=== PATIENT | female | born 1940 | race Caucasian/White ===

== ENCOUNTER 2017-09-17 16:11 | Observation (INO) | payer MEDICARE, OTHER ==
[2017-09-17] MEDS ORDERED: Sodium Chloride 0.9% 10 ML Syringe FLUSH PRN (16:40)
[2017-09-17] MEDS ORDERED: Aspirin 81 MG Tab.Chew PO ONE (16:41)
[2017-09-17 16:53] LABS: CHLORIDE,CL 104 mmol/L (98-107); SODIUM,NA 139 mmol/L (136-145)
--- NOTE | 2017-09-17 17:06 | EDM.PDOC ---
ED HPI GENERAL MEDICAL PROBLEM - General Chief Complaint: Chest Pain Stated Complaint: chest pain Time Seen by Provider: 09/17/17 16:30 Source of Information: Reports: Patient History Limitations: Reports: No Limitations (Patient) - History of Present Illness INITIAL COMMENTS - FREE TEXT/NARRATIVE: Patient is a 77-year-old female well known to myself states that she was at [employer] going home when she developed chest pain she states that the chest pain was about an 8 out of 10 it was so bad that she had to wait for about a minute without moving UNTIL IT LET up a little bit she was able to walk to the car she drove herself in to the hospital/ clinic now being worked up for chest pain EKG shows poor R progression in the anterior cardiac leads no major ST changes at this time Onset: Today, Sudden Duration: Hour(s):, Improving Location: Reports: Chest Quality: Reports: Ache Severity: Moderate Improves with: Reports: None Worsens with: Reports: None Context: Reports: Activity Associated Symptoms: Reports: No Other Symptoms mid chest under breast Pain Score (Numeric/FACES): 2 - Related Data Allergies Allergy/AdvReac Type Severity Reaction Status Date / Time ezetimibe Allergy Cannot Verified 09/17/17 16:36 [From Vytorin 10-10] Remember lisinopril Allergy Cannot Verified 09/17/17 16:36 Remember metformin Allergy Diarrhea Verified 09/17/17 16:36 pioglitazone HCl [From Actos] Allergy Cannot Verified 09/17/17 16:36 Remember rosuvastatin calcium Allergy Diarrhea Verified 09/17/17 16:36 [From Crestor] simvastatin Allergy Cannot Verified 09/17/17 16:36 [From Vytorin 10-10] Remember Home Meds: Home Meds Levothyroxine Sodium [Levoxyl] 25 mcg PO MOWEFR@1100 07/23/13 [History] Metoprolol Tartrate [Lopressor] 25 mg PO BID@1100,199907/23/13 [History] Simvastatin 40 mg PO BEDTIME 07/23/13 [History] Levothyroxine 37.5 mcg PO SUTUTHSA@1100 08/13/15 [History] Acetaminophen [Tylenol] 650 mg PO BEDTIME 08/26/15 [History] Albuterol/Ipratropium [DuoNeb 3.0-0.5 MG/3 ML] 3 ml INH Q4H PRN 04/18/16 [ History] Albuterol [Proventil Neb Soln] 2.5 mg INH Q2H PRN #60 neb 09/02/15 [Rx] Acetaminophen/Diphenhydramine [Tylenol Pm Ex-Strength Caplet] 1 each PO BEDTIME 09/17/17 [History] Albuterol/Ipratropium [DuoNeb 3.0-0.5 MG/3 ML] 3 ml NEB TID 09/17/17 [History] Budesonide [Pulmicort] 0.5 mg INH BID PRN 09/17/17 [History] Dextromethorphan/guaiFENesin [Mucinex DM ER 600-30 MG] 1 tab PO BID PRN [History] Furosemide [Lasix] 40 mg PO DAILY 09/17/17 [History] Insulin Detemir [Levemir] 10 unit SUBCUT BEDTIME 09/17/17 [History] Insulin Lispro [Humalog] 0 unit SQ BID 09/17/17 [History] Loperamide [Imodium AD] 4 mg PO BID PRN 09/17/17 [History] Magnesium Oxide 400 mg PO BEDTIME 09/17/17 [History] Melatonin 10 mg PO DAILY 09/17/17 [History] Potassium Chloride [Klor-Con 10] 30 meq PO DAILY 09/17/17 [History] Sertraline [Zoloft] 100 mg PO BEDTIME 09/17/17 [History] Past Medical History HEENT History: Reports: Allergic Rhinitis, Cataract, Impaired Vision Cardiovascular History: Reports: High Cholesterol, Hypertension, PVD, Other ( See Below) Other Cardiovascular History: varicose veins of the lower extremities Respiratory History: Reports: COPD, Pulmonary Fibrosis Gastrointestinal History: Reports: Bowel Obstruction, Chronic Diarrhea, Diverticulosis, Gastritis, Inflammatory Bowel Disease, Irritable Bowel Syndrome , PUD, Other (See Below) Other Gastrointestinal History: benign right sided hepatic hemangioma stable by serial CT scans, fatty liver, benign hepatic cyst Genitourinary History: Reports: Renal Calculus, Urinary Incontinence Other Genitourinary History: History of kidney stones and 'cysts' RN NEONATAL History: Reports: Musculoskeletal History: Reports: Back Pain, Chronic, Fracture, Neck Pain, Chronic, Osteoarthritis, Osteoporosis Neurological History: Reports: Headaches, Chronic Psychiatric History: Reports: Anxiety, Depression Endocrine/Metabolic History: Reports: Hypothyroidism, IDDM Hematologic History: Reports: None Immunologic History: Reports: None Oncologic (Cancer) History: Reports: Other (See Below) Other Oncologic History: 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 with close followup by urology Dermatologic History: Reports: None - Infectious Disease History Infectious Disease History: Reports: Chicken Pox, Measles, Mumps, Pertussis ( Whooping Cough), Rheumatic Fever, Rubella, Scarlet Fever - Past Surgical History HEENT Surgical History: Reports: Adenoidectomy, Cataract Surgery, Oral Surgery, Tonsillectomy GI Surgical History: Reports: Appendectomy, Cholecystectomy, Colon, Colonoscopy , Lysis of Adhesions, Small Bowel Female Surgical History: Reports: Breast Biopsy, Hysterectomy, Salpingo- Oophorectomy Oncologic Surgical History: Reports: Biopsy of Breast - Past Imaging History Past Imaging History: Reports: DAVID Screen, Carotid US, CAT Scan, Mammogram, Ultrasound, Upper GI X-Ray/Series, Other (See Below) Social & Family History - Family History HEENT: Reports: None Cardiac: Reports: Blood Clots/VTE/DVT, Heart Valve Replacement, High Cholesterol , Hypertension, [place] Respiratory: Reports: COPD GI: Reports: GERD, Inflammatory Bowel Disease : Reports: Renal Disease/Insufficiency OBGYN: Reports: None Musculoskeletal: Reports: None Neurological: Reports: Seizure, Other (See Below) Other Neurological Family History: sister with fatal Down's syndrome in her 50s Psychiatric: Reports: Anxiety, Depression Endocrine/Metabolic: Reports: IDDM Hematologic: Reports: None Immunologic: Reports: None Dermatologic: Reports: None Oncologic: Reports: Breast, Other (See Below) Other Oncologic Family History: 2 maternal aunts with fatal cancer of unknown type - Caffeine Use Caffeine Use: Reports: Coffee (12 cups per day), Soda (1 soda every other day), Tea (one cup per day). Denies: Energy Drinks - Living Situation & Occupation Living situation: Reports: Occupation: Retired ED ROS GENERAL - Review of Systems Review Of Systems: See Below Constitutional: Reports: Weakness, Fatigue HEENT: Reports: No Symptoms Respiratory: Reports: Shortness of Breath Cardiovascular: Reports: Chest Pain Endocrine: Reports: No Symptoms GI/Abdominal: Reports: No Symptoms : Reports: No Symptoms Musculoskeletal: Reports: Other Skin: Reports: No Symptoms Neurological: Reports: No Symptoms Psychiatric: Reports: Anxiety, Depression Hematologic/Lymphatic: Reports: No Symptoms Immunologic: Reports: No Symptoms ED EXAM, GENERAL - Physical Exam Exam: See Below Exam Limited By: No Limitations General Appearance: Alert, WD/WN, No Apparent Distress Eye Exam: Bilateral Eye: PERRL Ears: Normal External Exam, Normal Canal, Hearing Grossly Normal, Normal TMs Ear Exam: Bilateral Ear: Auricle Normal, Canal Normal, TM normal Nose: Normal Inspection, Normal Mucosa, No Blood Throat/Mouth: Normal Inspection, Normal Lips, Normal Teeth, Normal Gums, Normal Oropharynx, Normal Voice, No Airway Compromise Head: Atraumatic, Normocephalic Neck: Normal Inspection, Supple, Non-Tender, Full Range of Motion Respiratory/Chest: No Respiratory Distress, Lungs Clear, Normal Breath Sounds, No Accessory Muscle Use, Chest Non-Tender Cardiovascular: Normal Peripheral Pulses, Regular Rate, Rhythm, No Edema, No Gallop, No JVD, No Murmur, No Rub GI/Abdominal: Normal Bowel Sounds, Soft, Non-Tender, No Organomegaly, No Distention, No Abnormal Bruit, No Mass (Female) Exam: Deferred Rectal (Female) Exam: Deferred Back Exam: Normal Inspection, Full Range of Motion, NT Extremities: Normal Inspection, Normal Range of Motion, Non-Tender, Normal Capillary Refill, No Pedal Edema Neurological: Alert, Oriented, CN II-XII Intact, Normal Cognition, Normal Gait, Normal Reflexes, No Motor/Sensory Deficits Psychiatric: Normal Affect, Normal Mood Skin Exam: Warm, Dry, Intact, Normal Color, No Rash Course - Vital Signs Last Recorded V/S: Last Vital Signs Temp 97.9 F 09/17/17 16:11 Pulse 66 09/17/17 17:45 Resp 19 09/17/17 17:45 BP 108/62 09/17/17 17:45 Pulse Ox 95 09/17/17 17:45 - Orders/Labs/Meds Orders: Active Orders 24 hr Category Date Time Status EKG Documentation Completion [RC] ASDIRECTED Care 09/17/17 16:41 Active Intake and Output [RC] QSHIFT Care 09/17/17 16:30 Active Chest 1V Frontal [CR] Stat Exams 09/17/17 16:24 Taken Sodium Chloride 0.9% [Saline Flush] Med 09/17/17 16:40 Active 10 ml FLUSH ASDIRECTED PRN Saline Lock Insert [OM.PC] Stat Oth 09/17/17 16:37 Ordered Medication Orders Acetaminophen (Tylenol) 650 mg PO BEDTIME [facility] Albuterol (Proventil Neb Soln) 2.5 mg INH Q2H PRN PRN Reason: Dyspnea Albuterol/Ipratropium (Duoneb 3.0-0.5 Mg/3 Ml) 3 ml INH Q4H PRN PRN Reason: Shortness of breath Albuterol/Ipratropium (Duoneb 3.0-0.5 Mg/3 Ml) 3 ml NEB TID [facility] Budesonide (Pulmicort) 0.5 mg INH BID PRN PRN Reason: Dyspnea Furosemide (Lasix) 40 mg PO DAILY [facility] Guaifenesin/Dextromethorphan (Mucinex Dm Er 600-30 Mg) 1 tab PO BID PRN PRN Reason: cough Insulin Detemir (Levemir) 10 unit SUBCUT BEDTIME [facility] Levothyroxine Sodium (Levothyroxine) 37.5 mcg PO SUTUTHSA@1100 [facility] Levothyroxine Sodium (Levothyroxine) 25 mcg PO MOWEFR@1100 [facility] Non-Formulary Medication (Acetaminophen/Diphenhydramine [Tylenol Pm Ex-Strength Caplet]) 1 each PO BEDTIME [facility] Non-Formulary Medication (Insulin Lispro [Humalog Kwikpen U-100]) 10 unit SQ BID [facility] Sodium Chloride (Saline Flush) 10 ml FLUSH ASDIRECTED PRN PRN Reason: Keep Vein Open Labs: Laboratory Tests 09/17/17 09/17/17 09/17/17 Range/Units 16:23 16:23 16:23 WBC 4.8 (4.0-10.2) K/uL RBC 3.21 L (3.77-5.09) M/uL Hgb 10.8 L (11.7-15.5) g/dL Hct 32.8 L (34.0-46.0) % MCV 102.2 H (84.0-98.0) fL MCH 33.6 H (28.2-33.3) pg MCHC 32.9 (31.7-36.0) g/dL RDW 14.3 H (11.2-14.1) % Plt Count 175 (150-350) K/uL Neut % (Auto) 47.2 (45.0-80.0) % Lymph % (Auto) 47.4 (10.0-50.0) % [place] % (Auto) 4.4 (2.0-14.0) % Eos % (Auto) 0.8 (0.0-5.0) % Baso % (Auto) 0.2 (0.0-2.0) % Neut # (Auto) 2.25 (1.40-7.00) K/uL Lymph # (Auto) 2.26 (0.50-3.50) K/uL [place] # (Auto) 0.21 (0.00-1.00) K/uL Eos # (Auto) 0.04 (0.00-0.50) K/uL Baso # (Auto) 0.01 (0.00-0.20) K/uL Sodium 139 (136-145) mmol/L Potassium 4.4 (3.5-5.1) mmol/L Chloride 104 (98-107) mmol/L Carbon Dioxide 25.7 (21.0-32.0) mmol/L BUN 14 (7-18) mg/dL Creatinine 0.94 (0.51-1.17) mg/dL Est Cr Clr Drug Dosing TNP Estimated GFR (MDRD) 58 mL/min Glucose 180 H (74-106) mg/dL Calcium 8.3 L (8.5-10.1) mg/dL Troponin I 0.000 (0.000-0.056) ng/mL Meds: Medications Generic Name Dose Route Start Last Admin Trade Name Freq PRN Reason Stop Dose Admin Acetaminophen 650 mg 09/17/17 20:00 Tylenol PO BEDTIME [facility] Albuterol 2.5 mg 09/17/17 17:57 Proventil Neb Soln INH Q2H PRN Dyspnea Albuterol/Ipratropium 3 ml 09/17/17 17:57 Duoneb 3.0-0.5 Mg/3 Ml INH Q4H PRN Shortness of breath Albuterol/Ipratropium 3 ml 09/17/17 18:00 Duoneb 3.0-0.5 Mg/3 Ml NEB TID [facility] Budesonide 0.5 mg 09/17/17 17:57 Pulmicort INH BID PRN Dyspnea Furosemide 40 mg 09/18/17 08:00 Lasix PO DAILY [facility] Guaifenesin/Dextromethorphan 1 tab 09/17/17 17:57 Mucinex Dm Er 600-30 Mg PO BID PRN cough Insulin Detemir 10 unit 09/17/17 20:00 Levemir SUBCUT BEDTIME [facility] Levothyroxine Sodium 37.5 mcg 09/18/17 11:00 Levothyroxine PO SUTUTHSA@1100 [facility] Levothyroxine Sodium 25 mcg 09/20/17 11:00 Levothyroxine PO MOWEFR@1100 [facility] Non-Formulary Medication 1 each 09/17/17 20:00 Acetaminophen/Diphenhydramine [Tylenol Pm Ex-Strength Caplet] PO BEDTIME [facility] Non-Formulary Medication 10 unit 09/17/17 18:00 Insulin Lispro [Humalog Kwikpen U-100] SQ BID [facility] Sodium Chloride 10 ml 09/17/17 16:40 Saline Flush FLUSH ASDIRECTED PRN Keep Vein Open Discontinued Medications Generic Name Dose Route Start Last Admin Trade Name Freq PRN Reason Stop Dose Admin Aspirin 324 mg 09/17/17 16:41 09/17/17 17:17 Aspirin PO 09/17/17 16:42 324 mg ONETIME ONE Administration Departure - Departure Time of Disposition: 17:12 Disposition: Refer to Observation Clinical Impression: Atypical chest pain, COPD, Mild chronic obstructive pulmonary disease - Problem List Review Problem List Initiated/Reviewed/Updated: Yes - My Orders Last 24 Hours: My Active Orders 09/17/17 16:24 Chest 1V Frontal [CR] Stat 09/17/17 16:30 Intake and Output [RC] QSHIFT 09/17/17 16:37 Saline Lock Insert [OM.PC] Stat 09/17/17 16:40 Sodium Chloride 0.9% [Saline Flush] 10 ml FLUSH ASDIRECTED PRN 09/17/17 16:41 EKG Documentation Completion [RC] ASDIRECTED - Assessment/Plan Last 24 Hours: My Active Orders 09/17/17 16:24 Chest 1V Frontal [CR] Stat 09/17/17 16:30 Intake and Output [RC] QSHIFT 09/17/17 16:37 Saline Lock Insert [OM.PC] Stat 09/17/17 16:40 Sodium Chloride 0.9% [Saline Flush] 10 ml FLUSH ASDIRECTED PRN 09/17/17 16:41 EKG Documentation Completion [RC] ASDIRECTED Assessment:: Chest pain Plan: Patient will be admitted as an observation rule out [place] to his pain patient will be admitted to rule out [place]
[2017-09-17] MEDS ORDERED: Budesonide 0.5 MG/2 ML Neb Susp INH PRN (17:57)
[2017-09-17] MEDS ORDERED: Loperamide 2 MG Tab PO PRN (17:57)
[2017-09-17] MEDS ORDERED: Dextromethorphan/guaiFENesin 600-30 MG Tab.ER PO PRN (17:57)
[2017-09-17] MEDS ORDERED: Albuterol 0.083% 2.5 MG/3 ML Neb Soln INH PRN (17:57)
[2017-09-17] MEDS ORDERED: Albuterol/Ipratropium 3.0-0.5 MG/3 ML Neb Soln INH PRN (17:57)
[2017-09-17] MEDS ORDERED: INSULIN LISPRO 10 UNIT SQ SCH (18:00)
[2017-09-17] MEDS ORDERED: Acetaminophen 325 MG Tab PO SCH (20:00)
[2017-09-17] MEDS ORDERED: Magnesium Oxide 400 MG Tab PO SCH (20:00)
[2017-09-17] MEDS ORDERED: Non-Formulary Medication 1 Each (Sertraline [Zoloft] 100 MG) PO SCH (20:00)
[2017-09-17] MEDS ORDERED: Insulin Detemir 100 Units/ML 3 ML Pen SUBCUT SCH (20:00)
[2017-09-17] MEDS ORDERED: Metoprolol Tartrate 25 MG Tab PO SCH (20:00)
[2017-09-17] MEDS ORDERED: diphenhydrAMINE 25 MG Cap PO SCH (20:30)
[2017-09-17] MEDS ORDERED: Acetaminophen 500 MG Tab PO SCH (20:30)
[2017-09-17] MEDS ORDERED: Melatonin 3 MG Tab PO SCH (20:30)
[2017-09-17] MEDS ORDERED: Sertraline 50 MG Tab PO SCH (20:30)
[2017-09-17] MEDS: Albuterol/Ipratropium 3.0-0.5 MG/3 ML Neb Soln NEB SCH (21:18)
[2017-09-17] MEDS: Insulin Isophane NPH, Human 100 Units/ML 3 ML Pen SUBCUT SCH (21:19)
[2017-09-17] MEDS: Nicotine 21 MG/24 Hr Patch TRDERM SCH (21:20)
[2017-09-17] MEDS ORDERED: Acetaminophen 500 MG Tab PO ONE (21:32)
[2017-09-17] MEDS ORDERED: Sertraline 50 MG Tab PO ONE (21:34)
[2017-09-18 07:41] LABS: CHLORIDE,CL 107 mmol/L (98-107); SODIUM,NA 141 mmol/L (136-145)
[2017-09-18] MEDS: Albuterol/Ipratropium 3.0-0.5 MG/3 ML Neb Soln NEB SCH (07:48)
[2017-09-18] MEDS: Insulin Isophane NPH, Human 100 Units/ML 3 ML Pen SUBCUT SCH (07:48)
[2017-09-18] MEDS: Nicotine 21 MG/24 Hr Patch TRDERM SCH (07:49)
[2017-09-18] MEDS ORDERED: Non-Formulary Medication 1 Each (Melatonin [Melatonin] 10 MG) PO SCH (08:00)
[2017-09-18] MEDS ORDERED: Potassium Chloride 10 MEQ Tab.ER PO SCH (08:00)
[2017-09-18] MEDS ORDERED: Levothyroxine 25 MCG Tab PO SCH ×2 (08:00→11:00)
[2017-09-18] MEDS ORDERED: Furosemide 40 MG Tab PO SCH (08:00)
[2017-09-18] MEDS ORDERED: Metoprolol Tartrate 25 MG Tab PO SCH (08:00)
[2017-09-18 12:23] VITALS: BP 131/59
--- NOTE | 2017-09-18 12:25 | PCM.PN ---
- General Info Date of Service: 09/18/17 Functional Status: Reports: Pain Controlled, Ambulating - Review of Systems General: Reports: No Symptoms HEENT: Reports: No Symptoms Pulmonary: Reports: No Symptoms Cardiovascular: Reports: No Symptoms Gastrointestinal: Reports: No Symptoms Genitourinary: Reports: No Symptoms Musculoskeletal: Reports: No Symptoms Skin: Reports: No Symptoms Neurological: Reports: No Symptoms Psychiatric: Reports: No Symptoms - Patient Data Vitals - Most Recent: Last Vital Signs Temp 97.6 F 09/18/17 08:00 Pulse 72 09/18/17 08:01 Resp 16 09/18/17 08:00 BP 137/57 L 09/18/17 08:01 Pulse Ox 94 L 09/18/17 08:00 Weight - Most Recent: 139 lb 1.6 oz I&O - Last 24 Hours: Intake & Output 09/17/17 09/18/17 09/18/17 22:59 06:59 14:59 Intake Total 420 740 840 Balance 420 740 840 Lab Results Last 24 Hours: Laboratory Results - last 24 hr 09/17/17 09/17/17 09/17/17 Range/Units 16:23 16:23 16:23 WBC 4.8 (4.0-10.2) K/uL RBC 3.21 L (3.77-5.09) M/uL Hgb 10.8 L (11.7-15.5) g/dL Hct 32.8 L (34.0-46.0) % MCV 102.2 H (84.0-98.0) fL MCH 33.6 H (28.2-33.3) pg MCHC 32.9 (31.7-36.0) g/dL RDW 14.3 H (11.2-14.1) % Plt Count 175 (150-350) K/uL Neut % (Auto) 47.2 (45.0-80.0) % Lymph % (Auto) 47.4 (10.0-50.0) % [place] % (Auto) 4.4 (2.0-14.0) % Eos % (Auto) 0.8 (0.0-5.0) % Baso % (Auto) 0.2 (0.0-2.0) % Neut # (Auto) 2.25 (1.40-7.00) K/uL Lymph # (Auto) 2.26 (0.50-3.50) K/uL [place] # (Auto) 0.21 (0.00-1.00) K/uL Eos # (Auto) 0.04 (0.00-0.50) K/uL Baso # (Auto) 0.01 (0.00-0.20) K/uL Sodium 139 (136-145) mmol/L Potassium 4.4 (3.5-5.1) mmol/L Chloride 104 (98-107) mmol/L Carbon Dioxide 25.7 (21.0-32.0) mmol/L BUN 14 (7-18) mg/dL Creatinine 0.94 (0.51-1.17) mg/dL Est Cr Clr Drug Dosing TNP Estimated GFR (MDRD) 58 mL/min Glucose 180 H (74-106) mg/dL POC Glucose (65-110) mg/dl Calcium 8.3 L (8.5-10.1) mg/dL Troponin I 0.000 (0.000-0.056) ng/mL 09/17/17 09/17/17 09/18/17 Range/Units 21:16 22:45 06:40 WBC 2.9 L (4.0-10.2) K/uL RBC 2.86 L (3.77-5.09) M/uL Hgb 9.6 L (11.7-15.5) g/dL Hct 29.4 L (34.0-46.0) % MCV 102.8 H (84.0-98.0) fL MCH 33.6 H (28.2-33.3) pg MCHC 32.7 (31.7-36.0) g/dL RDW 14.1 (11.2-14.1) % Plt Count 140 L (150-350) K/uL Neut % (Auto) 37.0 L (45.0-80.0) % Lymph % (Auto) 58.6 H (10.0-50.0) % [place] % (Auto) 3.4 (2.0-14.0) % Eos % (Auto) 1.0 (0.0-5.0) % Baso % (Auto) 0.0 (0.0-2.0) % Neut # (Auto) 1.08 L (1.40-7.00) K/uL Lymph # (Auto) 1.71 (0.50-3.50) K/uL [place] # (Auto) 0.10 (0.00-1.00) K/uL Eos # (Auto) 0.03 (0.00-0.50) K/uL Baso # (Auto) 0.00 (0.00-0.20) K/uL Sodium (136-145) mmol/L Potassium (3.5-5.1) mmol/L Chloride (98-107) mmol/L Carbon Dioxide (21.0-32.0) mmol/L BUN (7-18) mg/dL Creatinine (0.51-1.17) mg/dL Est Cr Clr Drug Dosing Estimated GFR (MDRD) mL/min Glucose (74-106) mg/dL POC Glucose 190 H (65-110) mg/dl Calcium (8.5-10.1) mg/dL Troponin I 0.000 (0.000-0.056) ng/mL 09/18/17 09/18/17 Range/Units 06:40 07:47 WBC (4.0-10.2) K/uL RBC (3.77-5.09) M/uL Hgb (11.7-15.5) g/dL Hct (34.0-46.0) % MCV (84.0-98.0) fL MCH (28.2-33.3) pg MCHC (31.7-36.0) g/dL RDW (11.2-14.1) % Plt Count (150-350) K/uL Neut % (Auto) (45.0-80.0) % Lymph % (Auto) (10.0-50.0) % [place] % (Auto) (2.0-14.0) % Eos % (Auto) (0.0-5.0) % Baso % (Auto) (0.0-2.0) % Neut # (Auto) (1.40-7.00) K/uL Lymph # (Auto) (0.50-3.50) K/uL [place] # (Auto) (0.00-1.00) K/uL Eos # (Auto) (0.00-0.50) K/uL Baso # (Auto) (0.00-0.20) K/uL Sodium 141 (136-145) mmol/L Potassium 3.7 (3.5-5.1) mmol/L Chloride 107 (98-107) mmol/L Carbon Dioxide 26.9 (21.0-32.0) mmol/L BUN 15 (7-18) mg/dL Creatinine 0.81 (0.51-1.17) mg/dL Est Cr Clr Drug Dosing 52.34 Estimated GFR (MDRD) > 60 mL/min Glucose 223 H (74-106) mg/dL POC Glucose 168 H (65-110) mg/dl Calcium 8.3 L (8.5-10.1) mg/dL Troponin I 0.000 (0.000-0.056) ng/mL Med Orders - Current: Current Medications Acetaminophen (Tylenol) 650 mg PO BEDTIME [facility] Last Admin: 09/17/17 21:23 Dose: 650 mg Acetaminophen (Tylenol Extra Strength) 500 mg PO BEDTIME [facility] Albuterol (Proventil Neb Soln) 2.5 mg INH Q2H PRN PRN Reason: Dyspnea Albuterol/Ipratropium (Duoneb 3.0-0.5 Mg/3 Ml) 3 ml INH Q4H PRN PRN Reason: Shortness of breath Albuterol/Ipratropium (Duoneb 3.0-0.5 Mg/3 Ml) 3 ml NEB TID [facility] Last Admin: 09/18/17 07:48 Dose: 3 ml Budesonide (Pulmicort) 0.5 mg INH BID PRN PRN Reason: Dyspnea Diphenhydramine HCl (Benadryl) 25 mg PO BEDTIME [facility] Last Admin: 09/17/17 21:22 Dose: 25 mg Furosemide (Lasix) 40 mg PO DAILY [facility] Last Admin: 09/18/17 07:49 Dose: 40 mg Guaifenesin/Dextromethorphan (Mucinex Dm Er 600-30 Mg) 1 tab PO BID PRN PRN Reason: cough Insulin Detemir (Levemir) 10 unit SUBCUT BEDTIME [facility] Last Admin: 09/17/17 21:21 Dose: 10 units Insulin Human NPH (Humulin N) 0 unit SUBCUT BID [facility]; Protocol Last Admin: 09/18/17 07:48 Dose: 2 units Levothyroxine Sodium (Levothyroxine) 25 mcg PO MOWEFR@1100 [facility] Levothyroxine Sodium (Levothyroxine) 37.5 mcg PO SUTUTHSA@0800 [facility] Last Admin: 09/18/17 08:00 Dose: 37.5 mcg Loperamide HCl (Imodium Ad) 4 mg PO BID PRN PRN Reason: Diarrhea Magnesium Oxide (Magnesium Oxide) 400 mg PO BEDTIME [facility] Last Admin: 09/17/17 21:23 Dose: 400 mg Melatonin (Melatonin) 9 mg PO BEDTIME [facility] Last Admin: 09/17/17 21:22 Dose: 9 mg Metoprolol Tartrate (Lopressor) 25 mg PO BID@799,1999 [facility] Last Admin: 09/18/17 08:01 Dose: 25 mg Nicotine (Habitrol) 21 mg TRDERM DAILY [facility] Last Admin: 09/18/17 07:49 Dose: 21 mg Potassium Chloride (Klor-Con 10) 30 meq PO DAILY [facility] Last Admin: 09/18/17 07:49 Dose: 30 meq Sertraline HCl (Zoloft) 100 mg PO BEDTIME [facility] Sodium Chloride (Saline Flush) 10 ml FLUSH ASDIRECTED PRN PRN Reason: Keep Vein Open Last Admin: 09/17/17 21:39 Dose: 10 ml Discontinued Medications Acetaminophen (Tylenol Extra Strength) 500 mg PO ONETIME ONE Stop: 09/17/17 21:33 Last Admin: 09/17/17 21:37 Dose: 500 mg Aspirin (Aspirin) 324 mg PO ONETIME ONE Stop: 09/17/17 16:42 Last Admin: 09/17/17 17:17 Dose: 324 mg Levothyroxine Sodium (Levothyroxine) 37.5 mcg PO SUTUTHSA@1100 [facility] Metoprolol Tartrate (Lopressor) 25 mg PO BID@ [facility] Last Admin: 09/17/17 21:23 Dose: 25 mg Non-Formulary Medication (Acetaminophen/Diphenhydramine [Tylenol Pm Ex-Strength Caplet]) 1 each PO BEDTIME [facility] Last Admin: 09/17/17 21:45 Dose: Not Given Non-Formulary Medication (Insulin Lispro [Humalog Kwikpen U-100]) 10 unit SQ BID [facility] Last Admin: 09/17/17 21:45 Dose: Not Given Non-Formulary Medication (Melatonin [Melatonin]) 10 mg PO DAILY [facility] Non-Formulary Medication (Sertraline [Zoloft]) 100 mg PO BEDTIME [facility] Last Admin: 09/17/17 21:45 Dose: Not Given Sertraline HCl (Zoloft) 100 mg PO ONETIME ONE Stop: 09/17/17 21:35 Last Admin: 09/17/17 21:37 Dose: 100 mg Comments:: Patient is a 77-year-old female who was admitted with acute chest pain at this time troponins 3 were negative labs a beer within normal limits except for blood glucose which was elevated she is on a sliding scale at home and she'll continue it resume all medications at the time of discharge he did add nicotine patches to her home medication - Exam General: Alert, Oriented HEENT: Pupils Equal, Pupils Reactive, EOMI, Mucous Membr. Moist/[place] Neck: Supple Lungs: Clear to Auscultation, Normal Respiratory Effort Cardiovascular: Regular Rate, Regular Rhythm GI/Abdominal Exam: Normal Bowel Sounds, Soft, Non-Tender, No Organomegaly, No Distention, No Abnormal Bruit, No Mass, Pelvis Stable (Female) Exam: Deferred Back Exam: Normal Inspection, Full Range of Motion Extremities: Normal Inspection, Normal Range of Motion, Non-Tender, No Pedal Edema, Normal Capillary Refill Skin: Warm, Dry, Intact Wound/Incisions: Healing Well Neurological: No New Focal Deficit - Problem List & Annotations (1) Nicotine addiction SNOMED Code(s): 85680383 Code(s): F17.200 - NICOTINE DEPENDENCE, UNSPECIFIED, UNCOMPLICATED Status: Acute Current Visit: Yes Annotation/Comment:: Patient started on nicotine patches to assist in quitting (2) Atypical chest pain SNOMED Code(s): 212904434 Code(s): R07.89 - OTHER CHEST PAIN Status: Acute Current Visit: Yes (3) COPD, Mild chronic obstructive pulmonary disease SNOMED Code(s): 498152274 Code(s): J44.9 - CHRONIC OBSTRUCTIVE PULMONARY DISEASE, UNSPECIFIED Status : Acute Priority: Medium Current Visit: Yes Annotation/Comment:: COPD currently under good control by patient history despite recent refractory pneumonia - Problem List Review Problem List Initiated/Reviewed/Updated: Yes - My Orders Last 24 Hours: My Active Orders 09/17/17 16:24 Chest 1V Frontal [CR] Stat 09/17/17 16:30 Intake and Output [RC] QSHIFT 09/17/17 16:37 Saline Lock Insert [OM.PC] Stat 09/17/17 16:40 Sodium Chloride 0.9% [Saline Flush] 10 ml FLUSH ASDIRECTED PRN 09/17/17 16:41 EKG Documentation Completion [RC] ASDIRECTED 09/17/17 17:57 Albuterol [Proventil Neb Soln] 2.5 mg INH Q2H PRN Albuterol/Ipratropium [DuoNeb 3.0-0.5 MG/3 ML] 3 ml INH Q4H PRN Budesonide [Pulmicort] 0.5 mg INH BID PRN Dextromethorphan/guaiFENesin [Mucinex DM ER 600-30 MG] 1 tab PO BID PRN Loperamide [Imodium AD] 4 mg PO BID PRN 09/17/17 18:00 Albuterol/Ipratropium [DuoNeb 3.0-0.5 MG/3 ML] 3 ml NEB TID 09/17/17 18:15 Admission Status [Patient Status] [ADT] Routine Nph, Human Insulin Isophane [HumuLIN N] See Protocol SUBCUT BID 09/17/17 19:09 Resuscitation Status Routine 09/17/17 19:13 Blood Glucose Check, Bedside [RC] BIDMEALS 09/17/17 19:15 Nicotine [Habitrol] 21 mg TRDERM DAILY 09/17/17 20:00 Vital Signs [RC] Q4H Acetaminophen [Tylenol] 650 mg PO BEDTIME Insulin Detemir [Levemir] 10 unit SUBCUT BEDTIME Magnesium Oxide 400 mg PO BEDTIME 09/17/17 20:30 Acetaminophen [Tylenol Extra Strength] 500 mg PO BEDTIME Melatonin 9 mg PO BEDTIME Sertraline [Zoloft] 100 mg PO BEDTIME diphenhydrAMINE [Benadryl] 25 mg PO BEDTIME 09/17/17 21:00 Accu Check [Blood Glucose Check, Bedside] [RC] ONETIME 09/17/17 Dinner [employer] Diet [DIET] 09/18/17 07:00 EKG Documentation Completion [RC] ASDIRECTED 09/18/17 08:00 Furosemide [Lasix] 40 mg PO DAILY Levothyroxine 37.5 mcg PO SUTUTHSA@0800 Metoprolol Tartrate [Lopressor] 25 mg PO BID@0800,1999 Potassium Chloride [Klor-Con 10] 30 meq PO DAILY 09/18/17 12:13 Ready for Discharge [RC] PER UNIT ROUTINE 09/20/17 11:00 Levothyroxine 25 mcg PO MOWEFR@1100 - Plan Plan:: Patient will be discharged home on same medications plus nicotine patches to assist with quitting smoking
--- NOTE | 2017-09-18 12:28 | PCM.DCSUM1 ---
Discharge Summary - Hospital Course Free Text/Narrative:: Patient is a 77-year-old who was admitted with chest pain at this time she was ruled out of [place] doing well we'll be sent home follow up with me in 10 days we will go ahead and schedule her for cardiac stress test when possible - Discharge Data Discharge Date: 09/18/17 Discharge Disposition: Home, Self-Care 01 Condition: Good - Discharge Diagnosis/Problem(s) (1) Nicotine addiction SNOMED Code(s): 93367118 ICD Code: F17.200 - NICOTINE DEPENDENCE, UNSPECIFIED, UNCOMPLICATED Status : Acute Current Visit: Yes Problem Details: Patient started on nicotine patches to assist in quitting (2) Atypical chest pain SNOMED Code(s): 073895909 ICD Code: R07.89 - OTHER CHEST PAIN Status: Acute Current Visit: Yes (3) COPD, Mild chronic obstructive pulmonary disease SNOMED Code(s): 433466412 ICD Code: J44.9 - CHRONIC OBSTRUCTIVE PULMONARY DISEASE, UNSPECIFIED Status : Acute Priority: Medium Current Visit: Yes Problem Details: COPD currently under good control by patient history despite recent refractory pneumonia - Discharge Plan Prescriptions/Med Rec: Nicotine [Nicoderm CQ] 22 patch TD DAILY 30 Days #30 patch.[id number] Home Medications: Home Meds Levothyroxine Sodium [Levoxyl] 25 mcg PO MOWEFR@1100 07/23/13 [History] Metoprolol Tartrate [Lopressor] 25 mg PO BID@1100,199907/23/13 [History] Simvastatin 40 mg PO BEDTIME 07/23/13 [History] Levothyroxine 37.5 mcg PO SUTUTHSA@1100 08/13/15 [History] Acetaminophen [Tylenol] 650 mg PO BEDTIME 08/26/15 [History] Albuterol/Ipratropium [DuoNeb 3.0-0.5 MG/3 ML] 3 ml INH Q4H PRN 08/26/15 [ History] Albuterol [Proventil Neb Soln] 2.5 mg INH Q2H PRN #60 neb 09/02/15 [Rx] Acetaminophen/Diphenhydramine [Tylenol Pm Ex-Strength Caplet] 1 each PO BEDTIME 09/17/17 [History] Albuterol/Ipratropium [DuoNeb 3.0-0.5 MG/3 ML] 3 ml NEB TID 09/17/17 [History] Budesonide [Pulmicort] 0.5 mg INH BID PRN 09/17/17 [History] Dextromethorphan/guaiFENesin [Mucinex DM ER 600-30 MG] 1 tab PO BID PRN [History] Furosemide [Lasix] 40 mg PO DAILY 09/17/17 [History] Insulin Detemir [Levemir] 10 unit SUBCUT BEDTIME 09/17/17 [History] Insulin Lispro [Humalog] 0 unit SQ BID 09/17/17 [History] Loperamide [Imodium AD] 4 mg PO BID PRN 09/17/17 [History] Magnesium Oxide 400 mg PO BEDTIME 09/17/17 [History] Melatonin 10 mg PO BEDTIME 09/17/17 [History] Potassium Chloride [Klor-Con 10] 30 meq PO DAILY 09/17/17 [History] Sertraline [Zoloft] 100 mg PO BEDTIME 09/17/17 [History] Nicotine [Nicoderm CQ] 22 patch TD DAILY 30 Days #30 patch.td24 09/18/17 [Rx] Patient Handouts: Chronic Obstructive Pulmonary Disease, [id number], Nonspecific Chest Pain, [id number], Acute Pain, Adult Forms: ED Department Discharge Referrals: Jayson Small MD [Primary Care Provider] - - General Info Functional Status: Reports: Pain Controlled - Review of Systems General: Reports: No Symptoms HEENT: Reports: No Symptoms Pulmonary: Reports: No Symptoms Cardiovascular: Reports: No Symptoms Genitourinary: Reports: No Symptoms Musculoskeletal: Reports: No Symptoms Skin: Reports: No Symptoms Neurological: Reports: No Symptoms Psychiatric: Reports: No Symptoms - Patient Data Vitals - Most Recent: Last Vital Signs Temp 98.2 F 09/18/17 12:00 Pulse 69 09/18/17 12:00 Resp 16 09/18/17 12:00 BP 131/59 L 09/18/17 12:00 Pulse Ox 95 09/18/17 12:00 Weight - Most Recent: 139 lb 1.6 oz I&O - Last 24 hours: Intake & Output 09/17/17 09/18/17 09/18/17 22:59 06:59 14:59 Intake Total 020 932 0612 Balance 054 194 1435 Lab Results - Last 24 hrs: Laboratory Results - last 24 hr 09/17/17 09/17/17 09/17/17 Range/Units 16:23 16:23 16:23 WBC 4.8 (4.0-10.2) K/uL RBC 3.21 L (3.77-5.09) M/uL Hgb 10.8 L (11.7-15.5) g/dL Hct 32.8 L (34.0-46.0) % MCV 102.2 H (84.0-98.0) fL MCH 33.6 H (28.2-33.3) pg MCHC 32.9 (31.7-36.0) g/dL RDW 14.3 H (11.2-14.1) % Plt Count 175 (150-350) K/uL Neut % (Auto) 47.2 (45.0-80.0) % Lymph % (Auto) 47.4 (10.0-50.0) % [place] % (Auto) 4.4 (2.0-14.0) % Eos % (Auto) 0.8 (0.0-5.0) % Baso % (Auto) 0.2 (0.0-2.0) % Neut # (Auto) 2.25 (1.40-7.00) K/uL Lymph # (Auto) 2.26 (0.50-3.50) K/uL [place] # (Auto) 0.21 (0.00-1.00) K/uL Eos # (Auto) 0.04 (0.00-0.50) K/uL Baso # (Auto) 0.01 (0.00-0.20) K/uL Sodium 139 (136-145) mmol/L Potassium 4.4 (3.5-5.1) mmol/L Chloride 104 (98-107) mmol/L Carbon Dioxide 25.7 (21.0-32.0) mmol/L BUN 14 (7-18) mg/dL Creatinine 0.94 (0.51-1.17) mg/dL Est Cr Clr Drug Dosing TNP Estimated GFR (MDRD) 58 mL/min Glucose 180 H (74-106) mg/dL POC Glucose (65-110) mg/dl Calcium 8.3 L (8.5-10.1) mg/dL Troponin I 0.000 (0.000-0.056) ng/mL 09/17/17 09/17/17 09/18/17 Range/Units 21:16 22:45 06:40 WBC 2.9 L (4.0-10.2) K/uL RBC 2.86 L (3.77-5.09) M/uL Hgb 9.6 L (11.7-15.5) g/dL Hct 29.4 L (34.0-46.0) % MCV 102.8 H (84.0-98.0) fL MCH 33.6 H (28.2-33.3) pg MCHC 32.7 (31.7-36.0) g/dL RDW 14.1 (11.2-14.1) % Plt Count 140 L (150-350) K/uL Neut % (Auto) 37.0 L (45.0-80.0) % Lymph % (Auto) 58.6 H (10.0-50.0) % [place] % (Auto) 3.4 (2.0-14.0) % Eos % (Auto) 1.0 (0.0-5.0) % Baso % (Auto) 0.0 (0.0-2.0) % Neut # (Auto) 1.08 L (1.40-7.00) K/uL Lymph # (Auto) 1.71 (0.50-3.50) K/uL [place] # (Auto) 0.10 (0.00-1.00) K/uL Eos # (Auto) 0.03 (0.00-0.50) K/uL Baso # (Auto) 0.00 (0.00-0.20) K/uL Sodium (136-145) mmol/L Potassium (3.5-5.1) mmol/L Chloride (98-107) mmol/L Carbon Dioxide (21.0-32.0) mmol/L BUN (7-18) mg/dL Creatinine (0.51-1.17) mg/dL Est Cr Clr Drug Dosing Estimated GFR (MDRD) mL/min Glucose (74-106) mg/dL POC Glucose 190 H (65-110) mg/dl Calcium (8.5-10.1) mg/dL Troponin I 0.000 (0.000-0.056) ng/mL 09/18/17 09/18/17 Range/Units 06:40 07:47 WBC (4.0-10.2) K/uL RBC (3.77-5.09) M/uL Hgb (11.7-15.5) g/dL Hct (34.0-46.0) % MCV (84.0-98.0) fL MCH (28.2-33.3) pg MCHC (31.7-36.0) g/dL RDW (11.2-14.1) % Plt Count (150-350) K/uL Neut % (Auto) (45.0-80.0) % Lymph % (Auto) (10.0-50.0) % [place] % (Auto) (2.0-14.0) % Eos % (Auto) (0.0-5.0) % Baso % (Auto) (0.0-2.0) % Neut # (Auto) (1.40-7.00) K/uL Lymph # (Auto) (0.50-3.50) K/uL [place] # (Auto) (0.00-1.00) K/uL Eos # (Auto) (0.00-0.50) K/uL Baso # (Auto) (0.00-0.20) K/uL Sodium 141 (136-145) mmol/L Potassium 3.7 (3.5-5.1) mmol/L Chloride 107 (98-107) mmol/L Carbon Dioxide 26.9 (21.0-32.0) mmol/L BUN 15 (7-18) mg/dL Creatinine 0.81 (0.51-1.17) mg/dL Est Cr Clr Drug Dosing 52.34 Estimated GFR (MDRD) > 60 mL/min Glucose 223 H (74-106) mg/dL POC Glucose 168 H (65-110) mg/dl Calcium 8.3 L (8.5-10.1) mg/dL Troponin I 0.000 (0.000-0.056) ng/mL Med Orders - Current: Current Medications Acetaminophen (Tylenol) 650 mg PO BEDTIME LEONID Last Admin: 09/17/17 21:23 Dose: 650 mg Acetaminophen (Tylenol Extra Strength) 500 mg PO BEDTIME [facility] Albuterol (Proventil Neb Soln) 2.5 mg INH Q2H PRN PRN Reason: Dyspnea Albuterol/Ipratropium (Duoneb 3.0-0.5 Mg/3 Ml) 3 ml INH Q4H PRN PRN Reason: Shortness of breath Albuterol/Ipratropium (Duoneb 3.0-0.5 Mg/3 Ml) 3 ml NEB TID [facility] Last Admin: 09/18/17 07:48 Dose: 3 ml Budesonide (Pulmicort) 0.5 mg INH BID PRN PRN Reason: Dyspnea Diphenhydramine HCl (Benadryl) 25 mg PO BEDTIME [facility] Last Admin: 09/17/17 21:22 Dose: 25 mg Furosemide (Lasix) 40 mg PO DAILY [facility] Last Admin: 09/18/17 07:49 Dose: 40 mg Guaifenesin/Dextromethorphan (Mucinex Dm Er 600-30 Mg) 1 tab PO BID PRN PRN Reason: cough Insulin Detemir (Levemir) 10 unit SUBCUT BEDTIME [facility] Last Admin: 09/17/17 21:21 Dose: 10 units Insulin Human NPH (Humulin N) 0 unit SUBCUT BID [facility]; Protocol Last Admin: 09/18/17 07:48 Dose: 2 units Levothyroxine Sodium (Levothyroxine) 25 mcg PO MOWEFR@1100 [facility] Levothyroxine Sodium (Levothyroxine) 37.5 mcg PO SUTUTHSA@0800 [facility] Last Admin: 09/18/17 08:00 Dose: 37.5 mcg Loperamide HCl (Imodium Ad) 4 mg PO BID PRN PRN Reason: Diarrhea Magnesium Oxide (Magnesium Oxide) 400 mg PO BEDTIME [facility] Last Admin: 09/17/17 21:23 Dose: 400 mg Melatonin (Melatonin) 9 mg PO BEDTIME [facility] Last Admin: 09/17/17 21:22 Dose: 9 mg Metoprolol Tartrate (Lopressor) 25 mg PO BID@0800,2000 [facility] Last Admin: 09/18/17 08:01 Dose: 25 mg Nicotine (Habitrol) 21 mg TRDERM DAILY [facility] Last Admin: 09/18/17 07:49 Dose: 21 mg Potassium Chloride (Klor-Con 10) 30 meq PO DAILY [facility] Last Admin: 09/18/17 07:49 Dose: 30 meq Sertraline HCl (Zoloft) 100 mg PO BEDTIME [facility] Sodium Chloride (Saline Flush) 10 ml FLUSH ASDIRECTED PRN PRN Reason: Keep Vein Open Last Admin: 09/17/17 21:39 Dose: 10 ml Discontinued Medications Acetaminophen (Tylenol Extra Strength) 500 mg PO ONETIME ONE Stop: 09/17/17 21:33 Last Admin: 09/17/17 21:37 Dose: 500 mg Aspirin (Aspirin) 324 mg PO ONETIME ONE Stop: 09/17/17 16:42 Last Admin: 09/17/17 17:17 Dose: 324 mg Levothyroxine Sodium (Levothyroxine) 37.5 mcg PO SUTUTHSA@1100 [facility] Metoprolol Tartrate (Lopressor) 25 mg PO BID@1100,2000 [facility] Last Admin: 09/17/17 21:23 Dose: 25 mg Non-Formulary Medication (Acetaminophen/Diphenhydramine [Tylenol Pm Ex-Strength Caplet]) 1 each PO BEDTIME [facility] Last Admin: 09/17/17 21:45 Dose: Not Given Non-Formulary Medication (Insulin Lispro [Humalog Kwikpen U-100]) 10 unit SQ BID [facility] Last Admin: 09/17/17 21:45 Dose: Not Given Non-Formulary Medication (Melatonin [Melatonin]) 10 mg PO DAILY [facility] Non-Formulary Medication (Sertraline [Zoloft]) 100 mg PO BEDTIME [facility] Last Admin: 09/17/17 21:45 Dose: Not Given Sertraline HCl (Zoloft) 100 mg PO ONETIME ONE Stop: 09/17/17 21:35 Last Admin: 09/17/17 21:37 Dose: 100 mg - Exam General: Reports: Alert, Oriented HEENT: Reports: Pupils Equal, Pupils Reactive, EOMI, Mucous Membr. Moist/[place] Neck: Reports: Supple Lungs: Reports: Clear to Auscultation, Normal Respiratory Effort Cardiovascular: Reports: Regular Rate, Regular Rhythm GI/Abdominal Exam: Normal Bowel Sounds, Soft, Non-Tender, No Organomegaly, No Distention, No Abnormal Bruit, No Mass, Pelvis Stable (Female) Exam: Deferred Rectal (Female) Exam: Deferred Back Exam: Reports: Normal Inspection, Full Range of Motion Extremities: Normal Inspection, Normal Range of Motion, Non-Tender, No Pedal Edema, Normal Capillary Refill Skin: Reports: Warm, Dry, Intact Neurological: Reports: No New Focal Deficit Psy/Mental Status: Reports: Alert, Normal Affect, Normal Mood
[2017-09-20] MEDS ORDERED: Levothyroxine 25 MCG Tab PO SCH (11:00)
== END 2017-09-18 12:55 | disposition home or self-care (01) ==
LOC: LL.ED 16:11 → UNDOADMOB 17:10 → LL.MS 17:10 → UNDODISOB 09-18 12:55
PROVIDERS: ADMIT Family Medicine; ATTEND Family Medicine
DX: R07.89 Other chest pain (principal); F17.200 Nicotine dependence, unspecified, uncomplicated; J44.9 Chronic obstructive pulmonary disease, unspecified; J30.9 Allergic rhinitis, unspecified; E78.00 Pure hypercholesterolemia, unspecified; I10 Essential (primary) hypertension; I83.90 Asymptomatic varicose veins of unspecified lower extremity; F41.9 Anxiety disorder, unspecified; F32.9 Major depressive disorder, single episode, unspecified; E03.9 Hypothyroidism, unspecified; E11.51 Type 2 diabetes mellitus with diabetic peripheral angiopathy without gangrene; Z90.89 Acquired absence of other organs; Z79.899 Other long term (current) drug therapy; Z79.4 Long term (current) use of insulin; Z88.8 Allergy status to other drugs, medicaments and biological substances; Z90.49 Acquired absence of other specified parts of digestive tract
CPT/HCPCS: 36000; 36415; 71045; 80048; 82962; 84484; 85025; 93005; 94640; 99285; A9270-GY; G0378; J1815; J1815-GY; J7050

== ENCOUNTER 2018-10-15 21:16 | Observation (INO) | payer MEDICARE, OTHER ==
[2018-10-15] MEDS ORDERED: Sodium Chloride 0.9% 10 ML Syringe FLUSH PRN (22:10)
--- NOTE | 2018-10-15 22:16 | EDM.PDOC ---
ED HPI GENERAL MEDICAL PROBLEM - General Chief Complaint: General Stated Complaint: SOB / right side pain Time Seen by Provider: 10/15/18 21:25 Source of Information: Reports: Patient History Limitations: Reports: No Limitations - History of Present Illness INITIAL COMMENTS - FREE TEXT/NARRATIVE: Patient is a 78-year-old who states that about 4 days ago she started getting sick with progressive shortness "what of breath today she presents with shortness of breath difficulty taking a deep breath. Onset: Gradual Duration: Hour(s):, Getting Worse Location: Reports: Chest Quality: Reports: Ache Severity: Moderate Improves with: Reports: Rest Worsens with: Reports: Movement Associated Symptoms: Reports: Shortness of Breath Right Middle Abdomen Pain Score (Numeric/FACES): 6 - Related Data Allergies Allergy/AdvReac Type Severity Reaction Status Date / Time ezetimibe Allergy Cannot Verified 02/28/18 12:02 [From Vytorin 10-10] Remember lisinopril Allergy Cannot Verified 02/28/18 12:02 Remember metformin Allergy Diarrhea Verified 02/28/18 12:02 pioglitazone HCl [From Actos] Allergy Cannot Verified 02/28/18 12:02 Remember rosuvastatin calcium Allergy Diarrhea Verified 02/28/18 12:02 [From Crestor] simvastatin Allergy Cannot Verified 02/28/18 12:02 [From Vytorin 10-10] Remember Home Meds: Home Meds Levothyroxine Sodium [Levoxyl] 25 mcg PO MOWEFR@1100 07/23/13 [History] Metoprolol Tartrate [Lopressor] 25 mg PO BID@1100,199907/23/13 [History] Simvastatin 40 mg PO BEDTIME 07/23/13 [History] Levothyroxine 50 mcg PO SUTUTHSA@1100 08/13/15 [History] Insulin Detemir [Levemir] 10 unit SUBCUT BEDTIME 09/17/17 [History] Aspirin [Halfprin] 81 mg PO DAILY 12/18/17 [History] Melatonin/Pyridoxine HCl (B6) [Melatonin 5 mg Tablet] 5 mg PO ASDIRECTED PRN 05/27 [History] Sertraline HCl 1.5 tab PO BEDTIME 03/10/18 [History] Albuterol Sulfate [Proair Respiclick] 1 puff IH QID 03/12/18 [History] Albuterol [Proventil Neb Soln] 3 ml INH Q4HR PRN 03/12/18 [History] Calcium Carbonate/Vitamin D3 [Calcium 600 + Vit D Tablet] 1 each PO BID [History] Cholestyramine (With Sugar) [Questran Powder] 4 gm PO TID 03/12/18 [History] Cyanocobalamin (Vitamin B-12) [Cyanocobalamin Injection] 1,000 mcg IJ Q30D 03/12 [History] Fluticasone Propionate [Flovent HFA 110 MCG] 1 puff INH BID 03/12/18 [History] Furosemide 1.5 tab PO DAILY 03/12/18 [History] Magnesium Chloride [Mag-64] 2 tab PO DAILY 03/12/18 [History] Omeprazole 20 mg PO DAILY 03/12/18 [History] Warfarin [Coumadin] 2.5 mg PO DAILY 03/12/18 [History] Arformoterol [Brovana] 15 mcg IH BID 10/15/18 [History] Cholecalciferol (Vitamin D3) [D-2000] 2,000 unit PO 10/15/18 [History] Diphenoxylate HCl/Atropine [Lomotil] 1 tab PO Q6H PRN 10/15/18 [History] Nicotine Polacrilex [Nicotine Lozenge] 2 mg BC ASDIRECTED 10/15/18 [History] Pomalidomide [Pomalyst] 1 mg PO ASDIRECTED 10/15/18 [History] Prochlorperazine [Compazine] 10 mg PO Q8H PRN 10/15/18 [History] valACYclovir HCl [Valtrex] 500 mg PO BID 10/15/18 [History] Past Medical History HEENT History: Reports: Allergic Rhinitis, Cataract, Impaired Vision, Other ( See Below) Other HEENT History: Allergic rhinitis not currently being treated your patient wears glasses. Cardiovascular History: Reports: Arrhythmia, CAD, Cardiomyopathy, High Cholesterol, Hypertension, PVD, Other (See Below) Other Cardiovascular History: Varicose veins of the lower extremities. Dyslipidemia. Minimal carotid occlusive disease. PVCs. Grade 1 diastolic dysfunction by echocardiogram. Respiratory History: Reports: Bronchitis, Recurrent, COPD, Intubation, Previous , Pneumonia, Recurrent, Pulmonary Fibrosis Gastrointestinal History: Reports: Bowel Obstruction, Chronic Diarrhea, Diverticulosis, Gastritis, GERD, Inflammatory Bowel Disease, Irritable Bowel Syndrome, PUD, Other (See Below) Other Gastrointestinal History: History of recurrent diarrhea secondary to her Crohn's disease including secondary fistula requiring surgery as below. Benign right sided hepatic hemangioma stable by serial CT scans with additional fatty liver and benign hepatic cyst these evaluations. LFTs elevation likely secondary to fatty liver. Rectus muscle diastasis by CT scan. Genitourinary History: Reports: Renal Calculus, Urinary Incontinence, UTI, Recurrent Other Genitourinary History: History of right-sided urolithiasis with nonproblematic chronic hematuria and spontaneous passage. Additional history of benign renal cysts. COMMUNICATION CENTER COORDINATOR History: Reports: Other COMMUNICATION CENTER COORDINATOR History: Surgical menopause as below. Full term without complications during pregnancies or deliveries. Musculoskeletal History: Reports: Arthritis, Back Pain, Chronic, Fracture, Neck Pain, Chronic, Osteoarthritis, Osteoporosis Other Musculoskeletal History: Scoliosis. Left elbow fracture requiring surgery as below. Neurological History: Reports: Headaches, Chronic Psychiatric History: Reports: Anxiety, Depression Endocrine/Metabolic History: Reports: Diabetes, Type II, Hypothyroidism, IDDM, Other (See Below) Other Endocrine/Metabolic History: Hypomagnesemia. Hypoalbuminemia and hypokalemia. 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 Multiple myeloma diagnosed in February 2018 with further evaluation at the [facility] in [place], including additional chemotherapy. Dermatologic History: Reports: None - Infectious Disease History Infectious Disease History: Reports: Chicken Pox, Measles, Mumps, Pertussis ( Whooping Cough), Rheumatic Fever, Rubella, Scarlet Fever - Past Surgical History Head Surgeries/Procedures: Reports: None HEENT Surgical History: Reports: Adenoidectomy, Cataract Surgery, Oral Surgery, Tonsillectomy, Other (See Below) Other HEENT Surgeries/Procedures: Tonsillectomy and adenoidectomy at age 18. Bilateral cataract surgery in March 2012. Complete teeth extraction with current dentures. Cardiovascular Surgical History: Reports: None Respiratory Surgical History: Reports: None GI Surgical History: Reports: Appendectomy, Cholecystectomy, Colon, Colonoscopy , EGD, Lysis of Adhesions, Small Bowel, Other (See Below) Other GI Surgeries/Procedures: Appendectomy with concomitant small bowel resection in about 1999 secondary to her Crohn's disease. Open cholecystectomy concomitant with her complete hysterectomy in her 50s in about 1997. Partial resection of the ascending colon in 1999 at time of small bowel resection. As colonoscopy on 01/10/15 with previous evaluations on 11/27/07 and 03/12/08. Adhesiolysis in 2005 and 2008. Repeat small bowel resection in 2001. Female Surgical History: Reports: Breast Biopsy, Hysterectomy, Salpingo- Oophorectomy, Other (See Below) Other Female Surgeries/Procedures: Breast biopsy for benign disease in the left breast in about 1999. Complete hysterectomy with bilateral salpingo- oophorectomy in her 50s for unknown reason. Endocrine Surgical History: Reports: None Neurological Surgical History: Reports: None Musculoskeletal Surgical History: Reports: ORIF, Other (See Below) Other Musculoskeletal Surgeries/Procedures:: ORIF/pin placement of the left elbow fracture 1996 Oncologic Surgical History: Reports: Biopsy of Breast, Bone Marrow Aspiration, Other (See Below) Other Oncologic Surgeries/Procedures: Breast biopsy as above for benign disease. Bone marrow fine-needle aspiration and biopsy in February 2018. Dermatological Surgical History: Reports: None - Past Imaging History Past Imaging History: Reports: DAVID Screen (DAVID screen with exercise on 07/15/10), Cardiac Echo (Echocardiogram on 09/03/15 with ejection fraction of 6065 percent. ), Carotid US (07/28/11), CAT Scan (Last CT scan of the abdomen including angiographic evaluation on 12/28/17. CT of the abdomen and pelvis on 06/07/17 with multiple previous evaluations including initially on 12/22/12. CTA of the chest and additional abdominal and pelvic CT scans on 08/25/15.), Cystoscopy ( Last cystoscopy on 01/17/11 with previous evaluations on 09/04/98 and 08/21/98.), Mammogram (Last mammogram on 04/03/16.), Stress Testing (Negative Cardiolite stress test on 09/23/17 with ejection fraction of 27%.), Swallow Study (Negative swallowing study on 08/29/15.), Ultrasound (Abdominal ultrasound on 03/03/10 with previous evaluations on 09/04/28 and 08/21/98.), Upper GI X-Ray/Series, Other (See Below) (Barium enema on 09/05/98 and 07/30/98. Camera colonic evaluation in about 2005.) Social & Family History - Family History HEENT: Reports: None Cardiac: Reports: Blood Clots/VTE/DVT, CAD, Heart Valve Replacement, High Cholesterol, Hypertension, NM, Other (See Below) Other Cardiac Family History: Son with DVT in his 40s with mother with DVT in her 70s and 80s. Valve replacement secondary to rheumatic fever. Hyperlipidemia and son, brother, and sister. Hypertension in 4 brothers, parents, and sister. Mother with fatal NM in his 60s. 4 brothers with fatal MIs in their 50s and 60s with one of these having a fatal NM at about age 49. Respiratory: Reports: COPD, Other (See Below) Other Respiratory Family Hisory: Brother with COPD. GI: Reports: GERD, Inflammatory Bowel Disease, Other (See Below) Other GI Family History: Son with GERD. Sister with Crohn's disease. : Reports: Renal Disease/Insufficiency, Other (See Below) Other Family History: Mother with fatal renal disease in her 90s. OBGYN: Reports: None Musculoskeletal: Reports: None Neurological: Reports: Seizure, Other (See Below) Other Neurological Family History: sister with fatal Down's syndrome in her 50s Psychiatric: Reports: Anxiety, Depression, Other (See Below) Other Psychiatric Family History: Brother with anxiety depression disorder Endocrine/Metabolic: Reports: IDDM, Other (See Below) Other Endocrine/Metabolic Family History: Mother, sister, and 2 brothers with IDDM Hematologic: Reports: None Immunologic: Reports: None Dermatologic: Reports: None Oncologic: Reports: Breast, Other (See Below) Other Oncologic Family History: 2 maternal aunts with fatal cancer of unknown type - Tobacco Use Smoking Status *Q: Current Every Day Smoker Years of Tobacco use: 61 Packs/Tins Daily: 1 - Caffeine Use Caffeine Use: Reports: Coffee, Soda - Recreational Drug Use Recreational Drug Use: No - Living Situation & Occupation Living situation: Reports: (1991 from first with 5 children from this marriage. 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.) ED ROS GENERAL - Review of Systems Review Of Systems: See Below Constitutional: Reports: Fever, Weakness HEENT: Reports: No Symptoms Respiratory: Reports: Shortness of Breath, Wheezing, Cough Cardiovascular: Reports: No Symptoms Endocrine: Reports: No Symptoms GI/Abdominal: Reports: Abdominal Pain : Reports: No Symptoms Musculoskeletal: Reports: No Symptoms Skin: Reports: No Symptoms Neurological: Reports: No Symptoms Psychiatric: Reports: No Symptoms Hematologic/Lymphatic: Reports: No Symptoms Immunologic: Reports: No Symptoms ED EXAM, GENERAL - Physical Exam Exam: See Below Course - Vital Signs Last Recorded V/S: Last Vital Signs Temp 98.0 F 10/15/18 21:18 Pulse 100 10/15/18 21:18 Resp 24 H 10/15/18 21:18 BP 127/67 10/15/18 21:18 Pulse Ox 91 L 10/15/18 21:18 - Orders/Labs/Meds Orders: Active Orders 24 hr Category Date Time Status Implanted Port Access [RC] ASDIRECTED Care 10/15/18 22:52 Active Chest 2V [CR] Stat Exams 10/15/18 22:10 Ordered Sodium Chloride 0.9% [Normal Saline] 500 ml Med 10/15/18 23:00 Active IV ASDIRECTED Sodium Chloride 0.9% [Saline Flush] Med 10/15/18 22:10 Ordered 10 ml FLUSH ASDIRECTED PRN Saline Lock Insert [OM.PC] Stat Oth 10/15/18 22:10 Ordered Medication Orders Sodium Chloride (Normal Saline) 500 mls @ 50 mls/hr IV ASDIRECTED LEONID Sodium Chloride (Saline Flush) 10 ml FLUSH ASDIRECTED PRN PRN Reason: Keep Vein Open Labs: Laboratory Tests 10/15/18 10/15/18 Range/Units 22:34 22:35 WBC 6.7 (4.0-10.2) K/uL RBC 3.11 L (3.77-5.09) M/uL Hgb 10.2 L (11.7-15.5) g/dL Hct 31.4 L (34.0-46.0) % MCV 101.0 H D (84.0-98.0) fL MCH 32.8 (28.2-33.3) pg MCHC 32.5 (31.7-36.0) g/dL RDW 17.4 H (11.2-14.1) % Plt Count 132 L (150-350) K/uL Neut % (Auto) 67.3 (45.0-80.0) % Lymph % (Auto) 27.4 (10.0-50.0) % [place] % (Auto) 4.2 (2.0-14.0) % Eos % (Auto) 0.9 (0.0-5.0) % Baso % (Auto) 0.2 (0.0-2.0) % Neut # (Auto) 4.48 (1.40-7.00) K/uL Lymph # (Auto) 1.82 (0.50-3.50) K/uL [place] # (Auto) 0.28 (0.00-1.00) K/uL Eos # (Auto) 0.06 (0.00-0.50) K/uL Baso # (Auto) 0.01 (0.00-0.20) K/uL Sodium 136 (136-145) mmol/L Potassium 4.8 (3.5-5.1) mmol/L Chloride 98 (98-107) mmol/L Carbon Dioxide 30.2 (21.0-32.0) mmol/L BUN 24 H (7-18) mg/dL Creatinine 1.07 (0.51-1.17) mg/dL Est Cr Clr Drug Dosing 37.42 mL/min Estimated GFR (MDRD) 50 mL/min Glucose 264 H (74-106) mg/dL Calcium 9.8 (8.5-10.1) mg/dL Total Bilirubin 0.3 (0.2-1.0) mg/dL AST 13 L (15-37) U/L ALT 20 (12-78) U/L Alkaline Phosphatase 83 (46-116) IU/L Total Protein 7.4 (6.4-8.2) g/dL Albumin 2.9 L (3.4-5.0) g/dL Meds: Medications Generic Name Dose Route Start Last Admin Trade Name Freq PRN Reason Stop Dose Admin Sodium Chloride 500 mls @ 50 mls/hr 10/15/18 23:00 Normal Saline IV ASDIRECTED LEONID Sodium Chloride 10 ml 10/15/18 22:10 Saline Flush FLUSH ASDIRECTED PRN Keep Vein Open Departure - Departure Time of Disposition: 23:00 Disposition: Refer to Observation Preliminary Cause of *Q: Respiratory Failure Condition: Good, Fair Clinical Impression: COPD exacerbation - Discharge Information *PRESCRIPTION DRUG MONITORING PROGRAM REVIEWED*: No *COPY OF PRESCRIPTION DRUG MONITORING REPORT IN PATIENT NOÉ: No Referrals: Jayson Small MD [Primary Care Provider] - Forms: ED Department Discharge - Problem List Review Problem List Initiated/Reviewed/Updated: Yes - My Orders Last 24 Hours: My Active Orders 10/15/18 22:10 Chest 2V [CR] Stat Sodium Chloride 0.9% [Saline Flush] 10 ml FLUSH ASDIRECTED PRN Saline Lock Insert [OM.PC] Stat 10/15/18 22:52 Implanted Port Access [RC] ASDIRECTED 10/15/18 23:00 Sodium Chloride 0.9% [Normal Saline] 500 ml IV ASDIRECTED - Assessment/Plan Last 24 Hours: My Active Orders 10/15/18 22:10 Chest 2V [CR] Stat Sodium Chloride 0.9% [Saline Flush] 10 ml FLUSH ASDIRECTED PRN Saline Lock Insert [OM.PC] Stat 10/15/18 22:52 Implanted Port Access [RC] ASDIRECTED 10/15/18 23:00 Sodium Chloride 0.9% [Normal Saline] 500 ml IV ASDIRECTED Plan: Patient will be admitted for steroids and antibiotic diagnosis is COPD
[2018-10-15] MEDS ORDERED: Sodium Chloride 0.9% 500 ML IV SCH (23:00)
[2018-10-15] MEDS ORDERED: Levofloxacin/Dextrose 5%-Water 500 MG in Premix Bag 1 BAG IV SCH (23:45)
[2018-10-16] MEDS ORDERED: Levofloxacin/Dextrose 5%-Water 500 MG in Premix Bag 1 BAG IV ONE (00:15)
[2018-10-16] MEDS: methylPREDNISolone Sodium Succinate 40 MG/1 ML SDV IVPUSH SCH ×4 (01:09→19:01)
[2018-10-16] MEDS: LEVEMIR SUBCUT SCH ×2 (01:23→19:48)
[2018-10-16] MEDS: Acetaminophen 325 MG Tab PO PRN ×2 (04:01→16:22)
[2018-10-16] MEDS: Insulin Lispro 100 Units/ML 3 ML Vial SUBCUT SCH ×4 (09:56→20:15)
[2018-10-16] MEDS: Sodium Chloride 0.9% 500 ML IV SCH ×2 (10:00→23:11)
[2018-10-16] MEDS ORDERED: Atropine/Diphenoxylate 0.025-2.5 MG Tab PO PRN (11:54)
[2018-10-16] MEDS: Albuterol/Ipratropium 3.0-0.5 MG/3 ML Neb Soln NEB PRN ×2 (11:54→16:22)
[2018-10-16] MEDS ORDERED: Furosemide 20 MG Tab PO PRN (11:54)
[2018-10-16] MEDS ORDERED: MELATONIN PO PRN (11:54)
[2018-10-16] MEDS ORDERED: [UNRECOGNIZED DRUG - OTHER] PO PRN (11:54)
[2018-10-16] MEDS ORDERED: Albuterol 0.083% 2.5 MG/3 ML Neb Soln INH PRN (11:54)
[2018-10-16] MEDS ORDERED: PYRIDOXINE HCL PO PRN (11:54)
[2018-10-16] MEDS ORDERED: Non-Formulary Medication 1 Each (Nicotine Polacrilex [Nicotine Lozenge] 2 MG) BC SCH (12:00)
--- NOTE | 2018-10-16 12:12 | PCM.PN ---
- General Info Date of Service: 10/16/18 Admission Dx/Problem (Free Text): Patient is a 78-year-old who was admitted to the hospital with a week's worth of progressive shortness of breath x-rays revealed COPD with improving pneumonia at this time patient was admitted and started on steroids and antibiotics I am also concerned about her hyper kalemia today will monitor this this morning since she is on Lasix. Will consider Kayexalate is still elevated Functional Status: Reports: Tolerating Diet - Review of Systems General: Reports: Weakness, Fatigue HEENT: Reports: No Symptoms Pulmonary: Reports: Shortness of Breath Cardiovascular: Reports: No Symptoms Gastrointestinal: Reports: No Symptoms Genitourinary: Reports: No Symptoms Musculoskeletal: Reports: No Symptoms Skin: Reports: No Symptoms Neurological: Reports: No Symptoms Psychiatric: Reports: No Symptoms - Patient Data Vitals - Most Recent: Last Vital Signs Temp 96.9 F 10/16/18 08:00 Pulse 87 10/16/18 08:00 Resp 24 H 10/16/18 08:00 BP 144/74 H 10/16/18 08:00 Pulse Ox 94 L 10/16/18 08:00 Weight - Most Recent: 136 lb 3.2 oz I&O - Last 24 Hours: Intake & Output 10/15/18 10/16/18 10/16/18 22:59 06:59 14:59 Intake Total 601 Output Total 300 Balance 301 Lab Results Last 24 Hours: Laboratory Results - last 24 hr 10/15/18 10/15/18 10/16/18 Range/Units 22:34 22:35 07:50 WBC 6.7 5.1 (4.0-10.2) K/uL RBC 3.11 L 3.02 L (3.77-5.09) M/uL Hgb 10.2 L 9.9 L (11.7-15.5) g/dL Hct 31.4 L 31.0 L (34.0-46.0) % MCV 101.0 H D 102.6 H (84.0-98.0) fL MCH 32.8 32.8 (28.2-33.3) pg MCHC 32.5 31.9 (31.7-36.0) g/dL RDW 17.4 H 17.2 H (11.2-14.1) % Plt Count 132 L 118 L (150-350) K/uL Neut % (Auto) 67.3 84.1 H (45.0-80.0) % Lymph % (Auto) 27.4 14.1 (10.0-50.0) % [place] % (Auto) 4.2 1.4 L (2.0-14.0) % Eos % (Auto) 0.9 0.2 (0.0-5.0) % Baso % (Auto) 0.2 0.2 (0.0-2.0) % Neut # (Auto) 4.48 4.28 (1.40-7.00) K/uL Lymph # (Auto) 1.82 0.72 (0.50-3.50) K/uL [place] # (Auto) 0.28 0.07 (0.00-1.00) K/uL Eos # (Auto) 0.06 0.01 (0.00-0.50) K/uL Baso # (Auto) 0.01 0.01 (0.00-0.20) K/uL Sodium 136 (136-145) mmol/L Potassium 4.8 (3.5-5.1) mmol/L Chloride 98 (98-107) mmol/L Carbon Dioxide 30.2 (21.0-32.0) mmol/L BUN 24 H (7-18) mg/dL Creatinine 1.07 (0.51-1.17) mg/dL Est Cr Clr Drug Dosing 37.42 mL/min Estimated GFR (MDRD) 50 mL/min Glucose 264 H (74-106) mg/dL POC Glucose (65-110) mg/dl Calcium 9.8 (8.5-10.1) mg/dL Total Bilirubin 0.3 (0.2-1.0) mg/dL AST 13 L (15-37) U/L ALT 20 (12-78) U/L Alkaline Phosphatase 83 (46-116) IU/L Total Protein 7.4 (6.4-8.2) g/dL Albumin 2.9 L (3.4-5.0) g/dL 10/16/18 10/16/18 Range/Units 07:50 11:37 WBC (4.0-10.2) K/uL RBC (3.77-5.09) M/uL Hgb (11.7-15.5) g/dL Hct (34.0-46.0) % MCV (84.0-98.0) fL MCH (28.2-33.3) pg MCHC (31.7-36.0) g/dL RDW (11.2-14.1) % Plt Count (150-350) K/uL Neut % (Auto) (45.0-80.0) % Lymph % (Auto) (10.0-50.0) % [place] % (Auto) (2.0-14.0) % Eos % (Auto) (0.0-5.0) % Baso % (Auto) (0.0-2.0) % Neut # (Auto) (1.40-7.00) K/uL Lymph # (Auto) (0.50-3.50) K/uL [place] # (Auto) (0.00-1.00) K/uL Eos # (Auto) (0.00-0.50) K/uL Baso # (Auto) (0.00-0.20) K/uL Sodium 136 (136-145) mmol/L Potassium 6.1 H* (3.5-5.1) mmol/L Chloride 102 (98-107) mmol/L Carbon Dioxide 28.0 (21.0-32.0) mmol/L BUN 26 H (7-18) mg/dL Creatinine 0.93 (0.51-1.17) mg/dL Est Cr Clr Drug Dosing 43.05 mL/min Estimated GFR (MDRD) 58 mL/min Glucose 342 H (74-106) mg/dL POC Glucose 219 H (65-110) mg/dl Calcium 9.2 (8.5-10.1) mg/dL Total Bilirubin (0.2-1.0) mg/dL AST (15-37) U/L ALT (12-78) U/L Alkaline Phosphatase (46-116) IU/L Total Protein (6.4-8.2) g/dL Albumin (3.4-5.0) g/dL Med Orders - Current: Current Medications Acetaminophen (Tylenol) 650 mg PO Q4H PRN PRN Reason: Pain Last Admin: 10/16/18 04:01 Dose: 650 mg Albuterol (Proventil Neb Soln) 2.5 mg INH Q4HR PRN PRN Reason: Shortness of Breath Albuterol/Ipratropium (Duoneb 3.0-0.5 Mg/3 Ml) 3 ml NEB Q4H PRN PRN Reason: Dyspnea Last Admin: 10/16/18 11:54 Dose: 3 ml Arformoterol Tartrate (Brovana) 15 mcg NEB BID [facility] Aspirin (Halfprin) 81 mg PO DAILY [facility] Diphenoxylate HCl/Atropine (Lomotil 0.025-2.5 Mg) 1 tab PO Q6H PRN PRN Reason: Diarrhea Furosemide (Lasix) 30 mg PO DAILY PRN PRN Reason: Edema Levofloxacin/Dextrose 500 mg/ (Premix) 100 mls @ 100 mls/hr IV Q24H [facility] Sodium Chloride (Normal Saline) 500 mls @ 50 mls/hr IV ASDIRECTED [facility] Last Admin: 10/16/18 10:00 Dose: 50 mls/hr Insulin Human Lispro (Humalog) 0 unit SUBCUT QID [facility]; Protocol Last Admin: 10/16/18 11:55 Dose: 4 unit Levothyroxine Sodium (Levothyroxine) 50 mcg PO SUTUTHSA@1100 [facility] Levothyroxine Sodium (Levothyroxine) 25 mcg PO MOWEFR@1100 [facility] Methylprednisolone Sodium Succinate (Solu-Medrol) 40 mg IVPUSH Q6H [facility] Last Admin: 10/16/18 11:55 Dose: 40 mg Metoprolol Tartrate (Lopressor) 12.5 mg PO BID@1100,2000 [facility] Levemir Pen Pt Own () 0 each SUBCUT BEDTIME [facility] Last Admin: 10/16/18 01:23 Dose: 30 each Non-Formulary Medication (Calcium Carbonate/Vitamin D3 [Calcium 600 + Vit D Tablet]) 1 each PO BID [facility] Non-Formulary Medication (Cholestyramine (With Sugar) [Questran Powder]) 4 gm PO TID [facility] Non-Formulary Medication (Fluticasone Propionate [Flovent Hfa 110 Mcg]) 1 puff INH BID [facility] Non-Formulary Medication (Insulin Detemir [Levemir]) 30 unit SUBCUT BEDTIME [facility] Non-Formulary Medication (Magnesium Chloride [Mag-64]) 2 tab PO DAILY [facility] Non-Formulary Medication (Melatonin/Pyridoxine Hcl (B6) [Melatonin 5 Mg Tablet] ) 5 mg PO ASDIRECTED PRN PRN Reason: Insomnia Non-Formulary Medication (Nicotine Polacrilex [Nicotine Lozenge]) 2 mg BC ASDIRECTED [facility] Non-Formulary Medication (Pomalidomide [Pomalyst]) 1 mg PO ASDIRECTED [facility] Non-Formulary Medication (Prochlorperazine [Compazine]) 10 mg PO Q8H PRN PRN Reason: Nausea Non-Formulary Medication (Sertraline Hcl [Sertraline Hcl]) 1.5 tab PO BEDTIME [facility] Non-Formulary Medication (Simvastatin [Simvastatin]) 40 mg PO BEDTIME [facility] Non-Formulary Medication (Valacyclovir Hcl [Valtrex]) 500 mg PO BID [facility] Omeprazole (Omeprazole) 20 mg PO DAILY [facility] Sodium Chloride (Saline Flush) 10 ml FLUSH ASDIRECTED PRN PRN Reason: Keep Vein Open Warfarin Sodium (Coumadin) 3 mg PO DAILY [facility] Discontinued Medications Sodium Chloride (Normal Saline) 500 mls @ 50 mls/hr IV ASDIRECTED [facility] Levofloxacin/Dextrose 500 mg/ (Premix) 100 mls @ 100 mls/hr IV ONETIME ONE Stop: 10/16/18 01:14 Last Admin: 10/16/18 01:05 Dose: 100 mls/hr - Exam Quality Assessment: Supplemental Oxygen General: Alert, Oriented HEENT: Pupils Equal, Pupils Reactive, EOMI, Mucous Membr. Moist/[place] Neck: Supple Lungs: Clear to Auscultation, Decreased Breath Sounds, Rales Cardiovascular: Regular Rate, Regular Rhythm GI/Abdominal Exam: Normal Bowel Sounds, Soft, Non-Tender, No Organomegaly, No Distention, No Abnormal Bruit, No Mass, Pelvis Stable (Female) Exam: Deferred Extremities: Normal Inspection, Normal Range of Motion, Non-Tender, No Pedal Edema, Normal Capillary Refill Skin: Warm, Dry, Intact Neurological: No New Focal Deficit Psy/Mental Status: Alert, Normal Affect, Normal Mood - Problem List & Annotations (1) COPD exacerbation SNOMED Code(s): 922941865 Code(s): J44.1 - CHRONIC OBSTRUCTIVE PULMONARY DISEASE W (ACUTE) EXACERBATION Status: Acute Current Visit: No Annotation/Comment:: Patient admitted placed on antibiotics and steroids and inhalers - Problem List Review Problem List Initiated/Reviewed/Updated: Yes - My Orders Last 24 Hours: My Active Orders 10/15/18 22:10 Chest 2V [CR] Stat Sodium Chloride 0.9% [Saline Flush] 10 ml FLUSH ASDIRECTED PRN Saline Lock Insert [OM.PC] Stat 10/15/18 23:45 Levofloxacin/Dextrose 5%-Water [Levaquin in D5W 500 MG/100 ML] 500 mg Premix Bag 1 bag IV Q24H 10/15/18 23:47 Patient Status [ADT] Routine Ambulate [RC] ASDIRECTED Bedrest Bathroom Privileges [RC] ASDIRECTED Blood Glucose Check, Bedside [RC] WITHMEALSANDBED May Shower [RC] ASDIRECTED Oxygen Therapy [RC] 2300 Up ad Tiffanie [RC] ASDIRECTED Up to Chair [RC] ASDIRECTED VTE/DVT Education [RC] 08 Vital Signs [RC] Q4HR Albuterol/Ipratropium [DuoNeb 3.0-0.5 MG/3 ML] 3 ml NEB Q4H PRN Resuscitation Status Routine 10/15/18 23:52 Diabetes Education [RC] .PRN 10/15/18 23:54 RT Aerosol Therapy [RC] ASDIRECTED 10/15/18 23:56 Communication Order [RC] .PRN Communication Order [RC] Per Unit Routine 10/16/18 00:00 methylPREDNISolone Sod Succ [Solu-MEDROL] 40 mg IVPUSH Q6H 10/16/18 00:58 Non-Formulary Medication [NF Drug] 0 each SUBCUT BEDTIME 10/16/18 03:50 Acetaminophen [Tylenol] 650 mg PO Q4H PRN 10/16/18 07:00 Glucose Management Sub Q Reflex [OM.PC] QIDACANDBED 10/16/18 08:00 Insulin Lispro [HumaLOG] See Protocol SUBCUT QID 10/16/18 10:46 Sodium Chloride 0.9% [Normal Saline] 500 ml IV ASDIRECTED 10/16/18 11:54 Albuterol [Proventil Neb Soln] 2.5 mg INH Q4HR PRN Atropine/Diphenoxylate [Lomotil 0.025-2.5 MG] 1 tab PO Q6H PRN Furosemide [Lasix] 30 mg PO DAILY PRN Melatonin/Pyridoxine HCl (B6) [Melatonin 5 mg Tablet] 5 mg PO ASDIRECTED PRN Prochlorperazine [Compazine] 10 mg PO Q8H PRN 10/16/18 12:00 Cholestyramine (With Sugar) [Questran Powder] 4 gm PO TID Fluticasone Propionate [Flovent HFA 110 MCG] 1 puff INH BID Nicotine Polacrilex [Nicotine Lozenge] 2 mg BC ASDIRECTED Pomalidomide [Pomalyst] 1 mg PO ASDIRECTED 10/16/18 18:00 Arformoterol [Brovana] 15 mcg NEB BID Calcium Carbonate/Vitamin D3 [Calcium 600 + Vit D Tablet] 1 each PO BID valACYclovir HCl [Valtrex] 500 mg PO BID 10/16/18 20:00 Insulin Detemir [Levemir] 30 unit SUBCUT BEDTIME Metoprolol Tartrate [Lopressor] 12.5 mg PO BID@1100,1999 Sertraline HCl [Sertraline HCl] 1.5 tab PO BEDTIME Simvastatin [Simvastatin] 40 mg PO BEDTIME 10/16/18 Breakfast Regular Diet [DIET] 10/17/18 08:00 Aspirin [Halfprin] 81 mg PO DAILY Magnesium Chloride [Mag-64] 2 tab PO DAILY Omeprazole 20 mg PO DAILY Warfarin [Coumadin] 3 mg PO DAILY 10/17/18 11:00 Levothyroxine 25 mcg PO MOWEFR@1100 10/18/18 11:00 Levothyroxine 50 mcg PO SUTUTHSA@1100 - Plan Plan:: Continue care with a home tomorrow in the morning so she can make her appointments with the oncologist
[2018-10-16] MEDS ORDERED: Prochlorperazine 5 MG Tab PO PRN (13:00)
[2018-10-16] MEDS: Cholestyramine/Sucrose Powder 4 GM Packet PO SCH ×2 (13:29→19:02)
[2018-10-16 16:41] LABS: CHLORIDE,CL 100 mmol/L (98-107); SODIUM,NA 135 mmol/L (136-145)
[2018-10-16] MEDS ORDERED: VALACYCLOVIR HCL 500 MG PO SCH (18:00)
[2018-10-16] MEDS: Calcium Carbonate/Vitamin D3 1500 MG-400 Units Tab PO SCH (19:02)
[2018-10-16] MEDS: Arformoterol 15 MCG/2 ML Neb Soln NEB SCH (19:03)
[2018-10-16] MEDS: FLOVENT 110 MCG INH SCH ×2 (19:31→19:45)
[2018-10-16] MEDS ORDERED: INSULIN DETEMIR 30 UNIT SUBCUT SCH (20:00)
[2018-10-16] MEDS ORDERED: Sertraline 50 MG Tab PO SCH (20:00)
[2018-10-16] MEDS ORDERED: POMALYST PO SCH (20:00)
[2018-10-16] MEDS ORDERED: Melatonin 3 MG Tab PO SCH (20:00)
[2018-10-16] MEDS ORDERED: Simvastatin 20 MG Tab PO SCH (20:00)
[2018-10-16] MEDS ORDERED: Metoprolol Tartrate 25 MG Tab PO SCH (20:00)
[2018-10-16] MEDS ORDERED: Levofloxacin/Dextrose 5%-Water 100 ML IV SCH (23:00)
[2018-10-16] MEDS ORDERED: Levofloxacin/Dextrose 5%-Water 50 ML IV SCH (23:21)
[2018-10-17] MEDS: methylPREDNISolone Sodium Succinate 40 MG/1 ML SDV IVPUSH SCH ×2 (01:09→07:55)
[2018-10-17] MEDS: FLOVENT 110 MCG INH SCH (07:53)
[2018-10-17] MEDS: Arformoterol 15 MCG/2 ML Neb Soln NEB SCH (07:54)
[2018-10-17] MEDS: Insulin Lispro 100 Units/ML 3 ML Vial SUBCUT SCH (07:54)
[2018-10-17] MEDS: Calcium Carbonate/Vitamin D3 1500 MG-400 Units Tab PO SCH (07:55)
[2018-10-17] MEDS ORDERED: Magnesium Oxide 400 MG Tab PO SCH (08:00)
[2018-10-17] MEDS ORDERED: MAGNESIUM CHLORIDE PO SCH (08:00)
[2018-10-17] MEDS ORDERED: Aspirin 81 MG Tab.EC PO SCH (08:00)
[2018-10-17] MEDS ORDERED: Omeprazole 20 MG Cap.CR PO SCH (08:00)
[2018-10-17 08:01] LABS: CHLORIDE,CL 105 mmol/L (98-107); SODIUM,NA 141 mmol/L (136-145)
[2018-10-17 08:17] VITALS: BP 140/72
--- NOTE | 2018-10-17 10:28 | PCM.DCSUM1 ---
Discharge Summary - Hospital Course Free Text/Narrative:: Patient admitted with exacerbation of COPD. Will DC today so she can go see oncology follow up. Patient doing much better. Reports shortness of breath improving. Will send patient home on prednisone. Diagnosis: Stroke: No - Discharge Data Discharge Date: 10/17/18 Discharge Disposition: Home, Self-Care 01 Preliminary Cause of *Q: Respiratory Failure Condition: Good - Discharge Diagnosis/Problem(s) (1) COPD exacerbation SNOMED Code(s): 881792345 ICD Code: J44.1 - CHRONIC OBSTRUCTIVE PULMONARY DISEASE W (ACUTE) EXACERBATION Status: Acute Current Visit: No Problem Details: Improving, will send patient home on prednisone - Patient Instructions Diet: Usual Diet as Tolerated Activity: As Tolerated Showering/Bathing: September Shower - Discharge Plan *PRESCRIPTION DRUG MONITORING PROGRAM REVIEWED*: No *COPY OF PRESCRIPTION DRUG MONITORING REPORT IN PATIENT NOÉ: No Prescriptions/Med Rec: Insulin Aspart [NovoLOG] 0 unit SQ WITHMEALSANDBED #3 pen levoFLOXacin [Levaquin] 250 mg PO DAILY #7 tab predniSONE [Prednisone] 10 mg PO DAILY #3 tablet predniSONE [Prednisone] 20 mg PO DAILY #2 tablet Home Medications: Home Meds Levothyroxine Sodium [Levoxyl] 25 mcg PO MOWEFR@1100 07/23/13 [History] Metoprolol Tartrate [Lopressor] 12.5 mg PO BID@1100,199907/23/13 [History] Simvastatin 40 mg PO BEDTIME 07/23/13 [History] Levothyroxine 50 mcg PO SUTUTHSA@1100 08/13/15 [History] Insulin Detemir [Levemir] 30 unit SUBCUT BEDTIME 09/17/17 [History] Aspirin [Halfprin] 81 mg PO DAILY 12/18/17 [History] Melatonin/Pyridoxine HCl (B6) [Melatonin 5 mg Tablet] 5 mg PO ASDIRECTED PRN 05/27 [History] Sertraline HCl 1.5 tab PO BEDTIME 03/10/18 [History] Albuterol Sulfate [Proair Respiclick] 1 puff IH QID 03/12/18 [History] Albuterol [Proventil Neb Soln] 3 ml INH Q4HR PRN 03/12/18 [History] Calcium Carbonate/Vitamin D3 [Calcium 600 + Vit D Tablet] 1 each PO BID [History] Cholestyramine (With Sugar) [Questran Powder] 4 gm PO TID 03/12/18 [History] Cyanocobalamin (Vitamin B-12) [Cyanocobalamin Injection] 1,000 mcg IJ Q30D 03/12 [History] Fluticasone Propionate [Flovent HFA 110 MCG] 1 puff INH BID 03/12/18 [History] Furosemide 1.5 tab PO DAILY PRN 03/12/18 [History] Magnesium Chloride [Mag-64] 2 tab PO DAILY 03/12/18 [History] Omeprazole 20 mg PO DAILY 03/12/18 [History] Warfarin [Coumadin] 3 mg PO DAILY 03/12/18 [History] Arformoterol [Brovana] 15 mcg IH BID 10/15/18 [History] Cholecalciferol (Vitamin D3) [D3-2000] 2,000 unit PO 10/15/18 [History] Diphenoxylate HCl/Atropine [Lomotil] 1 tab PO Q6H PRN 10/15/18 [History] Nicotine Polacrilex [Nicotine Lozenge] 2 mg BC ASDIRECTED 10/15/18 [History] Pomalidomide [Pomalyst] 1 mg PO ASDIRECTED 10/15/18 [History] Prochlorperazine [Compazine] 10 mg PO Q8H PRN 10/15/18 [History] valACYclovir HCl [Valtrex] 500 mg PO BID 10/15/18 [History] Acetaminophen [Tylenol] 650 mg PO Q4H PRN tablet 10/17/18 [Rx] Insulin Aspart [NovoLOG] 0 unit SQ WITHMEALSANDBED #3 pen 10/17/18 [Rx] levoFLOXacin [Levaquin] 250 mg PO DAILY #7 tab 10/17/18 [Rx] predniSONE [Prednisone] 10 mg PO DAILY #3 tablet 10/17/18 [Rx] predniSONE [Prednisone] 20 mg PO DAILY #2 tablet 10/17/18 [Rx] Forms: ED Department Discharge Referrals: Jayson Small MD [Primary Care Provider] - 10/20/18 3:00 pm (Appointment at [facility] at 3pm on 10-20-[address] Small for post hospital follow up. Please arrive at 2:45. ) - Discharge Summary/Plan Comment DC Time >30 min.: No - General Info Date of Service: 10/17/18 - Review of Systems General: Reports: No Symptoms HEENT: Reports: No Symptoms Pulmonary: Reports: Shortness of Breath (improving) Cardiovascular: Reports: No Symptoms Gastrointestinal: Reports: No Symptoms Genitourinary: Reports: No Symptoms Musculoskeletal: Reports: No Symptoms Skin: Reports: No Symptoms Neurological: Reports: No Symptoms Psychiatric: Reports: No Symptoms - Patient Data Vitals - Most Recent: Last Vital Signs Temp 97.7 F 10/17/18 08:00 Pulse 78 10/17/18 08:00 Resp 18 10/17/18 08:00 BP 140/72 10/17/18 08:00 Pulse Ox 97 10/17/18 08:00 Weight - Most Recent: 136 lb 3.2 oz I&O - Last 24 hours: Intake & Output 10/16/18 10/17/18 10/17/18 22:59 06:59 14:59 Intake Total 1080 1011 Output Total 350 800 Balance 730 211 Lab Results - Last 24 hrs: Laboratory Results - last 24 hr 10/16/18 10/16/18 10/16/18 Range/Units 11:37 16:01 16:02 WBC (4.0-10.2) K/uL RBC (3.77-5.09) M/uL Hgb (11.7-15.5) g/dL Hct (34.0-46.0) % MCV (84.0-98.0) fL MCH (28.2-33.3) pg MCHC (31.7-36.0) g/dL RDW (11.2-14.1) % Plt Count (150-350) K/uL Neut % (Auto) (45.0-80.0) % Lymph % (Auto) (10.0-50.0) % [place] % (Auto) (2.0-14.0) % Eos % (Auto) (0.0-5.0) % Baso % (Auto) (0.0-2.0) % Neut # (Auto) (1.40-7.00) K/uL Lymph # (Auto) (0.50-3.50) K/uL [place] # (Auto) (0.00-1.00) K/uL Eos # (Auto) (0.00-0.50) K/uL Baso # (Auto) (0.00-0.20) K/uL PT 14.2 H D (9.5-12.0) SEC INR 1.3 Sodium 135 L (136-145) mmol/L Potassium 5.0 (3.5-5.1) mmol/L Chloride 100 (98-107) mmol/L Carbon Dioxide 26.9 (21.0-32.0) mmol/L BUN 29 H (7-18) mg/dL Creatinine 0.85 (0.51-1.17) mg/dL Est Cr Clr Drug Dosing 47.10 mL/min Estimated GFR (MDRD) > 60 mL/min Glucose 342 H (74-106) mg/dL POC Glucose 219 H (65-110) mg/dl Calcium 9.0 (8.5-10.1) mg/dL 10/16/18 10/17/18 10/17/18 Range/Units 20:10 07:33 07:35 WBC (4.0-10.2) K/uL RBC (3.77-5.09) M/uL Hgb (11.7-15.5) g/dL Hct (34.0-46.0) % MCV (84.0-98.0) fL MCH (28.2-33.3) pg MCHC (31.7-36.0) g/dL RDW (11.2-14.1) % Plt Count (150-350) K/uL Neut % (Auto) (45.0-80.0) % Lymph % (Auto) (10.0-50.0) % [place] % (Auto) (2.0-14.0) % Eos % (Auto) (0.0-5.0) % Baso % (Auto) (0.0-2.0) % Neut # (Auto) (1.40-7.00) K/uL Lymph # (Auto) (0.50-3.50) K/uL [place] # (Auto) (0.00-1.00) K/uL Eos # (Auto) (0.00-0.50) K/uL Baso # (Auto) (0.00-0.20) K/uL PT (9.5-12.0) SEC INR Sodium 141 (136-145) mmol/L Potassium 4.6 (3.5-5.1) mmol/L Chloride 105 (98-107) mmol/L Carbon Dioxide 27.9 (21.0-32.0) mmol/L BUN 27 H (7-18) mg/dL Creatinine 0.80 (0.51-1.17) mg/dL Est Cr Clr Drug Dosing 50.05 mL/min Estimated GFR (MDRD) > 60 mL/min Glucose 267 H (74-106) mg/dL POC Glucose 409 H* 305 H* (65-110) mg/dl Calcium 8.5 (8.5-10.1) mg/dL 10/17/18 Range/Units 07:35 WBC 6.1 (4.0-10.2) K/uL RBC 2.79 L (3.77-5.09) M/uL Hgb 9.1 L (11.7-15.5) g/dL Hct 28.3 L (34.0-46.0) % MCV 101.4 H (84.0-98.0) fL MCH 32.6 (28.2-33.3) pg MCHC 32.2 (31.7-36.0) g/dL RDW 16.3 H (11.2-14.1) % Plt Count 119 L (150-350) K/uL Neut % (Auto) 85.9 H (45.0-80.0) % Lymph % (Auto) 11.4 (10.0-50.0) % [place] % (Auto) 2.5 (2.0-14.0) % Eos % (Auto) 0.0 (0.0-5.0) % Baso % (Auto) 0.2 (0.0-2.0) % Neut # (Auto) 5.26 (1.40-7.00) K/uL Lymph # (Auto) 0.70 (0.50-3.50) K/uL [place] # (Auto) 0.15 (0.00-1.00) K/uL Eos # (Auto) 0.00 (0.00-0.50) K/uL Baso # (Auto) 0.01 (0.00-0.20) K/uL PT (9.5-12.0) SEC INR Sodium (136-145) mmol/L Potassium (3.5-5.1) mmol/L Chloride (98-107) mmol/L Carbon Dioxide (21.0-32.0) mmol/L BUN (7-18) mg/dL Creatinine (0.51-1.17) mg/dL Est Cr Clr Drug Dosing mL/min Estimated GFR (MDRD) mL/min Glucose (74-106) mg/dL POC Glucose (65-110) mg/dl Calcium (8.5-10.1) mg/dL Med Orders - Current: Current Medications Acetaminophen (Tylenol) 650 mg PO Q4H PRN PRN Reason: Pain Last Admin: 10/16/18 16:22 Dose: 650 mg Albuterol (Proventil Neb Soln) 2.5 mg INH Q4HR PRN PRN Reason: Shortness of Breath Albuterol/Ipratropium (Duoneb 3.0-0.5 Mg/3 Ml) 3 ml NEB Q4H PRN PRN Reason: Dyspnea Last Admin: 10/16/18 16:22 Dose: 3 ml Arformoterol Tartrate (Brovana) 15 mcg NEB BID [facility] Last Admin: 10/17/18 07:54 Dose: 15 mcg Aspirin (Halfprin) 81 mg PO DAILY [facility] Last Admin: 10/17/18 07:55 Dose: 81 mg Calcium Carbonate (Caltrate 600+D 1500 Mg-400 Units) 1 tab PO BID [facility] Last Admin: 10/17/18 07:55 Dose: 1 tab Diphenoxylate HCl/Atropine (Lomotil 0.025-2.5 Mg) 1 tab PO Q6H PRN PRN Reason: Diarrhea Furosemide (Lasix) 30 mg PO DAILY PRN PRN Reason: Edema Sodium Chloride (Normal Saline) 500 mls @ 50 mls/hr IV ASDIRECTED [facility] Last Admin: 10/16/18 23:11 Dose: 50 mls/hr Levofloxacin/Dextrose (Levaquin In D5w 250 Mg/50 Ml) 50 mls @ 50 mls/hr IV Q24H [facility] Last Admin: 10/16/18 23:23 Dose: 50 mls/hr Insulin Human Lispro (Humalog) 0 unit SUBCUT QID [facility]; Protocol Last Admin: 06/10/19 07:54 Dose: 8 unit Levothyroxine Sodium (Synthroid) 50 mcg PO SUTUTHSA@1100 [facility] Levothyroxine Sodium (Levothyroxine) 25 mcg PO MOWEFR@1100 [facility] Magnesium Oxide (Magnesium Oxide) 400 mg PO DAILY [facility] Last Admin: 10/17/18 07:55 Dose: 400 mg Melatonin (Melatonin) 6 mg PO BEDTIME [facility] Last Admin: 10/16/18 21:26 Dose: 6 mg Methylprednisolone Sodium Succinate (Solu-Medrol) 40 mg IVPUSH Q6H [facility] Last Admin: 10/17/18 07:55 Dose: 40 mg Metoprolol Tartrate (Lopressor) 12.5 mg PO BID@1100,2000 [facility] Last Admin: 10/16/18 19:46 Dose: 12.5 mg Levemir Pen Pt Own () 0 each SUBCUT BEDTIME [facility] Last Admin: 10/16/18 19:48 Dose: 1 each Flovent Hfa 110 Mcg (Own Med) 0 puff INH BID [facility] Last Admin: 10/17/18 07:53 Dose: 1 puff Non-Formulary Medication (Nicotine Polacrilex [Nicotine Lozenge]) 2 mg BC ASDIRECTED [facility] Pomalyst 1 Mg Own (Med) 0 mg PO BEDTIME [facility] Last Admin: 10/16/18 20:13 Dose: 1 mg Omeprazole (Omeprazole) 20 mg PO DAILY [facility] Last Admin: 10/17/18 07:55 Dose: 20 mg Prochlorperazine Maleate (Compazine) 10 mg PO Q8H PRN PRN Reason: NAUSEA Sertraline HCl (Zoloft) 150 mg PO BEDTIME [facility] Last Admin: 10/16/18 19:46 Dose: 150 mg Simvastatin (Zocor) 40 mg PO BEDTIME [facility] Last Admin: 10/16/18 19:47 Dose: 40 mg Sodium Chloride (Saline Flush) 10 ml FLUSH ASDIRECTED PRN PRN Reason: Keep Vein Open Warfarin Sodium (Coumadin) 3 mg PO DAILY@1800 [facility] Discontinued Medications Cholestyramine Resin (Cholestyramine Packet) 4 gm PO TID [facility] Last Admin: 10/16/18 19:02 Dose: Not Given Sodium Chloride (Normal Saline) 500 mls @ 50 mls/hr IV ASDIRECTED [facility] Levofloxacin/Dextrose 500 mg/ (Premix) 100 mls @ 100 mls/hr IV Q24H [facility] Last Admin: 10/15/18 23:30 Dose: Not Given Levofloxacin/Dextrose 500 mg/ (Premix) 100 mls @ 100 mls/hr IV ONETIME ONE Stop: 10/16/18 01:14 Last Admin: 10/16/18 01:05 Dose: 100 mls/hr Levofloxacin/Dextrose (Levaquin In D5w 250 Mg/50 Ml) 100 mls @ 100 mls/hr IV Q24H [facility] Last Admin: 10/17/18 00:58 Dose: Not Given Non-Formulary Medication (Insulin Detemir [Levemir]) 30 unit SUBCUT BEDTIME [facility] Non-Formulary Medication (Magnesium Chloride [Mag-64]) 2 tab PO DAILY [facility] Non-Formulary Medication (Melatonin/Pyridoxine Hcl (B6) [Melatonin 5 Mg Tablet] ) 5 mg PO ASDIRECTED PRN PRN Reason: Insomnia Non-Formulary Medication (Valacyclovir Hcl [Valtrex]) 500 mg PO BID [facility] Last Admin: 10/16/18 19:53 Dose: Not Given Warfarin Sodium (Coumadin) 3 mg PO ONETIME ONE Stop: 10/16/18 18:01 Last Admin: 10/16/18 19:02 Dose: 3 mg - Exam General: Reports: Alert, Oriented HEENT: Reports: Pupils Equal, Pupils Reactive, EOMI, Mucous Membr. Moist/[place] Neck: Reports: Supple Lungs: Reports: Normal Respiratory Effort, Decreased Breath Sounds (bilateral , improving ) Cardiovascular: Reports: Regular Rate, Regular Rhythm GI/Abdominal Exam: Normal Bowel Sounds, Soft, Non-Tender, No Organomegaly, No Distention, No Abnormal Bruit, No Mass, Pelvis Stable (Female) Exam: Deferred Rectal (Female) Exam: Deferred Back Exam: Reports: Normal Inspection Extremities: Normal Inspection, Normal Range of Motion, Non-Tender, No Pedal Edema, Normal Capillary Refill Skin: Reports: Warm, Dry, Intact Neurological: Reports: No New Focal Deficit Psy/Mental Status: Reports: Alert, Normal Affect, Normal Mood
[2018-10-17] MEDS ORDERED: Levothyroxine 25 MCG Tab PO SCH (11:00)
[2018-10-18] MEDS ORDERED: Levothyroxine 50 MCG Tab PO SCH (11:00)
== END 2018-10-17 11:15 | disposition home or self-care (01) ==
LOC: LL.ED 21:16 → LL.MS 23:10 → UNDOADMOB 23:10
PROVIDERS: ADMIT Family Medicine; ATTEND Family Medicine
DX: J44.1 Chronic obstructive pulmonary disease with (acute) exacerbation (principal); I11.9 Hypertensive heart disease without heart failure; I43 Cardiomyopathy in diseases classified elsewhere; I25.10 Atherosclerotic heart disease of native coronary artery without angina pectoris; E78.00 Pure hypercholesterolemia, unspecified; E11.9 Type 2 diabetes mellitus without complications; E03.9 Hypothyroidism, unspecified; F17.210 Nicotine dependence, cigarettes, uncomplicated; Z79.4 Long term (current) use of insulin; Z79.899 Other long term (current) drug therapy; Z79.51 Long term (current) use of inhaled steroids; Z79.01 Long term (current) use of anticoagulants; Z88.8 Allergy status to other drugs, medicaments and biological substances
CPT/HCPCS: 36415; 36590; 71046; 80048; 80053; 82962; 85025; 85610; 94640; 96361; 96365; 96372; 96375; 96376; 99285; A4217; A9270; G0378; J1642; J1815; J1956; J2920; J7040; J7620-GY

== ENCOUNTER 2018-12-23 20:31 | Emergency (ER) | payer MEDICARE, OTHER ==
[2018-12-23 21:25] LABS: CHLORIDE,CL 108 mmol/L (98-107); SODIUM,NA 138 mmol/L (136-145)
[2018-12-23] MEDS ORDERED: Albuterol/Ipratropium 3.0-0.5 MG/3 ML Neb Soln NEB ONE ×2 (21:49→22:10)
[2018-12-23] MEDS ORDERED: Sodium Chloride 0.9% 10 ML Syringe FLUSH PRN (21:49)
[2018-12-23] MEDS ORDERED: methylPREDNISolone Sodium Succinate 125 MG/2 ML SDV IVPUSH ONE (21:49)
[2018-12-23] MEDS ORDERED: Doxycycline 100 MG Cap PO ONE (21:51)
[2018-12-23] MEDS ORDERED: Sodium Chloride 0.9% 500 ML IV SCH (22:00)
--- NOTE | 2018-12-23 22:42 | EDM.PDOC ---
ED HPI GENERAL MEDICAL PROBLEM - General Chief Complaint: Respiratory Problem Stated Complaint: SOB, cough Time Seen by Provider: 12/23/18 21:03 Source of Information: Reports: Patient, Family History Limitations: Reports: No Limitations - History of Present Illness INITIAL COMMENTS - FREE TEXT/NARRATIVE: Patient comes to ER with complaint of increased baseline wheezing/ SOB. Has COPD. Also receiving chemo for multiple myeloma ([facility]), next treatment on Wednesday. Feels that her COPD exacerbation is from a "cold" that she caught from a family member. Recalls having a sore throat, runny nose, along with increased baseline cough. Had some loose stools also but those resolved. No vomiting/ nausea. Has not changed her meds. Using DuoNebs QID, with Albuterol nebs BID. No fevers. Denies other HEENT changes. Sore throat and runny nose have resolved. Has productive cough, greenish phlegm. Denies new pain complaints. No chest/back pain acutely. No other GI changes. Denies changes/UTI complaints. No skin/neuro changes. Has had similar episodes in past per patient, usually triggered by being exposed to someone's "cold". Says she always needs steroids and "10 days of antibiotics" to get over it. - Related Data Allergies Allergy/AdvReac Type Severity Reaction Status Date / Time ezetimibe Allergy Cannot Verified 02/28/18 12:02 [From Vytorin 10-10] Remember lisinopril Allergy Cannot Verified 02/28/18 12:02 Remember metformin Allergy Diarrhea Verified 02/28/18 12:02 pioglitazone HCl [From Actos] Allergy Cannot Verified 02/28/18 12:02 Remember rosuvastatin calcium Allergy Diarrhea Verified 02/28/18 12:02 [From Crestor] simvastatin Allergy Cannot Verified 02/28/18 12:02 [From Vytorin 10-10] Remember Home Meds: Home Meds Levothyroxine Sodium [Levoxyl] 25 mcg PO MOWEFR@1100 07/23/13 [History] Metoprolol Tartrate [Lopressor] 12.5 mg PO BID@1100,199907/23/13 [History] Simvastatin 40 mg PO BEDTIME 07/23/13 [History] Levothyroxine 50 mcg PO SUTUTHSA@1100 08/13/15 [History] Insulin Detemir [Levemir] 30 unit SUBCUT BEDTIME 09/17/17 [History] Aspirin [Halfprin] 81 mg PO DAILY 12/18/17 [History] Melatonin/Pyridoxine HCl (B6) [Melatonin 5 mg Tablet] 5 mg PO ASDIRECTED PRN 05/27 [History] Sertraline HCl 1.5 tab PO BEDTIME 03/10/18 [History] Albuterol Sulfate [Proair Respiclick] 1 puff IH QID PRN 03/12/18 [History] Albuterol [Proventil Neb Soln] 3 ml INH Q4HR PRN 03/12/18 [History] Calcium Carbonate/Vitamin D3 [Calcium 600 + Vit D Tablet] 1 each PO BID [History] Cholestyramine (With Sugar) [Questran Powder] 4 gm PO TID 03/12/18 [History] Cyanocobalamin (Vitamin B-12) [Cyanocobalamin Injection] 1,000 mcg IJ Q30D 03/12 [History] Fluticasone Propionate [Flovent HFA 110 MCG] 1 puff INH BID 03/12/18 [History] Furosemide 1.5 tab PO DAILY PRN 03/12/18 [History] Magnesium Chloride [Mag-64] 2 tab PO DAILY 03/12/18 [History] Omeprazole 20 mg PO DAILY 03/12/18 [History] Warfarin [Coumadin] 2.5 mg PO DAILY 03/12/18 [History] Arformoterol [Brovana] 15 mcg IH BID 10/15/18 [History] Cholecalciferol (Vitamin D3) [D3-2000] 2,000 unit PO DAILY 10/15/18 [History] Diphenoxylate HCl/Atropine [Lomotil] 1 tab PO Q6H PRN 10/15/18 [History] Nicotine Polacrilex [Nicotine Lozenge] 2 mg BC ASDIRECTED 10/15/18 [History] Pomalidomide [Pomalyst] 1 mg PO ASDIRECTED 10/15/18 [History] Prochlorperazine [Compazine] 10 mg PO Q8H PRN 10/15/18 [History] valACYclovir HCl [Valtrex] 500 mg PO BID 10/15/18 [History] Acetaminophen [Tylenol] 650 mg PO Q4H PRN tablet 10/17/18 [Rx] Insulin Aspart [NovoLOG] 0 unit SQ WITHMEALSANDBED #3 pen 10/17/18 [Rx] Doxycycline [Vibramycin] 100 mg PO BID #10 cap 12/23/18 [Rx] Folic Acid 1 mg PO DAILY 12/23/18 [History] Sulfamethoxazole/Trimethoprim [Bactrim Ds Tablet] 1 tab PO ASDIRECTED 12/23/18 [ History] dexAMETHasone [Dexamethasone] 5 tab PO WEEKLY 12/23/18 [History] Past Medical History HEENT History: Reports: Allergic Rhinitis, Cataract, Impaired Vision, Other ( See Below) Other HEENT History: Allergic rhinitis not currently being treated your patient wears glasses. Cardiovascular History: Reports: Arrhythmia, CAD, Cardiomyopathy, High Cholesterol, Hypertension, PVD, Other (See Below) Other Cardiovascular History: Varicose veins of the lower extremities. Dyslipidemia. Minimal carotid occlusive disease. PVCs. Grade 1 diastolic dysfunction by echocardiogram. Respiratory History: Reports: Bronchitis, Recurrent, COPD, Intubation, Previous , Pneumonia, Recurrent, Pulmonary Fibrosis Gastrointestinal History: Reports: Bowel Obstruction, Chronic Diarrhea, Diverticulosis, Gastritis, GERD, Inflammatory Bowel Disease, Irritable Bowel Syndrome, PUD, Other (See Below) Other Gastrointestinal History: History of recurrent diarrhea secondary to her Crohn's disease including secondary fistula requiring surgery as below. Benign right sided hepatic hemangioma stable by serial CT scans with additional fatty liver and benign hepatic cyst these evaluations. LFTs elevation likely secondary to fatty liver. Rectus muscle diastasis by CT scan. Genitourinary History: Reports: Renal Calculus, Urinary Incontinence, UTI, Recurrent Other Genitourinary History: History of right-sided urolithiasis with nonproblematic chronic hematuria and spontaneous passage. Additional history of benign renal cysts. FAIRGROUND OPERATOR History: Reports: Other FAIRGROUND OPERATOR History: Surgical menopause as below. Full term without complications during pregnancies or deliveries. Musculoskeletal History: Reports: Arthritis, Back Pain, Chronic, Fracture, Neck Pain, Chronic, Osteoarthritis, Osteoporosis Other Musculoskeletal History: Scoliosis. Left elbow fracture requiring surgery as below. Neurological History: Reports: Headaches, Chronic Psychiatric History: Reports: Anxiety, Depression Endocrine/Metabolic History: Reports: Diabetes, Type II, Hypothyroidism, IDDM, Other (See Below) Other Endocrine/Metabolic History: Hypomagnesemia. Hypoalbuminemia and hypokalemia. 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 Multiple myeloma diagnosed in February 2018 with further evaluation at the [facility] in [place], including additional chemotherapy. Dermatologic History: Reports: None - Infectious Disease History Infectious Disease History: Reports: Chicken Pox, Measles, Mumps, Pertussis ( Whooping Cough), Rheumatic Fever, Rubella, Scarlet Fever - Past Surgical History Head Surgeries/Procedures: Reports: None HEENT Surgical History: Reports: Adenoidectomy, Cataract Surgery, Oral Surgery, Tonsillectomy, Other (See Below) Other HEENT Surgeries/Procedures: Tonsillectomy and adenoidectomy at age 18. Bilateral cataract surgery in March 2012. Complete teeth extraction with current dentures. Cardiovascular Surgical History: Reports: None Respiratory Surgical History: Reports: None GI Surgical History: Reports: Appendectomy, Cholecystectomy, Colon, Colonoscopy , EGD, Lysis of Adhesions, Small Bowel, Other (See Below) Other GI Surgeries/Procedures: Appendectomy with concomitant small bowel resection in about 1999 secondary to her Crohn's disease. Open cholecystectomy concomitant with her complete hysterectomy in her 50s in about 1997. Partial resection of the ascending colon in 1999 at time of small bowel resection. As colonoscopy on 01/10/15 with previous evaluations on 11/27/07 and 03/12/08. Adhesiolysis in 2005 and 2008. Repeat small bowel resection in 2001. Female Surgical History: Reports: Breast Biopsy, Hysterectomy, Salpingo- Oophorectomy, Other (See Below) Other Female Surgeries/Procedures: Breast biopsy for benign disease in the left breast in about 1999. Complete hysterectomy with bilateral salpingo- oophorectomy in her 50s for unknown reason. Endocrine Surgical History: Reports: None Neurological Surgical History: Reports: None Musculoskeletal Surgical History: Reports: ORIF, Other (See Below) Other Musculoskeletal Surgeries/Procedures:: ORIF/pin placement of the left elbow fracture 1996 Oncologic Surgical History: Reports: Biopsy of Breast, Bone Marrow Aspiration, Other (See Below) Other Oncologic Surgeries/Procedures: Breast biopsy as above for benign disease. Bone marrow fine-needle aspiration and biopsy in February 2018. Dermatological Surgical History: Reports: None - Past Imaging History Past Imaging History: Reports: DAVID Screen (DAVID screen with exercise on 07/15/10), Cardiac Echo (Echocardiogram on 09/03/15 with ejection fraction of 6065 percent. ), Carotid US (07/28/11), CAT Scan (Last CT scan of the abdomen including angiographic evaluation on 12/28/17. CT of the abdomen and pelvis on 06/07/17 with multiple previous evaluations including initially on 12/22/12. CTA of the chest and additional abdominal and pelvic CT scans on 08/25/15.), Cystoscopy ( Last cystoscopy on 01/17/11 with previous evaluations on 09/04/98 and 08/21/98.), Mammogram (Last mammogram on 04/03/16.), Stress Testing (Negative Cardiolite stress test on 09/23/17 with ejection fraction of 27%.), Swallow Study (Negative swallowing study on 08/29/15.), Ultrasound (Abdominal ultrasound on 03/03/10 with previous evaluations on 09/04/28 and 08/21/98.), Upper GI X-Ray/Series, Other (See Below) (Barium enema on 09/05/98 and 07/30/98. Camera colonic evaluation in about 2005.) Social & Family History - Family History HEENT: Reports: None Cardiac: Reports: Blood Clots/VTE/DVT, CAD, Heart Valve Replacement, High Cholesterol, Hypertension, [place], Other (See Below) Other Cardiac Family History: Son with DVT in his 40s with mother with DVT in her 70s and 80s. Valve replacement secondary to rheumatic fever. Hyperlipidemia and son, brother, and sister. Hypertension in 4 brothers, parents, and sister. Mother with fatal [place] in his 60s. 4 brothers with fatal MIs in their 50s and 60s with one of these having a fatal NY at about age 49. Respiratory: Reports: COPD, Other (See Below) Other Respiratory Family Hisory: Brother with COPD. GI: Reports: GERD, Inflammatory Bowel Disease, Other (See Below) Other GI Family History: Son with GERD. Sister with Crohn's disease. : Reports: Renal Disease/Insufficiency, Other (See Below) Other Family History: Mother with fatal renal disease in her 90s. OBGYN: Reports: None Musculoskeletal: Reports: None Neurological: Reports: Seizure, Other (See Below) Other Neurological Family History: sister with fatal Down's syndrome in her 50s Psychiatric: Reports: Anxiety, Depression, Other (See Below) Other Psychiatric Family History: Brother with anxiety depression disorder Endocrine/Metabolic: Reports: IDDM, Other (See Below) Other Endocrine/Metabolic Family History: Mother, sister, and 2 brothers with IDDM Hematologic: Reports: None Immunologic: Reports: None Dermatologic: Reports: None Oncologic: Reports: Breast, Other (See Below) Other Oncologic Family History: 2 maternal aunts with fatal cancer of unknown type - Caffeine Use Caffeine Use: Reports: Coffee, Soda - Living Situation & Occupation Living situation: Reports: (1991 from first with 5 children from this marriage. 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 Denies: Ear Pain, Eye Discharge, Rhinitis, Sinus Problem, Throat Pain, Throat Swelling Respiratory: Reports: Shortness of Breath, Wheezing, Cough, Sputum. Denies: Pleuritic Chest Pain, Hemoptysis Cardiovascular: Reports: Dyspnea on Exertion. Denies: Chest Pain, Lightheadedness, Syncope Endocrine: Reports: No Symptoms GI/Abdominal: Reports: Diarrhea. Denies: Abdominal Pain, Difficulty Swallowing , Distension, Nausea, Vomiting : Reports: No Symptoms Musculoskeletal: Reports: No Symptoms (no acute changes from baseline) Skin: Reports: No Symptoms Neurological: Reports: No Symptoms. Denies: Headache Psychiatric: Reports: No Symptoms Hematologic/Lymphatic: Denies: Swollen Glands ED EXAM, GENERAL - Physical Exam Exam: See Below Exam Limited By: No Limitations General Appearance: Alert, WD/WN, No Apparent Distress, Other (audible wheezing) Eye Exam: Bilateral Eye: EOMI, PERRL Ears: Normal External Exam Nose: No: Nasal Deformity, Nasal Swelling, Nasal Drainage Throat/Mouth: Normal Lips, Normal Voice, No Airway Compromise Head: Atraumatic, Normocephalic Neck: Supple Respiratory/Chest: No Accessory Muscle Use, Wheezing (bilaterally). No: Crackles, Rales, Rhonchi, Stridor, Accessory Muscle Use, Retractions Cardiovascular: Regular Rate, Rhythm, No Murmur GI/Abdominal: Soft, Non-Tender (Female) Exam: Deferred Rectal (Female) Exam: Deferred Back Exam: No: CVA Tenderness (L), CVA Tenderness (R), Muscle Spasm Extremities: Non-Tender, Normal Capillary Refill Neurological: Alert, Oriented, Normal Cognition, Normal Gait, No Motor/Sensory Deficits Psychiatric: Normal Affect, Normal Mood Skin Exam: Warm, Dry, Intact, Normal Color Course - Orders/Labs/Meds Orders: Active Orders 24 hr Category Date Time Status RT Aerosol Therapy [RC] ASDIRECTED Care 12/23/18 21:49 Ordered RT Aerosol Therapy [RC] ASDIRECTED Care 12/23/18 21:51 Ordered CXR [Chest 2V] [CR] Stat Exams 12/23/18 20:42 Taken Sodium Chloride 0.9% [Normal Saline] 500 ml Med 12/23/18 22:00 Active IV .BOLUS Sodium Chloride 0.9% [Saline Flush] Med 12/23/18 21:49 Active 10 ml FLUSH ASDIRECTED PRN Saline Lock Insert [OM.PC] Routine Oth 12/23/18 21:49 Ordered Medication Orders Sodium Chloride (Normal Saline) 500 mls @ 500 mls/hr IV .BOLUS LEONID Last Admin: 12/23/18 22:02 Dose: 500 mls/hr Sodium Chloride (Saline Flush) 10 ml FLUSH ASDIRECTED PRN PRN Reason: Keep Vein Open Last Admin: 12/23/18 22:03 Dose: 10 ml Labs: Laboratory Tests 12/23/18 12/23/18 12/23/18 Range/Units 21:05 21:05 21:05 WBC 3.7 L (4.0-10.2) K/uL RBC 2.91 L (3.77-5.09) M/uL Hgb 10.3 L (11.7-15.5) g/dL Hct 32.0 L (34.0-46.0) % MCV 110.0 H D (84.0-98.0) fL MCH 35.4 H (28.2-33.3) pg MCHC 32.2 (31.7-36.0) g/dL RDW 16.4 H (11.2-14.1) % Plt Count 142 L (150-350) K/uL Neut % (Auto) 54.9 (45.0-80.0) % Lymph % (Auto) 35.1 (10.0-50.0) % [place] % (Auto) 5.4 (2.0-14.0) % Eos % (Auto) 4.1 (0.0-5.0) % Baso % (Auto) 0.5 (0.0-2.0) % Neut # (Auto) 2.01 (1.40-7.00) K/uL Lymph # (Auto) 1.29 (0.50-3.50) K/uL [place] # (Auto) 0.20 (0.00-1.00) K/uL Eos # (Auto) 0.15 (0.00-0.50) K/uL Baso # (Auto) 0.02 (0.00-0.20) K/uL PT 25.7 H D (9.5-12.0) SEC INR 2.4 Sodium 138 (136-145) mmol/L Potassium 5.2 H (3.5-5.1) mmol/L Chloride 108 H (98-107) mmol/L Carbon Dioxide 24.9 (21.0-32.0) mmol/L BUN 17 (7-18) mg/dL Creatinine 0.96 (0.51-1.17) mg/dL Est Cr Clr Drug Dosing TNP Estimated GFR (MDRD) 56 mL/min Glucose 238 H (74-106) mg/dL Calcium 9.0 (8.5-10.1) mg/dL Total Bilirubin 0.2 (0.2-1.0) mg/dL AST 16 (15-37) U/L ALT 20 (12-78) U/L Alkaline Phosphatase 72 (46-116) IU/L Total Protein 7.0 (6.4-8.2) g/dL Albumin 2.8 L (3.4-5.0) g/dL Meds: Medications Generic Name Dose Route Start Last Admin Trade Name Freq PRN Reason Stop Dose Admin Sodium Chloride 500 mls @ 500 mls/hr 12/23/18 22:00 12/23/18 22:02 Normal Saline IV 500 mls/hr .BOLUS LEONID Administration Sodium Chloride 10 ml 12/23/18 21:49 12/23/18 22:03 Saline Flush FLUSH 10 ml ASDIRECTED PRN Administration Keep Vein Open Discontinued Medications Generic Name Dose Route Start Last Admin Trade Name Bárbara PRN Reason Stop Dose Admin Albuterol/Ipratropium 3 ml 12/23/18 21:49 12/23/18 22:02 Duoneb 3.0-0.5 Mg/3 Ml NEB 12/23/18 21:50 3 ml ONETIME ONE Administration Albuterol/Ipratropium 3 ml 12/23/18 22:10 12/23/18 22:02 Duoneb 3.0-0.5 Mg/3 Ml NEB 12/23/18 22:11 3 ml ONETIME ONE Administration Doxycycline Hyclate 100 mg 12/23/18 21:51 12/23/18 22:02 Vibramycin PO 12/23/18 21:52 100 mg ONETIME ONE Administration Methylprednisolone Sodium Succinate 125 mg 12/23/18 21:49 12/23/18 22:02 Solu-Medrol IVPUSH 12/23/18 21:50 125 mg ONETIME ONE Administration - Radiology Interpretation Free Text/Narrative:: Chest xray shows COPD/scarring. No obvious focal infiltrates suggestive of acute pneumonia. - Re-Assessments/Exams Free Text/Narrative Re-Assessment/Exam: 12/23/18 23:34 WBC low, however patient is currently receiving chemo. INR therapeutic. K 0.1 point above normal. 500ml NS given, which would correct mild potassium increase. Patient given two DuoNebs and IV Solumedrol. Single Doxy also given. Suspect viral trigger most likely cause of exacerbation given patient's reported history , however will cover for potential of bacterial component. Recheck showed significant improvement of wheezing after the nebs. Patient resting comfortably. Off oxygen, sitting on edge of bed without difficulty. Suspect acute COPD exacerbation. Noted to desaturate to high 80s with activity. Sats in low 90s when resting. Given her advanced COPD, would not recommend having O2 sats over 95%. Patient reminded that she can use her DuoNebs every 4-6 hours. Currently she only uses them QID. Patient felt much better and wanted to be discharged home. Refused Observation admission. Extensive precautions reviewed with her and her family. Will continue her on Doxy and prednisone. To follow up at ER if worsening is noted. She is to head to [facility] on Wednesday for chemo. Departure - Departure Time of Disposition: 23:55 Disposition: Home, Self-Care 01 Condition: Fair Clinical Impression: COPD exacerbation - Discharge Information *PRESCRIPTION DRUG MONITORING PROGRAM REVIEWED*: Not Applicable *COPY OF PRESCRIPTION DRUG MONITORING REPORT IN PATIENT NOÉ: Not Applicable Prescriptions: Doxycycline [Vibramycin] 100 mg PO BID #10 cap Referrals: Jayson Small MD [Primary Care Provider] - Forms: ED Department Discharge Additional Instructions: Follow up Wednesday at [facility] at your scheduled appointment. Have them recheck you potassium level. It was just above normal level today. Do NOT take your Magnesium within 4 hours of you antibiotic. They will interact. You were given Prednisone tonight. OK to take 4 tabs tomorrow, and 4 on Wednesday. After that take 2 tabs daily for 3 days. Then go to one tab daily for 2 days. Take your antibiotic twice a day (every 12 hours). 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 Follow up as needed if you have worsening problems. Return to the ER over the weekend if the increased shortness of breath returns. - My Orders Last 24 Hours: My Active Orders 12/23/18 20:42 CXR [Chest 2V] [CR] Stat 12/23/18 21:49 RT Aerosol Therapy [RC] ASDIRECTED Sodium Chloride 0.9% [Saline Flush] 10 ml FLUSH ASDIRECTED PRN Saline Lock Insert [OM.PC] Routine 12/23/18 21:51 RT Aerosol Therapy [RC] ASDIRECTED 12/23/18 22:00 Sodium Chloride 0.9% [Normal Saline] 500 ml IV .BOLUS - Assessment/Plan Last 24 Hours: My Active Orders 12/23/18 20:42 CXR [Chest 2V] [CR] Stat 12/23/18 21:49 RT Aerosol Therapy [RC] ASDIRECTED Sodium Chloride 0.9% [Saline Flush] 10 ml FLUSH ASDIRECTED PRN Saline Lock Insert [OM.PC] Routine 12/23/18 21:51 RT Aerosol Therapy [RC] ASDIRECTED 12/23/18 22:00 Sodium Chloride 0.9% [Normal Saline] 500 ml IV .BOLUS
[2018-12-24 02:02] VITALS: BP 125/71; PULSE 78
== END 2018-12-24 00:10 | disposition home or self-care (01) ==
LOC: LL.ED 20:31
DX: J44.1 Chronic obstructive pulmonary disease with (acute) exacerbation (principal); I25.10 Atherosclerotic heart disease of native coronary artery without angina pectoris; I10 Essential (primary) hypertension; K21.9 Gastro-esophageal reflux disease without esophagitis; D64.9 Anemia, unspecified; Z88.8 Allergy status to other drugs, medicaments and biological substances; Z79.82 Long term (current) use of aspirin; Z79.899 Other long term (current) drug therapy; Z79.01 Long term (current) use of anticoagulants; Z98.49 Cataract extraction status, unspecified eye; Z98.890 Other specified postprocedural states; Z90.49 Acquired absence of other specified parts of digestive tract
CPT/HCPCS: 36415; 71046; 80053; 85025; 85610; 94640; 96361; 96374; 99285; A9270; J2930; J7040; 99284; J7620-GY

== ENCOUNTER 2019-01-28 18:14 | Emergency (ER) | payer MEDICARE, OTHER ==
[2019-01-28] MEDS ORDERED: Ondansetron 4 MG/2 ML SDV IVPUSH ONE (18:40)
--- NOTE | 2019-01-28 18:41 | EDM.PDOC ---
ED HPI GENERAL MEDICAL PROBLEM - General Chief Complaint: General Stated Complaint: vomiting,fever,weakness Time Seen by Provider: 01/28/19 18:20 Source of Information: Reports: Patient, Family History Limitations: Reports: No Limitations - History of Present Illness INITIAL COMMENTS - FREE TEXT/NARRATIVE: 24 hour history of sore throat, single episode emesis, nausea, loose stools, decreased appetite, chills. Increased cough. Low grade temp 99.7 Feels weak. Generalized aches, including between shoulders/abdomen/limbs. Had Chemo and Wednesday. Exposed to several family members with colds. Hospitalized last month due to hallucinations/increased SOB/decrease O2 sats. COPD exacerbation. Needed to suspend chemo for M.M. for three weeks. Is on 2L O2 at rest, 4L during day with activity. Has increased SOB with activity but no significant worsening from baseline. Stopped smoking about one month ago. - Related Data Allergies Allergy/AdvReac Type Severity Reaction Status Date / Time ezetimibe Allergy Cannot Verified 01/28/19 18:31 [From Vytorin 10-10] Remember lisinopril Allergy Cannot Verified 01/28/19 18:31 Remember metformin Allergy Diarrhea Verified 01/28/19 18:31 pioglitazone HCl [From Actos] Allergy Cannot Verified 01/28/19 18:31 Remember rosuvastatin calcium Allergy Diarrhea Verified 01/28/19 18:31 [From Crestor] simvastatin Allergy Cannot Verified 01/28/19 18:31 [From Vytorin 10-10] Remember Home Meds: Home Meds Levothyroxine Sodium [Levoxyl] 25 mcg PO MOWEFR@1100 07/23/13 [History] Metoprolol Tartrate [Lopressor] 12.5 mg PO BID@1100,199907/23/13 [History] Simvastatin 40 mg PO BEDTIME 07/23/13 [History] Levothyroxine 50 mcg PO SUTUTHSA@1100 08/13/15 [History] Insulin Detemir [Levemir] 30 unit SUBCUT BEDTIME 09/17/17 [History] Aspirin [Halfprin] 81 mg PO DAILY 12/18/17 [History] Melatonin/Pyridoxine HCl (B6) [Melatonin 5 mg Tablet] 5 mg PO ASDIRECTED PRN 05/27 [History] Sertraline HCl 1.5 tab PO BEDTIME 03/10/18 [History] Albuterol Sulfate [Proair Respiclick] 1 puff IH QID PRN 03/12/18 [History] Albuterol [Proventil Neb Soln] 3 ml INH Q4HR PRN 03/12/18 [History] Calcium Carbonate/Vitamin D3 [Calcium 600 + Vit D Tablet] 1 each PO BID [History] Cholestyramine (With Sugar) [Questran Powder] 4 gm PO TID 03/12/18 [History] Cyanocobalamin (Vitamin B-12) [Cyanocobalamin Injection] 1,000 mcg IJ Q30D 03/12 [History] Fluticasone Propionate [Flovent HFA 110 MCG] 1 puff INH BID 03/12/18 [History] Furosemide 1.5 tab PO DAILY PRN 03/12/18 [History] Magnesium Chloride [Mag-64] 2 tab PO DAILY 03/12/18 [History] Omeprazole 20 mg PO DAILY 03/12/18 [History] Warfarin [Coumadin] 2.5 mg PO DAILY 03/12/18 [History] Arformoterol [Brovana] 15 mcg IH BID 10/15/18 [History] Cholecalciferol (Vitamin D3) [D3-2000] 2,000 unit PO DAILY 10/15/18 [History] Diphenoxylate HCl/Atropine [Lomotil] 1 tab PO Q6H PRN 10/15/18 [History] Nicotine Polacrilex [Nicotine Lozenge] 2 mg BC ASDIRECTED 10/15/18 [History] Pomalidomide [Pomalyst] 2 mg PO ASDIRECTED 10/15/18 [History] Prochlorperazine [Compazine] 10 mg PO Q8H PRN 10/15/18 [History] valACYclovir HCl [Valtrex] 500 mg PO BID 10/15/18 [History] Acetaminophen [Tylenol] 650 mg PO Q4H PRN tablet 10/17/18 [Rx] Insulin Aspart [NovoLOG] 0 unit SQ WITHMEALSANDBED #3 pen 10/17/18 [Rx] Doxycycline [Vibramycin] 100 mg PO BID #10 cap 12/23/18 [Rx] Folic Acid 1 mg PO DAILY 12/23/18 [History] Sulfamethoxazole/Trimethoprim [Bactrim Ds Tablet] 1 tab PO ASDIRECTED 12/23/18 [ History] dexAMETHasone [Dexamethasone] 5 tab PO WEEKLY 12/23/18 [History] Past Medical History HEENT History: Reports: Allergic Rhinitis, Cataract, Impaired Vision, Other ( See Below) Other HEENT History: Allergic rhinitis not currently being treated your patient wears glasses. Cardiovascular History: Reports: Arrhythmia, CAD, Cardiomyopathy, High Cholesterol, Hypertension, PVD, Other (See Below) Other Cardiovascular History: Varicose veins of the lower extremities. Dyslipidemia. Minimal carotid occlusive disease. PVCs. Grade 1 diastolic dysfunction by echocardiogram. Respiratory History: Reports: Bronchitis, Recurrent, COPD, Intubation, Previous , Pneumonia, Recurrent, Pulmonary Fibrosis Gastrointestinal History: Reports: Bowel Obstruction, Chronic Diarrhea, Diverticulosis, Gastritis, GERD, Inflammatory Bowel Disease, Irritable Bowel Syndrome, PUD, Other (See Below) Other Gastrointestinal History: History of recurrent diarrhea secondary to her Crohn's disease including secondary fistula requiring surgery as below. Benign right sided hepatic hemangioma stable by serial CT scans with additional fatty liver and benign hepatic cyst these evaluations. LFTs elevation likely secondary to fatty liver. Rectus muscle diastasis by CT scan. Genitourinary History: Reports: Renal Calculus, Urinary Incontinence, UTI, Recurrent Other Genitourinary History: History of right-sided urolithiasis with nonproblematic chronic hematuria and spontaneous passage. Additional history of benign renal cysts. BLADE BALANCER History: Reports: Other BLADE BALANCER History: Surgical menopause as below. Full term without complications during pregnancies or deliveries. Musculoskeletal History: Reports: Arthritis, Back Pain, Chronic, Fracture, Neck Pain, Chronic, Osteoarthritis, Osteoporosis Other Musculoskeletal History: Scoliosis. Left elbow fracture requiring surgery as below. Neurological History: Reports: Headaches, Chronic Psychiatric History: Reports: Anxiety, Depression Endocrine/Metabolic History: Reports: Diabetes, Type II, Hypothyroidism, IDDM, Other (See Below) Other Endocrine/Metabolic History: Hypomagnesemia. Hypoalbuminemia and hypokalemia. 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 Multiple myeloma diagnosed in February 2018 with further evaluation at the [facility] in [place], including additional chemotherapy. Dermatologic History: Reports: None - Infectious Disease History Infectious Disease History: Reports: Chicken Pox, Measles, Mumps, Pertussis ( Whooping Cough), Rheumatic Fever, Rubella, Scarlet Fever - Past Surgical History Head Surgeries/Procedures: Reports: None HEENT Surgical History: Reports: Adenoidectomy, Cataract Surgery, Oral Surgery, Tonsillectomy, Other (See Below) Other HEENT Surgeries/Procedures: Tonsillectomy and adenoidectomy at age 18. Bilateral cataract surgery in March 2012. Complete teeth extraction with current dentures. Cardiovascular Surgical History: Reports: None GI Surgical History: Reports: Appendectomy, Cholecystectomy, Colon, Colonoscopy , EGD, Lysis of Adhesions, Small Bowel, Other (See Below) Other GI Surgeries/Procedures: Appendectomy with concomitant small bowel resection in about 1999 secondary to her Crohn's disease. Open cholecystectomy concomitant with her complete hysterectomy in her 50s in about 1997. Partial resection of the ascending colon in 1999 at time of small bowel resection. As colonoscopy on 01/10/15 with previous evaluations on 11/27/07 and 03/12/08. Adhesiolysis in 2005 and 2008. Repeat small bowel resection in 2001. Female Surgical History: Reports: Breast Biopsy, Hysterectomy, Salpingo- Oophorectomy, Other (See Below) Other Female Surgeries/Procedures: Breast biopsy for benign disease in the left breast in about 1999. Complete hysterectomy with bilateral salpingo- oophorectomy in her 50s for unknown reason. Musculoskeletal Surgical History: Reports: ORIF, Other (See Below) Other Musculoskeletal Surgeries/Procedures:: ORIF/pin placement of the left elbow fracture 1996 Oncologic Surgical History: Reports: Biopsy of Breast, Bone Marrow Aspiration, Other (See Below) Other Oncologic Surgeries/Procedures: Breast biopsy as above for benign disease. Bone marrow fine-needle aspiration and biopsy in February 2018. Dermatological Surgical History: Reports: None - Past Imaging History Past Imaging History: Reports: DAVID Screen (DAVID screen with exercise on 07/15/10), Cardiac Echo (Echocardiogram on 09/03/15 with ejection fraction of 6065 percent. ), Carotid US (07/28/11), CAT Scan (Last CT scan of the abdomen including angiographic evaluation on 12/28/17. CT of the abdomen and pelvis on 06/07/17 with multiple previous evaluations including initially on 8/15/13. CTA of the chest and additional abdominal and pelvic CT scans on 08/25/15.), Cystoscopy ( Last cystoscopy on 01/17/11 with previous evaluations on 09/04/98 and 08/21/98.), Mammogram (Last mammogram on 04/03/16.), Stress Testing (Negative Cardiolite stress test on 09/23/17 with ejection fraction of 27%.), Swallow Study (Negative swallowing study on 08/29/15.), Ultrasound (Abdominal ultrasound on 03/03/10 with previous evaluations on 09/04/28 and 08/21/98.), Upper GI X-Ray/Series, Other (See Below) (Barium enema on 09/05/98 and 07/30/98. Camera colonic evaluation in about 2005.) Social & Family History - Family History HEENT: Reports: None Cardiac: Reports: Blood Clots/VTE/DVT, CAD, Heart Valve Replacement, High Cholesterol, Hypertension, PR, Other (See Below) Other Cardiac Family History: Son with DVT in his 40s with mother with DVT in her 70s and 80s. Valve replacement secondary to rheumatic fever. Hyperlipidemia and son, brother, and sister. Hypertension in 4 brothers, parents, and sister. Mother with fatal PR in his 60s. 4 brothers with fatal MIs in their 50s and 60s with one of these having a fatal PR at about age 49. Respiratory: Reports: COPD, Other (See Below) Other Respiratory Family Hisory: Brother with COPD. GI: Reports: GERD, Inflammatory Bowel Disease, Other (See Below) Other GI Family History: Son with GERD. Sister with Crohn's disease. : Reports: Renal Disease/Insufficiency, Other (See Below) Other Family History: Mother with fatal renal disease in her 90s. OBGYN: Reports: None Musculoskeletal: Reports: None Neurological: Reports: Seizure, Other (See Below) Other Neurological Family History: sister with fatal Down's syndrome in her 50s Psychiatric: Reports: Anxiety, Depression, Other (See Below) Other Psychiatric Family History: Brother with anxiety depression disorder Endocrine/Metabolic: Reports: IDDM, Other (See Below) Other Endocrine/Metabolic Family History: Mother, sister, and 2 brothers with IDDM Hematologic: Reports: None Immunologic: Reports: None Dermatologic: Reports: None Oncologic: Reports: Breast, Other (See Below) Other Oncologic Family History: 2 maternal aunts with fatal cancer of unknown type - Tobacco Use Smoking Status *Q: Former Smoker (stopped smoking one month ago) Tobacco Use Within Last Twelve Months: Cigarettes - Caffeine Use Caffeine Use: Reports: Coffee - Alcohol Use Alcohol Use History: No - Recreational Drug Use Recreational Drug Use: No Drug Use in Last 12 Months: No - Living Situation & Occupation Living situation: Reports: (1991 from first with 5 children from this marriage. 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 Denies: Diaphoresis HEENT: Reports: Throat Pain. Denies: Ear Pain, Rhinitis, Sinus Problem, Throat Swelling, Vision Change Respiratory: Reports: Shortness of Breath (chronic), Cough (has chronic cough, noted to be somewhat worse over the last 24 hours). Denies: Wheezing, Pleuritic Chest Pain, Hemoptysis Cardiovascular: Reports: Dyspnea on Exertion (chronic). Denies: Chest Pain, Edema, Palpitations, Syncope GI/Abdominal: Reports: Abdominal Pain (diffuse discomfort, worse on right where she has hernia), Diarrhea, Decreased Appetite, Nausea, Vomiting. Denies: Black Stool, Bloody Stool, Constipation, Difficulty Swallowing, Distension, Hematemesis, Hematochezia : Reports: No Symptoms Musculoskeletal: Reports: Other (diffuse achiness). Denies: Joint Swelling Skin: Reports: No Symptoms Neurological: Reports: No Symptoms. Denies: Confusion, Dizziness, Headache Psychiatric: Reports: No Symptoms ED EXAM, GENERAL - Physical Exam Exam: See Below Exam Limited By: No Limitations General Appearance: Alert, WD/WN, No Apparent Distress Eye Exam: Bilateral Eye: EOMI, PERRL Ears: Normal External Exam Nose: No: Nasal Deformity, Nasal Swelling, Nasal Drainage Throat/Mouth: Normal Inspection, Normal Lips, Normal Oropharynx, Normal Voice, No Airway Compromise Head: Atraumatic, Normocephalic Neck: Supple, Non-Tender. No: Lymphadenopathy (L), Lymphadenopathy (R) Respiratory/Chest: No Respiratory Distress, No Accessory Muscle Use, Chest Non- Tender, Wheezing (single wheeze heard right anterior chest). No: Crackles, Rales, Rhonchi, Stridor, Pleural Rub, Accessory Muscle Use, Retractions, Splinting Cardiovascular: Regular Rate, Rhythm, No Edema, No Murmur Peripheral Pulses: 3+: Radial (L), Radial (R) GI/Abdominal: Soft, Tender (mild diffuse tenderness, moreso in right mid abdomen ). No: Distended, Guarding, Rigid, Rebound, Abnormal Bowel Sounds (Female) Exam: Deferred Rectal (Female) Exam: Deferred Back Exam: Normal Inspection. No: CVA Tenderness (L), CVA Tenderness (R), Muscle Spasm, Paraspinal Tenderness, Vertebral Tenderness Extremities: Non-Tender, No Pedal Edema, Normal Capillary Refill Neurological: Alert, Oriented, Normal Cognition, No Motor/Sensory Deficits Psychiatric: Normal Affect, Normal Mood Skin Exam: Warm, Dry, Intact. No: Diaphoretic, Increased Warmth, Rash Course - Vital Signs Last Recorded V/S: Last Vital Signs Temp 37.1 C 01/28/19 20:48 Pulse 83 01/28/19 20:48 Resp 22 H 01/28/19 20:48 BP 120/49 L 01/28/19 20:48 Pulse Ox 95 01/28/19 20:48 - Orders/Labs/Meds Orders: Active Orders 24 hr Category Date Time Status Abdomen Series w Chest 1V [CR] Stat Exams 01/28/19 18:38 Ordered CULTURE BLOOD [BC] Stat Lab 01/28/19 18:47 Ordered CULTURE BLOOD [BC] Stat Lab 01/28/19 18:55 Received CULTURE STREP A CONFIRMATION [RM] Stat Lab 01/28/19 19:10 Results STREP SCRN A RAPID W CULT CONF [RM] Stat Lab 01/28/19 18:45 Ordered UA W/MICROSCOPIC [URIN] Stat Lab 01/28/19 18:22 Ordered Magnesium Sulfate/D5W [Magnesium Sulfate in D5W 100 Med 01/28/19 20:50 Ordered Premix] 1 gm Premix Bag 1 bag IV ONETIME Sodium Chloride 0.9% [Normal Saline] 500 ml Med 01/28/19 18:45 Active IV .BOLUS Sodium Chloride 0.9% [Normal Saline] 500 ml Med 01/28/19 21:00 Ordered IV .BOLUS Blood Culture x2 Reflex Set [OM.PC] Stat Oth 01/28/19 18:47 Ordered Medication Orders Sodium Chloride (Normal Saline) 500 mls @ 500 mls/hr IV .BOLUS LEONID Last Admin: 01/28/19 19:32 Dose: 500 mls/hr Magnesium Sulfate/Dextrose 1 (gm/ Premix) 100 mls @ 100 mls/hr IV ONETIME ONE Stop: 01/28/19 21:49 Last Admin: 01/28/19 20:57 Dose: 100 mls/hr Sodium Chloride (Normal Saline) 500 mls @ 200 mls/hr IV .BOLUS LEONID Labs: Laboratory Tests 01/28/19 01/28/19 01/28/19 Range/Units 18:55 18:55 18:55 WBC 2.8 L (4.0-10.2) K/uL RBC 2.58 L (3.77-5.09) M/uL Hgb 8.7 L D (11.7-15.5) g/dL Hct 28.0 L (34.0-46.0) % MCV 108.5 H (84.0-98.0) fL MCH 33.7 H (28.2-33.3) pg MCHC 31.1 L (31.7-36.0) g/dL RDW 14.1 (11.2-14.1) % Plt Count 103 L D (150-350) K/uL Neut % (Auto) 68.8 (45.0-80.0) % Lymph % (Auto) 23.0 (10.0-50.0) % Dickenson % (Auto) 3.9 (2.0-14.0) % Eos % (Auto) 4.3 (0.0-5.0) % Baso % (Auto) 0.0 (0.0-2.0) % Neut # (Auto) 1.94 (1.40-7.00) K/uL Lymph # (Auto) 0.65 (0.50-3.50) K/uL Dickenson # (Auto) 0.11 (0.00-1.00) K/uL Eos # (Auto) 0.12 (0.00-0.50) K/uL Baso # (Auto) 0.00 (0.00-0.20) K/uL INR 2.9 Sodium 141 (136-145) mmol/L Potassium 4.7 (3.5-5.1) mmol/L Chloride 107 (98-107) mmol/L Carbon Dioxide 23.5 (21.0-32.0) mmol/L BUN 14 (7-18) mg/dL Creatinine 0.92 (0.51-1.17) mg/dL Est Cr Clr Drug Dosing 43.52 mL/min Estimated GFR (MDRD) 59 mL/min Glucose 192 H (74-106) mg/dL Lactic Acid (0.4-2.0) mmol/L Calcium 8.7 (8.5-10.1) mg/dL Magnesium 1.6 L (1.8-2.4) mg/dL Total Bilirubin 0.2 (0.2-1.0) mg/dL AST 15 (15-37) U/L ALT 19 (12-78) U/L Alkaline Phosphatase 76 (46-116) IU/L NT-Pro-B Natriuret Pep (0-125) pg/mL Total Protein 6.8 (6.4-8.2) g/dL Albumin 2.6 L (3.4-5.0) g/dL 01/28/19 01/28/19 Range/Units 18:55 18:55 WBC (4.0-10.2) K/uL RBC (3.77-5.09) M/uL Hgb (11.7-15.5) g/dL Hct (34.0-46.0) % MCV (84.0-98.0) fL MCH (28.2-33.3) pg MCHC (31.7-36.0) g/dL RDW (11.2-14.1) % Plt Count (150-350) K/uL Neut % (Auto) (45.0-80.0) % Lymph % (Auto) (10.0-50.0) % Dickenson % (Auto) (2.0-14.0) % Eos % (Auto) (0.0-5.0) % Baso % (Auto) (0.0-2.0) % Neut # (Auto) (1.40-7.00) K/uL Lymph # (Auto) (0.50-3.50) K/uL Dickenson # (Auto) (0.00-1.00) K/uL Eos # (Auto) (0.00-0.50) K/uL Baso # (Auto) (0.00-0.20) K/uL INR Sodium (136-145) mmol/L Potassium (3.5-5.1) mmol/L Chloride (98-107) mmol/L Carbon Dioxide (21.0-32.0) mmol/L BUN (7-18) mg/dL Creatinine (0.51-1.17) mg/dL Est Cr Clr Drug Dosing mL/min Estimated GFR (MDRD) mL/min Glucose (74-106) mg/dL Lactic Acid 1.2 (0.4-2.0) mmol/L Calcium (8.5-10.1) mg/dL Magnesium (1.8-2.4) mg/dL Total Bilirubin (0.2-1.0) mg/dL AST (15-37) U/L ALT (12-78) U/L Alkaline Phosphatase (46-116) IU/L NT-Pro-B Natriuret Pep 2817 H (0-125) pg/mL Total Protein (6.4-8.2) g/dL Albumin (3.4-5.0) g/dL Meds: Medications Generic Name Dose Route Start Last Admin Trade Name Freq PRN Reason Stop Dose Admin Sodium Chloride 500 mls @ 500 mls/hr 01/28/19 18:45 01/28/19 19:32 Normal Saline IV 500 mls/hr .BOLUS LEONID Administration Magnesium Sulfate/Dextrose 1 100 mls @ 100 mls/hr 01/28/19 20:50 01/28/19 20: 57 gm/ Premix IV 01/28/19 21:49 100 mls/hr ONETIME ONE Administration Sodium Chloride 500 mls @ 200 mls/hr 01/28/19 21:00 Normal Saline IV .BOLUS LEONID Discontinued Medications Generic Name Dose Route Start Last Admin Trade Name Freq PRN Reason Stop Dose Admin Ondansetron HCl 4 mg 01/28/19 18:40 01/28/19 19:24 Zofran IVPUSH 01/28/19 18:41 4 mg ONETIME ONE Administration - Radiology Interpretation Free Text/Narrative:: abdominal with chest series reviewed by Radiology. Noted left basilar atelectasis but could not rule out possible infiltrate. COPD. Abdomen unremarkable. - Re-Assessments/Exams Free Text/Narrative Re-Assessment/Exam: 01/28/19 18:58 Baseline labs, blood culture, abdominal films/chest xray requested. Zofran and IV fluids ordered. 01/28/19 21:10 Patient feels a little better after above interventions. No obvious changes noted on xray. CBC showed WBC of 2.8, however had good overall neutrophil percentage. Hgb 8.7, down from 10.6 on 01/05/19 Platelets 103, down from 209. Mag 1.6 ProBNP 2817. Glucose elevated. Patient is insulin dependent diabetic. Unable to void and provide UA. BP noted to run lower than last visit, with systolic in low 100s and diastolic in high 40s to 50. After IV bolus systolic reached 120. Lactic acid normal. Given patient's symptoms and exposure to ill family members, it can be reasonable to associate current spectrum of complaints with shared viral syndrome. Also may be experiencing some side effects from recent chemo. However, given recent chemo, lower blood counts, and lower BP, cannot rule out downward trend continuing. Call placed to [facility] and patient discussed with from the ED. It was felt to be best to transfer her to [facility] for further evaluation and care. She will have Oncology/Internal Medicine available at that site. Magnesium IV ordered prior to transport. Continued maintenance IV fluid also ordered. Patient agreeable with plan. Departure - Departure Time of Disposition: 21:19 Disposition: DC/Tfer to Acute Hospital 02 Condition: Fair Clinical Impression: Hypomagnesemia, Weakness generalized, Gastroenteritis Multiple myeloma Qualifiers: Multiple myeloma remission status: not in remission Qualified Code(s): C90.00 - Multiple myeloma not having achieved remission Anemia Qualifiers: Anemia type: unspecified type Qualified Code(s): D64.9 - Anemia, unspecified Leukopenia Qualifiers: Leukopenia type: unspecified Qualified Code(s): D72.819 - Decreased white blood cell count, unspecified Hypotension Qualifiers: Hypotension type: unspecified hypotension type Qualified Code(s): I95.9 - Hypotension, unspecified - Discharge Information *PRESCRIPTION DRUG MONITORING PROGRAM REVIEWED*: Not Applicable *COPY OF PRESCRIPTION DRUG MONITORING REPORT IN PATIENT ONÉ: Not Applicable Forms: ED Department Discharge - My Orders Last 24 Hours: My Active Orders 01/28/19 18:22 UA W/MICROSCOPIC [URIN] Stat 01/28/19 18:38 Abdomen Series w Chest 1V [CR] Stat 01/28/19 18:45 STREP SCRN A RAPID W CULT CONF [RM] Stat Sodium Chloride 0.9% [Normal Saline] 500 ml IV .BOLUS 01/28/19 18:47 CULTURE BLOOD [BC] Stat Blood Culture x2 Reflex Set [OM.PC] Stat 01/28/19 18:55 CULTURE BLOOD [BC] Stat 01/28/19 19:10 CULTURE STREP A CONFIRMATION [RM] Stat 01/28/19 20:50 Magnesium Sulfate/D5W [Magnesium Sulfate in D5W 100 Premix] 1 gm Premix Bag 1 bag IV ONETIME 01/28/19 21:00 Sodium Chloride 0.9% [Normal Saline] 500 ml IV .BOLUS - Assessment/Plan Last 24 Hours: My Active Orders 01/28/19 18:22 UA W/MICROSCOPIC [URIN] Stat 01/28/19 18:38 Abdomen Series w Chest 1V [CR] Stat 01/28/19 18:45 STREP SCRN A RAPID W CULT CONF [RM] Stat Sodium Chloride 0.9% [Normal Saline] 500 ml IV .BOLUS 01/28/19 18:47 CULTURE BLOOD [BC] Stat Blood Culture x2 Reflex Set [OM.PC] Stat 01/28/19 18:55 CULTURE BLOOD [BC] Stat 01/28/19 19:10 CULTURE STREP A CONFIRMATION [RM] Stat 01/28/19 20:50 Magnesium Sulfate/D5W [Magnesium Sulfate in D5W 100 Premix] 1 gm Premix Bag 1 bag IV ONETIME 01/28/19 21:00 Sodium Chloride 0.9% [Normal Saline] 500 ml IV .BOLUS
[2019-01-28] MEDS ORDERED: Sodium Chloride 0.9% 500 ML IV SCH ×2 (18:45→21:00)
[2019-01-28 20:10] VITALS: PULSE 83
[2019-01-28 20:49] VITALS: BP 120/49
== END 2019-01-28 21:55 ==
LOC: LL.ED 18:14
DX: R53.1 Weakness (principal); K52.9 Noninfective gastroenteritis and colitis, unspecified; C90.00 Multiple myeloma not having achieved remission; E83.42 Hypomagnesemia; D64.9 Anemia, unspecified; D72.819 Decreased white blood cell count, unspecified; I95.9 Hypotension, unspecified; I10 Essential (primary) hypertension; E11.9 Type 2 diabetes mellitus without complications; I25.10 Atherosclerotic heart disease of native coronary artery without angina pectoris; E78.00 Pure hypercholesterolemia, unspecified; J44.9 Chronic obstructive pulmonary disease, unspecified; M19.90 Unspecified osteoarthritis, unspecified site; E03.9 Hypothyroidism, unspecified; F41.9 Anxiety disorder, unspecified; F32.9 Major depressive disorder, single episode, unspecified; Z87.891 Personal history of nicotine dependence; Z88.8 Allergy status to other drugs, medicaments and biological substances; Z79.82 Long term (current) use of aspirin; Z79.4 Long term (current) use of insulin; Z79.01 Long term (current) use of anticoagulants; Z79.899 Other long term (current) drug therapy
CPT/HCPCS: 36415; 74022; 80053; 81001; 83605; 83735; 83880; 85025; 85610; 87040; 87081; 87430; 87804; 96361; 96365; 96366; 96375; 99285; J2405; J3475; J7040

== ENCOUNTER 2019-05-11 12:32 | Emergency (ER) | payer MEDICARE, OTHER ==
[2019-05-11 12:35] VITALS: BP 121/53; PULSE 82
[2019-05-11] MEDS ORDERED: cefTRIAXone 1 GM Vial IM ONE (13:28)
--- NOTE | 2019-05-11 13:34 | EDM.PDOC ---
ED HPI GENERAL MEDICAL PROBLEM - General Chief Complaint: Respiratory Problem Stated Complaint: Cough, Fever Time Seen by Provider: 05/11/19 12:35 Source of Information: Reports: Patient, Family History Limitations: Reports: No Limitations - History of Present Illness INITIAL COMMENTS - FREE TEXT/NARRATIVE: Pt with productive cough and fever Pt is on chemotherapy for CA Pt scheduled for chemo today but was held due to fever and productive cough No N/V/D No other complaints Onset: Gradual Duration: Day(s): Location: Reports: Chest Associated Symptoms: Reports: Cough, Fever/Chills - Related Data Allergies Allergy/AdvReac Type Severity Reaction Status Date / Time ezetimibe Allergy Cannot Verified 04/21/19 12:45 [From Vytorin 10-10] Remember lisinopril Allergy Cannot Verified 04/21/19 12:45 Remember metformin Allergy Diarrhea Verified 04/21/19 12:45 pioglitazone HCl [From Actos] Allergy Cannot Verified 04/21/19 12:45 Remember rosuvastatin calcium Allergy Diarrhea Verified 04/21/19 12:45 [From Crestor] simvastatin Allergy Cannot Verified 04/21/19 12:45 [From Vytorin 10-10] Remember Home Meds: Home Meds Levothyroxine Sodium [Levoxyl] 25 mcg PO MOWEFR@1100 07/23/13 [History] Metoprolol Tartrate [Lopressor] 12.5 mg PO BID@1100,199907/23/13 [History] Simvastatin 40 mg PO BEDTIME 07/23/13 [History] Levothyroxine 50 mcg PO SUTUTHSA@1100 08/13/15 [History] Insulin Detemir [Levemir] 30 unit SUBCUT BEDTIME 09/17/17 [History] Aspirin [Halfprin] 81 mg PO DAILY 12/18/17 [History] Melatonin/Pyridoxine HCl (B6) [Melatonin 5 mg Tablet] 5 mg PO ASDIRECTED PRN 05/27 [History] Sertraline HCl 1.5 tab PO BEDTIME 03/10/18 [History] Albuterol Sulfate [Proair Respiclick] 1 puff IH QID PRN 03/12/18 [History] Albuterol [Proventil Neb Soln] 3 ml INH Q4HR PRN 03/12/18 [History] Calcium Carbonate/Vitamin D3 [Calcium 600 + Vit D Tablet] 1 each PO BID [History] Cholestyramine (With Sugar) [Questran Powder] 4 gm PO TID 03/12/18 [History] Cyanocobalamin (Vitamin B-12) [Cyanocobalamin Injection] 1,000 mcg IJ Q30D 03/12 [History] Fluticasone Propionate [Flovent HFA 110 MCG] 1 puff INH BID 03/12/18 [History] Furosemide 1.5 tab PO DAILY PRN 03/12/18 [History] Magnesium Chloride [Mag-64] 2 tab PO DAILY 03/12/18 [History] Omeprazole 20 mg PO DAILY 03/12/18 [History] Warfarin [Coumadin] 2.5 mg PO DAILY 03/12/18 [History] Arformoterol [Brovana] 15 mcg IH BID 10/15/18 [History] Cholecalciferol (Vitamin D3) [D3-2000] 2,000 unit PO DAILY 10/15/18 [History] Diphenoxylate HCl/Atropine [Lomotil] 1 tab PO Q6H PRN 10/15/18 [History] Nicotine Polacrilex [Nicotine Lozenge] 2 mg BC ASDIRECTED 10/15/18 [History] Pomalidomide [Pomalyst] 2 mg PO ASDIRECTED 10/15/18 [History] Prochlorperazine [Compazine] 10 mg PO Q8H PRN 10/15/18 [History] valACYclovir HCl [Valtrex] 500 mg PO BID 10/15/18 [History] Acetaminophen [Tylenol] 650 mg PO Q4H PRN tablet 10/17/18 [Rx] Insulin Aspart [NovoLOG] 0 unit SQ WITHMEALSANDBED #3 pen 10/17/18 [Rx] Doxycycline [Vibramycin] 100 mg PO BID #10 cap 12/23/18 [Rx] Folic Acid 1 mg PO DAILY 12/23/18 [History] Sulfamethoxazole/Trimethoprim [Bactrim Ds Tablet] 1 tab PO ASDIRECTED 12/23/18 [ History] dexAMETHasone [Dexamethasone] 5 tab PO WEEKLY 12/23/18 [History] Past Medical History HEENT History: Reports: Allergic Rhinitis, Cataract, Impaired Vision, Other ( See Below) Other HEENT History: Allergic rhinitis not currently being treated your patient wears glasses. Cardiovascular History: Reports: Arrhythmia, CAD, Cardiomyopathy, High Cholesterol, Hypertension, PVD, Other (See Below) Other Cardiovascular History: Varicose veins of the lower extremities. Dyslipidemia. Minimal carotid occlusive disease. PVCs. Grade 1 diastolic dysfunction by echocardiogram. Respiratory History: Reports: Bronchitis, Recurrent, COPD, Intubation, Previous , Pneumonia, Recurrent, Pulmonary Fibrosis Gastrointestinal History: Reports: Bowel Obstruction, Chronic Diarrhea, Diverticulosis, Gastritis, GERD, Inflammatory Bowel Disease, Irritable Bowel Syndrome, PUD, Other (See Below) Other Gastrointestinal History: History of recurrent diarrhea secondary to her Crohn's disease including secondary fistula requiring surgery as below. Benign right sided hepatic hemangioma stable by serial CT scans with additional fatty liver and benign hepatic cyst these evaluations. LFTs elevation likely secondary to fatty liver. Rectus muscle diastasis by CT scan. Genitourinary History: Reports: Renal Calculus, Urinary Incontinence, UTI, Recurrent Other Genitourinary History: History of right-sided urolithiasis with nonproblematic chronic hematuria and spontaneous passage. Additional history of benign renal cysts. 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 Full term without complications during pregnancies or deliveries. Musculoskeletal History: Reports: Arthritis, Back Pain, Chronic, Fracture, Neck Pain, Chronic, Osteoarthritis, Osteoporosis Other Musculoskeletal History: Scoliosis. Left elbow fracture requiring surgery as below. Neurological History: Reports: Headaches, Chronic Psychiatric History: Reports: Anxiety, Depression Endocrine/Metabolic History: Reports: Diabetes, Type II, Hypothyroidism, IDDM, Other (See Below) Other Endocrine/Metabolic History: Hypomagnesemia. Hypoalbuminemia and hypokalemia. 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 Multiple myeloma diagnosed in February 2018 with further evaluation at the [facility] in [place], including additional chemotherapy. Dermatologic History: Reports: None - Infectious Disease History Infectious Disease History: Reports: Chicken Pox, Measles, Mumps, Pertussis ( Whooping Cough), Rheumatic Fever, Rubella, Scarlet Fever - Past Surgical History Head Surgeries/Procedures: Reports: None HEENT Surgical History: Reports: Adenoidectomy, Cataract Surgery, Oral Surgery, Tonsillectomy, Other (See Below) Other HEENT Surgeries/Procedures: Tonsillectomy and adenoidectomy at age 18. Bilateral cataract surgery in March 2012. Complete teeth extraction with current dentures. Cardiovascular Surgical History: Reports: None GI Surgical History: Reports: Appendectomy, Cholecystectomy, Colon, Colonoscopy , EGD, Lysis of Adhesions, Small Bowel, Other (See Below) Other GI Surgeries/Procedures: Appendectomy with concomitant small bowel resection in about 1999 secondary to her Crohn's disease. Open cholecystectomy concomitant with her complete hysterectomy in her 50s in about 1997. Partial resection of the ascending colon in 1999 at time of small bowel resection. As colonoscopy on 01/10/15 with previous evaluations on 11/27/07 and 03/12/08. Adhesiolysis in 2005 and 2008. Repeat small bowel resection in 2001. Female Surgical History: Reports: Breast Biopsy, Hysterectomy, Salpingo- Oophorectomy, Other (See Below) Other Female Surgeries/Procedures: Breast biopsy for benign disease in the left breast in about 1999. Complete hysterectomy with bilateral salpingo- oophorectomy in her 50s for unknown reason. Musculoskeletal Surgical History: Reports: ORIF, Other (See Below) Other Musculoskeletal Surgeries/Procedures:: ORIF/pin placement of the left elbow fracture 1996 Oncologic Surgical History: Reports: Biopsy of Breast, Bone Marrow Aspiration, Other (See Below) Other Oncologic Surgeries/Procedures: Breast biopsy as above for benign disease. Bone marrow fine-needle aspiration and biopsy in February 2018. Dermatological Surgical History: Reports: None - Past Imaging History Past Imaging History: Reports: DAVID Screen (DAVID screen with exercise on 07/15/10), Cardiac Echo (Echocardiogram on 09/03/15 with ejection fraction of 6065 percent. ), Carotid US (07/28/11), CAT Scan (Last CT scan of the abdomen including angiographic evaluation on 12/28/17. CT of the abdomen and pelvis on 06/07/17 with multiple previous evaluations including initially on 12/22/12. CTA of the chest and additional abdominal and pelvic CT scans on 08/25/15.), Cystoscopy ( Last cystoscopy on 01/17/11 with previous evaluations on 09/04/98 and 08/21/98.), Mammogram (Last mammogram on 04/03/16.), Stress Testing (Negative Cardiolite stress test on 09/23/17 with ejection fraction of 27%.), Swallow Study (Negative swallowing study on 08/29/15.), Ultrasound (Abdominal ultrasound on 03/03/10 with previous evaluations on 09/04/28 and 08/21/98.), Upper GI X-Ray/Series, Other (See Below) (Barium enema on 09/05/98 and 07/30/98. Camera colonic evaluation in about 2005.) Social & Family History - Family History HEENT: Reports: None Cardiac: Reports: Blood Clots/VTE/DVT, CAD, Heart Valve Replacement, High Cholesterol, Hypertension, OR, Other (See Below) Other Cardiac Family History: Son with DVT in his 40s with mother with DVT in her 70s and 80s. Valve replacement secondary to rheumatic fever. Hyperlipidemia and son, brother, and sister. Hypertension in 4 brothers, parents, and sister. Mother with fatal OR in his 60s. 4 brothers with fatal MIs in their 50s and 60s with one of these having a fatal OR at about age 49. Respiratory: Reports: COPD, Other (See Below) Other Respiratory Family Hisory: Brother with COPD. GI: Reports: GERD, Inflammatory Bowel Disease, Other (See Below) Other GI Family History: Son with GERD. Sister with Crohn's disease. : Reports: Renal Disease/Insufficiency, Other (See Below) Other Family History: Mother with fatal renal disease in her 90s. OBGYN: Reports: None Musculoskeletal: Reports: None Neurological: Reports: Seizure, Other (See Below) Other Neurological Family History: sister with fatal Down's syndrome in her 50s Psychiatric: Reports: Anxiety, Depression, Other (See Below) Other Psychiatric Family History: Brother with anxiety depression disorder Endocrine/Metabolic: Reports: IDDM, Other (See Below) Other Endocrine/Metabolic Family History: Mother, sister, and 2 brothers with IDDM Hematologic: Reports: None Immunologic: Reports: None Dermatologic: Reports: None Oncologic: Reports: Breast, Other (See Below) Other Oncologic Family History: 2 maternal aunts with fatal cancer of unknown type - Caffeine Use Caffeine Use: Reports: Coffee - Living Situation & Occupation Living situation: Reports: (1991 from first with 5 children from this marriage. 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.) ED ROS GENERAL - Review of Systems Review Of Systems: See Below Constitutional: Reports: Fever Respiratory: Reports: Cough Cardiovascular: Reports: No Symptoms GI/Abdominal: Reports: No Symptoms Musculoskeletal: Reports: No Symptoms ED EXAM, GENERAL - Physical Exam Exam: See Below Exam Limited By: No Limitations Throat/Mouth: Normal Oropharynx Neck: Supple Respiratory/Chest: Decreased Breath Sounds Cardiovascular: Regular Rate, Rhythm Course - Vital Signs Last Recorded V/S: Last Vital Signs Temp 37.2 C 05/11/19 12:34 Pulse 82 05/11/19 12:34 Resp 16 05/11/19 12:34 BP 121/53 L 05/11/19 12:34 Pulse Ox 93 L 05/11/19 12:34 - Orders/Labs/Meds Orders: Active Orders 24 hr Category Date Time Status Chest 2V [CR] Stat Exams 05/11/19 12:41 Taken CULTURE BLOOD [BC] Stat Lab 05/11/19 12:55 Received CULTURE BLOOD [BC] Stat Lab 05/11/19 13:10 Received cefTRIAXone [Rocephin] Med 05/11/19 13:28 Once 1 gm IM ONETIME ONE Blood Culture x2 Reflex Set [OM.PC] Stat Oth 05/11/19 12:40 Ordered Medication Orders Ceftriaxone Sodium (Rocephin) 1 gm IM ONETIME ONE Stop: 05/11/19 13:29 Labs: Laboratory Tests 05/11/19 05/11/19 05/11/19 Range/Units 12:55 12:55 12:55 WBC 3.4 L (4.0-10.2) K/uL RBC 3.06 L (3.77-5.09) M/uL Hgb 10.1 L (11.7-15.5) g/dL Hct 32.1 L (34.0-46.0) % MCV 104.9 H D (84.0-98.0) fL MCH 33.0 (28.2-33.3) pg MCHC 31.5 L (31.7-36.0) g/dL RDW 18.3 H (11.2-14.1) % Plt Count 137 L (150-350) K/uL Neut % (Auto) 73.2 (45.0-80.0) % Lymph % (Auto) 20.0 (10.0-50.0) % [place] % (Auto) 6.2 (2.0-14.0) % Eos % (Auto) 0.6 (0.0-5.0) % Baso % (Auto) 0.0 (0.0-2.0) % Neut # (Auto) 2.49 (1.40-7.00) K/uL Lymph # (Auto) 0.68 (0.50-3.50) K/uL [place] # (Auto) 0.21 (0.00-1.00) K/uL Eos # (Auto) 0.02 (0.00-0.50) K/uL Baso # (Auto) 0.00 (0.00-0.20) K/uL Sodium 137 (136-145) mmol/L Potassium 5.1 (3.5-5.1) mmol/L Chloride 105 (98-107) mmol/L Carbon Dioxide 23.5 (21.0-32.0) mmol/L BUN 15 (7-18) mg/dL Creatinine 0.93 (0.51-1.17) mg/dL Est Cr Clr Drug Dosing 42.48 mL/min Estimated GFR (MDRD) 58 mL/min Glucose 190 H (74-106) mg/dL Lactic Acid 1.7 (0.4-2.0) mmol/L Calcium 8.9 (8.5-10.1) mg/dL Meds: Medications Generic Name Dose Route Start Last Admin Trade Name Freq PRN Reason Stop Dose Admin Ceftriaxone Sodium 1 gm 05/11/19 13:28 Rocephin IM 05/11/19 13:29 ONETIME ONE - Re-Assessments/Exams Free Text/Narrative Re-Assessment/Exam: 05/11/19 13:31 See lab Pt given Rocephin 1 gm in ER Departure - Departure Time of Disposition: 13:45 Disposition: Home, Self-Care 01 Clinical Impression: URI (upper respiratory infection) Qualifiers: URI type: unspecified URI Qualified Code(s): J06.9 - Acute upper respiratory infection, unspecified - Discharge Information Instructions: Community-Acquired Pneumonia, Adult, [id number], Upper Respiratory Infection, Adult Referrals: Cherelle La, JD [facility] [facility] [Primary Care Provider] - Additional Instructions: RX Zithromax Rx Tessalon Luiz Follow up in clinic Sepsis Event Note - Evaluation Sepsis Screening Result: No Definite Risk - Focused Exam Vital Signs: Vital Signs Temp Pulse Resp BP Pulse Ox 05/11/19 12:34 37.2 C 82 16 121/53 L 93 L Date Exam was Performed: 05/11/19 Time Exam was Performed: 13:29 - My Orders Last 24 Hours: My Active Orders 05/11/19 12:40 Blood Culture x2 Reflex Set [OM.PC] Stat 05/11/19 12:41 Chest 2V [CR] Stat 05/11/19 12:55 CULTURE BLOOD [BC] Stat 05/11/19 13:10 CULTURE BLOOD [BC] Stat 05/11/19 13:28 cefTRIAXone [Rocephin] 1 gm IM ONETIME ONE - Assessment/Plan Last 24 Hours: My Active Orders 05/11/19 12:40 Blood Culture x2 Reflex Set [OM.PC] Stat 05/11/19 12:41 Chest 2V [CR] Stat 05/11/19 12:55 CULTURE BLOOD [BC] Stat 05/11/19 13:10 CULTURE BLOOD [BC] Stat 05/11/19 13:28 cefTRIAXone [Rocephin] 1 gm IM ONETIME ONE
== END 2019-05-11 13:57 | disposition home or self-care (01) ==
LOC: LL.ED 12:32
DX: J06.9 Acute upper respiratory infection, unspecified (principal); I10 Essential (primary) hypertension; E11.9 Type 2 diabetes mellitus without complications; Z88.8 Allergy status to other drugs, medicaments and biological substances; Z79.899 Other long term (current) drug therapy; Z79.82 Long term (current) use of aspirin; Z79.4 Long term (current) use of insulin
CPT/HCPCS: 36415; 71046; 80048; 83605; 85025; 87040; 87804; 96372; 99284-25; J0696

== ENCOUNTER 2019-07-13 18:51 | Emergency (ER) | payer MEDICARE, OTHER ==
[2019-07-13] MEDS ORDERED: Pantoprazole 40 MG Vial IVPUSH ONE (19:19)
[2019-07-13] MEDS ORDERED: Ondansetron 4 MG/2 ML SDV IVPUSH ONE (19:19)
[2019-07-13] MEDS ORDERED: Sodium Chloride 0.9% 10 ML Syringe FLUSH PRN (19:19)
[2019-07-13] MEDS ORDERED: Lactated Ringers 1,000 ML IV ONE (19:19)
[2019-07-13] MEDS ORDERED: Famotidine 20 MG/2 ML SDV IVPUSH ONE (19:19)
--- NOTE | 2019-07-13 19:19 | EDM.PDOC ---
ED HPI GENERAL MEDICAL PROBLEM - General Chief Complaint: General Stated Complaint: SOB, feeling unwell, RUQ pain,back pain Time Seen by Provider: 07/13/19 19:15 Source of Information: Reports: Patient, Family (Daughter, Selene), Old Records ( [facility] chart/EMR), Other ([facility] EMR) History Limitations: Reports: No Limitations - History of Present Illness INITIAL COMMENTS - FREE TEXT/NARRATIVE: The patient was brought to the emergency room via private automobile by her daughter for evaluation of sharp 8/10 right upper quadrant abdominal pain with symptoms starting after she woke up at about 7 AM this morning. She did have some nausea but no emesis to this point with fever and chills at home, however no increased temperature. She did take 650 mg of Tylenol at 15:00 hours. The patient did have a good bowel movement yesterday however only a small bowel movement this morning. No recent history of abdominal pain, heartburn, diarrhea , melena, gross hematochezia, or any food intolerance, including fatty foods, etc.. No recent history of gross hematuria, colic, or other UTI symptoms, although possible spontaneous passage of a kidney stone by clinical history on 06/23/[address] scan of that time. The patient also denies any recent wheezing, dyspnea, etc. mother URI symptoms and nonproductive cough during the last month. Patient did have her chemotherapy yesterday, including dexamethasone. Onset: Today, Gradual Onset Date: 07/13/19 Onset Time: 07:00 Duration: Constant, Getting Worse Location: Reports: Abdomen, Back (Chronic). Denies: Head, Face, Neck, Chest, Pelvis, Upper Extremity, Left, Upper Extremity, Right, Lower Extremity, Left, Radiates to Quality: Reports: Same as Previous Episode, Sharp Severity: Moderate Improves with: Reports: None Worsens with: Reports: None Context: Reports: Other (As above). Denies: Sick Contact, Trauma Associated Symptoms: Reports: Cough, Fever/Chills, Nausea/Vomiting (No emesis). Denies: Confusion, Chest Pain, cough w sputum, Diaphoresis, Headaches, Loss of Appetite, Malaise, Rash, Shortness of Breath, Syncope, Weakness Treatments PSYCHIATRIC ASSISTANT: Reports: Acetaminophen Right Upper Abdomen Pain Score (Numeric/FACES): 8 - Related Data Allergies Allergy/AdvReac Type Severity Reaction Status Date / Time ezetimibe Allergy Cannot Verified 07/13/19 18:55 [From Vytorin 10-10] Remember lisinopril Allergy Cannot Verified 07/13/19 18:55 Remember metformin Allergy Diarrhea Verified 07/13/19 18:55 pioglitazone HCl [From Actos] Allergy Cannot Verified 07/13/19 18:55 Remember rosuvastatin calcium Allergy Diarrhea Verified 07/13/19 18:55 [From Crestor] simvastatin Allergy Cannot Verified 07/13/19 18:55 [From Vytorin 10-10] Remember Home Meds: Home Meds Levothyroxine Sodium [Levoxyl] 25 mcg PO MOWEFR@1100 07/23/13 [History] Simvastatin 40 mg PO BEDTIME 07/23/13 [History] Levothyroxine 50 mcg PO SUTUTHSA@1100 08/13/15 [History] Insulin Detemir [Levemir] 30 unit SUBCUT BEDTIME 09/17/17 [History] Aspirin [Halfprin] 81 mg PO DAILY 12/18/17 [History] Melatonin/Pyridoxine HCl (B6) [Melatonin 5 mg Tablet] 5 mg PO ASDIRECTED PRN 05/27 [History] Sertraline HCl 1.5 tab PO BEDTIME 03/10/18 [History] Albuterol Sulfate [Proair Respiclick] 1 puff IH QID PRN 03/12/18 [History] Albuterol [Proventil Neb Soln] 3 ml INH Q4HR PRN 03/12/18 [History] Calcium Carbonate/Vitamin D3 [Calcium 600 + Vit D Tablet] 1 each PO BID [History] Cholestyramine (With Sugar) [Questran Powder] 4 gm PO TID 03/12/18 [History] Cyanocobalamin (Vitamin B-12) [Cyanocobalamin Injection] 1,000 mcg IJ Q30D 03/12 [History] Fluticasone Propionate [Flovent HFA 110 MCG] 1 puff INH BID 03/12/18 [History] Omeprazole 20 mg PO DAILY 03/12/18 [History] Warfarin [Coumadin] 2.5 mg PO DAILY 03/12/18 [History] Arformoterol [Brovana] 15 mcg IH BID 10/15/18 [History] Cholecalciferol (Vitamin D3) [D3-2000] 2,000 unit PO DAILY 10/15/18 [History] Diphenoxylate HCl/Atropine [Lomotil] 1 tab PO Q6H PRN 10/15/18 [History] Nicotine Polacrilex [Nicotine Lozenge] 2 mg BC ASDIRECTED 10/15/18 [History] Pomalidomide [Pomalyst] 2 mg PO ASDIRECTED 10/15/18 [History] Prochlorperazine [Compazine] 10 mg PO Q8H PRN 10/15/18 [History] valACYclovir HCl [Valtrex] 500 mg PO BID 10/15/18 [History] Acetaminophen [Tylenol] 650 mg PO Q4H PRN tablet 10/17/18 [Rx] Insulin Aspart [NovoLOG] 0 unit SQ WITHMEALSANDBED #3 pen 10/17/18 [Rx] Folic Acid 1 mg PO DAILY 12/23/18 [History] Sulfamethoxazole/Trimethoprim [Bactrim Ds Tablet] 1 tab PO ASDIRECTED 12/23/18 [ History] dexAMETHasone [Dexamethasone] 5 tab PO WEEKLY 12/23/18 [History] Magnesium Oxide 800 mg PO QPM #1 tab 07/13/19 [Rx] Past Medical History HEENT History: Reports: Allergic Rhinitis, Cataract, Impaired Vision, Other ( See Below). Denies: Glaucoma, Hard of Hearing, Macular Degeneration, Otitis Media, Retinal Detachment Other HEENT History: Allergic rhinitis not currently being treated; patient wears glasses. Cardiovascular History: Reports: Afib, Arrhythmia, CAD, Cardiomyopathy, Heart Failure, Heart Murmur, High Cholesterol, Hypertension, PVD, Other (See Below). Denies: Blood Clots/VTE/DVT, Bypass, TN, Stents, Syncope Other Cardiovascular History: Varicose veins of the lower extremities. Dyslipidemia. Minimal carotid occlusive disease. PVCs. Grade 1 diastolic dysfunction by echocardiogram. Mild aortic valve stenosis by clinical exam with otherwise minimal diffuse vascular disease by echocardiogram. History of d- dimer elevation in February 2018 with negative workup as below. Left atrial enlargementmild by echocardiogram. Respiratory History: Reports: Bronchitis, Recurrent, COPD, Intubation, Previous , Pneumonia, Recurrent, Pulmonary Fibrosis, Other (See Below). 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 Bilateral pulmonary nodules history of right upper lobe pulmonary mass CT of the chest on 02/28/18. Gastrointestinal History: Reports: Bowel Obstruction, Cholelithiasis, Chronic Diarrhea, Diverticulosis, Fatty Liver, Gastritis, GERD, Helicobacter Pylori, Inflammatory Bowel Disease, Irritable Bowel Syndrome, PUD, Other (See Below). Denies: Chronic Constipation, Colon Polyp, Fecal Incontinence, GI Bleed, Hiatal Hernia, Jaundice Other Gastrointestinal History: Previously treated C. difficile colitis in 2018. History of recurrent diarrhea secondary to her Crohn's disease including secondary fistula requiring surgery as below. Benign right sided hepatic hemangioma stable by serial CT scans with additional fatty liver and benign hepatic cysts. LFTs elevation likely secondary to fatty liver. Rectus muscle diastasis by CT scan. Mild dysphagia. Genitourinary History: Reports: Renal Calculus, Urinary Incontinence, UTI, Recurrent. Denies: Acute Renal Failure, Chronic Renal Insuffiency, STD Other Genitourinary History: History of right-sided urolithiasis with nonproblematic chronic hematuria and spontaneous passage possible last episode side unknown on 06/23/19. Additional history of benign renal cysts bilaterally. EDUCATION SITE MANAGER History: Reports: . Denies: Dysfunctional Uterine Bleeding, Endometriosis, Fibroids, Prolapsed Uterus, Spontaneous : 5 Para: 5 LMP (Approximate): Other (See Below) Other EDUCATION SITE MANAGER History: Surgical menopause as below. Full term without complications during pregnancies or deliveries. Musculoskeletal History: Reports: Arthritis, Back Pain, Chronic, Fracture, Neck Pain, Chronic, Osteoarthritis, Osteoporosis. Denies: Gout, RA, SLE Other Musculoskeletal History: Scoliosis. Left elbow fracture requiring surgery as below. Neurological History: Reports: Headaches, Chronic. Denies: Alzheimers Disease, Cerebral Aneurysms, Concussion, CVA, Head Trauma, Migraines, MS, Parkinson's, TIA, Vertigo Psychiatric History: Reports: Anxiety, Depression. Denies: Abuse, Victim of, ADD, ADHD, Addiction, Dementia, Psych Hospitalization(s), PTSD, Suicide Attempt , Suicidal Ideation Endocrine/Metabolic History: Reports: Diabetes, Type II, Hypokalemia, Hypomagnesemia, Hypothyroidism, IDDM, Osteoporosis, Other (See Below). Denies: Diabetes, Type I, Obesity/BMI 30+ Other Endocrine/Metabolic History: Hypoalbuminemia. Hematologic History: Reports: Anemia, B12 Deficiency, Other (See Below). Denies : Folic Acid, Iron Deficiency Other Hematologic History: Pancytopenia secondary to chemotherapy for her multiple myeloma. Immunologic History: Reports: Immunosuppression, Other (See Below). Denies: AIDS Other Immunologic History: Chemotherapy for her multiple myeloma. Oncologic (Cancer) History: Reports: Bladder, Other (See Below). 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 Multiple myeloma diagnosed in February 2018 with further evaluation at the [facility] in [place], including additional chemotherapy currently at [facility]. Dermatologic History: Reports: None. Denies: Eczema, Psoriasis - Infectious Disease History Infectious Disease History: Reports: C-Difficile, Chicken Pox, Measles, Mumps, Pertussis (Whooping Cough), Rheumatic Fever, Rubella, Scarlet Fever. Denies: Meningitis, Mononucleosis, MRSA, Shingles, TB, VRE - Past Surgical History Head Surgeries/Procedures: Reports: None HEENT Surgical History: Reports: Adenoidectomy, Cataract Surgery, Oral Surgery, Tonsillectomy, Other (See Below). Denies: Eye Surgery, Laser Surgery, LASIK, Myringotomy w Tube(s), Naso-Sinus Surgery Other HEENT Surgeries/Procedures: Tonsillectomy and adenoidectomy at age 18. Bilateral cataract surgery in March 2012. Complete teeth extraction with current dentures. Cardiovascular Surgical History: Reports: None. Denies: Varicose Respiratory Surgical History: Reports: None. Denies: Thoracentesis GI Surgical History: Reports: Appendectomy, Cholecystectomy, Colon, Colonoscopy , EGD, Lysis of Adhesions, Small Bowel, Other (See Below). Denies: Hernia, Abdominal, Hernia, Inguinal, Hernia Repair/Other Other GI Surgeries/Procedures: Appendectomy with concomitant small bowel resection in about 1999 secondary to her Crohn's disease. Open cholecystectomy concomitant with her complete hysterectomy in her 50s in about 1997. Partial resection of the ascending colon in 1999 at time of small bowel resection. As colonoscopy on 01/10/15 with previous evaluations on 11/27/07 and 03/12/08. Adhesiolysis in 2005 and 2008. Repeat small bowel resection in 2001. Female Surgical History: Reports: Breast Biopsy, Hysterectomy, Salpingo- Oophorectomy, Other (See Below). Denies: D&C, Tubal Ligation Other Female Surgeries/Procedures: Breast biopsy for benign disease in the left breast in about 1999. Complete hysterectomy with bilateral salpingo- oophorectomy in her 50s for unknown reason. Endocrine Surgical History: Reports: None. Denies: Thyroid Biopsy Neurological Surgical History: Reports: None. Denies: C-Spine, Discectomy, Laminectomy, Lumbar Spine, Sacral Spine, Spinal Fusion, Thoracic Spine, Vertebroplasty Musculoskeletal Surgical History: Reports: ORIF, Other (See Below). Denies: Arthroscopic Knee, Arthroscopic Procedure, Carpal Tunnel, Ganglion Cyst, Joint Replacement, Shoulder Surgery Other Musculoskeletal Surgeries/Procedures:: ORIF/pin placement of the left elbow fracture 1996 Oncologic Surgical History: Reports: Biopsy of Breast, Bone Marrow Aspiration, Other (See Below) Other Oncologic Surgeries/Procedures: Breast biopsy as above for benign disease. Bone marrow fine-needle aspiration and biopsy on 04/20/19, 01/11/18, and 01/05/18. Dermatological Surgical History: Reports: None - Past Imaging History Past Imaging History: Reports: DAVID Screen (DAVID screen with exercise on 07/15/10), Cardiac Echo (Last echocardiogram on 12/27/18 with ejection fraction of 65-70% and findings as above. Previous evaluations on 02/02/18, 09/03/15, and 08/03/07.), Carotid US (07/28/11), CAT Scan (CTA of the chest on 02/28/18. CT of the chest, abdomen, and pelvis on 03/20/19, 04/29/18, and 02/28/18. CT of the abdomen and pelvis on 06/23/[address]. [address] scan of the abdomen including angiographic evaluation on 12/28/17. CT of the abdomen and pelvis on 06/07/17 with multiple previous evaluations including initially on 12/22/12. CTA of the chest and additional abdominal and pelvic CT scans on 08/25/15.), Cystoscopy ( Last cystoscopy on 01/17/11 with previous evaluations on 09/04/98 and 08/21/98.), Mammogram (Last mammogram on 04/03/16.), MRI (MRI of the brain on 01/13/19.), Stress Testing (Negative Cardiolite stress test on 09/23/17 with ejection fraction of 27%.), Swallow Study (Borderline positive swallowing study on previous negative swallowing study on 08/29/15.), Ultrasound (Abdominal ultrasound on 03/03/10 with previous evaluations on 09/04/28 and 08/21/98.), Upper GI X-Ray/Series, Venous Doppler (Of the legs bilaterally on 03/01/18.), Other (See Below) (Barium enema on 09/05/98 and 07/30/98. Camera colonic evaluation in about 2005.) Social & Family History - Family History HEENT: Reports: None. Denies: Glaucoma, Macular Degeneration, Retinal Detachment Cardiac: Reports: Blood Clots/VTE/DVT, CAD, Heart Valve Replacement, High Cholesterol, Hypertension, TN, Other (See Below). Denies: Afib, Aneurysm, Arrhythmia, Heart Failure, Heart Murmur, PVD/COD, Syncope Other Cardiac Family History: Son with DVT in his 40s with mother with DVT in her 70s and 80s. Mother with valve replacement secondary to rheumatic fever. Hyperlipidemia in son, brother, and sister. Hypertension in 4 brothers, parents , and sister. Mother with fatal TN in his 60s. 4 brothers with MIs in their 50s and 60s with one of these having a fatal TN at about age 49. Respiratory: Reports: COPD, Other (See Below). Denies: PE, Pneumothorax, Sleep Apnea Other Respiratory Family Hisory: Brother with COPD. GI: Reports: GERD, Inflammatory Bowel Disease, Other (See Below). Denies: Celiac Disease, Cholelithiasis, Colon Polyps, GI bleed, Irritable Bowel Syndrome , PUD Other GI Family History: Son with GERD. Sister with Crohn's disease. : Reports: Renal Disease/Insufficiency, Other (See Below). Denies: Renal Calculus Other Family History: Mother with fatal renal disease in her 90s. OBGYN: Reports: None. Denies: Endometriosis, Recurrent Spontaneous Musculoskeletal: Reports: None. Denies: Gout, RA, SLE Neurological: Reports: Seizure, Other (See Below). Denies: Alzheimers Disease, Cerebral Aneurysms, CVA, Dementia, Migraines, MS, Parkinson's, TIA Other Neurological Family History: Son with unknown type of seizure disorder in his 40s. Sister with fatal Down's syndrome in her 50s Psychiatric: Reports: Anxiety, Depression, Other (See Below). Denies: Abuse, Victim of, ADD, ADHD, Psych Hospitalization(s), PTSD, Suicide Attempt Other Psychiatric Family History: Brother and son with anxiety depression disorder with sent having problems with alcohol abuse. Endocrine/Metabolic: Reports: Diabetes, type II, IDDM, Other (See Below). Denies: Diabetes, Type I, Hypothyroidism Other Endocrine/Metabolic Family History: Mother, sister, and 2 brothers with IDDM. Daughter with prediabetes. Hematologic: Reports: None. Denies: SLE Immunologic: Reports: None. Denies: AIDS, HIV, SLE Dermatologic: Reports: None. Denies: Eczema, Psoriasis Oncologic: Reports: Breast, Other (See Below) Other Oncologic Family History: Mother with breast cancer in her late 60s. 2 maternal aunts with fatal cancer of unknown type - Caffeine Use Caffeine Use: Reports: Coffee - Living Situation & Occupation Living situation: Reports: (1991 from first with 5 children from this marriage. 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 ED EXAM, GENERAL - Physical Exam Exam: See Below Exam Limited By: No Limitations General Appearance: Alert, WD/WN, No Apparent Distress Eye Exam: Bilateral Eye: EOMI, Normal Inspection (No nystagmus. Patient wearing glasses), PERRL Ears: Normal External Exam, Normal Canal, Hearing Grossly Normal, Normal TMs Nose: Normal Mucosa, No Blood, Clear Rhinorrhea Throat/Mouth: Normal Inspection, Normal Lips, Normal Gums, Normal Oropharynx, Normal Voice, No Airway Compromise. No: Normal Teeth (Complete dentures uppers and lowers), Dysphagia, Perioral Cyanosis Head: Atraumatic, Normocephalic. No: Facial Swelling, Facial Tenderness, Sinus Tenderness Neck: Supple, Non-Tender, Full Range of Motion, Carotid Bruit (Mild bilateral carotid bruits versus transmitted heart sounds). No: Lymphadenopathy (L), Lymphadenopathy (R), Thyromegaly Respiratory/Chest: No Respiratory Distress, Lungs Clear, Normal Breath Sounds, No Accessory Muscle Use, Chest Non-Tender. No: Pleural Rub, Retractions Cardiovascular: Normal Peripheral Pulses, No Edema, No Gallop, No JVD, No Rub, Tachycardia (However regular rhythm), Systolic Murmur (Mild 1/6 KATHY of the aortic and mitral valves). No: Gallop/S3, Gallop/S4, Extra Beats, Friction Rub Peripheral Pulses: 2+: Radial (L), Radial (R), Dorsalis Pedis (L), Dorsalis Pedis (R) GI/Abdominal: No Organomegaly, No Distention, No Abnormal Bruit, No Mass, Pelvis Stable, Tender (Mild right upper quadrant palpation pain). No: Guarding , Rigid, Rebound (Female) Exam: Deferred Rectal (Female) Exam: Deferred Back Exam: Full Range of Motion, Other (Mild scoliosis). No: CVA Tenderness (L) , CVA Tenderness (R), Muscle Spasm, Paraspinal Tenderness, Vertebral Tenderness Extremities: Normal Inspection, Normal Range of Motion, Non-Tender, No Pedal Edema, Normal Capillary Refill. No: Carl's Sign Neurological: Alert, Oriented, CN II-XII Intact, Normal Cognition, Normal Gait, Normal Reflexes (Negative Babinski's), No Motor/Sensory Deficits Psychiatric: Normal Affect, Normal Mood Skin Exam: Warm, Dry, Intact, Normal Color, No Rash. No: Diaphoretic, Ecchymosis, Jaundice, Pallor, Petechiae, Wound/Incision Lymphatic: No Adenopathy Course - Vital Signs Last Recorded V/S: Last Vital Signs Temp 39.1 C H 07/13/19 19:00 Pulse 100 07/13/19 21:06 Resp 20 07/13/19 21:06 BP 128/48 L 07/13/19 21:06 Pulse Ox 92 L 07/13/19 21:06 Vital Signs - 24 hr 07/13/19 07/13/19 07/13/19 19:00 19:19 20:00 Temperature [ 37.7 C Oral] Temperature [ 39.1 C H Temporal] Pulse, 102 H 100 97 Peripheral [ Left Pulse Oximetry] Respiratory 26 H 25 H 24 H Rate Blood Pressure 147/63 H 139/57 L 130/57 L [Left Upper Arm ] O2 Sat by Pulse 95 94 L Oximetry - Orders/Labs/Meds Orders: Active Orders 24 hr Category Date Time Status Peripheral IV Care [RC] . DIRECTED Care 07/13/19 19:20 Active Nothing Per Oral Diet [DIET] Diet 07/13/19 Breakfast Active Abdomen Series w Chest 1V [CR] Stat Exams 07/13/19 19:19 Taken CULTURE BLOOD [BC] Stat Lab 07/13/19 19:16 Received CULTURE BLOOD [BC] Stat Lab 07/13/19 19:23 Received CULTURE STREP A CONFIRMATION [RM] Stat Lab 07/13/19 20:05 Results CULTURE URINE [RM] Stat Lab 07/13/19 20:45 Received STREP SCRN A RAPID W CULT CONF [RM] Stat Lab 07/13/19 20:05 Results Sodium Chloride 0.9% [Saline Flush] Med 07/13/19 19:19 Active 10 ml FLUSH ASDIRECTED PRN Blood Culture x2 Reflex Set [OM.PC] Urgent Oth 07/13/19 19:19 Ordered Obtain Past Medical Record [OM.PC] Urgent Oth 07/13/19 19:19 Active Peripheral IV Insertion Adult [OM.PC] Stat Oth 07/13/19 19:19 Ordered Resuscitation Status Stat Resus Stat 07/13/19 19:19 Ordered Medication Orders Sodium Chloride (Saline Flush) 10 ml FLUSH ASDIRECTED PRN PRN Reason: Keep Vein Open Last Admin: 07/13/19 19:32 Dose: 10 ml Labs: Laboratory Tests 07/13/19 07/13/19 07/13/19 Range/Units 19:16 19:16 19:16 WBC 3.1 L (4.0-10.2) K/uL RBC 3.01 L (3.77-5.09) M/uL Hgb 10.3 L (11.7-15.5) g/dL Hct 31.4 L (34.0-46.0) % MCV 104.3 H (84.0-98.0) fL MCH 34.2 H (28.2-33.3) pg MCHC 32.8 (31.7-36.0) g/dL RDW 14.8 H (11.2-14.1) % Plt Count 100 L (150-350) K/uL Neut % (Auto) 92.0 H (45.0-80.0) % Lymph % (Auto) 6.4 L (10.0-50.0) % [place] % (Auto) 1.6 L (2.0-14.0) % Eos % (Auto) 0.0 (0.0-5.0) % Baso % (Auto) 0.0 (0.0-2.0) % Neut # (Auto) 2.88 (1.40-7.00) K/uL Lymph # (Auto) 0.20 L (0.50-3.50) K/uL [place] # (Auto) 0.05 (0.00-1.00) K/uL Eos # (Auto) 0.00 (0.00-0.50) K/uL Baso # (Auto) 0.00 (0.00-0.20) K/uL PT 18.6 H (9.5-12.0) SEC INR 1.9 APTT 27.9 (24.5-32.8) SEC Sodium (136-145) mmol/L Potassium (3.5-5.1) mmol/L Chloride (98-107) mmol/L Carbon Dioxide (21.0-32.0) mmol/L BUN (7-18) mg/dL Creatinine (0.51-1.17) mg/dL Est Cr Clr Drug Dosing mL/min Estimated GFR (MDRD) mL/min Glucose (74-106) mg/dL Lactic Acid (0.4-2.0) mmol/L Uric Acid (2.6-7.2) mg/dL Calcium (8.5-10.1) mg/dL Magnesium (1.8-2.4) mg/dL Total Bilirubin (0.2-1.0) mg/dL AST (15-37) U/L ALT (12-78) U/L Alkaline Phosphatase (46-116) IU/L Total Protein (6.4-8.2) g/dL Albumin (3.4-5.0) g/dL Amylase 81 (25-115) U/L Lipase (73-393) U/L Specimen Type Urine Color Urine Appearance Urine pH (5.0-9.0) Ur Specific [place] (1.005-1.030) Urine Protein (NEGATIVE) mg/dL Urine Glucose (UA) (NEGATIVE) mg/dL Urine Ketones (NEGATIVE) mg/dL Urine Occult Blood (NEGATIVE) Urine Nitrite (NEGATIVE) Urine Bilirubin (NEGATIVE) Urine Urobilinogen (0.2-1.0) E.U./dL Ur Leukocyte Esterase (NEGATIVE) Urine RBC /HPF Urine WBC /HPF Ur Epithelial Cells /LPF Urine Bacteria (NONE TO FEW) /HPF 07/13/19 07/13/19 07/13/19 Range/Units 19:16 19:16 20:45 WBC (4.0-10.2) K/uL RBC (3.77-5.09) M/uL Hgb (11.7-15.5) g/dL Hct (34.0-46.0) % MCV (84.0-98.0) fL MCH (28.2-33.3) pg MCHC (31.7-36.0) g/dL RDW (11.2-14.1) % Plt Count (150-350) K/uL Neut % (Auto) (45.0-80.0) % Lymph % (Auto) (10.0-50.0) % [place] % (Auto) (2.0-14.0) % Eos % (Auto) (0.0-5.0) % Baso % (Auto) (0.0-2.0) % Neut # (Auto) (1.40-7.00) K/uL Lymph # (Auto) (0.50-3.50) K/uL [place] # (Auto) (0.00-1.00) K/uL Eos # (Auto) (0.00-0.50) K/uL Baso # (Auto) (0.00-0.20) K/uL PT (9.5-12.0) SEC INR APTT (24.5-32.8) SEC Sodium 137 (136-145) mmol/L Potassium 4.7 (3.5-5.1) mmol/L Chloride 103 (98-107) mmol/L Carbon Dioxide 24.0 (21.0-32.0) mmol/L BUN 18 (7-18) mg/dL Creatinine 0.95 (0.51-1.17) mg/dL Est Cr Clr Drug Dosing 40.19 mL/min Estimated GFR (MDRD) 57 mL/min Glucose 169 H (74-106) mg/dL Lactic Acid 1.4 (0.4-2.0) mmol/L Uric Acid 2.7 (2.6-7.2) mg/dL Calcium 8.7 (8.5-10.1) mg/dL Magnesium 1.5 L (1.8-2.4) mg/dL Total Bilirubin 0.2 (0.2-1.0) mg/dL AST 20 (15-37) U/L ALT 22 (12-78) U/L Alkaline Phosphatase 64 (46-116) IU/L Total Protein 7.5 (6.4-8.2) g/dL Albumin 3.5 (3.4-5.0) g/dL Amylase (25-115) U/L Lipase 122 (73-393) U/L Specimen Type Urinvoid Urine Color Yellow Urine Appearance Clear Urine pH 5.5 (5.0-9.0) Ur Specific [place] 1.020 (1.005-1.030) Urine Protein Negative (NEGATIVE) mg/dL Urine Glucose (UA) Negative (NEGATIVE) mg/dL Urine Ketones Negative (NEGATIVE) mg/dL Urine Occult Blood Trace-lysed H (NEGATIVE) Urine Nitrite Negative (NEGATIVE) Urine Bilirubin Negative (NEGATIVE) Urine Urobilinogen 0.2 (0.2-1.0) E.U./dL Ur Leukocyte Esterase Trace H (NEGATIVE) Urine RBC 0-5 /HPF Urine WBC 5-10 H /HPF Ur Epithelial Cells Few /LPF Urine Bacteria Few (NONE TO FEW) /HPF Blood Cultures 2 were collected including one from her central line. Urine specimen set up for culture and sensitivity Microbiology 07/13/19 20:05 Influenza Type A Antigen Screen - Final Nasal, Left NEGATIVE INFLUENZA A VIRUS AG REFERENCE RANGE: NEGATIVE Influenza Type B Antigen Screen - Final NEGATIVE INFLUENZA B VIRUS AG REFERENCE RANGE: NEGATIVE 07/13/19 20:05 Group A Streptococcus Rapid Screen - Final Throat NEGATIVE STREP A SCREEN REFERENCE RANGE: NEGATIVE Meds: Medications Generic Name Dose Route Start Last Admin Trade Name Freq PRN Reason Stop Dose Admin Sodium Chloride 10 ml 07/13/19 19:19 07/13/19 19:32 Saline Flush FLUSH 10 ml ASDIRECTED PRN Administration Keep Vein Open Discontinued Medications Generic Name Dose Route Start Last Admin Trade Name Freq PRN Reason Stop Dose Admin Famotidine 40 mg 07/13/19 19:19 07/13/19 19:37 Pepcid IVPUSH 07/13/19 19:20 40 mg ONETIME ONE Administration Heparin Sodium (Porcine) 500 units 07/13/19 19:23 07/13/19 21:06 Heparin Lock Flush 100 Units/Ml FLUSH 07/13/19 19:24 500 units ONETIME ONE Administration Lactated Ringer's 1,000 mls @ 999 mls/hr 07/13/19 19:19 07/13/19 19:38 Ringers, Lactated IV 07/13/19 20:19 999 mls/hr .BOLUS ONE Administration Ondansetron HCl 4 mg 07/13/19 19:19 07/13/19 19:28 Zofran IVPUSH 07/13/19 19:20 4 mg ONETIME ONE Administration Pantoprazole Sodium 40 mg 07/13/19 19:19 07/13/19 19:31 Protonix Iv IVPUSH 07/13/19 19:20 40 mg ONETIME ONE Administration - Radiology Interpretation Free Text/Narrative:: Supervisor Grinding initially showed mild sinus tachycardia with heart rates in the 100s to low 110s with improvement to the 90s prior to discharge with no ectopy or arrhythmia. Acute abdominal x-rays showed evidence of moderate diffuse stool with mildly increased diffuse nonspecific bowel gaseous pattern with no significant fluid levels, free air, ileus, or obstruction. Moderate COPD changes were present with no pulmonary infiltrates or pneumothorax, mild aortic valve calcification with moderate osteoarthritis and mild scoliosis in the spine. Port noted in the right upper lobe. Departure - Departure Time of Disposition: 21:15 Disposition: Home, Self-Care 01 Condition: Good Clinical Impression: IDDM (insulin dependent diabetes mellitus), Need for comfort care, Atrial fibrillation and flutter, Hypomagnesemia, Tobacco abuse counseling, Pancytopenia COPD (chronic obstructive pulmonary disease) Qualifiers: COPD type: COPD with acute lower respiratory infection Qualified Code(s): J44.0 - Chronic obstructive pulmonary disease with acute lower respiratory infection Multiple myeloma Qualifiers: Multiple myeloma remission status: not in remission Qualified Code(s): C90.00 - Multiple myeloma not having achieved remission Abdominal pain Qualifiers: Abdominal location: right lower quadrant Qualified Code(s): R10.31 - Right lower quadrant pain - Discharge Information *PRESCRIPTION DRUG MONITORING PROGRAM REVIEWED*: Not Applicable *COPY OF PRESCRIPTION DRUG MONITORING REPORT IN PATIENT NOÉ: Not Applicable Prescriptions: Magnesium Oxide 800 mg PO QPM #1 tab Instructions: Health Risks of Smoking, Abdominal Pain, Adult, [id number], Steps to Quit Smoking Referrals: Cherelle La, INFECTIOUS WASTE TECHNICIAN [Primary Care Provider] - Forms: ED Department Discharge Additional Instructions: 1. Followup with your regular provider in 7 days as directed for reevaluation with recommended repeat CBC, comprehensive metabolic panel, magnesium level, and INR to be conducted at time of her regular blood draw as already scheduled on 07/17. Bring these discharge instructions with you to that visit. 2. [place] diet including encouragement of oral fluids such as sports drinks, etc. for 24-48 hours as directed. Advance to 2000 mL fluid restricted heart healthy, diverticulosis diet as tolerated thereafter. 3. Continue chemotherapy as before. 4. Stop all tobacco use JULIO as directed/per provided information and consider contacting Quit LIne, etc.. 5. Immediately after this visit verify that your cellular telephone's voicemail has been activated and is empty. Also verify that your home telephone 's answering machine is operating properly and has space to receive messages. Note that it is sometimes necessary for us to be able to contact you at a later date to discuss your medical care. 6. Please remember that we are ALWAYS here for you and want to answer any questions you may have. Feel free to call the hospital any time and we call you back JULIO. 7. Notify your home health nurse JULIO concerning your increase of your magnesium oxide therapy and change of this medication to with supper rather than in the morning. Sepsis Event Note - Evaluation Sepsis Screening Result: Possible Sepsis Risk - Focused Exam Vital Signs: Vital Signs Temp Temp Pulse Resp BP Pulse Ox 07/13/19 21:06 100 20 128/48 L 92 L 07/13/19 20:00 97 24 H 130/57 L 07/13/19 19:19 100 25 H 139/57 L 94 L 07/13/19 19:00 37.7 C 39.1 C H 102 H 26 H 147/63 H 95 Date Exam was Performed: 07/13/19 Time Exam was Performed: 21:17 - Problem List & Annotations (1) Abdominal pain SNOMED Code(s): 68200585 Code(s): R10.9 - UNSPECIFIED ABDOMINAL PAIN Status: Acute Priority: High Current Visit: Yes Onset Date: 08/22/15 Annotation/Comment:: Nonspecific abdominal pain possibly secondary to beginning viral gastroenteritis. No evidence of exacerbation of her Crohn's disease and/or urolithiasis. Symptomatic relief for now. Close follow-up by her regular provider as per discharge instructions. Qualifiers: Abdominal location: right lower quadrant Qualified Code(s): R10.31 - Right lower quadrant pain (2) Multiple myeloma SNOMED Code(s): 922630127 Code(s): C90.00 - MULTIPLE MYELOMA NOT HAVING ACHIEVED REMISSION Status: Acute Priority: High Current Visit: Yes Annotation/Comment:: Probable postchemotherapy fever/tumor fever with no evidence of significant infection. Observe for now. Extensive precautions given. Qualifiers: Multiple myeloma remission status: not in remission Qualified Code(s): C90.00 - Multiple myeloma not having achieved remission (3) Pancytopenia SNOMED Code(s): 715162213 Code(s): D61.818 - OTHER PANCYTOPENIA Status: Chronic Priority: Medium Current Visit: Yes Annotation/Comment:: Current chemotherapy. Stable by history. Patient does have weekly blood work, including neck set scheduled for by the history. (4) Atrial fibrillation and flutter SNOMED Code(s): 442262529 Code(s): I48.91 - UNSPECIFIED ATRIAL FIBRILLATION; I48.92 - UNSPECIFIED ATRIAL FLUTTER Status: Acute Priority: High Current Visit: Yes Onset Date: 02/28/18 Annotation/Comment:: Normal sinus rhythm today. No chest pain or anginal complaints. INR mildly subtherapeutic however adequate for now. (5) Hypomagnesemia SNOMED Code(s): 652455051 Code(s): E83.42 - HYPOMAGNESEMIA Status: Chronic Priority: Medium Current Visit: Yes Onset Date: 08/28/15 Annotation/Comment:: Patient apparently normally has IV magnesium sulfite infusions with her chemotherapy, however did not have this yesterday by her history. Her magnesium oxide will be increased to 800 mg with this to be taken with supper rather than in the a.m. secondary to her current Synthroid therapy. Close follow-up by regular provider as per discharge instructions. (6) Need for comfort care SNOMED Code(s): 601859420, 825491647 Code(s): VYS9291 - Status: Chronic Priority: Medium Current Visit: Yes Annotation/Comment:: Once again confirmed with the patient and her daughter today. (7) COPD (chronic obstructive pulmonary disease) SNOMED Code(s): 44424269 Code(s): J44.9 - CHRONIC OBSTRUCTIVE PULMONARY DISEASE, UNSPECIFIED Status : Chronic Priority: High Current Visit: Yes Annotation/Comment:: No evidence of significant infection at this time. Continue nebulizer treatments, etc. 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 Close follow-up by her regular provider. (9) Tobacco abuse counseling SNOMED Code(s): 813149771, 773039410, 625691782 Code(s): Z71.6 - TOBACCO ABUSE COUNSELING Status: Chronic Priority: Medium Current Visit: Yes Annotation/Comment:: Tobacco cessation once again strongly encouraged with information to be provided at discharge. - Problem List Review Problem List Initiated/Reviewed/Updated: Yes - My Orders Last 24 Hours: My Active Orders 07/13/19 19:16 CULTURE BLOOD [BC] Stat 07/13/19 19:19 Abdomen Series w Chest 1V [CR] Stat Sodium Chloride 0.9% [Saline Flush] 10 ml FLUSH ASDIRECTED PRN Blood Culture x2 Reflex Set [OM.PC] Urgent Obtain Past Medical Record [OM.PC] Urgent Peripheral IV Insertion Adult [OM.PC] Stat Resuscitation Status Stat 07/13/19 19:20 Peripheral IV Care [RC] . DIRECTED 07/13/19 19:23 CULTURE BLOOD [BC] Stat 07/13/19 20:05 CULTURE STREP A CONFIRMATION [RM] Stat STREP SCRN A RAPID W CULT CONF [RM] Stat 07/13/19 20:45 CULTURE URINE [RM] Stat 07/13/19 Breakfast Nothing Per Oral Diet [DIET] - Assessment/Plan Last 24 Hours: My Active Orders 07/13/19 19:16 CULTURE BLOOD [BC] Stat 07/13/19 19:19 Abdomen Series w Chest 1V [CR] Stat Sodium Chloride 0.9% [Saline Flush] 10 ml FLUSH ASDIRECTED PRN Blood Culture x2 Reflex Set [OM.PC] Urgent Obtain Past Medical Record [OM.PC] Urgent Peripheral IV Insertion Adult [OM.PC] Stat Resuscitation Status Stat 07/13/19 19:20 Peripheral IV Care [RC] . DIRECTED 07/13/19 19:23 CULTURE BLOOD [BC] Stat 07/13/19 20:05 CULTURE STREP A CONFIRMATION [RM] Stat STREP SCRN A RAPID W CULT CONF [RM] Stat 07/13/19 20:45 CULTURE URINE [RM] Stat 07/13/19 Breakfast Nothing Per Oral Diet [DIET] Assessment:: As above Plan: As above. Extensive precautions were given to the patient and her daughter, who are in agreement with the treatment plan. See Patient Instructions for further treatment and plan.
[2019-07-13 19:52] LABS: PTT,PARTIAL THROMBOPLSTIN TIME 27.9 SEC (24.5-32.8)
[2019-07-13 21:07] VITALS: BP 128/48; PULSE 100
== END 2019-07-13 21:15 | disposition home or self-care (01) ==
LOC: LL.ED 18:51
DX: R10.11 Right upper quadrant pain (principal); J44.0 Chronic obstructive pulmonary disease with (acute) lower respiratory infection; C90.00 Multiple myeloma not having achieved remission; I48.91 Unspecified atrial fibrillation; I48.92 Unspecified atrial flutter; E11.9 Type 2 diabetes mellitus without complications; E83.42 Hypomagnesemia; D61.818 Other pancytopenia; I25.10 Atherosclerotic heart disease of native coronary artery without angina pectoris; I11.0 Hypertensive heart disease with heart failure; I50.9 Heart failure, unspecified; Z71.6 Tobacco abuse counseling; Z88.8 Allergy status to other drugs, medicaments and biological substances; Z79.899 Other long term (current) drug therapy; Z79.4 Long term (current) use of insulin; Z79.82 Long term (current) use of aspirin; Z79.01 Long term (current) use of anticoagulants
CPT/HCPCS: 36415; 36556; 74022; 80053; 81001; 82150; 83605; 83690; 83735; 84550; 85025; 85610; 85730; 87040; 87081; 87086; 87430; 87804; 96361; 96374; 96375; 99284; 99285-25; C9113; J1642; J2405; J3490; J7120

== ENCOUNTER 2020-03-18 15:02 | Inpatient (IN) | payer MEDICARE, OTHER ==
[2020-03-18 16:27] LABS: CHLORIDE,CL 102 mmol/L (98-107); SODIUM,NA 137 mmol/L (136-145)
[2020-03-18] MEDS ORDERED: Sodium Chloride 0.9% 1,000 ML IV SCH (16:30)
[2020-03-18] MEDS ORDERED: Zinc (Zinc Gluconate) 50 MG Tab PO ONE (16:54)
[2020-03-18] MEDS ORDERED: Ascorbic Acid 500 MG Tab PO ONE (16:54)
[2020-03-18] MEDS ORDERED: Cholecalciferol (Vitamin D3) 5,000 UNIT Tab PO ONE (16:56)
--- NOTE | 2020-03-18 17:17 | EDM.PDOC ---
ED HPI GENERAL MEDICAL PROBLEM - General Chief Complaint: Respiratory Problem Stated Complaint: fever, weakness, chills, hypoxia, cough Time Seen by Provider: 03/18/20 15:46 Source of Information: Reports: Patient, Family History Limitations: Reports: No Limitations - History of Present Illness INITIAL COMMENTS - FREE TEXT/NARRATIVE: Patient brought to ER via EMS for complaints of hypoxemia, worsening cough, body aches, dizziness, increased fatigue, and fever of 101. Hx multiple myeloma. Last treatment was at [facility] last Wednesday. Loose stools yesterday. No obvious Covid exposure at home. - Related Data Allergies Allergy/AdvReac Type Severity Reaction Status Date / Time ezetimibe Allergy Cannot Verified 03/18/20 17:12 [From Vytorin 10-10] Remember lisinopril Allergy Cannot Verified 03/18/20 17:12 Remember metformin Allergy Diarrhea Verified 03/18/20 17:12 pioglitazone HCl [From Actos] Allergy Cannot Verified 03/18/20 17:12 Remember rosuvastatin calcium Allergy Diarrhea Verified 03/18/20 17:12 [From Crestor] simvastatin Allergy Cannot Verified 03/18/20 17:12 [From Vytorin 10-10] Remember Home Meds: Home Meds Levothyroxine Sodium [Levoxyl] 25 mcg PO MOWEFR@1100 07/23/13 [History] Simvastatin 40 mg PO BEDTIME 07/23/13 [History] Insulin Detemir [Levemir] 30 unit SUBCUT BEDTIME 09/17/17 [History] Aspirin [Halfprin] 81 mg PO DAILY 12/18/17 [History] Melatonin/Pyridoxine HCl (B6) [Melatonin 5 mg Tablet] 5 mg PO ASDIRECTED PRN 1 05/10/17 [History] Sertraline HCl 1.5 tab PO BEDTIME 03/10/18 [History] Albuterol Sulfate [Proair Respiclick] 1 puff IH QID PRN 03/12/18 [History] Albuterol [Proventil Neb Soln] 3 ml INH Q4HR PRN 03/12/18 [History] Calcium Carbonate/Vitamin D3 [Calcium 600 + Vit D Tablet] 1 each PO BID 03/12/18 [History] Cyanocobalamin (Vitamin B-12) [Cyanocobalamin Injection] 1,000 mcg IJ Q30D 03/12/18 [History] Warfarin [Coumadin] 2.5 mg PO DAILY 03/12/18 [History] Arformoterol [Brovana] 15 mcg IH BID 10/15/18 [History] Cholecalciferol (Vitamin D3) [D3-2000] 2,000 unit PO DAILY 10/15/18 [History] Diphenoxylate HCl/Atropine [Lomotil] 1 tab PO Q6H PRN 10/15/18 [History] Nicotine Polacrilex [Nicotine Lozenge] 2 mg BC ASDIRECTED 10/15/18 [History] valACYclovir HCl [Valtrex] 500 mg PO BID 10/15/18 [History] Folic Acid 1 mg PO DAILY 12/23/18 [History] dexAMETHasone [Dexamethasone] 5 tab PO WEEKLY 12/23/18 [History] Acetaminophen/Diphenhydramine [Tylenol Pm Ex-Strength Caplet] 1 each PO BEDTIME PRN 03/18/20 [History] Budesonide [Pulmicort] 0.5 mg IH BID 03/18/20 [History] Levothyroxine 37.5 mcg PO SUTUTHSA@11 03/18/20 [History] Magnesium Oxide 800 mg PO BEDTIME 03/18/20 [History] Megestrol [Megace] 10 ml PO DAILY PRN 03/18/20 [History] Multivitamin [Multi-Day Vitamins] 1 each PO DAILY 03/18/20 [History] Nystatin 30 ml PO DAILY PRN 03/18/20 [History] Potassium Chloride [Klor-Con 10] 30 meq PO DAILY 03/18/20 [History] diphenhydrAMINE HCL [Benadryl] 25 mg PO Q6H PRN 03/18/20 [History] Past Medical History HEENT History: Reports: Allergic Rhinitis, Cataract, Impaired Vision, Other (See Below). Denies: Glaucoma, Hard of Hearing, Macular Degeneration, Otitis Media, Retinal Detachment Other HEENT History: Allergic rhinitis not currently being treated; patient wears glasses. Cardiovascular History: Reports: Afib, Arrhythmia, CAD, Cardiomyopathy, Heart Failure, Heart Murmur, High Cholesterol, Hypertension, PVD, Other (See Below). Denies: Blood Clots/VTE/DVT, Bypass, ME, Stents, Syncope Other Cardiovascular History: Varicose veins of the lower extremities. Dyslipidemia. Minimal carotid occlusive disease. PVCs. Grade 1 diastolic dysfunction by echocardiogram. Mild aortic valve stenosis by clinical exam with otherwise minimal diffuse vascular disease by echocardiogram. History of d-dimer elevation in February 2018 with negative workup as below. Left atrial enlargementmild by echocardiogram. Respiratory History: Reports: Bronchitis, Recurrent, COPD, Intubation, Previous, Pneumonia, Recurrent, Pulmonary Fibrosis, Other (See Below). 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 Bilateral pulmonary nodules history of right upper lobe pulmonary mass CT of the chest on 02/28/18. Gastrointestinal History: Reports: Bowel Obstruction, Cholelithiasis, Chronic Diarrhea, Diverticulosis, Fatty Liver, Gastritis, GERD, Helicobacter Pylori, Inflammatory Bowel Disease, Irritable Bowel Syndrome, PUD, Other (See Below). Denies: Chronic Constipation, Colon Polyp, Fecal Incontinence, GI Bleed, Hiatal Hernia, Jaundice Other Gastrointestinal History: Previously treated C. difficile colitis in 2018. History of recurrent diarrhea secondary to her Crohn's disease including secondary fistula requiring surgery as below. Benign right sided hepatic hemangioma stable by serial CT scans with additional fatty liver and benign hepatic cysts. LFTs elevation likely secondary to fatty liver. Rectus muscle diastasis by CT scan. Mild dysphagia. Genitourinary History: Reports: Renal Calculus, Urinary Incontinence, UTI, Recurrent. Denies: Acute Renal Failure, Chronic Renal Insuffiency, STD Other Genitourinary History: History of right-sided urolithiasis with nonproblematic chronic hematuria and spontaneous passage possible last episodeside unknown on 06/23/19. Additional history of benign renal cysts bilaterally. LOSS PREVENTION REPRESENTATIVE History: Reports: . Denies: Dysfunctional Uterine Bleeding, Endometriosis, Fibroids, Prolapsed Uterus, Spontaneous Other LOSS PREVENTION REPRESENTATIVE History: Surgical menopause as below. Full term without complications during pregnancies or deliveries. Musculoskeletal History: Reports: Arthritis, Back Pain, Chronic, Fracture, Neck Pain, Chronic, Osteoarthritis, Osteoporosis. Denies: Gout, RA, SLE Other Musculoskeletal History: Scoliosis. Left elbow fracture requiring surgery as below. Neurological History: Reports: Headaches, Chronic. Denies: Alzheimers Disease, Cerebral Aneurysms, Concussion, CVA, Head Trauma, Migraines, MS, Parkinson's, TIA, Vertigo Psychiatric History: Reports: Anxiety, Depression. Denies: Abuse, Victim of, ADD, ADHD, Addiction, Dementia, Psych Hospitalization(s), PTSD, Suicide Attempt, Suicidal Ideation Endocrine/Metabolic History: Reports: Diabetes, Type II, Hypokalemia, Hypomagnesemia, Hypothyroidism, IDDM, Osteoporosis, Other (See Below). Denies: Diabetes, Type I, Obesity/BMI 30+ Other Endocrine/Metabolic History: Hypoalbuminemia. Hematologic History: Reports: Anemia, B12 Deficiency, Other (See Below). Denies: Folic Acid, Iron Deficiency Other Hematologic History: Pancytopenia secondary to chemotherapy for her multiple myeloma. Immunologic History: Reports: Immunosuppression, Other (See Below). Denies: AIDS Other Immunologic History: Chemotherapy for her multiple myeloma. Oncologic (Cancer) History: Reports: Bladder, Other (See Below). 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 Multiple myeloma diagnosed in February 2018 with further evaluation at the [facility] in [place], including additional chemotherapy currently at [facility]. Dermatologic History: Reports: None. Denies: Eczema, Psoriasis - Infectious Disease History Infectious Disease History: Reports: C-Difficile, Chicken Pox, Measles, Mumps, Pertussis (Whooping Cough), Rheumatic Fever, Rubella, Scarlet Fever. Denies: Meningitis, Mononucleosis, MRSA, Shingles, TB, VRE - Past Surgical History Head Surgeries/Procedures: Reports: None HEENT Surgical History: Reports: Adenoidectomy, Cataract Surgery, Oral Surgery, Tonsillectomy, Other (See Below). Denies: Eye Surgery, Laser Surgery, LASIK, Myringotomy w Tube(s), Naso-Sinus Surgery Other HEENT Surgeries/Procedures: Tonsillectomy and adenoidectomy at age 18. Bilateral cataract surgery in March 2012. Complete teeth extraction with current dentures. Cardiovascular Surgical History: Reports: None. Denies: Varicose Respiratory Surgical History: Reports: None. Denies: Thoracentesis GI Surgical History: Reports: Appendectomy, Cholecystectomy, Colon, Colonoscopy, EGD, Lysis of Adhesions, Small Bowel, Other (See Below). Denies: Hernia, Abdominal, Hernia, Inguinal, Hernia Repair/Other Other GI Surgeries/Procedures: Appendectomy with concomitant small bowel resection in about 1999 secondary to her Crohn's disease. Open cholecystectomy concomitant with her complete hysterectomy in her 50s in about 1997. Partial resection of the ascending colon in 1999 at time of small bowel resection. As colonoscopy on 01/10/15 with previous evaluations on 11/27/07 and 03/12/08. Adhesiolysis in 2005 and 2008. Repeat small bowel resection in 2001. Female Surgical History: Reports: Breast Biopsy, Hysterectomy, Salpingo- Oophorectomy, Other (See Below). Denies: D&C, Tubal Ligation Other Female Surgeries/Procedures: Breast biopsy for benign disease in the left breast in about 1999. Complete hysterectomy with bilateral salpingo- oophorectomy in her 50s for unknown reason. Endocrine Surgical History: Reports: None. Denies: Thyroid Biopsy Neurological Surgical History: Reports: None. Denies: C-Spine, Discectomy, Laminectomy, Lumbar Spine, Sacral Spine, Spinal Fusion, Thoracic Spine, Vertebroplasty Musculoskeletal Surgical History: Reports: ORIF, Other (See Below). Denies: Arthroscopic Knee, Arthroscopic Procedure, Carpal Tunnel, Ganglion Cyst, Joint Replacement, Shoulder Surgery Other Musculoskeletal Surgeries/Procedures:: ORIF/pin placement of the left elbow fracture 1996 Oncologic Surgical History: Reports: Biopsy of Breast, Bone Marrow Aspiration, Other (See Below) Other Oncologic Surgeries/Procedures: Breast biopsy as above for benign disease. Bone marrow fine-needle aspiration and biopsy on 04/20/19, 01/11/18, and 01/05/18. Dermatological Surgical History: Reports: None - Past Imaging History Past Imaging History: Reports: DAVID Screen (DAVID screen with exercise on 07/15/10), Cardiac Echo (Last echocardiogram on 12/27/18 with ejection fraction of 65-70% and findings as above. Previous evaluations on 02/02/18, 09/03/15, and 08/03/07.), Carotid US (07/28/11), CAT Scan (CTA of the chest on 02/28/18. CT of the chest, abdomen, and pelvis on 03/20/19, 04/29/18, and 02/28/18. CT of the abdomen and pelvis on 06/23/[address]. [address] scan of the abdomen including angiographic evaluation on 12/28/17. CT of the abdomen and pelvis on 06/07/17 with multiple previous evaluations including initially on 12/22/12. CTA of the chest and additional abdominal and pelvic CT scans on 08/25/15.), Cystoscopy (Last cystoscopy on 01/17/11 with previous evaluations on 09/04/98 and 08/21/98.), Mammogram (Last mammogram on 04/03/16.), MRI (MRI of the brain on 01/13/19.), Stress Testing (Negative Cardiolite stress test on 09/23/17 with ejection fraction of 27%.), Swallow Study (Borderline positive swallowing study on 01/05/19 previous negative swallowing study on 08/29/15.), Ultrasound (Abdominal ultrasound on 03/03/10 with previous evaluations on 09/04/28 and 08/21/98.), Upper GI X-Ray/Series, Venous Doppler (Of the legs bilaterally on 03/01/18.), Other (See Below) (Barium enema on 09/05/98 and 07/30/98. Camera colonic evaluation in about 2005.) Social & Family History - Family History HEENT: Reports: None. Denies: Glaucoma, Macular Degeneration, Retinal Detachmen t Cardiac: Reports: Blood Clots/VTE/DVT, CAD, Heart Valve Replacement, High Cholesterol, Hypertension, ME, Other (See Below). Denies: Afib, Aneurysm, Arrhythmia, Heart Failure, Heart Murmur, PVD/COD, Syncope Other Cardiac Family History: Son with DVT in his 40s with mother with DVT in her 70s and 80s. Mother with valve replacement secondary to rheumatic fever. Hyperlipidemia in son, brother, and sister. Hypertension in 4 brothers, parents, and sister. Mother with fatal ME in his 60s. 4 brothers with MIs in their 50s and 60s with one of these having a fatal ME at about age 49. Respiratory: Reports: COPD, Other (See Below). Denies: PE, Pneumothorax, Sleep Apnea Other Respiratory Family Hisory: Brother with COPD. GI: Reports: GERD, Inflammatory Bowel Disease, Other (See Below). Denies: Celiac Disease, Cholelithiasis, Colon Polyps, GI bleed, Irritable Bowel Syndro me, PUD Other GI Family History: Son with GERD. Sister with Crohn's disease. : Reports: Renal Disease/Insufficiency, Other (See Below). Denies: Renal Calculus Other Family History: Mother with fatal renal disease in her 90s. OBGYN: Reports: None. Denies: Endometriosis, Recurrent Spontaneous Musculoskeletal: Reports: None. Denies: Gout, RA, SLE Neurological: Reports: Seizure, Other (See Below). Denies: Alzheimers Disease, Cerebral Aneurysms, CVA, Dementia, Migraines, MS, Parkinson's, TIA Other Neurological Family History: Son with unknown type of seizure disorder in his 40s. Sister with fatal Down's syndrome in her 50s Psychiatric: Reports: Anxiety, Depression, Other (See Below). Denies: Abuse, Victim of, ADD, ADHD, Psych Hospitalization(s), PTSD, Suicide Attempt Other Psychiatric Family History: Brother and son with anxiety depression disorder with sent having problems with alcohol abuse. Endocrine/Metabolic: Reports: Diabetes, type II, IDDM, Other (See Below). Denies: Diabetes, Type I, Hypothyroidism Other Endocrine/Metabolic Family History: Mother, sister, and 2 brothers with IDDM. Daughter with prediabetes. Hematologic: Reports: None. Denies: SLE Immunologic: Reports: None. Denies: AIDS, HIV, SLE Dermatologic: Reports: None. Denies: Eczema, Psoriasis Oncologic: Reports: Breast, Other (See Below) Other Oncologic Family History: Mother with breast cancer in her late 60s. 2 maternal aunts with fatal cancer of unknown type - Tobacco Use Tobacco Use Status *Q: Current Every Day Tobacco User Years of Tobacco use: 60 Packs/Tins Daily: 1 - Caffeine Use Caffeine Use: Reports: Coffee - Living Situation & Occupation Living situation: Reports: (1991 from first with 5 children from this marriage. 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 Denies: Diaphoresis HEENT: Denies: Rhinitis, Sinus Problem, Throat Pain, Throat Swelling, Vision Change Respiratory: Reports: Shortness of Breath, Cough, Sputum (can't cough it out per patient). Denies: Pleuritic Chest Pain Cardiovascular: Reports: Chest Pain (right lateral chest), Lightheadedness GI/Abdominal: Reports: Diarrhea, Decreased Appetite, Nausea. Denies: Abdominal Pain, Constipation, Hematemesis, Hematochezia, Vomiting : Reports: No Symptoms Musculoskeletal: Reports: Other (diffuse body aches) Skin: Reports: No Symptoms Neurological: Reports: Dizziness, Headache Psychiatric: Reports: No Symptoms ED EXAM, GENERAL - Physical Exam Exam: See Below Exam Limited By: No Limitations General Appearance: Alert, WD/WN, No Apparent Distress, Other (appears fatigued) Eye Exam: Bilateral Eye: EOMI, PERRL Ears: Hearing Grossly Normal Nose: No: Nasal Deformity, Nasal Swelling, Nasal Drainage Throat/Mouth: Normal Lips, Normal Voice, No Airway Compromise Head: Atraumatic, Normocephalic Neck: Normal Inspection, Supple, Non-Tender, Full Range of Motion. No: Lymphadenopathy (L), Lymphadenopathy (R) Respiratory/Chest: No Respiratory Distress, Rales (mild/bases), Rhonchi (bilat). No: Wheezing, Stridor, Accessory Muscle Use, Retractions Cardiovascular: Normal Peripheral Pulses, Regular Rate, Rhythm, No Edema, No Murmur GI/Abdominal: Normal Bowel Sounds, Soft, Non-Tender, No Distention (Female) Exam: Deferred Rectal (Female) Exam: Deferred Back Exam: No: CVA Tenderness (L), CVA Tenderness (R), Muscle Spasm Extremities: Normal Inspection, No Pedal Edema, Normal Capillary Refill Neurological: Alert, Oriented, Normal Cognition, No Motor/Sensory Deficits Psychiatric: Normal Affect, Normal Mood Skin Exam: Warm, Dry, Intact, Normal Color Course - Vital Signs Last Recorded V/S: Last Vital Signs Temp 37.2 C 03/18/20 15:10 Pulse 89 03/18/20 16:39 Resp 18 03/18/20 16:39 BP 135/59 L 03/18/20 16:39 Pulse Ox 96 03/18/20 16:39 - Orders/Labs/Meds Orders: Active Orders 24 hr Category Date Time Status Central Line Assessment [RC] QSHIFT Care 03/18/20 16:20 Active Chest 1V Frontal [CR] Stat Exams 03/18/20 15:47 Ordered CULTURE BLOOD [BC] Stat Lab 03/18/20 15:35 Received CULTURE BLOOD [BC] Stat Lab 03/18/20 16:00 Received UA W/MICROSCOPIC [URIN] Stat Lab 03/18/20 15:46 Ordered Heparin Sodium [Heparin Lock Flush 100 Units/ML] Med 03/18/20 16:20 Active 500 units FLUSH ASDIRECTED PRN Magnesium Sulfate/D5W [Magnesium Sulfate in D5W 100 Med 03/18/20 16:54 Ordered Premix] 1 gm Premix Bag 1 bag IV ONETIME Sodium Chloride 0.9% [Normal Saline] 1,000 ml Med 03/18/20 16:30 Active IV ASDIRECTED Sodium Chloride 0.9% [Saline Flush] Med 03/18/20 16:20 Active 10 ml FLUSH ASDIRECTED PRN Blood Culture x2 Reflex Set [OM.PC] Stat Oth 03/18/20 15:47 Ordered Isolation [COMM] Routine Oth 03/18/20 15:48 Active Medication Orders Heparin Sodium (Porcine) (Heparin Lock Flush 100 Units/Ml) 500 units FLUSH ASDIRECTED PRN PRN Reason: after port use Sodium Chloride (Normal Saline) 1,000 mls @ 250 mls/hr IV ASDIRECTED LEONID Stop: 03/18/20 20:29 Last Admin: 03/18/20 16:36 Dose: 250 mls/hr Documented by: RUSSELL Magnesium Sulfate/Dextrose 1 (gm/ Premix) 100 mls @ 100 mls/hr IV ONETIME ONE Stop: 03/18/20 17:53 Sodium Chloride (Saline Flush) 10 ml FLUSH ASDIRECTED PRN PRN Reason: Keep Vein Open Labs: Laboratory Tests 03/18/20 03/18/20 03/18/20 Range/Units 15:00 15:35 15:35 WBC 4.0 (4.0-10.2) K/uL RBC 2.76 L (3.77-5.09) M/uL Hgb 9.1 L (11.7-15.5) g/dL Hct 29.1 L (34.0-46.0) % MCV 105.4 H (84.0-98.0) fL MCH 33.0 (28.2-33.3) pg MCHC 31.3 L (31.7-36.0) g/dL RDW 15.0 H (11.2-14.1) % Plt Count 125 L (150-350) K/uL Neut % (Auto) 77.1 (45.0-80.0) % Lymph % (Auto) 17.5 (10.0-50.0) % [place] % (Auto) 4.8 (2.0-14.0) % Eos % (Auto) 0.3 (0.0-5.0) % Baso % (Auto) 0.3 (0.0-2.0) % Neut # (Auto) 3.05 (1.40-7.00) K/uL Lymph # (Auto) 0.69 (0.50-3.50) K/uL [place] # (Auto) 0.19 (0.00-1.00) K/uL Eos # (Auto) 0.01 (0.00-0.50) K/uL Baso # (Auto) 0.01 (0.00-0.20) K/uL PT (9.5-12.0) SEC INR D-Dimer, Quantitative 241 (0-400) ng/mL Sodium (136-145) mmol/L Potassium (3.5-5.1) mmol/L Chloride (98-107) mmol/L Carbon Dioxide (21.0-32.0) mmol/L BUN (7-18) mg/dL Creatinine (0.51-1.17) mg/dL Est Cr Clr Drug Dosing Estimated GFR (MDRD) mL/min Glucose (74-106) mg/dL Lactic Acid (0.4-2.0) mmol/L Calcium (8.5-10.1) mg/dL Magnesium (1.8-2.4) mg/dL Total Bilirubin (0.2-1.0) mg/dL AST (15-37) U/L ALT (12-78) U/L Alkaline Phosphatase (46-116) IU/L NT-Pro-B Natriuret Pep (0-125) pg/mL Total Protein (6.4-8.2) g/dL Albumin (3.4-5.0) g/dL SARS-CoV-2 RNA (STEPHANIE) Positive H (NEGATIVE) 03/18/20 03/18/20 03/18/20 Range/Units 15:35 15:35 15:35 WBC (4.0-10.2) K/uL RBC (3.77-5.09) M/uL Hgb (11.7-15.5) g/dL Hct (34.0-46.0) % MCV (84.0-98.0) fL MCH (28.2-33.3) pg MCHC (31.7-36.0) g/dL RDW (11.2-14.1) % Plt Count (150-350) K/uL Neut % (Auto) (45.0-80.0) % Lymph % (Auto) (10.0-50.0) % [place] % (Auto) (2.0-14.0) % Eos % (Auto) (0.0-5.0) % Baso % (Auto) (0.0-2.0) % Neut # (Auto) (1.40-7.00) K/uL Lymph # (Auto) (0.50-3.50) K/uL [place] # (Auto) (0.00-1.00) K/uL Eos # (Auto) (0.00-0.50) K/uL Baso # (Auto) (0.00-0.20) K/uL PT 16.8 H (9.5-12.0) SEC INR 1.7 D-Dimer, Quantitative (0-400) ng/mL Sodium 137 (136-145) mmol/L Potassium 4.4 (3.5-5.1) mmol/L Chloride 102 (98-107) mmol/L Carbon Dioxide 26.9 (21.0-32.0) mmol/L BUN 20 H (7-18) mg/dL Creatinine 0.90 (0.51-1.17) mg/dL Est Cr Clr Drug Dosing TNP Estimated GFR (MDRD) > 60 mL/min Glucose 243 H (74-106) mg/dL Lactic Acid 1.1 (0.4-2.0) mmol/L Calcium 8.4 L (8.5-10.1) mg/dL Magnesium 1.3 L (1.8-2.4) mg/dL Total Bilirubin 0.2 (0.2-1.0) mg/dL AST 18 (15-37) U/L ALT 22 (12-78) U/L Alkaline Phosphatase 77 (46-116) IU/L NT-Pro-B Natriuret Pep 195 H (0-125) pg/mL Total Protein 7.4 (6.4-8.2) g/dL Albumin 2.9 L (3.4-5.0) g/dL SARS-CoV-2 RNA (STEPHANIE) (NEGATIVE) Meds: Medications Generic Name Dose Route Start Last Admin Trade Name Freq PRN Reason Stop Dose Admin Heparin Sodium (Porcine) 500 units 03/18/20 16:20 Heparin Lock Flush 100 Units/Ml FLUSH ASDIRECTED PRN after port use Sodium Chloride 1,000 mls @ 250 mls/hr 03/18/20 16:30 03/18/20 16:36 Normal Saline IV 03/18/20 20:29 250 mls/hr ASDIRECTED LEONID Administration Magnesium Sulfate/Dextrose 1 100 mls @ 100 mls/hr 03/18/20 16:54 gm/ Premix IV 03/18/20 17:53 ONETIME ONE Sodium Chloride 10 ml 03/18/20 16:20 Saline Flush FLUSH ASDIRECTED PRN Keep Vein Open Discontinued Medications Generic Name Dose Route Start Last Admin Trade Name Kikeq PRN Reason Stop Dose Admin Ascorbic Acid 1,000 mg 03/18/20 16:54 Vitamin C PO 03/18/20 16:55 ONETIME ONE Cholecalciferol 10,000 unit 03/18/20 16:56 Vitamin D3 PO 03/18/20 16:57 ONETIME ONE Zinc Gluconate 50 mg 03/18/20 16:54 Zinc PO 03/18/20 16:55 ONETIME ONE - Radiology Interpretation Free Text/Narrative:: Chest xray shows patchy infiltrate bilaterally - Re-Assessments/Exams Free Text/Narrative Re-Assessment/Exam: 03/18/20 17:17 Labs/chest xray obtained. Patient + for Covid Normal WBC. Hgb 9.1 Glu 243 Mag low at 1.3 ProBNP 195 Normal lactic acid and DDimer. Discussed patient with from Oncology at [facility] and he felt patient could receive Remdesivir as well as Dexamethasone for the acute Covid. Also recommended coverage with Levaquin. Patient admitted to floor for further treatment. Departure - Departure Time of Disposition: 17:19 Disposition: Admitted As Inpatient 66 Condition: Good Clinical Impression: COVID-19 - Discharge Information Sepsis Event Note (ED) - Evaluation Sepsis Screening Result: No Definite Risk - Focused Exam Vital Signs: Vital Signs Temp Temp Pulse Resp BP Pulse Ox 03/18/20 16:39 89 18 135/59 L 96 03/18/20 15:10 37.2 C 38.1 C 87 24 H 126/48 L 96 - Problem List & Annotations (1) COVID-19 SNOMED Code(s): 422406625 Code(s): U07.1 - COVID-19 Status: Acute Priority: High Current Visit: Yes Onset Date: ~03/15/20 Annotation/Comment:: Covid + Will initiate Remdesivir and Dexamethasone. Reviewed patient and treatment options with from [facility] Oncology. He recommended adding Levaquin given patient's immunocompromised status. (2) Hypomagnesemia SNOMED Code(s): 410663249 Code(s): E83.42 - HYPOMAGNESEMIA Status: Chronic Priority: Medium Current Visit: Yes Onset Date: 08/28/15 Annotation/Comment:: Chronic. IV Mag ordered given today's low level. Recheck labs tomorrow. (3) CAD (coronary artery disease) SNOMED Code(s): 33009823 Code(s): I25.10 - ATHSCL HEART DISEASE OF [place] CORONARY ARTERY W/O ANG PCTRS Status: Acute Priority: Low Current Visit: No Annotation/Comment:: Hx CAD/cardiomyopathy/arrhythmias/PVD. Stable per history Qualifiers: Coronary Disease-Associated Artery/Lesion type: unspecified vessel or lesion type Associated angina: without angina (4) GERD (gastroesophageal reflux disease) SNOMED Code(s): 898342587 Code(s): K21.9 - GASTRO-ESOPHAGEAL REFLUX DISEASE WITHOUT ESOPHAGITIS Status: Chronic Priority: Low Current Visit: No Annotation/Comment:: stable per history (5) Osteoarthritis SNOMED Code(s): 517548982 Code(s): M19.90 - UNSPECIFIED OSTEOARTHRITIS, UNSPECIFIED SITE Status: Chronic Priority: Low Current Visit: No Annotation/Comment:: stable per history. Osteoporosis. Chronic neck/back pain. Qualifiers: Osteoarthritis location: unspecified site (6) Anxiety and depression SNOMED Code(s): 798321484 Code(s): F41.9 - ANXIETY DISORDER, UNSPECIFIED; F32.9 - MAJOR DEPRESSIVE DISORDER, SINGLE EPISODE, UNSPECIFIED Status: Chronic Priority: Low Current Visit: No Annotation/Comment:: stable per history (7) Hypothyroid SNOMED Code(s): 13702591 Code(s): E03.9 - HYPOTHYROIDISM, UNSPECIFIED Status: Acute Priority: Low Current Visit: No Annotation/Comment:: stable per history. TSH in AM Qualifiers: Hypothyroidism type: unspecified Qualified Code(s): E03.9 - Hypothyroidism, unspecified (8) Crohns disease SNOMED Code(s): 20329754 Code(s): K50.90 - CROHN'S DISEASE, UNSPECIFIED, WITHOUT COMPLICATIONS Status: Chronic Priority: Low Current Visit: No Annotation/Comment:: Stable at this time. Multiple previous surgeries. Qualifiers: Gastrointestinal tract location: small intestine Digestive disease complication type: without complications (9) COPD (chronic obstructive pulmonary disease) SNOMED Code(s): 39316928 Code(s): J44.9 - CHRONIC OBSTRUCTIVE PULMONARY DISEASE, UNSPECIFIED Status: Chronic Priority: Medium Current Visit: No Annotation/Comment:: Has nocturnal O2 at home. Was stable prior to recent Covid infection. Qualifiers: COPD type: COPD with acute lower respiratory infection Qualified Code(s): J44.0 - Chronic obstructive pulmonary disease with (acute) lower respiratory infection (10) IDDM (insulin dependent diabetes mellitus) SNOMED Code(s): 20924761 Code(s): E11.9 - TYPE 2 DIABETES MELLITUS WITHOUT COMPLICATIONS; Z79.4 - PHARMACIST AIDE (CURRENT) USE OF INSULIN Status: Chronic Priority: Medium Current Visit: No Annotation/Comment:: Monitor blood glucose and utilize sliding scale insulin given Dexamethasone treatment for Covid (11) Need for comfort care SNOMED Code(s): 738188922, 829914817 Code(s): [id number] - Status: Chronic Priority: Medium Current Visit: No Annotation/Comment:: Once again confirmed with the patient and her daughter today. (12) Multiple myeloma SNOMED Code(s): 640081971 Code(s): C90.00 - MULTIPLE MYELOMA NOT HAVING ACHIEVED REMISSION Status: Chronic Priority: Medium Current Visit: No Annotation/Comment:: Immunosuppressed/receives chemo at [facility]. Qualifiers: Multiple myeloma remission status: not in remission Qualified Code(s): C90.00 - Multiple myeloma not having achieved remission (13) Current every day smoker SNOMED Code(s): 424053772, 195397336 Code(s): F17.200 - NICOTINE DEPENDENCE, UNSPECIFIED, UNCOMPLICATED Status: Chronic Priority: Medium Current Visit: Yes Annotation/Comment:: Smokes 1PPD (14) Warfarin anticoagulation SNOMED Code(s): 09274866, 992625589, 638021699 Code(s): Z79.01 - JAIL (CURRENT) USE OF ANTICOAGULANTS Status: Chronic Priority: Medium Current Visit: Yes Annotation/Comment:: Subtherapeutic INR. Will give additional dose of Warfarin and recheck level in AM - Problem List Review Problem List Initiated/Reviewed/Updated: Yes - My Orders Last 24 Hours: My Active Orders 03/18/20 15:35 CULTURE BLOOD [BC] Stat 03/18/20 15:46 UA W/MICROSCOPIC [URIN] Stat 03/18/20 15:47 Chest 1V Frontal [CR] Stat Blood Culture x2 Reflex Set [OM.PC] Stat 03/18/20 15:48 Isolation [COMM] Routine 03/18/20 16:00 CULTURE BLOOD [BC] Stat 03/18/20 16:20 Central Line Assessment [RC] QSHIFT Heparin Sodium [Heparin Lock Flush 100 Units/ML] 500 units FLUSH ASDIRECTED PRN Sodium Chloride 0.9% [Saline Flush] 10 ml FLUSH ASDIRECTED PRN 03/18/20 16:30 Sodium Chloride 0.9% [Normal Saline] 1,000 ml IV ASDIRECTED 03/18/20 16:54 Magnesium Sulfate/D5W [Magnesium Sulfate in D5W 100 Premix] 1 gm Premix Bag 1 bag IV ONETIME - Assessment/Plan Admission H&P: Please use this note as an admission H&P Last 24 Hours: My Active Orders 03/18/20 15:35 CULTURE BLOOD [BC] Stat 03/18/20 15:46 UA W/MICROSCOPIC [URIN] Stat 03/18/20 15:47 Chest 1V Frontal [CR] Stat Blood Culture x2 Reflex Set [OM.PC] Stat 03/18/20 15:48 Isolation [COMM] Routine 03/18/20 16:00 CULTURE BLOOD [BC] Stat 03/18/20 16:20 Central Line Assessment [RC] QSHIFT Heparin Sodium [Heparin Lock Flush 100 Units/ML] 500 units FLUSH ASDIRECTED PRN Sodium Chloride 0.9% [Saline Flush] 10 ml FLUSH ASDIRECTED PRN 03/18/20 16:30 Sodium Chloride 0.9% [Normal Saline] 1,000 ml IV ASDIRECTED 03/18/20 16:54 Magnesium Sulfate/D5W [Magnesium Sulfate in D5W 100 Premix] 1 gm Premix Bag 1 bag IV ONETIME Assessment:: as above Plan: as above. Anticipate approx 4 day stay given patient's comorbidities and clinical course.
[2020-03-18] MEDS ORDERED: Acetaminophen 325 MG Tab ONE (18:19)
[2020-03-18] MEDS: Acetaminophen 325 MG Tab PO PRN ×2 (18:27→22:49)
[2020-03-18] MEDS ORDERED: Atropine/Diphenoxylate 0.025-2.5 MG Tab PO PRN (18:58)
[2020-03-18] MEDS ORDERED: Megestrol Susp 40 MG/ML 10 ML UD Cup PO PRN (18:58)
[2020-03-18] MEDS ORDERED: REMDESIVIR 100 MG in Sodium Chloride 0.9% 100 ML IV SCH (19:00)
[2020-03-18] MEDS ORDERED: Levofloxacin/Dextrose 5%-Water 500 MG in Premix Bag 1 BAG IV SCH (19:00)
[2020-03-18] MEDS ORDERED: Warfarin 5 MG Tab PO ONE (19:04)
[2020-03-18] MEDS ORDERED: Glucagon,Human Recombinant 1 MG Vial IM PRN (19:05)
[2020-03-18] MEDS ORDERED: 50% Dextrose in Water 50 ML Syringe IV PRN (19:05)
[2020-03-18] MEDS ORDERED: Albuterol 6.7 GM Inhaler INH PRN (19:09)
[2020-03-18] MEDS ORDERED: REMDESIVIR 200 MG in Sodium Chloride 0.9% 250 ML IV ONE (19:50)
[2020-03-18] MEDS ORDERED: Arformoterol 15 MCG/2 ML Neb Soln INH SCH (20:00)
[2020-03-18] MEDS ORDERED: Warfarin 5 MG Tab PO SCH (20:00)
[2020-03-18] MEDS: Albuterol/Ipratropium 4 GM Inhalation Spray INH SCH (20:13)
[2020-03-18] MEDS: Magnesium Oxide 400 MG Tab PO SCH (20:16)
[2020-03-18] MEDS: Dexamethasone 10 MG/ML SDV IVPUSH SCH (20:17)
[2020-03-18] MEDS: Sertraline 50 MG Tab PO SCH (20:17)
[2020-03-18] MEDS: Simvastatin 20 MG Tab PO SCH (20:17)
[2020-03-18] MEDS: Insulin Glarg,Human.Rec.Analog 100 Unit/ML SUBCUT SCH (20:18)
[2020-03-18] MEDS: Nicotine 21 MG/24 Hr Patch TRDERM SCH (20:21)
[2020-03-18] MEDS: REMDESIVIR ONE (20:23)
[2020-03-18] MEDS: Sodium Chloride 0.9% 10 ML Syringe FLUSH PRN ×2 (20:24→22:48)
[2020-03-18] MEDS ORDERED: Albuterol/Ipratropium 4 GM Inhalation Spray INH SCH (22:00)
[2020-03-19] MEDS ORDERED: Cholecalciferol (Vitamin D3) 5,000 UNIT Tab PO ONE (08:00)
[2020-03-19] MEDS ORDERED: valACYclovir 1,000 MG Tab PO SCH (08:20)
[2020-03-19] MEDS: Albuterol/Ipratropium 4 GM Inhalation Spray INH SCH ×4 (08:21→22:05)
[2020-03-19] MEDS: Dexamethasone 10 MG/ML SDV IVPUSH SCH (08:22)
[2020-03-19] MEDS: Folic Acid 1 MG Tab PO SCH (08:22)
[2020-03-19] MEDS: Nicotine 21 MG/24 Hr Patch TRDERM SCH (08:22)
[2020-03-19] MEDS: Aspirin 81 MG Tab.EC PO SCH (08:26)
[2020-03-19] MEDS: Insulin Lispro 100 Units/ML 3 ML Vial SUBCUT SCH ×3 (08:26→17:25)
[2020-03-19] MEDS: Potassium Chloride 10 MEQ Tab.ER PO SCH (08:30)
[2020-03-19] MEDS: Ascorbic Acid 500 MG Tab PO SCH ×2 (08:30→17:22)
[2020-03-19] MEDS: Zinc (Zinc Gluconate) 50 MG Tab PO SCH (08:31)
[2020-03-19] MEDS: Sodium Chloride 0.9% 10 ML Syringe FLUSH PRN ×9 (08:35→23:30)
[2020-03-19] MEDS: Acetaminophen 325 MG Tab PO PRN ×2 (08:38→22:00)
[2020-03-19 08:49] LABS: CHLORIDE,CL 104 mmol/L (98-107)
[2020-03-19 09:27] LABS: SODIUM,NA 138 mmol/L (136-145)
[2020-03-19] MEDS: Levothyroxine 75 MCG Tab PO SCH (11:53)
[2020-03-19] MEDS: Doxycycline Monohydrate 100 MG Cap PO SCH ×2 (11:53→17:22)
[2020-03-19] MEDS: cefTRIAXone 1 GM in Sodium Chloride 0.9% 100 ML IV SCH ×2 (11:53→23:16)
--- NOTE | 2020-03-19 12:37 | PCM.PN ---
- General Info Date of Service: 03/19/20 Admission Dx/Problem (Free Text): 1. COVID-19 2. Bilateral pneumonia Functional Status: Reports: Pain Controlled, Tolerating Diet, Ambulating, Urinating, Incentive Spirometry. Denies: New Symptoms Pain Score: 0 - Review of Systems General: Reports: Fever, Weakness (Mild generalized), Fatigue (Mild), Chills, Night Sweats. Denies: Malaise, Appetite (Adequate) HEENT: Reports: Glasses, Post Nasal Drip, Rhinitis. Denies: Dysphasia, Ear Pain, Eye Pain, Sinus Congestion, Sore Throat, Visual Changes Pulmonary: Reports: Shortness of Breath, Cough, Sputum. Denies: Pleuritic Chest Pain, Hemoptysis, Wheezing Cardiovascular: Reports: Dyspnea on Exertion. Denies: Chest Pain, Palpitations, Orthopnea, PND, Edema, Lightheadedness Gastrointestinal: Denies: Abdominal Pain, Constipation, Decreased Appetite, Diarrhea (3 loose stools yesterday with only 1 loose stool today), Difficulty Swallowing, Flatus, Hematochezia, Nausea, Vomiting Genitourinary: Reports: No Symptoms. Denies: Dysuria, Frequency, Burning, Pain, Urgency, Incontinence, Hematuria, Retention, Flank Pain Musculoskeletal: Reports: No Symptoms. Denies: Neck Pain, Shoulder Pain, Arm Pain, Back Pain, Leg Pain Skin: Reports: No Symptoms. Denies: Diaphoresis, Bruising Neurological: Reports: Headache (Occasional borderline), Weakness. Denies: Confusion, Dizziness, Numbness, Paresthesia, Tingling, Difficulty Walking Psychiatric: Reports: Depression, Anxiety (Stable by patient history). Denies: Confusion, Agitation, Hallucinations, Homicidal Ideation - Patient Data Vitals - Most Recent: Last Vital Signs Temp 37.0 C 03/19/20 08:00 Pulse 85 03/19/20 12:00 Resp 20 03/19/20 12:00 BP 117/65 03/19/20 12:00 Pulse Ox 95 03/19/20 12:00 Vital Signs - 24 hr 03/18/20 03/18/20 03/18/20 15:10 16:39 16:46 Temperature [ 37.2 C Oral] Temperature [ 38.1 C Temporal] Pulse, 87 89 91 Peripheral [ Pulse Oximetry] Respiratory 24 H 18 20 Rate Blood Pressure 126/48 L 135/59 L 144/54 H [Upper Arm] O2 Sat by Pulse 96 96 94 L Oximetry 03/18/20 03/18/20 03/18/20 17:01 17:30 17:40 Temperature [ 39.3 C H Oral] Temperature [ Temporal] Pulse, 91 90 Peripheral [ Pulse Oximetry] Respiratory 20 18 Rate Blood Pressure 133/61 140/62 [Upper Arm] O2 Sat by Pulse 94 L Oximetry 03/18/20 03/18/20 03/18/20 18:20 18:48 20:00 Temperature [ 39.6 C H 37.6 C Oral] Temperature [ Temporal] Pulse, 73 Peripheral [ Pulse Oximetry] Respiratory 20 Rate Blood Pressure 127/53 L [Upper Arm] O2 Sat by Pulse 94 L Oximetry 03/19/20 03/19/20 03/19/20 08:00 10:41 12:00 Temperature [ 37.0 C Oral] Temperature [ Temporal] Pulse, 87 85 Peripheral [ Pulse Oximetry] Respiratory 24 H 20 Rate Blood Pressure 105/56 L 117/65 [Upper Arm] O2 Sat by Pulse 95 95 Oximetry Weight - Most Recent: 55.066 kg I&O - Last 24 Hours: Intake & Output 03/18/20 03/19/20 03/19/20 22:59 06:59 14:59 Output Total 400 Balance -400 Imaging Impressions - Last 24 Hours: None Lab Results Last 24 Hours: Laboratory Results - last 24 hr 03/18/20 03/18/20 03/18/20 Range/Units 15:00 15:35 15:35 WBC 4.0 (4.0-10.2) K/uL RBC 2.76 L (3.77-5.09) M/uL Hgb 9.1 L (11.7-15.5) g/dL Hct 29.1 L (34.0-46.0) % MCV 105.4 H (84.0-98.0) fL MCH 33.0 (28.2-33.3) pg MCHC 31.3 L (31.7-36.0) g/dL RDW 15.0 H (11.2-14.1) % Plt Count 125 L (150-350) K/uL Neut % (Auto) 77.1 (45.0-80.0) % Lymph % (Auto) 17.5 (10.0-50.0) % [place] % (Auto) 4.8 (2.0-14.0) % Eos % (Auto) 0.3 (0.0-5.0) % Baso % (Auto) 0.3 (0.0-2.0) % Neut # (Auto) 3.05 (1.40-7.00) K/uL Lymph # (Auto) 0.69 (0.50-3.50) K/uL [place] # (Auto) 0.19 (0.00-1.00) K/uL Eos # (Auto) 0.01 (0.00-0.50) K/uL Baso # (Auto) 0.01 (0.00-0.20) K/uL PT (9.5-12.0) SEC INR D-Dimer, Quantitative 241 (0-400) ng/mL Sodium (136-145) mmol/L Potassium (3.5-5.1) mmol/L Chloride (98-107) mmol/L Carbon Dioxide (21.0-32.0) mmol/L BUN (7-18) mg/dL Creatinine (0.51-1.17) mg/dL Est Cr Clr Drug Dosing Estimated GFR (MDRD) mL/min Glucose (74-106) mg/dL POC Glucose (65-110) mg/dl Lactic Acid (0.4-2.0) mmol/L Calcium (8.5-10.1) mg/dL Magnesium (1.8-2.4) mg/dL Total Bilirubin (0.2-1.0) mg/dL AST (15-37) U/L ALT (12-78) U/L Alkaline Phosphatase (46-116) IU/L NT-Pro-B Natriuret Pep (0-125) pg/mL Total Protein (6.4-8.2) g/dL Albumin (3.4-5.0) g/dL TSH, Ultra Sensitive (0.358-3.740) mIU/mL Specimen Type Urine Color Urine Appearance Urine pH (5.0-9.0) Ur Specific [place] (1.005-1.030) Urine Protein (NEGATIVE) mg/dL Urine Glucose (UA) (NEGATIVE) mg/dL Urine Ketones (NEGATIVE) mg/dL Urine Occult Blood (NEGATIVE) Urine Nitrite (NEGATIVE) Urine Bilirubin (NEGATIVE) Urine Urobilinogen (0.2-1.0) E.U./dL Ur Leukocyte Esterase (NEGATIVE) U Hyaline Cast (Auto) Urine RBC /HPF Urine WBC /HPF Ur Epithelial Cells /LPF Urine Bacteria (NONE TO FEW) /HPF SARS-CoV-2 RNA (STEPHANIE) Positive H (NEGATIVE) 03/18/20 03/18/20 03/18/20 Range/Units 15:35 15:35 15:35 WBC (4.0-10.2) K/uL RBC (3.77-5.09) M/uL Hgb (11.7-15.5) g/dL Hct (34.0-46.0) % MCV (84.0-98.0) fL MCH (28.2-33.3) pg MCHC (31.7-36.0) g/dL RDW (11.2-14.1) % Plt Count (150-350) K/uL Neut % (Auto) (45.0-80.0) % Lymph % (Auto) (10.0-50.0) % [place] % (Auto) (2.0-14.0) % Eos % (Auto) (0.0-5.0) % Baso % (Auto) (0.0-2.0) % Neut # (Auto) (1.40-7.00) K/uL Lymph # (Auto) (0.50-3.50) K/uL [place] # (Auto) (0.00-1.00) K/uL Eos # (Auto) (0.00-0.50) K/uL Baso # (Auto) (0.00-0.20) K/uL PT 16.8 H (9.5-12.0) SEC INR 1.7 D-Dimer, Quantitative (0-400) ng/mL Sodium 137 (136-145) mmol/L Potassium 4.4 (3.5-5.1) mmol/L Chloride 102 (98-107) mmol/L Carbon Dioxide 26.9 (21.0-32.0) mmol/L BUN 20 H (7-18) mg/dL Creatinine 0.90 (0.51-1.17) mg/dL Est Cr Clr Drug Dosing TNP Estimated GFR (MDRD) > 60 mL/min Glucose 243 H (74-106) mg/dL POC Glucose (65-110) mg/dl Lactic Acid 1.1 (0.4-2.0) mmol/L Calcium 8.4 L (8.5-10.1) mg/dL Magnesium 1.3 L (1.8-2.4) mg/dL Total Bilirubin 0.2 (0.2-1.0) mg/dL AST 18 (15-37) U/L ALT 22 (12-78) U/L Alkaline Phosphatase 77 (46-116) IU/L NT-Pro-B Natriuret Pep 195 H (0-125) pg/mL Total Protein 7.4 (6.4-8.2) g/dL Albumin 2.9 L (3.4-5.0) g/dL TSH, Ultra Sensitive (0.358-3.740) mIU/mL Specimen Type Urine Color Urine Appearance Urine pH (5.0-9.0) Ur Specific [place] (1.005-1.030) Urine Protein (NEGATIVE) mg/dL Urine Glucose (UA) (NEGATIVE) mg/dL Urine Ketones (NEGATIVE) mg/dL Urine Occult Blood (NEGATIVE) Urine Nitrite (NEGATIVE) Urine Bilirubin (NEGATIVE) Urine Urobilinogen (0.2-1.0) E.U./dL Ur Leukocyte Esterase (NEGATIVE) U Hyaline Cast (Auto) Urine RBC /HPF Urine WBC /HPF Ur Epithelial Cells /LPF Urine Bacteria (NONE TO FEW) /HPF SARS-CoV-2 RNA (STEPHANIE) (NEGATIVE) 03/18/20 03/18/20 03/19/20 Range/Units 15:46 22:44 06:43 WBC 3.6 L (4.0-10.2) K/uL RBC 2.74 L (3.77-5.09) M/uL Hgb 9.1 L (11.7-15.5) g/dL Hct 28.5 L (34.0-46.0) % MCV 104.0 H (84.0-98.0) fL MCH 33.2 (28.2-33.3) pg MCHC 31.9 (31.7-36.0) g/dL RDW 14.4 H (11.2-14.1) % Plt Count 119 L (150-350) K/uL Neut % (Auto) 78.0 (45.0-80.0) % Lymph % (Auto) 18.9 (10.0-50.0) % [place] % (Auto) 3.1 (2.0-14.0) % Eos % (Auto) 0.0 (0.0-5.0) % Baso % (Auto) 0.0 (0.0-2.0) % Neut # (Auto) 2.81 (1.40-7.00) K/uL Lymph # (Auto) 0.68 (0.50-3.50) K/uL [place] # (Auto) 0.11 (0.00-1.00) K/uL Eos # (Auto) 0.00 (0.00-0.50) K/uL Baso # (Auto) 0.00 (0.00-0.20) K/uL PT (9.5-12.0) SEC INR D-Dimer, Quantitative (0-400) ng/mL Sodium (136-145) mmol/L Potassium (3.5-5.1) mmol/L Chloride (98-107) mmol/L Carbon Dioxide (21.0-32.0) mmol/L BUN (7-18) mg/dL Creatinine (0.51-1.17) mg/dL Est Cr Clr Drug Dosing Estimated GFR (MDRD) mL/min Glucose (74-106) mg/dL POC Glucose 304 H* (65-110) mg/dl Lactic Acid (0.4-2.0) mmol/L Calcium (8.5-10.1) mg/dL Magnesium (1.8-2.4) mg/dL Total Bilirubin (0.2-1.0) mg/dL AST (15-37) U/L ALT (12-78) U/L Alkaline Phosphatase (46-116) IU/L NT-Pro-B Natriuret Pep (0-125) pg/mL Total Protein (6.4-8.2) g/dL Albumin (3.4-5.0) g/dL TSH, Ultra Sensitive (0.358-3.740) mIU/mL Specimen Type Urin[place]ath Urine Color Yellow Urine Appearance Clear Urine pH 5.0 (5.0-9.0) Ur Specific [place] 1.020 (1.005-1.030) Urine Protein Negative (NEGATIVE) mg/dL Urine Glucose (UA) Negative (NEGATIVE) mg/dL Urine Ketones Negative (NEGATIVE) mg/dL Urine Occult Blood Negative (NEGATIVE) Urine Nitrite Negative (NEGATIVE) Urine Bilirubin Negative (NEGATIVE) Urine Urobilinogen 0.2 (0.2-1.0) E.U./dL Ur Leukocyte Esterase Negative (NEGATIVE) U Hyaline Cast (Auto) Rare Urine RBC Not seen /HPF Urine WBC 0-5 /HPF Ur Epithelial Cells Rare /LPF Urine Bacteria Not seen (NONE TO FEW) /HPF SARS-CoV-2 RNA (STEPHANIE) (NEGATIVE) 03/19/20 03/19/20 03/19/20 Range/Units 08:11 08:15 08:15 WBC (4.0-10.2) K/uL RBC (3.77-5.09) M/uL Hgb (11.7-15.5) g/dL Hct (34.0-46.0) % MCV (84.0-98.0) fL MCH (28.2-33.3) pg MCHC (31.7-36.0) g/dL RDW (11.2-14.1) % Plt Count (150-350) K/uL Neut % (Auto) (45.0-80.0) % Lymph % (Auto) (10.0-50.0) % [place] % (Auto) (2.0-14.0) % Eos % (Auto) (0.0-5.0) % Baso % (Auto) (0.0-2.0) % Neut # (Auto) (1.40-7.00) K/uL Lymph # (Auto) (0.50-3.50) K/uL [place] # (Auto) (0.00-1.00) K/uL Eos # (Auto) (0.00-0.50) K/uL Baso # (Auto) (0.00-0.20) K/uL PT 16.7 H (9.5-12.0) SEC INR 1.7 D-Dimer, Quantitative (0-400) ng/mL Sodium 138 (136-145) mmol/L Potassium 4.3 (3.5-5.1) mmol/L Chloride 104 (98-107) mmol/L Carbon Dioxide 24.8 (21.0-32.0) mmol/L BUN 22 H (7-18) mg/dL Creatinine 0.79 (0.51-1.17) mg/dL Est Cr Clr Drug Dosing 49.86 Estimated GFR (MDRD) > 60 mL/min Glucose 223 H (74-106) mg/dL POC Glucose 232 H (65-110) mg/dl Lactic Acid (0.4-2.0) mmol/L Calcium 8.1 L (8.5-10.1) mg/dL Magnesium 1.8 (1.8-2.4) mg/dL Total Bilirubin 0.1 L (0.2-1.0) mg/dL AST 21 (15-37) U/L ALT 21 (12-78) U/L Alkaline Phosphatase 71 (46-116) IU/L NT-Pro-B Natriuret Pep (0-125) pg/mL Total Protein 7.1 (6.4-8.2) g/dL Albumin 2.6 L (3.4-5.0) g/dL TSH, Ultra Sensitive 0.696 (0.358-3.740) mIU/mL Specimen Type Urine Color Urine Appearance Urine pH (5.0-9.0) Ur Specific [place] (1.005-1.030) Urine Protein (NEGATIVE) mg/dL Urine Glucose (UA) (NEGATIVE) mg/dL Urine Ketones (NEGATIVE) mg/dL Urine Occult Blood (NEGATIVE) Urine Nitrite (NEGATIVE) Urine Bilirubin (NEGATIVE) Urine Urobilinogen (0.2-1.0) E.U./dL Ur Leukocyte Esterase (NEGATIVE) U Hyaline Cast (Auto) Urine RBC /HPF Urine WBC /HPF Ur Epithelial Cells /LPF Urine Bacteria (NONE TO FEW) /HPF SARS-CoV-2 RNA (STEPHANIE) (NEGATIVE) 03/19/20 03/19/20 Range/Units 08:15 11:53 WBC (4.0-10.2) K/uL RBC (3.77-5.09) M/uL Hgb (11.7-15.5) g/dL Hct (34.0-46.0) % MCV (84.0-98.0) fL MCH (28.2-33.3) pg MCHC (31.7-36.0) g/dL RDW (11.2-14.1) % Plt Count (150-350) K/uL Neut % (Auto) (45.0-80.0) % Lymph % (Auto) (10.0-50.0) % [place] % (Auto) (2.0-14.0) % Eos % (Auto) (0.0-5.0) % Baso % (Auto) (0.0-2.0) % Neut # (Auto) (1.40-7.00) K/uL Lymph # (Auto) (0.50-3.50) K/uL [place] # (Auto) (0.00-1.00) K/uL Eos # (Auto) (0.00-0.50) K/uL Baso # (Auto) (0.00-0.20) K/uL PT (9.5-12.0) SEC INR D-Dimer, Quantitative (0-400) ng/mL Sodium (136-145) mmol/L Potassium (3.5-5.1) mmol/L Chloride (98-107) mmol/L Carbon Dioxide (21.0-32.0) mmol/L BUN (7-18) mg/dL Creatinine (0.51-1.17) mg/dL Est Cr Clr Drug Dosing Estimated GFR (MDRD) mL/min Glucose (74-106) mg/dL POC Glucose 185 H (65-110) mg/dl Lactic Acid 0.9 (0.4-2.0) mmol/L Calcium (8.5-10.1) mg/dL Magnesium (1.8-2.4) mg/dL Total Bilirubin (0.2-1.0) mg/dL AST (15-37) U/L ALT (12-78) U/L Alkaline Phosphatase (46-116) IU/L NT-Pro-B Natriuret Pep (0-125) pg/mL Total Protein (6.4-8.2) g/dL Albumin (3.4-5.0) g/dL TSH, Ultra Sensitive (0.358-3.740) mIU/mL Specimen Type Urine Color Urine Appearance Urine pH (5.0-9.0) Ur Specific [place] (1.005-1.030) Urine Protein (NEGATIVE) mg/dL Urine Glucose (UA) (NEGATIVE) mg/dL Urine Ketones (NEGATIVE) mg/dL Urine Occult Blood (NEGATIVE) Urine Nitrite (NEGATIVE) Urine Bilirubin (NEGATIVE) Urine Urobilinogen (0.2-1.0) E.U./dL Ur Leukocyte Esterase (NEGATIVE) U Hyaline Cast (Auto) Urine RBC /HPF Urine WBC /HPF Ur Epithelial Cells /LPF Urine Bacteria (NONE TO FEW) /HPF SARS-CoV-2 RNA (STEPHANIE) (NEGATIVE) Frank Results Last 24 Hours: Microbiology 03/18/20 15:35 Influenza Type A Antigen Screen - Final Nasal Aspirate, Unspecified NEGATIVE INFLUENZA A VIRUS AG REFERENCE RANGE: NEGATIVE Influenza Type B Antigen Screen - Final NEGATIVE INFLUENZA B VIRUS AG REFERENCE RANGE: NEGATIVE Med Orders - Current: Current Medications Acetaminophen (Tylenol) 650 mg PO Q4H PRN PRN Reason: Pain/Fever Last Admin: 03/19/20 08:38 Dose: 650 mg Documented by: Albuterol (Proventil Hfa) 0 gm INH Q2H PRN PRN Reason: Shortness of Breath Albuterol/Ipratropium (Combivent Respimat) 0 gm INH QIDRT [facility] Last Admin: 03/19/20 11:57 Dose: 1 puff Documented by: Ascorbic Acid (Vitamin C) 1,000 mg PO BID [facility] Last Admin: 03/19/20 08:30 Dose: 1,000 mg Documented by: Aspirin (Halfprin) 81 mg PO DAILY [facility] Last Admin: 03/19/20 08:26 Dose: 81 mg Documented by: Cholecalciferol (Vitamin D3) 5,000 unit PO DAILY [facility] Dexamethasone (Decadron) 6 mg IVPUSH DAILY [facility] Last Admin: 03/19/20 08:22 Dose: 6 mg Documented by: Dextrose/Water (Dextrose 50% In Water) 50 ml IV ASDIRECTED PRN PRN Reason: Hypoglycemia Diphenhydramine HCl (Benadryl) 25 mg PO Q6H PRN PRN Reason: rash/allergy Diphenoxylate HCl/Atropine (Lomotil 0.025-2.5 Mg) 1 tab PO Q6H PRN PRN Reason: Diarrhea Doxycycline Monohydrate (Doxycycline Monohydrate) 100 mg PO BID [facility] Last Admin: 03/19/20 11:53 Dose: 100 mg Documented by: Folic Acid (Folic Acid) 1 mg PO DAILY [facility] Last Admin: 11/10/20 08:22 Dose: 1 mg Documented by: Glucagon (Glucagen) 1 mg IM ASDIRECTED PRN PRN Reason: Hypoglycemia Heparin Sodium (Porcine) (Heparin Lock Flush 100 Units/Ml) 500 units FLUSH ASDIRECTED PRN PRN Reason: after port use Last Admin: 03/19/20 08:35 Dose: 500 units Documented by: Remdesivir 100 mg/ Sodium (Chloride) 100 mls @ 100 mls/hr IV Q24H [facility] Stop: 03/22/20 20:59 Ceftriaxone Sodium 1 gm/ (Sodium Chloride) 100 mls @ 200 mls/hr IV Q12H [facility] Last Admin: 03/19/20 11:53 Dose: 200 mls/hr Documented by: Levofloxacin/Dextrose 500 mg/ (Premix) 100 mls @ 100 mls/hr IV Q24H [facility] Insulin Glargine (Lantus) 20 unit SUBCUT BEDTIME [facility] Last Admin: 03/18/20 20:18 Dose: 20 unit Documented by: Insulin Human Lispro (Humalog) 0 unit SUBCUT TID [facility]; Protocol Last Admin: 03/19/20 11:58 Dose: 2 units Documented by: Levothyroxine Sodium (Levothyroxine) 37.5 mcg PO SUTUTHSA@11 [facility] Last Admin: 03/19/20 11:53 Dose: 37.5 mcg Documented by: Levothyroxine Sodium (Levothyroxine) 25 mcg PO MOWEFR@1100 [facility] Magnesium Oxide (Magnesium Oxide) 800 mg PO BEDTIME [facility] Last Admin: 03/18/20 20:16 Dose: 800 mg Documented by: Megestrol Acetate (Megace 40 Mg/Ml Susp) 400 mg PO DAILY PRN PRN Reason: appetite Miscellaneous Information (Remove Patch) 1 ea TRDERM Q24H [facility] Nicotine (Habitrol) 21 mg TRDERM DAILY [facility] Last Admin: 03/19/20 08:22 Dose: 21 mg Documented by: Ondansetron HCl (Zofran) 4 mg IVPUSH Q6H PRN PRN Reason: Nausea/Vomiting Potassium Chloride (Klor-Con 10) 30 meq PO DAILY [facility] Last Admin: 03/19/20 08:30 Dose: 30 meq Documented by: Sertraline HCl (Zoloft) 150 mg PO BEDTIME [facility] Last Admin: 03/18/20 20:17 Dose: 150 mg Documented by: Simvastatin (Zocor) 40 mg PO BEDTIME [facility] Last Admin: 03/18/20 20:17 Dose: 40 mg Documented by: Sodium Chloride (Saline Flush) 10 ml FLUSH ASDIRECTED PRN PRN Reason: Keep Vein Open Last Admin: 03/19/20 08:35 Dose: 10 ml Documented by: Valacyclovir HCl (Valtrex) 500 mg PO BID@0820 [facility] Last Admin: 03/19/20 08:31 Dose: 500 mg Documented by: Warfarin Sodium (Coumadin) 5 mg PO BEDTIME [facility] Warfarin Sodium (Coumadin) 10 mg PO ONETIME ONE Stop: 03/19/20 12:30 Zinc Gluconate (Zinc) 50 mg PO DAILY [facility] Last Admin: 03/19/20 08:31 Dose: 50 mg Documented by: Discontinued Medications Acetaminophen (Tylenol) Confirm Administered Dose 650 mg .ROUTE .STK-MED ONE Stop: 03/18/20 18:20 Last Admin: 03/18/20 18:27 Dose: Not Given Documented by: Albuterol/Ipratropium (Combivent Respimat) 0 gm INH QIDRT [facility] Arformoterol Tartrate (Brovana) 15 mcg INH BIDRT [facility] Last Admin: 03/18/20 20:37 Dose: Not Given Documented by: Ascorbic Acid (Vitamin C) 1,000 mg PO ONETIME ONE Stop: 03/18/20 16:55 Last Admin: 03/18/20 18:26 Dose: 1,000 mg Documented by: Cholecalciferol (Vitamin D3) 10,000 unit PO ONETIME ONE Stop: 03/18/20 16:57 Last Admin: 03/18/20 18:27 Dose: 10,000 unit Documented by: Cholecalciferol (Vitamin D3) 10,000 unit PO ONETIME ONE Stop: 03/20/20 08:01 Cholecalciferol (Vitamin D3) 10,000 unit PO ONETIME ONE Stop: 03/19/20 08:01 Last Admin: 03/19/20 08:31 Dose: 10,000 unit Documented by: Sodium Chloride (Normal Saline) 1,000 mls @ 250 mls/hr IV ASDIRECTED [facility] Stop: 03/18/20 20:29 Last Admin: 03/18/20 16:36 Dose: 250 mls/hr Documented by: Magnesium Sulfate/Dextrose 1 (gm/ Premix) 100 mls @ 100 mls/hr IV ONETIME ONE Stop: 03/18/20 17:53 Last Admin: 03/18/20 18:24 Dose: 100 mls/hr Documented by: Remdesivir 100 mg/ Sodium (Chloride) 100 mls @ 100 mls/hr IV Q24H [facility] Stop: 03/21/20 19:59 Last Admin: 03/18/20 20:32 Dose: Not Given Documented by: Levofloxacin/Dextrose 500 mg/ (Premix) 100 mls @ 100 mls/hr IV Q24H [facility] Last Admin: 03/18/20 20:14 Dose: 100 mls/hr Documented by: Remdesivir 200 mg/ Sodium (Chloride) 250 mls @ 250 mls/hr IV ONETIME ONE Stop: 03/18/20 20:49 Last Admin: 03/18/20 20:24 Dose: Not Given Documented by: Remdesivir (Remdesivir (Eua)) Confirm Administered Dose 40 mls @ as directed .ROUTE .STK-MED ONE Stop: 03/18/20 19:40 Last Admin: 03/18/20 20:23 Dose: 200 mls/hr Documented by: Warfarin Sodium (Coumadin) 5 mg PO BEDTIME [facility] Last Admin: 03/18/20 20:16 Dose: 5 mg Documented by: Warfarin Sodium (Coumadin) 5 mg PO ONETIME ONE Stop: 03/18/20 19:05 Last Admin: 03/18/20 20:36 Dose: Not Given Documented by: Zinc Gluconate (Zinc) 50 mg PO ONETIME ONE Stop: 03/18/20 16:55 Last Admin: 03/18/20 18:25 Dose: 50 mg Documented by: - Exam Quality Assessment: Central Line/PICC (Port-A-Cath right upper chest), DVT Prophylaxis (Coumadin). No: Supplemental Oxygen, Urine Catheter, Skin Breakdown, Restraints General: Oriented, Cooperative, No Acute Distress HEENT: Pupils Equal, Pupils Reactive, EOMI, Mucous Membr. Moist/[place], Other (Patient is wearing glasses). No: Scleral Icterus Neck: Supple, Trachea Midline, No JVD, No Thyromegaly, Carotid Bruit (Mild bilateral carotid bruits). No: Lymphadenopathy Lungs: Normal Respiratory Effort, Rales (Increased diffuse bilateral since admission), Rhonchi (Occasional bilateral), Wheezing (Occasional bilateral), Other (Port-A-Cath access right upper chest). No: Rub, Stridor Cardiovascular: Regular Rate, Regular Rhythm, No Murmurs. No: Murmurs, Gallops, Rubs GI/Abdominal Exam: Soft, Non-Tender, No Organomegaly, No Distention, No Abnormal Bruit, No Mass, Pelvis Stable, Abnormal Bowel Sounds (Somewhat diffused increased bowel sounds not high-pitched in nature). No: Guarding (Female) Exam: Deferred Back Exam: Normal Inspection, Full Range of Motion. No: CVA Tenderness (L), CVA Tenderness (R), Muscle Spasm Extremities: Normal Inspection, Normal Range of Motion, Non-Tender, No Pedal Edema, Normal Capillary Refill. No: Carl's Sign Peripheral Pulses: 2+: Radial (L), Radial (R), Dorsalis Pedis (L), Dorsalis Pedis (R) Skin: Warm, Dry, Intact. No: Rash, Ecchymosis Neurological: No New Focal Deficit, Other (Negative Babinski's) Psy/Mental Status: Anxious (Mild), Depressed (Borderline). No: Agitated, Hallucinations, Withdrawal Symptoms Sepsis Event Note - Evaluation Sepsis Screening Result: Severe Sepsis Risk - Focused Exam Vital Signs: Vital Signs Temp Pulse Resp BP Pulse Ox 03/19/20 12:00 85 20 117/65 95 03/19/20 10:41 95 03/19/20 08:00 37.0 C 87 24 H 105/56 L - Problem List & Annotations (1) COVID-19 SNOMED Code(s): 412775432 Code(s): U07.1 - COVID-19 Status: Acute Priority: High Current Visit: Yes Onset Date: ~03/15/20 Annotation/Comment:: Covid + with darwin ellis physician initiated IV Remdesivir and Dexamethasone on admission. Reviewed patient and treatment options with from [facility]. He recommended adding Levaquin given patient's immunocompromised status. Extended hospitalization likely required secondary to patient's IV remdesivir, etc. therapy as above. Further oncology consultation depending on her clinical course. (2) Hypomagnesemia SNOMED Code(s): 825258777 Code(s): E83.42 - HYPOMAGNESEMIA Status: Chronic Priority: Medium Current Visit: Yes Onset Date: 08/28/15 Annotation/Comment:: Chronic. IV Mag ordered given today's low level. Magnesium level normal on 03/19/2020. (3) Atrial fibrillation and flutter SNOMED Code(s): 944595419 Code(s): I48.91 - UNSPECIFIED ATRIAL FIBRILLATION; I48.92 - UNSPECIFIED ATRIAL FLUTTER Status: Acute Priority: Medium Current Visit: Yes Onset Date: 02/28/18 Annotation/Comment:: Normal sinus rhythm today. No chest pain or anginal complaints. INR mildly subtherapeutic with loading dose of oral Coumadin given on 03/19 especially in light of her current COVID-19 infection. (4) CAD (coronary artery disease) SNOMED Code(s): 39008832 Code(s): I25.10 - ATHSCL HEART DISEASE OF [place] CORONARY ARTERY W/O ANG PCTRS Status: Acute Priority: Medium Current Visit: Yes Qualifiers: Coronary Disease-Associated Artery/Lesion type: unspecified vessel or lesion type Associated angina: without angina Annotation/Comment:: Hx CAD/cardiomyopathy/arrhythmias/PVD as per admission H&P. Stable per history with no history of chest pain or anginal type symptoms. Cardiac enzymes and EKG to be conducted on 03/20 secondary to her COVID-19 infection. (5) CHF (congestive heart failure) SNOMED Code(s): 57162304 Code(s): I50.9 - HEART FAILURE, UNSPECIFIED Status: Acute Priority: High Current Visit: Yes Onset Date: 08/26/15 Qualifiers: Heart failure type: combined systolic and diastolic Heart failure chronicity: chronic Qualified Code(s): I50.42 - Chronic combined systolic (congestive) and diastolic (congestive) heart failure Annotation/Comment:: No clinical evidence of significant CHF with BNP to be repeated on 03/19. (6) COPD exacerbation SNOMED Code(s): 336099544 Code(s): J44.1 - CHRONIC OBSTRUCTIVE PULMONARY DISEASE W (ACUTE) EXACERBATION Status: Chronic Priority: Medium Current Visit: Yes Annotation/Comment:: Combivent inhaler therapy rather than nebulizer treatment secondary to COVID-19 infection and pandemic. (7) Hypoalbuminemia SNOMED Code(s): 606169493 Code(s): E88.09 - OTH DISORDERS OF PLASMA-PROTEIN METABOLISM, NEC Status: Acute Priority: Medium Current Visit: Yes Onset Date: 08/22/15 Selene otation/Comment:: High protein Glucerna supplements to be initiated as snacks. (8) Hypothyroid SNOMED Code(s): 39155605 Code(s): E03.9 - HYPOTHYROIDISM, UNSPECIFIED Status: Acute Priority: Low Current Visit: Yes Qualifiers: Hypothyroidism type: unspecified Qualified Code(s): E03.9 - Hypothyroidism, unspecified Annotation/Comment:: TSH normal during this hospitalization. Continue current therapy. (9) Pneumonia SNOMED Code(s): 805874092 Code(s): J18.9 - PNEUMONIA, UNSPECIFIED ORGANISM Status: Acute Priority: High Current Visit: Yes Onset Date: 08/22/15 Qualifiers: Pneumonia type: due to Pneumococcus Laterality: right Lung location: middle lobe of lung Qualified Code(s): J13 - Pneumonia due to Streptococcus pneumoniae Annotation/Comment:: Sepsis criteria met once again during the morning of 03/19 with additional IV Rocephin and oral doxycycline initiated especially in light of her current COVID-19 infection. Note blood culture 1 on admission positive for Streptococcus pneumoniae with final culture and sensitivity still pending. Sputum assessment collected this morning with results pending. Patient feeling worse today. Poorer performance on incentive spirometry. O2 sats on 2L NC decreased from 95-97% yesterday to 93% today. Lactic acid and CRP requested and found to be elevated. Call placed to [facility] and arrangements for transfer made with Dr. Zabala. Chest xray appeared improved this morning. Low WBC. (10) Thrombocytopenia SNOMED Code(s): 243119538 Code(s): D69.6 - THROMBOCYTOPENIA, UNSPECIFIED Status: Acute Priority: Medium Current Visit: Yes Onset Date: 08/22/15 Annotation/Comment:: Stable intermittent thrombocytopenia with continued close observation secondary to current IV remdesivir and Coumadin therapy. (11) Dyslipidemia SNOMED Code(s): 620982276 Code(s): E78.5 - HYPERLIPIDEMIA, UNSPECIFIED Status: Chronic Priority: Medium Current Visit: Yes Annotation/Comment:: Currently under therapy. Observe for now. (12) IDDM (insulin dependent diabetes mellitus) SNOMED Code(s): 93464823 Code(s): E11.9 - TYPE 2 DIABETES MELLITUS WITHOUT COMPLICATIONS; Z79.4 - RETIREMENT (CURRENT) USE OF INSULIN Status: Chronic Priority: Medium Current Visit: Yes Annotation/Comment:: Blood sugar somewhat elevated during this hospitalization with close monitoring of her blood glucose and utilize sliding scale insulin secondary to her IV dexamethasone treatment for Covid with previous history of chronic oral prednisone. (13) Multiple myeloma SNOMED Code(s): 376245804 Code(s): C90.00 - MULTIPLE MYELOMA NOT HAVING ACHIEVED REMISSION Status: Chronic Priority: Medium Current Visit: Yes Qualifiers: Multiple myeloma remission status: not in remission Qualified Code(s): C90.00 - Multiple myeloma not having achieved remission Annotation/Comment:: Immunosuppressed/receives chemo at [facility]. Note oncology consultation as above by [facility]/admitting physician. (14) Need for comfort care SNOMED Code(s): 672468513, 750768573 Code(s): GNU7324 - Status: Chronic Priority: High Current Visit: Yes Annotation/Comment:: Note comfort care with prognosis guarded secondary to current chemotherapy, multiple myeloma, and current COVID-19 infection. (15) Anemia SNOMED Code(s): 672809296 Code(s): D64.9 - ANEMIA, UNSPECIFIED Status: Chronic Priority: Medium Current Visit: Yes Qualifiers: Anemia type: unspecified type Qualified Code(s): D64.9 - Anemia, unspecified Annotation/Comment:: Note history of multiple myeloma with pancytopenia as above. Iron studies and vitamin B-12 level on 03/20. (16) Pancytopenia SNOMED Code(s): 515228681 Code(s): D61.818 - OTHER PANCYTOPENIA Status: Chronic Priority: Medium Current Visit: No Annotation/Comment:: Current chemotherapy. Stable by history. Patient does have weekly blood work, including neck set scheduled for 07/17 by the history. - Problem List Review Problem List Initiated/Reviewed/Updated: Yes - My Orders Last 24 Hours: My Active Orders 03/19/20 10:45 Doxycycline Monohydrate 100 mg PO BID 03/19/20 12:00 cefTRIAXone [Rocephin] 1 gm Sodium Chloride 0.9% [Normal Saline] 100 ml IV Q12H 03/19/20 12:29 Warfarin [Coumadin] 10 mg PO ONETIME ONE 03/19/20 12:30 RT Incentive Spirometry [RC] ASDIRECTED CULTURE SPUTUM + SMEAR [RM] Routine 03/20/20 05:11 EKG Documentation Completion [RC] ASDIRECTED Chest 1V Frontal [CR] Routine CK W CKMB [CHEM] Routine FERRITIN [CHEM] Routine INR,PT,PROTHROMBIN TIME [COAG] Routine IRON/TIBC [CHEM] Routine PRO B-TYPE NATRIUR PEPT,BNPPRO [CHEM] Routine TROPONIN I [CHEM] Routine VITAMIN B12 [CHEM] Routine EKG 12 Lead [EK] Routine 03/20/20 12:21 CBC WITH AUTO DIFF [HEME] DAILY 03/20/20 12:22 COMPREHENSIVE METABOLIC PN,CMP [CHEM] DAILY 03/20/20 20:00 Warfarin [Coumadin] 5 mg PO BEDTIME 03/21/20 12:21 CBC WITH AUTO DIFF [HEME] DAILY 03/21/20 12:22 COMPREHENSIVE METABOLIC PN,CMP [CHEM] DAILY 03/22/20 12:21 CBC WITH AUTO DIFF [HEME] DAILY 03/22/20 12:22 COMPREHENSIVE METABOLIC PN,CMP [CHEM] DAILY 03/23/20 12:21 CBC WITH AUTO DIFF [HEME] DAILY 03/23/20 12:22 COMPREHENSIVE METABOLIC PN,CMP [CHEM] DAILY 03/24/20 12:21 CBC WITH AUTO DIFF [HEME] DAILY 03/24/20 12:22 COMPREHENSIVE METABOLIC PN,CMP [CHEM] DAILY - Assessment Assessment:: As above - Plan Plan:: As above. Extensive precautions were given to the patient, who is in agreement with the treatment plan. See Patient Instructions for further treatment and plan. Extended inpatient care would likely be required secondary to current IV remdesivir therapy.
[2020-03-19] MEDS ORDERED: Warfarin 5 MG Tab PO ONE (13:00)
[2020-03-19] MEDS: Ondansetron 4 MG/2 ML SDV IVPUSH PRN ×2 (15:00→23:27)
[2020-03-19] MEDS: Levofloxacin/Dextrose 5%-Water 500 MG in Premix Bag 1 BAG IV SCH (17:21)
[2020-03-19] MEDS ORDERED: Albuterol 6.7 GM Inhaler INH PRN (19:44)
[2020-03-19] MEDS ORDERED: REMDESIVIR 100 MG in Sodium Chloride 0.9% 100 ML IV SCH (20:00)
[2020-03-19] MEDS ORDERED: REMDESIVIR ONE (20:42)
[2020-03-19] MEDS: Magnesium Oxide 400 MG Tab PO SCH (21:57)
[2020-03-19] MEDS: Sertraline 50 MG Tab PO SCH (21:57)
[2020-03-19] MEDS: Simvastatin 20 MG Tab PO SCH (21:58)
[2020-03-19] MEDS: diphenhydrAMINE 25 MG Cap PO PRN (22:00)
[2020-03-19] MEDS: Insulin Glarg,Human.Rec.Analog 100 Unit/ML SUBCUT SCH (22:01)
[2020-03-19] MEDS ORDERED: REMDESIVIR 100 MG in Sodium Chloride 0.9% 250 ML IV ONE (22:10)
[2020-03-19] MEDS: valACYclovir 1,000 MG Tab PO SCH (23:12)
[2020-03-20] MEDS: Dexamethasone 10 MG/ML SDV IVPUSH SCH (07:50)
[2020-03-20] MEDS: Sodium Chloride 0.9% 10 ML Syringe FLUSH PRN ×9 (07:50→21:49)
[2020-03-20] MEDS: Albuterol/Ipratropium 4 GM Inhalation Spray INH SCH ×4 (07:55→20:44)
[2020-03-20] MEDS: Ascorbic Acid 500 MG Tab PO SCH ×2 (07:56→17:18)
[2020-03-20] MEDS: Potassium Chloride 10 MEQ Tab.ER PO SCH ×2 (07:56→17:18)
[2020-03-20] MEDS: Zinc (Zinc Gluconate) 50 MG Tab PO SCH (07:57)
[2020-03-20] MEDS: Aspirin 81 MG Tab.EC PO SCH (07:57)
[2020-03-20] MEDS: valACYclovir 1,000 MG Tab PO SCH ×2 (07:57→20:27)
[2020-03-20] MEDS: Folic Acid 1 MG Tab PO SCH (07:58)
[2020-03-20] MEDS: Doxycycline Monohydrate 100 MG Cap PO SCH ×2 (07:58→17:18)
[2020-03-20] MEDS: Cholecalciferol (Vitamin D3) 5,000 UNIT Tab PO SCH (07:58)
[2020-03-20] MEDS: Insulin Lispro 100 Units/ML 3 ML Vial SUBCUT SCH ×3 (07:59→17:28)
[2020-03-20] MEDS ORDERED: Cholecalciferol (Vitamin D3) 5,000 UNIT Tab PO ONE (08:00)
[2020-03-20] MEDS: Nicotine 21 MG/24 Hr Patch TRDERM SCH (08:05)
[2020-03-20 08:26] LABS: CHLORIDE,CL 110 mmol/L (98-107); SODIUM,NA 144 mmol/L (136-145)
--- NOTE | 2020-03-20 09:38 | PCM.PN ---
- General Info Date of Service: 03/20/20 Admission Dx/Problem (Free Text): 1. COVID-19 2. Bilateral pneumonia Functional Status: Reports: Pain Controlled, Tolerating Diet, Ambulating, Urinating, New Symptoms (Mild diarrhea), Incentive Spirometry Pain Score: 0 - Review of Systems General: Reports: Weakness (Improving slowly). Denies: Fever, Fatigue, Malaise, Chills, Night Sweats, Appetite (Adequate) HEENT: Reports: Post Nasal Drip, Rhinitis. Denies: Dysphasia, Ear Pain, Eye Pain, Headaches, Sinus Congestion, Sore Throat, Visual Changes Pulmonary: Reports: Shortness of Breath, Cough, Sputum (Clear from previous purulent), Wheezing (Occasional). Denies: Hemoptysis Cardiovascular: Reports: Dyspnea on Exertion. Denies: Chest Pain, Palpitations, Orthopnea, PND, Edema, Lightheadedness Gastrointestinal: Reports: Diarrhea (4 loose bowel movements yesterday). Denies: Abdominal Pain, Constipation, Decreased Appetite, Difficulty Swallowing, Flatus, Hematochezia, Melena, Nausea, Vomiting Genitourinary: Reports: No Symptoms. Denies: Dysuria, Frequency, Burning, Pain, Urgency, Retention, Flank Pain Musculoskeletal: Reports: No Symptoms. Denies: Neck Pain, Shoulder Pain, Arm Pain, Back Pain, Leg Pain Skin: Reports: No Symptoms. Denies: Diaphoresis, Bruising Neurological: Reports: Weakness (Improving slowly). Denies: Confusion, Dizziness, Headache, Numbness, Paresthesia, Tingling Psychiatric: Reports: Depression (Borderline), Anxiety (Improved). Denies: Confusion, Agitation, Cravings, Hallucinations - Patient Data Vitals - Most Recent: Last Vital Signs Temp 37.1 C 03/20/20 08:00 Pulse 82 03/20/20 08:00 Resp 18 03/20/20 08:00 BP 115/54 L 03/20/20 08:00 Pulse Ox 97 03/20/20 08:00 Vital Signs - 24 hr 03/19/20 03/19/20 03/19/20 10:41 12:00 20:00 Temperature [ Oral] Temperature [ 96.9 C H Temporal] Pulse, 85 78 Peripheral [ Pulse Oximetry] Respiratory 20 18 Rate Blood Pressure [Right Upper Arm] Blood Pressure 117/65 124/64 [Upper Arm] O2 Sat by Pulse 95 95 100 Oximetry 03/19/20 03/20/20 23:25 08:00 Temperature [ 36.9 C Oral] Temperature [ 37.1 C Temporal] Pulse, 76 82 Peripheral [ Pulse Oximetry] Respiratory 18 18 Rate Blood Pressure 115/54 L [Right Upper Arm] Blood Pressure 127/63 [Upper Arm] O2 Sat by Pulse 98 97 Oximetry Weight - Most Recent: 55.066 kg I&O - Last 24 Hours: Intake & Output 03/19/20 03/20/20 03/20/20 22:59 06:59 14:59 Intake Total 400 650 Output Total 250 200 Balance 150 450 Imaging Impressions - Last 24 Hours: Chest x-ray, portable, shows possible right upper lobe pulmonary nodule with moderate COPD changes present. No significant cardiomegaly, however possible borderline CHF. Mild diffuse bilateral pulmonary infiltrates. No pneumothorax. Port-A-Cath noted in right upper lobe. Lab Results Last 24 Hours: Laboratory Results - last 24 hr 03/18/20 03/19/20 03/19/20 Range/Units 15:46 08:11 08:15 WBC (4.0-10.2) K/uL RBC (3.77-5.09) M/uL Hgb (11.7-15.5) g/dL Hct (34.0-46.0) % MCV (84.0-98.0) fL MCH (28.2-33.3) pg MCHC (31.7-36.0) g/dL RDW (11.2-14.1) % Plt Count (150-350) K/uL Neut % (Auto) (45.0-80.0) % Lymph % (Auto) (10.0-50.0) % [place] % (Auto) (2.0-14.0) % Eos % (Auto) (0.0-5.0) % Baso % (Auto) (0.0-2.0) % Neut # (Auto) (1.40-7.00) K/uL Lymph # (Auto) (0.50-3.50) K/uL [place] # (Auto) (0.00-1.00) K/uL Eos # (Auto) (0.00-0.50) K/uL Baso # (Auto) (0.00-0.20) K/uL PT (9.5-12.0) SEC INR Sodium 138 (136-145) mmol/L Potassium 4.3 (3.5-5.1) mmol/L Chloride 104 (98-107) mmol/L Carbon Dioxide 24.8 (21.0-32.0) mmol/L BUN 22 H (7-18) mg/dL Creatinine 0.79 (0.51-1.17) mg/dL Est Cr Clr Drug Dosing 49.86 mL/min Estimated GFR (MDRD) > 60 mL/min Glucose 223 H (74-106) mg/dL POC Glucose 232 H (65-110) mg/dl Lactic Acid (0.4-2.0) mmol/L Calcium 8.1 L (8.5-10.1) mg/dL Magnesium 1.8 (1.8-2.4) mg/dL Iron (50-175) ug/dL TIBC (250-450) ug/dL % Saturation Ferritin (8-388) ng/mL Total Bilirubin 0.1 L (0.2-1.0) mg/dL AST 21 (15-37) U/L ALT 21 (12-78) U/L Alkaline Phosphatase 71 (46-116) IU/L Creatine Kinase (26-308) U/L Creatine Kinase Index (0.0-2.5) % CK-MB (CK-2) (0.00-3.60) ng/mL Troponin I (0.000-0.056) ng/mL C-Reactive Protein (<=0.9) mg/dL NT-Pro-B Natriuret Pep (0-125) pg/mL Total Protein 7.1 (6.4-8.2) g/dL Albumin 2.6 L (3.4-5.0) g/dL Vitamin B12 (193-986) pg/mL TSH, Ultra Sensitive 0.696 (0.358-3.740) mIU/mL Specimen Type [place] Urine Color Yellow Urine Appearance Clear Urine pH 5.0 (5.0-9.0) Ur Specific [place] 1.020 (1.005-1.030) Urine Protein Negative (NEGATIVE) mg/dL Urine Glucose (UA) Negative (NEGATIVE) mg/dL Urine Ketones Negative (NEGATIVE) mg/dL Urine Occult Blood Negative (NEGATIVE) Urine Nitrite Negative (NEGATIVE) Urine Bilirubin Negative (NEGATIVE) Urine Urobilinogen 0.2 (0.2-1.0) E.U./dL Ur Leukocyte Esterase Negative (NEGATIVE) U Hyaline Cast (Auto) Rare Urine RBC Not seen /HPF Urine WBC 0-5 /HPF Ur Epithelial Cells Rare /LPF Urine Bacteria Not seen (NONE TO FEW) /HPF 03/19/20 03/19/20 03/19/20 Range/Units 08:15 11:53 14:59 WBC (4.0-10.2) K/uL RBC (3.77-5.09) M/uL Hgb (11.7-15.5) g/dL Hct (34.0-46.0) % MCV (84.0-98.0) fL MCH (28.2-33.3) pg MCHC (31.7-36.0) g/dL RDW (11.2-14.1) % Plt Count (150-350) K/uL Neut % (Auto) (45.0-80.0) % Lymph % (Auto) (10.0-50.0) % [place] % (Auto) (2.0-14.0) % Eos % (Auto) (0.0-5.0) % Baso % (Auto) (0.0-2.0) % Neut # (Auto) (1.40-7.00) K/uL Lymph # (Auto) (0.50-3.50) K/uL [place] # (Auto) (0.00-1.00) K/uL Eos # (Auto) (0.00-0.50) K/uL Baso # (Auto) (0.00-0.20) K/uL PT (9.5-12.0) SEC INR Sodium (136-145) mmol/L Potassium (3.5-5.1) mmol/L Chloride (98-107) mmol/L Carbon Dioxide (21.0-32.0) mmol/L BUN (7-18) mg/dL Creatinine (0.51-1.17) mg/dL Est Cr Clr Drug Dosing mL/min Estimated GFR (MDRD) mL/min Glucose (74-106) mg/dL POC Glucose 185 H 254 H* (65-110) mg/dl Lactic Acid 0.9 (0.4-2.0) mmol/L Calcium (8.5-10.1) mg/dL Magnesium (1.8-2.4) mg/dL Iron (50-175) ug/dL TIBC (250-450) ug/dL % Saturation Ferritin (8-388) ng/mL Total Bilirubin (0.2-1.0) mg/dL AST (15-37) U/L ALT (12-78) U/L Alkaline Phosphatase (46-116) IU/L Creatine Kinase (26-308) U/L Creatine Kinase Index (0.0-2.5) % CK-MB (CK-2) (0.00-3.60) ng/mL Troponin I (0.000-0.056) ng/mL C-Reactive Protein (<=0.9) mg/dL NT-Pro-B Natriuret Pep (0-125) pg/mL Total Protein (6.4-8.2) g/dL Albumin (3.4-5.0) g/dL Vitamin B12 (193-986) pg/mL TSH, Ultra Sensitive (0.358-3.740) mIU/mL Specimen Type Urine Color Urine Appearance Urine pH (5.0-9.0) Ur Specific [place] (1.005-1.030) Urine Protein (NEGATIVE) mg/dL Urine Glucose (UA) (NEGATIVE) mg/dL Urine Ketones (NEGATIVE) mg/dL Urine Occult Blood (NEGATIVE) Urine Nitrite (NEGATIVE) Urine Bilirubin (NEGATIVE) Urine Urobilinogen (0.2-1.0) E.U./dL Ur Leukocyte Esterase (NEGATIVE) U Hyaline Cast (Auto) Urine RBC /HPF Urine WBC /HPF Ur Epithelial Cells /LPF Urine Bacteria (NONE TO FEW) /HPF 03/19/20 03/19/20 03/20/20 Range/Units 17:17 21:55 07:34 WBC (4.0-10.2) K/uL RBC (3.77-5.09) M/uL Hgb (11.7-15.5) g/dL Hct (34.0-46.0) % MCV (84.0-98.0) fL MCH (28.2-33.3) pg MCHC (31.7-36.0) g/dL RDW (11.2-14.1) % Plt Count (150-350) K/uL Neut % (Auto) (45.0-80.0) % Lymph % (Auto) (10.0-50.0) % [place] % (Auto) (2.0-14.0) % Eos % (Auto) (0.0-5.0) % Baso % (Auto) (0.0-2.0) % Neut # (Auto) (1.40-7.00) K/uL Lymph # (Auto) (0.50-3.50) K/uL [place] # (Auto) (0.00-1.00) K/uL Eos # (Auto) (0.00-0.50) K/uL Baso # (Auto) (0.00-0.20) K/uL PT (9.5-12.0) SEC INR Sodium (136-145) mmol/L Potassium (3.5-5.1) mmol/L Chloride (98-107) mmol/L Carbon Dioxide (21.0-32.0) mmol/L BUN (7-18) mg/dL Creatinine (0.51-1.17) mg/dL Est Cr Clr Drug Dosing mL/min Estimated GFR (MDRD) mL/min Glucose (74-106) mg/dL POC Glucose 277 H* 107 66 (65-110) mg/dl Lactic Acid (0.4-2.0) mmol/L Calcium (8.5-10.1) mg/dL Magnesium (1.8-2.4) mg/dL Iron (50-175) ug/dL TIBC (250-450) ug/dL % Saturation Ferritin (8-388) ng/mL Total Bilirubin (0.2-1.0) mg/dL AST (15-37) U/L ALT (12-78) U/L Alkaline Phosphatase (46-116) IU/L Creatine Kinase (26-308) U/L Creatine Kinase Index (0.0-2.5) % CK-MB (CK-2) (0.00-3.60) ng/mL Troponin I (0.000-0.056) ng/mL C-Reactive Protein (<=0.9) mg/dL NT-Pro-B Natriuret Pep (0-125) pg/mL Total Protein (6.4-8.2) g/dL Albumin (3.4-5.0) g/dL Vitamin B12 (193-986) pg/mL TSH, Ultra Sensitive (0.358-3.740) mIU/mL Specimen Type Urine Color Urine Appearance Urine pH (5.0-9.0) Ur Specific [place] (1.005-1.030) Urine Protein (NEGATIVE) mg/dL Urine Glucose (UA) (NEGATIVE) mg/dL Urine Ketones (NEGATIVE) mg/dL Urine Occult Blood (NEGATIVE) Urine Nitrite (NEGATIVE) Urine Bilirubin (NEGATIVE) Urine Urobilinogen (0.2-1.0) E.U./dL Ur Leukocyte Esterase (NEGATIVE) U Hyaline Cast (Auto) Urine RBC /HPF Urine WBC /HPF Ur Epithelial Cells /LPF Urine Bacteria (NONE TO FEW) /HPF 03/20/20 03/20/20 03/20/20 Range/Units 07:44 07:44 07:44 WBC 3.6 L (4.0-10.2) K/uL RBC 2.60 L (3.77-5.09) M/uL Hgb 8.5 L (11.7-15.5) g/dL Hct 27.4 L (34.0-46.0) % MCV 105.4 H (84.0-98.0) fL MCH 32.7 (28.2-33.3) pg MCHC 31.0 L (31.7-36.0) g/dL RDW 14.9 H (11.2-14.1) % Plt Count 145 L (150-350) K/uL Neut % (Auto) 62.1 (45.0-80.0) % Lymph % (Auto) 32.8 (10.0-50.0) % [place] % (Auto) 4.8 (2.0-14.0) % Eos % (Auto) 0.3 (0.0-5.0) % Baso % (Auto) 0.0 (0.0-2.0) % Neut # (Auto) 2.22 (1.40-7.00) K/uL Lymph # (Auto) 1.17 (0.50-3.50) K/uL [place] # (Auto) 0.17 (0.00-1.00) K/uL Eos # (Auto) 0.01 (0.00-0.50) K/uL Baso # (Auto) 0.00 (0.00-0.20) K/uL PT 25.1 H D (9.5-12.0) SEC INR 2.6 Sodium 144 (136-145) mmol/L Potassium 3.7 (3.5-5.1) mmol/L Chloride 110 H (98-107) mmol/L Carbon Dioxide 26.3 (21.0-32.0) mmol/L BUN 22 H (7-18) mg/dL Creatinine 0.86 (0.51-1.17) mg/dL Est Cr Clr Drug Dosing 46.11 mL/min Estimated GFR (MDRD) > 60 mL/min Glucose 63 L (74-106) mg/dL POC Glucose (65-110) mg/dl Lactic Acid (0.4-2.0) mmol/L Calcium 7.9 L (8.5-10.1) mg/dL Magnesium (1.8-2.4) mg/dL Iron (50-175) ug/dL TIBC (250-450) ug/dL % Saturation Ferritin (8-388) ng/mL Total Bilirubin 0.1 L (0.2-1.0) mg/dL AST 16 (15-37) U/L ALT 22 (12-78) U/L Alkaline Phosphatase 61 (46-116) IU/L Creatine Kinase (26-308) U/L Creatine Kinase Index (0.0-2.5) % CK-MB (CK-2) (0.00-3.60) ng/mL Troponin I (0.000-0.056) ng/mL C-Reactive Protein (<=0.9) mg/dL NT-Pro-B Natriuret Pep (0-125) pg/mL Total Protein 6.7 (6.4-8.2) g/dL Albumin 2.5 L (3.4-5.0) g/dL Vitamin B12 (193-986) pg/mL TSH, Ultra Sensitive (0.358-3.740) mIU/mL Specimen Type Urine Color Urine Appearance Urine pH (5.0-9.0) Ur Specific [place] (1.005-1.030) Urine Protein (NEGATIVE) mg/dL Urine Glucose (UA) (NEGATIVE) mg/dL Urine Ketones (NEGATIVE) mg/dL Urine Occult Blood (NEGATIVE) Urine Nitrite (NEGATIVE) Urine Bilirubin (NEGATIVE) Urine Urobilinogen (0.2-1.0) E.U./dL Ur Leukocyte Esterase (NEGATIVE) U Hyaline Cast (Auto) Urine RBC /HPF Urine WBC /HPF Ur Epithelial Cells /LPF Urine Bacteria (NONE TO FEW) /HPF 03/20/20 03/20/20 Range/Units 07:44 07:44 WBC (4.0-10.2) K/uL RBC (3.77-5.09) M/uL Hgb (11.7-15.5) g/dL Hct (34.0-46.0) % MCV (84.0-98.0) fL MCH (28.2-33.3) pg MCHC (31.7-36.0) g/dL RDW (11.2-14.1) % Plt Count (150-350) K/uL Neut % (Auto) (45.0-80.0) % Lymph % (Auto) (10.0-50.0) % [place] % (Auto) (2.0-14.0) % Eos % (Auto) (0.0-5.0) % Baso % (Auto) (0.0-2.0) % Neut # (Auto) (1.40-7.00) K/uL Lymph # (Auto) (0.50-3.50) K/uL [place] # (Auto) (0.00-1.00) K/uL Eos # (Auto) (0.00-0.50) K/uL Baso # (Auto) (0.00-0.20) K/uL PT (9.5-12.0) SEC INR Sodium (136-145) mmol/L Potassium (3.5-5.1) mmol/L Chloride (98-107) mmol/L Carbon Dioxide (21.0-32.0) mmol/L BUN (7-18) mg/dL Creatinine (0.51-1.17) mg/dL Est Cr Clr Drug Dosing mL/min Estimated GFR (MDRD) mL/min Glucose (74-106) mg/dL POC Glucose (65-110) mg/dl Lactic Acid (0.4-2.0) mmol/L Calcium (8.5-10.1) mg/dL Magnesium (1.8-2.4) mg/dL Iron 50 (50-175) ug/dL TIBC 257 (250-450) ug/dL % Saturation 19.07687 Ferritin 115 (8-388) ng/mL Total Bilirubin (0.2-1.0) mg/dL AST (15-37) U/L ALT (12-78) U/L Alkaline Phosphatase (46-116) IU/L Creatine Kinase 93 (26-308) U/L Creatine Kinase Index 3.0 H (0.0-2.5) % CK-MB (CK-2) 2.80 (0.00-3.60) ng/mL Troponin I 0.000 (0.000-0.056) ng/mL C-Reactive Protein 3.0 H (<=0.9) mg/dL NT-Pro-B Natriuret Pep 376 H (0-125) pg/mL Total Protein (6.4-8.2) g/dL Albumin (3.4-5.0) g/dL Vitamin B12 449 (193-986) pg/mL TSH, Ultra Sensitive (0.358-3.740) mIU/mL Specimen Type Urine Color Urine Appearance Urine pH (5.0-9.0) Ur Specific [place] (1.005-1.030) Urine Protein (NEGATIVE) mg/dL Urine Glucose (UA) (NEGATIVE) mg/dL Urine Ketones (NEGATIVE) mg/dL Urine Occult Blood (NEGATIVE) Urine Nitrite (NEGATIVE) Urine Bilirubin (NEGATIVE) Urine Urobilinogen (0.2-1.0) E.U./dL Ur Leukocyte Esterase (NEGATIVE) U Hyaline Cast (Auto) Urine RBC /HPF Urine WBC /HPF Ur Epithelial Cells /LPF Urine Bacteria (NONE TO FEW) /HPF Frank Results Last 24 Hours: Microbiology 03/18/20 16:00 Aerobic Blood Culture - Preliminary Blood - Venous - Lab Draw NO GROWTH AFTER 1 DAY Anaerobic Blood Culture - Preliminary NO GROWTH AFTER 1 DAY 03/18/20 15:35 Aerobic Blood Culture - Preliminary Blood - Venous NO GROWTH AFTER 1 DAY Anaerobic Blood Culture - Preliminary NO GROWTH AFTER 1 DAY Med Orders - Current: Current Medications Acetaminophen (Tylenol) 650 mg PO Q4H PRN PRN Reason: Pain/Fever Last Admin: 03/19/20 22:00 Dose: 650 mg Documented by: Albuterol (Proventil Hfa) 0 gm INH Q2H PRN PRN Reason: Shortness of Breath Albuterol/Ipratropium (Combivent Respimat) 0 gm INH QIDRT [facility] Last Admin: 03/20/20 07:55 Dose: 2 inhalation Documented by: Ascorbic Acid (Vitamin C) 1,000 mg PO BID [facility] Last Admin: 03/20/20 07:56 Dose: 1,000 mg Documented by: Aspirin (Halfprin) 81 mg PO DAILY [facility] Last Admin: 03/20/20 07:57 Dose: 81 mg Documented by: Cholecalciferol (Vitamin D3) 5,000 unit PO DAILY [facility] Last Admin: 03/20/20 07:58 Dose: 5,000 unit Documented by: Dexamethasone (Decadron) 6 mg IVPUSH DAILY [facility] Last Admin: 03/20/20 07:50 Dose: 6 mg Documented by: Dextrose/Water (Dextrose 50% In Water) 50 ml IV ASDIRECTED PRN PRN Reason: Hypoglycemia Diphenhydramine HCl (Benadryl) 25 mg PO Q6H PRN PRN Reason: rash/allergy Last Admin: 03/19/20 22:00 Dose: 25 mg Documented by: Diphenoxylate HCl/Atropine (Lomotil 0.025-2.5 Mg) 1 tab PO Q6H PRN PRN Reason: Diarrhea Doxycycline Monohydrate (Doxycycline Monohydrate) 100 mg PO BID [facility] Last Admin: 03/20/20 07:58 Dose: 100 mg Documented by: Folic Acid (Folic Acid) 1 mg PO DAILY [facility] Last Admin: 03/20/20 07:58 Dose: 1 mg Documented by: Glucagon (Glucagen) 1 mg IM ASDIRECTED PRN PRN Reason: Hypoglycemia Heparin Sodium (Porcine) (Heparin Lock Flush 100 Units/Ml) 500 units FLUSH ASDIRECTED PRN PRN Reason: after port use Last Admin: 03/20/20 07:51 Dose: 500 units Documented by: Ceftriaxone Sodium 1 gm/ (Sodium Chloride) 100 mls @ 200 mls/hr IV Q12H [facility] Last Admin: 03/19/20 23:16 Dose: 200 mls/hr Documented by: Levofloxacin/Dextrose 500 mg/ (Premix) 100 mls @ 100 mls/hr IV Q24H [facility] Last Admin: 03/19/20 17:21 Dose: 100 mls/hr Documented by: Remdesivir 100 mg/ Sodium (Chloride) 270 mls @ 270 mls/hr IV Q24H [facility] Stop: 03/22/20 20:01 Insulin Glargine (Lantus) 20 unit SUBCUT BEDTIME [facility] Last Admin: 03/19/20 22:01 Dose: 20 unit Documented by: Insulin Human Lispro (Humalog) 0 unit SUBCUT TID [facility]; Protocol Last Admin: 03/20/20 07:59 Dose: Not Given Documented by: Levothyroxine Sodium (Levothyroxine) 37.5 mcg PO SUTUTHSA@11 [facility] Last Admin: 03/19/20 11:53 Dose: 37.5 mcg Documented by: Levothyroxine Sodium (Levothyroxine) 25 mcg PO MOWEFR@1100 [facility] Magnesium Oxide (Magnesium Oxide) 800 mg PO BEDTIME [facility] Last Admin: 03/19/20 21:57 Dose: 800 mg Documented by: Megestrol Acetate (Megace 40 Mg/Ml Susp) 400 mg PO DAILY PRN PRN Reason: appetite Miscellaneous Information (Remove Patch) 1 ea TRDERM Q24H [facility] Last Admin: 03/20/20 08:06 Dose: 1 ea Documented by: Nicotine (Habitrol) 21 mg TRDERM DAILY [facility] Last Admin: 03/20/20 08:05 Dose: 21 mg Documented by: Ondansetron HCl (Zofran) 4 mg IVPUSH Q6H PRN PRN Reason: Nausea/Vomiting Last Admin: 03/19/20 23:27 Dose: 4 mg Documented by: Potassium Chloride (Klor-Con 10) 30 meq PO DAILY [facility] Last Admin: 03/20/20 07:56 Dose: 30 meq Documented by: Sertraline HCl (Zoloft) 150 mg PO BEDTIME [facility] Last Admin: 03/19/20 21:57 Dose: 150 mg Documented by: Simvastatin (Zocor) 40 mg PO BEDTIME [facility] Last Admin: 03/19/20 21:58 Dose: 40 mg Documented by: Sodium Chloride (Saline Flush) 10 ml FLUSH ASDIRECTED PRN PRN Reason: Keep Vein Open Last Admin: 03/20/20 07:52 Dose: 10 ml Documented by: Valacyclovir HCl (Valtrex) 500 mg PO BID@0800,2000 [facility] Last Admin: 03/20/20 07:57 Dose: 500 mg Documented by: Warfarin Sodium (Coumadin) 5 mg PO BEDTIME [facility] Zinc Gluconate (Zinc) 50 mg PO DAILY [facility] Last Admin: 03/20/20 07:57 Dose: 50 mg Documented by: Discontinued Medications Acetaminophen (Tylenol) Confirm Administered Dose 650 mg .ROUTE .STK-MED ONE Stop: 03/18/20 18:20 Last Admin: 03/18/20 18:27 Dose: Not Given Documented by: Albuterol (Proventil Hfa) 0 gm INH Q2H PRN PRN Reason: Shortness of Breath Albuterol/Ipratropium (Combivent Respimat) 0 gm INH QIDRT [facility] Albuterol/Ipratropium (Combivent Respimat) 0 gm INH QIDRT [facility] Last Admin: 03/19/20 17:31 Dose: 1 puff Documented by: Arformoterol Tartrate (Brovana) 15 mcg INH BIDRT [facility] Last Admin: 03/18/20 20:37 Dose: Not Given Documented by: Ascorbic Acid (Vitamin C) 1,000 mg PO ONETIME ONE Stop: 03/18/20 16:55 Last Admin: 03/18/20 18:26 Dose: 1,000 mg Documented by: Cholecalciferol (Vitamin D3) 10,000 unit PO ONETIME ONE Stop: 03/18/20 16:57 Last Admin: 03/18/20 18:27 Dose: 10,000 unit Documented by: Cholecalciferol (Vitamin D3) 10,000 unit PO ONETIME ONE Stop: 03/20/20 08:01 Cholecalciferol (Vitamin D3) 10,000 unit PO ONETIME ONE Stop: 03/19/20 08:01 Last Admin: 03/19/20 08:31 Dose: 10,000 unit Documented by: Sodium Chloride (Normal Saline) 1,000 mls @ 250 mls/hr IV ASDIRECTED [facility] Stop: 03/18/20 20:29 Last Admin: 03/18/20 16:36 Dose: 250 mls/hr Documented by: Magnesium Sulfate/Dextrose 1 (gm/ Premix) 100 mls @ 100 mls/hr IV ONETIME ONE Stop: 03/18/20 17:53 Last Admin: 03/18/20 18:24 Dose: 100 mls/hr Documented by: Remdesivir 100 mg/ Sodium (Chloride) 100 mls @ 100 mls/hr IV Q24H [facility] Stop: 03/21/20 19:59 Last Admin: 03/18/20 20:32 Dose: Not Given Documented by: Levofloxacin/Dextrose 500 mg/ (Premix) 100 mls @ 100 mls/hr IV Q24H [facility] Last Admin: 03/18/20 20:14 Dose: 100 mls/hr Documented by: Remdesivir 100 mg/ Sodium (Chloride) 100 mls @ 100 mls/hr IV Q24H [facility] Stop: 03/22/20 20:59 Last Admin: 03/19/20 21:33 Dose: Not Given Documented by: Remdesivir 200 mg/ Sodium (Chloride) 250 mls @ 250 mls/hr IV ONETIME ONE Stop: 03/18/20 20:49 Last Admin: 03/18/20 20:24 Dose: Not Given Documented by: Remdesivir (Remdesivir (Eua)) Confirm Administered Dose 40 mls @ as directed .ROUTE .STK-MED ONE Stop: 03/18/20 19:40 Last Admin: 03/18/20 20:23 Dose: 200 mls/hr Documented by: Remdesivir (Remdesivir (Eua)) Confirm Administered Dose 20 mls @ as directed .ROUTE .STK-MED ONE Stop: 03/19/20 20:43 Last Admin: 03/19/20 21:25 Dose: Not Given Documented by: Remdesivir 100 mg/ Sodium (Chloride) 270 mls @ as directed IV .STK-MED ONE Stop: 03/19/20 22:11 Miscellaneous Information (Remove Patch) 1 ea TRDERM Q24H [facility] Nicotine (Habitrol) 21 mg TRDERM DAILY [facility] Last Admin: 03/19/20 08:22 Dose: 21 mg Documented by: Valacyclovir HCl (Valtrex) 500 mg PO BID@0820 [facility] Last Admin: 03/19/20 08:31 Dose: 500 mg Documented by: Warfarin Sodium (Coumadin) 5 mg PO BEDTIME [facility] Last Admin: 03/18/20 20:16 Dose: 5 mg Documented by: Warfarin Sodium (Coumadin) 5 mg PO ONETIME ONE Stop: 03/18/20 19:05 Last Admin: 03/18/20 20:36 Dose: Not Given Documented by: Warfarin Sodium (Coumadin) 10 mg PO ONETIME ONE Stop: 03/19/20 13:01 Last Admin: 03/19/20 12:53 Dose: 10 mg Documented by: Zinc Gluconate (Zinc) 50 mg PO ONETIME ONE Stop: 03/18/20 16:55 Last Admin: 03/18/20 18:25 Dose: 50 mg Documented by: - Exam Quality Assessment: Supplemental Oxygen, Central Line/PICC (Right upper chest Port-A-Cath), DVT Prophylaxis (Coumadin). No: Urine Catheter, Skin Breakdown, Restraints General: Alert, Oriented, Cooperative, No Acute Distress HEENT: Pupils Equal, Pupils Reactive, EOMI, Mucous Membr. Moist/[place]. No: Scleral Icterus Neck: Supple, Trachea Midline, No JVD, No Thyromegaly, Carotid Bruit (Mild bilateral carotid bruits). No: Lymphadenopathy Lungs: Rales (Mild diffuse bilateral), Rhonchi (Occasional bilateral), Wheezing (Occasional bilateral). No: Rub Cardiovascular: Regular Rate, Regular Rhythm, No Murmurs. No: Gallops, Rubs GI/Abdominal Exam: Normal Bowel Sounds, Soft, Non-Tender, No Organomegaly, No Distention, No Abnormal Bruit, No Mass, Pelvis Stable. No: Guarding (Female) Exam: Deferred Back Exam: Normal Inspection, Full Range of Motion. No: CVA Tenderness (L), CVA Tenderness (R), Muscle Spasm Extremities: Normal Inspection, Normal Range of Motion, Non-Tender, No Pedal Edema, Normal Capillary Refill. No: Carl's Sign Peripheral Pulses: 2+: Radial (L), Radial (R), Dorsalis Pedis (L), Dorsalis Pedis (R) Skin: Ecchymosis (Occasional. No petechiae) Neurological: No New Focal Deficit, Other (Negative Babinski's) Psy/Mental Status: Alert, Anxious (Mild however improved), Depressed (Borderline). No: Agitated, Hallucinations, Withdrawal Symptoms #1 Interpretation EKG Date: 03/20/20 Time: 07:07 Rhythm: NSR Rate (Beats/Min): 82 [place]: Normal (Neutral cardiac access) P-Wave: Enlarged (Mild diffuse biphasic) QRS: Normal (0.09 seconds with noisy baseline and probable repolarization changes) ST-T: Normal QT: Normal MT/PQ Interval: 0.20 seconds representing a borderline first-degree AV block with extreme poor R wave progression in the anterior leads Comparison: NA - No Prior EKG (No recent EKG for comparison) EKG Interpretation Comments: 1. No acute ischemic changes 2. First-degree AV block 3. Repolarization changes 4. Left atrial enlargement Sepsis Event Note - Evaluation Sepsis Screening Result: No Definite Risk - Focused Exam Vital Signs: Vital Signs Temp Temp Pulse Resp BP BP Pulse Ox 03/20/20 08:00 37.1 C 82 18 115/54 L 97 03/19/20 23:25 36.9 C 76 18 127/63 98 - Problem List & Annotations (1) COVID-19 SNOMED Code(s): 194227122 Code(s): U07.1 - COVID-19 Status: Acute Priority: High Current Visit: Yes Onset Date: ~03/15/20 Annotation/Comment:: [facility] Remdesivir and Dexamethasone on admission. Dr. Oseguera did review patient and treatment options with from [facility] on admission. He recommended adding Levaquin given patient's immunocompromised status. Extended hospitalization likely required secondary to patient's IV remdesivir, etc. therapy as above. Further oncology consultation depending on her clinical course. CRP is elevated on 03/20. Continue daily blood work as per remdesivir protocol. (2) Hypomagnesemia SNOMED Code(s): 502212026 Code(s): E83.42 - HYPOMAGNESEMIA Status: Chronic Priority: Medium Current Visit: Yes Onset Date: 08/28/15 Annotation/Comment:: Chronic. IV Mag ordered given today's low level. Magnesium level normal on 03/19/2020. (3) Atrial fibrillation and flutter SNOMED Code(s): 949495760 Code(s): I48.91 - UNSPECIFIED ATRIAL FIBRILLATION; I48.92 - UNSPECIFIED ATRIAL FLUTTER Status: Acute Priority: Medium Current Visit: Yes Onset Date: 02/28/18 Annotation/Comment:: Normal sinus rhythm today. No chest pain or anginal complaints. INR mildly subtherapeutic with loading dose of oral Co umadin given on 03/19 especially in light of her current COVID-19 infection. INR normal on 03/20 after loading dose as above. Continue close observation of her INRs secondary to her aggressive antibiotic therapy and mildly progressive anemia. (4) CAD (coronary artery disease) SNOMED Code(s): 71101723 Code(s): I25.10 - ATHSCL HEART DISEASE OF [place] CORONARY ARTERY W/O ANG PCTRS Status: Acute Priority: Medium Current Visit: Yes Qualifiers: Coronary Disease-Associated Artery/Lesion type: unspecified vessel or lesion type Associated angina: without angina Annotation/Comment:: Hx CAD/cardiomyopathy/arrhythmias/PVD as per admission H&P. Stable per history with no history of chest pain or anginal type symptoms. Cardiac enzymes were normal on 03/20 with exception of likely artifactual elevation of CK index secondary to low baseline CK. BNP is also mildly elevated with no evidence of significant clinical CHF. EKG did not show any ischemic changes however note somewhat noisy baseline and new first-degree AV block. (5) CHF (congestive heart failure) SNOMED Code(s): 71512823 Code(s): I50.9 - HEART FAILURE, UNSPECIFIED Status: Acute Priority: High Current Visit: Yes Onset Date: 08/26/15 Qualifiers: Heart failure type: combined systolic and diastolic Heart failure chronicity: chronic Qualified Code(s): I50.42 - Chronic combined systolic (congestive) and diastolic (congestive) heart failure Annotation/Comment:: As above. Initiate low-dose IV Lasix in the a.m. of 03/20 with increase of her potassium chloride to a twice daily basis. (6) COPD exacerbation SNOMED Code(s): 579303071 Code(s): J44.1 - CHRONIC OBSTRUCTIVE PULMONARY DISEASE W (ACUTE) EXACERBATION Status: Chronic Priority: Medium Current Visit: Yes Annotation/Comment:: Combivent inhaler therapy rather than nebulizer treatment secondary to COVID-19 infection and pandemic. (7) Hypoalbuminemia SNOMED Code(s): 223981030 Code(s): E88.09 - OTH DISORDERS OF PLASMA-PROTEIN METABOLISM, NEC Status: Acute Priority: Medium Current Visit: Yes Onset Date: 08/22/15 Annotation/Comment:: High protein Glucerna supplements to be initiated as snacks. (8) Hypothyroid SNOMED Code(s): 50159515 Code(s): E03.9 - HYPOTHYROIDISM, UNSPECIFIED Status: Acute Priority: Low Current Visit: Yes Qualifiers: Hypothyroidism type: unspecified Qualified Code(s): E03.9 - Hypothyroidism, unspecified Annotation/Comment:: TSH normal during this hospitalization. Continue current therapy. (9) Pneumonia SNOMED Code(s): 996379868 Code(s): J18.9 - PNEUMONIA, UNSPECIFIED ORGANISM Status: Acute Priority: High Current Visit: Yes Onset Date: 08/22/15 Qualifiers: Pneumonia type: due to Pneumococcus Laterality: right Lung location: middle lobe of lung Qualified Code(s): J13 - Pneumonia due to Streptococcus pneumoniae Annotation/Comment:: Sepsis criteria met once again during the morning of 03/19 with additional IV Rocephin and oral doxycycline initiated especially in light of her current COVID-19 infection. Patient is having some mild diarrhea possibly secondary to her Rocephin with consideration of change to IV vancomycin therapy depending on her clinical course. She is still having problems obtaining an adequate sputum specimen. CRP is mildly elevated on 03/20 and she is still O2 dependent. Blood culture results are negative to this point. Patient slowly improving during this hospitalization with continuation of incentive spirometry. Repeat chest x-ray on 03/21. (10) Thrombocytopenia SNOMED Code(s): 001092888 Code(s): D69.6 - THROMBOCYTOPENIA, UNSPECIFIED Status: Acute Priority: Medium Current Visit: Yes Onset Date: 08/22/15 Annotation/Comment:: Stable thrombocytopenia and pancytopenia, however note mild progression of patient's decreased hemoglobin to 8.5 on 03/20. No evidence of acute GI bleed. Patient is already on a folate acid supplement for her chemotherapy for her multiple myeloma with normal vitamin B12 and iron studies on 03/20. Continue close observation secondary to current IV remdesivir and Coumadin therapy. (11) Dyslipidemia SNOMED Code(s): 933210613 Code(s): E78.5 - HYPERLIPIDEMIA, UNSPECIFIED Status: Chronic Priority: Medium Current Visit: Yes Annotation/Comment:: Currently under therapy. Observe for now. (12) IDDM (insulin dependent diabetes mellitus) SNOMED Code(s): 25657427 Code(s): E11.9 - TYPE 2 DIABETES MELLITUS WITHOUT COMPLICATIONS; Z79.4 - SENIOR CARE (CURRENT) USE OF INSULIN Status: Chronic Priority: Medium Current Visit: Yes Annotation/Comment:: Blood sugar somewhat elevated during this hospitalization with close monitoring of her blood glucose and utilize sliding scale insulin secondary to her IV dexamethasone treatment for Covid with previous history of chronic oral prednisone prior to admission. Accu-Cheks improved on 03/20. (13) Multiple myeloma SNOMED Code(s): 837637498 Code(s): C90.00 - MULTIPLE MYELOMA NOT HAVING ACHIEVED REMISSION Status: Chronic Priority: Medium Current Visit: Yes Qualifiers: Multiple myeloma remission status: not in remission Qualified Code(s): C90.00 - Multiple myeloma not having achieved remission Annotation/Comment:: Immunosuppressed/receives [facility] at [facility]. [facility] (14) Need for comfort care SNOMED Code(s): 653359960, 876235905 Code(s): VIQ4388 - Status: Chronic Priority: High Current Visit: Yes Annotation/Comment:: Note comfort care with prognosis guarded secondary to current chemotherapy, multiple myeloma, and current COVID-19 infection. (15) Anemia SNOMED Code(s): 711839665 Code(s): D64.9 - ANEMIA, UNSPECIFIED Status: Chronic Priority: Medium Current Visit: Yes Qualifiers: Anemia type: unspecified type Qualified Code(s): D64.9 - Anemia, unspecified Annotation/Comment:: As above. Note history of multiple myeloma with pancytopenia as above. IV Pepcid and IV Protonix initiated as GI prophylaxis on 03/20 especially in light of her current IV dexamethasone therapy. IV Pepcid is also beneficial for her current COVID-19 infection. (16) Pancytopenia SNOMED Code(s): 640124164 Code(s): D61.818 - OTHER PANCYTOPENIA Status: Chronic Priority: Medium Current Visit: No Annotation/Comment:: Current chemotherapy. Stable by history. Patient does have weekly blood work, including neck set scheduled for 07/17 by the history. (17) Hypocalcemia SNOMED Code(s): 8625597 Code(s): E83.51 - HYPOCALCEMIA Status: Acute Priority: Medium Current Visit: Yes Onset Date: ~03/20/20 Annotation/Comment:: Observe for now - Problem List Review Problem List Initiated/Reviewed/Updated: Yes - My Orders Last 24 Hours: My Active Orders 03/19/20 10:45 Doxycycline Monohydrate 100 mg PO BID 03/19/20 12:00 cefTRIAXone [Rocephin] 1 gm Sodium Chloride 0.9% [Normal Saline] 100 ml IV Q12H 03/19/20 12:30 RT Incentive Spirometry [RC] ASDIRECTED CULTURE SPUTUM + SMEAR [RM] Routine 03/19/20 19:44 Albuterol [Proventil HFA] See Dose Instructions INH Q2H PRN 03/19/20 20:00 Albuterol/Ipratropium [Combivent Respimat] See Dose Instructions INH QIDRT 03/20/20 05:11 EKG Documentation Completion [RC] ASDIRECTED Chest 1V Frontal [CR] Routine 03/20/20 20:00 Remdesivir (Eua) [Remdesivir (EUA)] 100 mg Sodium Chloride 0.9% [Normal Saline] 250 ml IV Q24H Warfarin [Coumadin] 5 mg PO BEDTIME 03/21/20 12:21 CBC WITH AUTO DIFF [HEME] DAILY 03/21/20 12:22 COMPREHENSIVE METABOLIC PN,CMP [CHEM] DAILY 03/22/20 12:21 CBC WITH AUTO DIFF [HEME] DAILY 03/22/20 12:22 COMPREHENSIVE METABOLIC PN,CMP [CHEM] DAILY 03/23/20 12:21 CBC WITH AUTO DIFF [HEME] DAILY 03/23/20 12:22 COMPREHENSIVE METABOLIC PN,CMP [CHEM] DAILY 03/24/20 12:21 CBC WITH AUTO DIFF [HEME] DAILY 03/24/20 12:22 COMPREHENSIVE METABOLIC PN,CMP [CHEM] DAILY - Assessment Assessment:: As above - Plan Plan:: As above. Extensive precautions were given to the patient, who is in agreement with the treatment plan. See Patient Instructions for further treatment and plan. Extended inpatient care would likely be required secondary to current IV remdesivir therapy. Alex ellis physician assumes care once again in the a.m.
[2020-03-20] MEDS ORDERED: Furosemide 40 MG/4 ML VIAL IVPUSH SCH (10:00)
[2020-03-20] MEDS: Pantoprazole 40 MG Vial IVPUSH SCH ×2 (10:49→20:29)
[2020-03-20] MEDS: Famotidine 20 MG/2 ML SDV IVPUSH SCH (10:49)
[2020-03-20] MEDS: Furosemide 20 MG/2 ML VIAL IVPUSH SCH (10:50)
[2020-03-20] MEDS: Levothyroxine 25 MCG Tab PO SCH (10:50)
[2020-03-20] MEDS: cefTRIAXone 1 GM in Sodium Chloride 0.9% 100 ML IV SCH ×2 (12:43→21:49)
[2020-03-20] MEDS: Levofloxacin/Dextrose 5%-Water 500 MG in Premix Bag 1 BAG IV SCH (17:18)
[2020-03-20] MEDS: Warfarin 5 MG Tab PO SCH (20:24)
[2020-03-20] MEDS: Sertraline 50 MG Tab PO SCH (20:25)
[2020-03-20] MEDS: Simvastatin 20 MG Tab PO SCH (20:26)
[2020-03-20] MEDS: Magnesium Oxide 400 MG Tab PO SCH (20:27)
[2020-03-20] MEDS: REMDESIVIR 100 MG in Sodium Chloride 0.9% 250 ML IV SCH (20:33)
[2020-03-20] MEDS: Insulin Glarg,Human.Rec.Analog 100 Unit/ML SUBCUT SCH (20:40)
[2020-03-20] MEDS: Acetaminophen 325 MG Tab PO PRN (21:50)
[2020-03-20] MEDS: diphenhydrAMINE 25 MG Cap PO PRN (21:50)
[2020-03-21] MEDS: Nicotine 21 MG/24 Hr Patch TRDERM SCH (08:06)
[2020-03-21] MEDS: Ondansetron 4 MG/2 ML SDV IVPUSH PRN (08:07)
[2020-03-21] MEDS: Sodium Chloride 0.9% 10 ML Syringe FLUSH PRN ×6 (08:08→22:09)
[2020-03-21] MEDS: cefTRIAXone 1 GM in Sodium Chloride 0.9% 100 ML IV SCH ×2 (09:43→22:08)
[2020-03-21] MEDS: Pantoprazole 40 MG Vial IVPUSH SCH ×2 (09:43→20:49)
[2020-03-21] MEDS: Furosemide 20 MG/2 ML VIAL IVPUSH SCH (09:49)
[2020-03-21] MEDS: Famotidine 20 MG/2 ML SDV IVPUSH SCH (09:49)
[2020-03-21] MEDS: Dexamethasone 10 MG/ML SDV IVPUSH SCH (09:49)
[2020-03-21] MEDS: Albuterol/Ipratropium 4 GM Inhalation Spray INH SCH ×4 (09:49→20:50)
[2020-03-21] MEDS: Folic Acid 1 MG Tab PO SCH (09:50)
[2020-03-21] MEDS: Ascorbic Acid 500 MG Tab PO SCH ×2 (09:50→17:06)
[2020-03-21] MEDS: Aspirin 81 MG Tab.EC PO SCH (09:50)
[2020-03-21] MEDS: Zinc (Zinc Gluconate) 50 MG Tab PO SCH (09:50)
[2020-03-21] MEDS: valACYclovir 1,000 MG Tab PO SCH ×2 (09:50→20:49)
[2020-03-21] MEDS: Potassium Chloride 10 MEQ Tab.ER PO SCH ×2 (09:50→17:06)
[2020-03-21] MEDS: Doxycycline Monohydrate 100 MG Cap PO SCH ×2 (09:51→17:06)
[2020-03-21] MEDS: Insulin Lispro 100 Units/ML 3 ML Vial SUBCUT SCH ×3 (09:51→17:08)
[2020-03-21] MEDS: Cholecalciferol (Vitamin D3) 5,000 UNIT Tab PO SCH (09:51)
[2020-03-21] MEDS: Levothyroxine 75 MCG Tab PO SCH (11:35)
[2020-03-21 12:07] LABS: CHLORIDE,CL 107 mmol/L (98-107); SODIUM,NA 142 mmol/L (136-145)
--- NOTE | 2020-03-21 14:26 | PCM.PN ---
- General Info Date of Service: 03/21/20 Admission Dx/Problem (Free Text): 1. COVID-19 2. Bilateral pneumonia Subjective Update: Patient feels very fatigued. No worsening of symptoms otherwise. Functional Status: Reports: Pain Controlled, Tolerating Diet, Ambulating, Incentive Spirometry. Denies: New Symptoms - Review of Systems General: Reports: Weakness, Fatigue. Denies: Fever, Chills HEENT: Reports: No Symptoms Pulmonary: Reports: Shortness of Breath, Cough, Sputum, Wheezing. Denies: Pleuritic Chest Pain, Hemoptysis Cardiovascular: Reports: Dyspnea on Exertion. Denies: Chest Pain, Palpitations, Edema, Lightheadedness Gastrointestinal: Reports: Abdominal Pain, Diarrhea, Nausea. Denies: Vomiting Genitourinary: Reports: No Symptoms Musculoskeletal: Reports: Other (no acute changes from baseline today) Skin: Reports: No Symptoms Neurological: Reports: No Symptoms Psychiatric: Reports: No Symptoms - Patient Data Vitals - Most Recent: Last Vital Signs Temp 37.0 C 03/21/20 07:50 Pulse 80 03/21/20 07:50 Resp 18 03/21/20 07:50 BP 124/62 03/21/20 07:50 Pulse Ox 92 L 03/21/20 07:50 Weight - Most Recent: 55.066 kg I&O - Last 24 Hours: Intake & Output 03/20/20 03/21/20 03/21/20 22:59 06:59 14:59 Intake Total 90 750 Output Total 300 Balance 90 450 Lab Results Last 24 Hours: Laboratory Results - last 24 hr 03/20/20 03/20/20 03/21/20 Range/Units 17:20 20:23 08:03 WBC (4.0-10.2) K/uL RBC (3.77-5.09) M/uL Hgb (11.7-15.5) g/dL Hct (34.0-46.0) % MCV (84.0-98.0) fL MCH (28.2-33.3) pg MCHC (31.7-36.0) g/dL RDW (11.2-14.1) % Plt Count (150-350) K/uL Neut % (Auto) (45.0-80.0) % Lymph % (Auto) (10.0-50.0) % [place] % (Auto) (2.0-14.0) % Eos % (Auto) (0.0-5.0) % Baso % (Auto) (0.0-2.0) % Neut # (Auto) (1.40-7.00) K/uL Lymph # (Auto) (0.50-3.50) K/uL [place] # (Auto) (0.00-1.00) K/uL Eos # (Auto) (0.00-0.50) K/uL Baso # (Auto) (0.00-0.20) K/uL PT (9.5-12.0) SEC INR Sodium (136-145) mmol/L Potassium (3.5-5.1) mmol/L Chloride (98-107) mmol/L Carbon Dioxide (21.0-32.0) mmol/L BUN (7-18) mg/dL Creatinine (0.51-1.17) mg/dL Est Cr Clr Drug Dosing mL/min Estimated GFR (MDRD) mL/min Glucose (74-106) mg/dL POC Glucose 281 H* 140 H 65 (65-110) mg/dl Calcium (8.5-10.1) mg/dL Total Bilirubin (0.2-1.0) mg/dL AST (15-37) U/L ALT (12-78) U/L Alkaline Phosphatase (46-116) IU/L Total Protein (6.4-8.2) g/dL Albumin (3.4-5.0) g/dL 03/21/20 03/21/20 03/21/20 Range/Units 11:40 11:40 11:40 WBC 4.2 (4.0-10.2) K/uL RBC 2.88 L (3.77-5.09) M/uL Hgb 9.5 L (11.7-15.5) g/dL Hct 30.0 L (34.0-46.0) % MCV 104.2 H (84.0-98.0) fL MCH 33.0 (28.2-33.3) pg MCHC 31.7 (31.7-36.0) g/dL RDW 14.9 H (11.2-14.1) % Plt Count 151 (150-350) K/uL Neut % (Auto) 74.3 (45.0-80.0) % Lymph % (Auto) 19.9 (10.0-50.0) % [place] % (Auto) 5.4 (2.0-14.0) % Eos % (Auto) 0.2 (0.0-5.0) % Baso % (Auto) 0.2 (0.0-2.0) % Neut # (Auto) 3.14 (1.40-7.00) K/uL Lymph # (Auto) 0.84 (0.50-3.50) K/uL [place] # (Auto) 0.23 (0.00-1.00) K/uL Eos # (Auto) 0.01 (0.00-0.50) K/uL Baso # (Auto) 0.01 (0.00-0.20) K/uL PT 29.8 H (9.5-12.0) SEC INR 3.1 Sodium 142 (136-145) mmol/L Potassium 3.7 (3.5-5.1) mmol/L Chloride 107 (98-107) mmol/L Carbon Dioxide 25.0 (21.0-32.0) mmol/L BUN 20 H (7-18) mg/dL Creatinine 0.88 (0.51-1.17) mg/dL Est Cr Clr Drug Dosing 45.06 mL/min Estimated GFR (MDRD) > 60 mL/min Glucose 82 (74-106) mg/dL POC Glucose (65-110) mg/dl Calcium 7.8 L (8.5-10.1) mg/dL Total Bilirubin 0.1 L (0.2-1.0) mg/dL AST 22 (15-37) U/L ALT 22 (12-78) U/L Alkaline Phosphatase 70 (46-116) IU/L Total Protein 7.6 (6.4-8.2) g/dL Albumin 2.9 L (3.4-5.0) g/dL 03/21/20 Range/Units 11:44 WBC (4.0-10.2) K/uL RBC (3.77-5.09) M/uL Hgb (11.7-15.5) g/dL Hct (34.0-46.0) % MCV (84.0-98.0) fL MCH (28.2-33.3) pg MCHC (31.7-36.0) g/dL RDW (11.2-14.1) % Plt Count (150-350) K/uL Neut % (Auto) (45.0-80.0) % Lymph % (Auto) (10.0-50.0) % [place] % (Auto) (2.0-14.0) % Eos % (Auto) (0.0-5.0) % Baso % (Auto) (0.0-2.0) % Neut # (Auto) (1.40-7.00) K/uL Lymph # (Auto) (0.50-3.50) K/uL [place] # (Auto) (0.00-1.00) K/uL Eos # (Auto) (0.00-0.50) K/uL Baso # (Auto) (0.00-0.20) K/uL PT (9.5-12.0) SEC INR Sodium (136-145) mmol/L Potassium (3.5-5.1) mmol/L Chloride (98-107) mmol/L Carbon Dioxide (21.0-32.0) mmol/L BUN (7-18) mg/dL Creatinine (0.51-1.17) mg/dL Est Cr Clr Drug Dosing mL/min Estimated GFR (MDRD) mL/min Glucose (74-106) mg/dL POC Glucose 88 (65-110) mg/dl Calcium (8.5-10.1) mg/dL Total Bilirubin (0.2-1.0) mg/dL AST (15-37) U/L ALT (12-78) U/L Alkaline Phosphatase (46-116) IU/L Total Protein (6.4-8.2) g/dL Albumin (3.4-5.0) g/dL Frank Results Last 24 Hours: Microbiology 03/18/20 16:00 Aerobic Blood Culture - Preliminary Blood - Venous - Lab Draw NO GROWTH AFTER 2 DAYS Anaerobic Blood Culture - Preliminary NO GROWTH AFTER 2 DAYS 03/18/20 15:35 Aerobic Blood Culture - Preliminary Blood - Venous NO GROWTH AFTER 2 DAYS Anaerobic Blood Culture - Preliminary NO GROWTH AFTER 2 DAYS Med Orders - Current: Current Medications Acetaminophen (Tylenol) 650 mg PO Q4H PRN PRN Reason: Pain/Fever Last Admin: 03/20/20 21:50 Dose: 650 mg Documented by: Albuterol (Proventil Hfa) 0 gm INH Q2H PRN PRN Reason: Shortness of Breath Albuterol/Ipratropium (Combivent Respimat) 0 gm INH QIDRT [facility] Last Admin: 03/21/20 11:36 Dose: 2 inhalation Documented by: Ascorbic Acid (Vitamin C) 1,000 mg PO BID [facility] Last Admin: 03/21/20 09:50 Dose: 1,000 mg Documented by: Aspirin (Halfprin) 81 mg PO DAILY [facility] Last Admin: 03/21/20 09:50 Dose: 81 mg Documented by: Cholecalciferol (Vitamin D3) 5,000 unit PO DAILY [facility] Last Admin: 03/21/20 09:51 Dose: 5,000 unit Documented by: Dexamethasone (Decadron) 6 mg IVPUSH DAILY [facility] Last Admin: 03/21/20 09:49 Dose: 6 mg Documented by: Dextrose/Water (Dextrose 50% In Water) 50 ml IV ASDIRECTED PRN PRN Reason: Hypoglycemia Diphenhydramine HCl (Benadryl) 25 mg PO Q6H PRN PRN Reason: rash/allergy Last Admin: 03/20/20 21:50 Dose: 25 mg Documented by: Diphenoxylate HCl/Atropine (Lomotil 0.025-2.5 Mg) 1 tab PO Q6H PRN PRN Reason: Diarrhea Doxycycline Monohydrate (Doxycycline Monohydrate) 100 mg PO BID [facility] Last Admin: 03/21/20 09:51 Dose: 100 mg Documented by: Famotidine (Pepcid) 20 mg IVPUSH DAILY [facility] Last Admin: 03/21/20 09:49 Dose: 20 mg Documented by: Folic Acid (Folic Acid) 1 mg PO DAILY [facility] Last Admin: 03/21/20 09:50 Dose: 1 mg Documented by: Furosemide (Lasix) 20 mg IVPUSH DAILY [facility] Last Admin: 03/21/20 09:49 Dose: 20 mg Documented by: Glucagon (Glucagen) 1 mg IM ASDIRECTED PRN PRN Reason: Hypoglycemia Heparin Sodium (Porcine) (Heparin Lock Flush 100 Units/Ml) 500 units FLUSH ASDIRECTED PRN PRN Reason: after port use Last Admin: 03/21/20 11:38 Dose: 500 units Documented by: Levofloxacin/Dextrose 500 mg/ (Premix) 100 mls @ 100 mls/hr IV Q24H [facility] Last Admin: 03/20/20 17:18 Dose: 100 mls/hr Documented by: Remdesivir 100 mg/ Sodium (Chloride) 270 mls @ 270 mls/hr IV Q24H [facility] Stop: 03/22/20 20:01 Last Admin: 03/20/20 20:33 Dose: 270 mls/hr Documented by: Ceftriaxone Sodium 1 gm/ (Sodium Chloride) 100 mls @ 200 mls/hr IV Q12H [facility] Last Admin: 03/21/20 09:43 Dose: 200 mls/hr Documented by: Insulin Glargine (Lantus) 20 unit SUBCUT BEDTIME [facility] Last Admin: 03/20/20 20:40 Dose: 20 unit Documented by: Insulin Human Lispro (Humalog) 0 unit SUBCUT TID [facility]; Protocol Last Admin: 03/21/20 11:46 Dose: Not Given Documented by: Levothyroxine Sodium (Levothyroxine) 37.5 mcg PO SUTUTHSA@11 [facility] Last Admin: 03/21/20 11:35 Dose: 37.5 mcg Documented by: Levothyroxine Sodium (Levothyroxine) 25 mcg PO MOWEFR@1100 [facility] Last Admin: 03/20/20 10:50 Dose: 25 mcg Documented by: Magnesium Oxide (Magnesium Oxide) 800 mg PO BEDTIME [facility] Last Admin: 03/20/20 20:27 Dose: 800 mg Documented by: Megestrol Acetate (Megace 40 Mg/Ml Susp) 400 mg PO DAILY PRN PRN Reason: appetite Miscellaneous Information (Remove Patch) 1 ea TRDERM Q24H [facility] Last Admin: 03/21/20 09:43 Dose: 1 ea Documented by: Nicotine (Habitrol) 21 mg TRDERM DAILY [facility] Last Admin: 03/21/20 08:06 Dose: 21 mg Documented by: Ondansetron HCl (Zofran) 4 mg IVPUSH Q6H PRN PRN Reason: Nausea/Vomiting Last Admin: 03/21/20 08:07 Dose: 4 mg Documented by: Pantoprazole Sodium (Protonix Iv) 40 mg IVPUSH Q12HR [facility] Last Admin: 03/21/20 09:43 Dose: 40 mg Documented by: Potassium Chloride (Klor-Con 10) 30 meq PO BID [facility] Last Admin: 03/21/20 09:50 Dose: 30 meq Documented by: Sertraline HCl (Zoloft) 150 mg PO BEDTIME [facility] Last Admin: 03/20/20 20:25 Dose: 150 mg Documented by: Simvastatin (Zocor) 40 mg PO BEDTIME [facility] Last Admin: 03/20/20 20:26 Dose: 40 mg Documented by: Sodium Chloride (Saline Flush) 10 ml FLUSH ASDIRECTED PRN PRN Reason: Keep Vein Open Last Admin: 03/21/20 11:38 Dose: 10 ml Documented by: Temazepam (Restoril) 15 mg PO BEDTIME PRN PRN Reason: Insomnia Valacyclovir HCl (Valtrex) 500 mg PO BID@0800,1999 [facility] Last Admin: 03/21/20 09:50 Dose: 500 mg Documented by: Warfarin Sodium (Coumadin) 5 mg PO BEDTIME [facility] Last Admin: 03/20/20 20:24 Dose: 5 mg Documented by: Zinc Gluconate (Zinc) 50 mg PO DAILY [facility] Last Admin: 03/21/20 09:50 Dose: 50 mg Documented by: Discontinued Medications Acetaminophen (Tylenol) Confirm Administered Dose 650 mg .ROUTE .STK-MED ONE Stop: 03/18/20 18:20 Last Admin: 03/18/20 18:27 Dose: Not Given Documented by: Albuterol (Proventil Hfa) 0 gm INH Q2H PRN PRN Reason: Shortness of Breath Albuterol/Ipratropium (Combivent Respimat) 0 gm INH QIDRT [facility] Albuterol/Ipratropium (Combivent Respimat) 0 gm INH QIDRT [facility] Last Admin: 03/19/20 17:31 Dose: 1 puff Documented by: Arformoterol Tartrate (Brovana) 15 mcg INH BIDRT [facility] Last Admin: 03/18/20 20:37 Dose: Not Given Documented by: Ascorbic Acid (Vitamin C) 1,000 mg PO ONETIME ONE Stop: 03/18/20 16:55 Last Admin: 03/18/20 18:26 Dose: 1,000 mg Documented by: Cholecalciferol (Vitamin D3) 10,000 unit PO ONETIME ONE Stop: 03/18/20 16:57 Last Admin: 03/18/20 18:27 Dose: 10,000 unit Documented by: Cholecalciferol (Vitamin D3) 10,000 unit PO ONETIME ONE Stop: 03/20/20 08:01 Cholecalciferol (Vitamin D3) 10,000 unit PO ONETIME ONE Stop: 03/19/20 08:01 Last Admin: 03/19/20 08:31 Dose: 10,000 unit Documented by: Furosemide (Lasix) 20 mg IVPUSH DAILY [facility] Last Admin: 03/20/20 12:42 Dose: Not Given Documented by: Sodium Chloride (Normal Saline) 1,000 mls @ 250 mls/hr IV ASDIRECTED [facility] Stop: 03/18/20 20:29 Last Admin: 03/18/20 16:36 Dose: 250 mls/hr Documented by: Magnesium Sulfate/Dextrose 1 (gm/ Premix) 100 mls @ 100 mls/hr IV ONETIME ONE Stop: 03/18/20 17:53 Last Admin: 03/18/20 18:24 Dose: 100 mls/hr Documented by: Remdesivir 100 mg/ Sodium (Chloride) 100 mls @ 100 mls/hr IV Q24H [facility] Stop: 03/21/20 19:59 Last Admin: 03/18/20 20:32 Dose: Not Given Documented by: Levofloxacin/Dextrose 500 mg/ (Premix) 100 mls @ 100 mls/hr IV Q24H [facility] Last Admin: 03/18/20 20:14 Dose: 100 mls/hr Documented by: Remdesivir 100 mg/ Sodium (Chloride) 100 mls @ 100 mls/hr IV Q24H [facility] Stop: 03/22/20 20:59 Last Admin: 03/19/20 21:33 Dose: Not Given Documented by: Remdesivir 200 mg/ Sodium (Chloride) 250 mls @ 250 mls/hr IV ONETIME ONE Stop: 03/18/20 20:49 Last Admin: 03/18/20 20:24 Dose: Not Given Documented by: Remdesivir (Remdesivir (Eua)) Confirm Administered Dose 40 mls @ as directed .ROUTE .STK-MED ONE Stop: 03/18/20 19:40 Last Admin: 03/18/20 20:23 Dose: 200 mls/hr Documented by: Ceftriaxone Sodium 1 gm/ (Sodium Chloride) 100 mls @ 200 mls/hr IV Q12H [facility] Last Admin: 03/20/20 12:43 Dose: 200 mls/hr Documented by: Remdesivir (Remdesivir (Eua)) Confirm Administered Dose 20 mls @ as directed .ROUTE .STK-MED ONE Stop: 03/19/20 20:43 Last Admin: 03/19/20 21:25 Dose: Not Given Documented by: Remdesivir 100 mg/ Sodium (Chloride) 270 mls @ as directed IV .STK-MED ONE Stop: 03/19/20 22:11 Miscellaneous Information (Remove Patch) 1 ea TRDERM Q24H [facility] Nicotine (Habitrol) 21 mg TRDERM DAILY [facility] Last Admin: 03/19/20 08:22 Dose: 21 mg Documented by: Potassium Chloride (Klor-Con 10) 30 meq PO DAILY [facility] Last Admin: 03/20/20 07:56 Dose: 30 meq Documented by: Valacyclovir HCl (Valtrex) 500 mg PO BID@0820 [facility] Last Admin: 03/19/20 08:31 Dose: 500 mg Documented by: Warfarin Sodium (Coumadin) 5 mg PO BEDTIME [facility] Last Admin: 03/18/20 20:16 Dose: 5 mg Documented by: Warfarin Sodium (Coumadin) 5 mg PO ONETIME ONE Stop: 03/18/20 19:05 Last Admin: 03/18/20 20:36 Dose: Not Given Documented by: Warfarin Sodium (Coumadin) 10 mg PO ONETIME ONE Stop: 03/19/20 13:01 Last Admin: 03/19/20 12:53 Dose: 10 mg Documented by: Zinc Gluconate (Zinc) 50 mg PO ONETIME ONE Stop: 03/18/20 16:55 Last Admin: 03/18/20 18:25 Dose: 50 mg Documented by: - Exam Quality Assessment: Supplemental Oxygen, DVT Prophylaxis General: Alert, Oriented, Cooperative, No Acute Distress HEENT: Pupils Equal, Pupils Reactive, EOMI, Mucous Membr. Moist/[place] Neck: Supple Lungs: Normal Respiratory Effort, Rhonchi (bilat/mild), Wheezing (bilat/mild). No: Rales, Stridor Cardiovascular: Regular Rate, Regular Rhythm GI/Abdominal Exam: Normal Bowel Sounds, Soft, Non-Tender, No Distention (Female) Exam: Deferred Back Exam: No: CVA Tenderness (L), CVA Tenderness (R), Muscle Spasm Extremities: Normal Range of Motion, Non-Tender, Normal Capillary Refill Skin: Warm, Dry Neurological: No New Focal Deficit Psy/Mental Status: Alert, Normal Affect, Normal Mood Sepsis Event Note - Evaluation Sepsis Screening Result: No Definite Risk - Focused Exam Vital Signs: Vital Signs Temp Pulse Resp BP Pulse Ox 03/21/20 07:50 37.0 C 80 18 124/62 92 L - Problem List & Annotations (1) COVID-19 SNOMED Code(s): 930202142 Code(s): U07.1 - COVID-19 Status: Acute Priority: High Current Visit: Yes Onset Date: ~03/15/20 Annotation/Comment:: Covid + with darwin ellis physician initiated IV Remdesivir and Dexamethasone on admission. Dr. Oseguera did review patient and treatment options with from [facility] on admission. He recommended adding Levaquin given patient's immunocompromised status. Extended hospitalization likely required secondary to patient's IV remdesivir, etc. therapy as above. Further oncology consultation depending on her clinical course. CRP is elevated on 03/20. Continue daily blood work as per remdesivir protocol. (2) Hypomagnesemia SNOMED Code(s): 535368118 Code(s): E83.42 - HYPOMAGNESEMIA Status: Chronic Priority: Medium Current Visit: Yes Onset Date: 08/28/15 Annotation/Comment:: Chronic. IV Mag ordered given today's low level. Magnesium level normal on 03/19/2020. (3) CAD (coronary artery disease) SNOMED Code(s): 36023697 Code(s): I25.10 - ATHSCL HEART DISEASE OF [place] CORONARY ARTERY W/O ANG PCTRS Status: Acute Priority: Medium Current Visit: Yes Qualifiers: Coronary Disease-Associated Artery/Lesion type: unspecified vessel or lesion type Associated angina: without angina Annotation/Comment:: Hx CAD/cardiomyopathy/arrhythmias/PVD as per admission H&P. Stable per history with no history of chest pain or anginal type symptoms. Cardiac enzymes were normal on 03/20 with exception of likely artifactual elevation of CK index secondary to low baseline CK. BNP is also mildly elevated with no evidence of significant clinical CHF. EKG did not show any ischemic changes however note somewhat noisy baseline and new first-degree AV block. (4) GERD (gastroesophageal reflux disease) SNOMED Code(s): 077320217 Code(s): K21.9 - GASTRO-ESOPHAGEAL REFLUX DISEASE WITHOUT ESOPHAGITIS Status: Chronic Priority: Low Current Visit: No Annotation/Comment:: stable per history (5) Osteoarthritis SNOMED Code(s): 136822494 Code(s): M19.90 - UNSPECIFIED OSTEOARTHRITIS, UNSPECIFIED SITE Status: Chronic Priority: Low Current Visit: No Qualifiers: Osteoarthritis location: unspecified site Annotation/Comment:: stable per history. Osteoporosis. Chronic neck/back pain. (6) Anxiety and depression SNOMED Code(s): 317910779 Code(s): F41.9 - ANXIETY DISORDER, UNSPECIFIED; F32.9 - MAJOR DEPRESSIVE DISORDER, SINGLE EPISODE, UNSPECIFIED Status: Chronic Priority: Low Current Visit: No Annotation/Comment:: stable per history (7) Hypothyroid SNOMED Code(s): 56254432 Code(s): E03.9 - HYPOTHYROIDISM, UNSPECIFIED Status: Acute Priority: Low Current Visit: Yes Qualifiers: Hypothyroidism type: unspecified Qualified Code(s): E03.9 - Hypothyroidism, unspecified Annotation/Comment:: TSH normal during this hospitalization. Continue current therapy. (8) Crohns disease SNOMED Code(s): 50512203 Code(s): K50.90 - CROHN'S DISEASE, UNSPECIFIED, WITHOUT COMPLICATIONS Status: Chronic Priority: Low Current Visit: No Qualifiers: Gastrointestinal tract location: small intestine Digestive disease complication type: without complications Annotation/Comment:: Stable at this time. Multiple previous surgeries. (9) COPD (chronic obstructive pulmonary disease) SNOMED Code(s): 74649824 Code(s): J44.9 - CHRONIC OBSTRUCTIVE PULMONARY DISEASE, UNSPECIFIED Status: Chronic Priority: Medium Current Visit: No Qualifiers: COPD type: COPD with acute lower respiratory infection Qualified Code(s): J44.0 - Chronic obstructive pulmonary disease with (acute) lower respiratory infection Annotation/Comment:: Has nocturnal O2 at home. Was stable prior to recent Covid infection. 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 Accu-Cheks improved on 03/20. (11) Need for comfort care SNOMED Code(s): 180863416, 548690982 Code(s): OXB0104 - Status: Chronic Priority: High Current Visit: Yes Annotation/Comment:: Note comfort care with prognosis guarded secondary to current chemotherapy, multiple myeloma, and current COVID-19 infection. (12) Multiple myeloma SNOMED Code(s): 410788909 Code(s): C90.00 - MULTIPLE MYELOMA NOT HAVING ACHIEVED REMISSION Status: Chronic Priority: Medium Current Visit: Yes Qualifiers: Multiple myeloma remission status: not in remission Qualified Code(s): C90.00 - Multiple myeloma not having achieved remission Annotation/Comment:: Immunosuppressed/receives chemo at [facility]. Note oncology consultation as above by allied health teacher/admitting physician. 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 Today at 3.1 Recheck tomorrow. - Problem List Review Problem List Initiated/Reviewed/Updated: Yes - Assessment Assessment:: As above - Plan Plan:: As above. Extensive precautions were given to the patient, who is in agreement with the treatment plan. See Patient Instructions for further treatment and plan. Extended inpatient care would likely be required secondary to current IV remdesivir therapy. Once therapy completed patient will be discharged home depending on clinical course.
[2020-03-21] MEDS: Acetaminophen 325 MG Tab PO PRN (14:53)
[2020-03-21] MEDS: Levofloxacin/Dextrose 5%-Water 500 MG in Premix Bag 1 BAG IV SCH (17:10)
[2020-03-21] MEDS: REMDESIVIR ONE (18:25)
[2020-03-21] MEDS: Warfarin 5 MG Tab PO SCH (20:48)
[2020-03-21] MEDS: REMDESIVIR 100 MG in Sodium Chloride 0.9% 250 ML IV SCH (20:48)
[2020-03-21] MEDS: Simvastatin 20 MG Tab PO SCH (20:49)
[2020-03-21] MEDS: Magnesium Oxide 400 MG Tab PO SCH (20:49)
[2020-03-21] MEDS: Sertraline 50 MG Tab PO SCH (20:49)
[2020-03-21] MEDS: Temazepam 15 MG Cap PO PRN (20:49)
[2020-03-21] MEDS: diphenhydrAMINE 25 MG Cap PO PRN (20:50)
[2020-03-21] MEDS: Insulin Glarg,Human.Rec.Analog 100 Unit/ML SUBCUT SCH ×2 (20:51→22:09)
[2020-03-22] MEDS: Pantoprazole 40 MG Vial IVPUSH SCH ×2 (07:41→20:17)
[2020-03-22] MEDS: Famotidine 20 MG/2 ML SDV IVPUSH SCH (07:42)
[2020-03-22] MEDS: Dexamethasone 10 MG/ML SDV IVPUSH SCH (07:43)
[2020-03-22] MEDS: Furosemide 20 MG/2 ML VIAL IVPUSH SCH (07:44)
[2020-03-22] MEDS: Potassium Chloride 10 MEQ Tab.ER PO SCH ×2 (08:00→17:08)
[2020-03-22] MEDS: valACYclovir 1,000 MG Tab PO SCH ×2 (08:01→20:18)
[2020-03-22] MEDS: Aspirin 81 MG Tab.EC PO SCH (08:02)
[2020-03-22] MEDS: Ascorbic Acid 500 MG Tab PO SCH ×2 (08:02→17:00)
[2020-03-22] MEDS: Albuterol/Ipratropium 4 GM Inhalation Spray INH SCH ×4 (08:02→20:18)
[2020-03-22] MEDS: Cholecalciferol (Vitamin D3) 5,000 UNIT Tab PO SCH (08:03)
[2020-03-22] MEDS: Zinc (Zinc Gluconate) 50 MG Tab PO SCH (08:03)
[2020-03-22] MEDS: Folic Acid 1 MG Tab PO SCH (08:03)
[2020-03-22] MEDS: Doxycycline Monohydrate 100 MG Cap PO SCH ×2 (08:03→17:09)
[2020-03-22] MEDS: Nicotine 21 MG/24 Hr Patch TRDERM SCH (08:04)
[2020-03-22] MEDS: Insulin Lispro 100 Units/ML 3 ML Vial SUBCUT SCH ×2 (08:05→11:09)
[2020-03-22 08:52] LABS: CHLORIDE,CL 110 mmol/L (98-107); SODIUM,NA 144 mmol/L (136-145)
[2020-03-22] MEDS: cefTRIAXone 1 GM in Sodium Chloride 0.9% 100 ML IV SCH ×2 (10:57→21:38)
[2020-03-22] MEDS ORDERED: Sodium Chloride 0.9% 250 ML IV SCH (11:00)
[2020-03-22] MEDS: Sodium Chloride 0.9% 10 ML Syringe FLUSH PRN ×10 (11:02→21:43)
[2020-03-22] MEDS: Levothyroxine 25 MCG Tab PO SCH (11:04)
[2020-03-22] MEDS ORDERED: Sodium Chloride 0.9% 1,000 ML IV SCH (11:45)
[2020-03-22] MEDS ORDERED: Glucagon,Human Recombinant 1 MG Vial IM PRN (16:13)
[2020-03-22] MEDS ORDERED: 50% Dextrose in Water 50 ML Syringe IV PRN (16:13)
--- NOTE | 2020-03-22 16:23 | PCM.PN ---
- General Info Date of Service: 03/22/20 Admission Dx/Problem (Free Text): 1. COVID-19 2. Bilateral pneumonia Subjective Update: Patient feels very fatigued. No worsening of symptoms otherwise. Feels "a lot" better than when she was first admitted. Functional Status: Reports: Pain Controlled, Tolerating Diet, Ambulating, Urinating, Incentive Spirometry. Denies: New Symptoms - Review of Systems General: Reports: Weakness, Fatigue. Denies: Fever, Malaise, Chills, Night Sweats HEENT: Denies: Headaches, Sinus Congestion, Sore Throat, Rhinitis, Visual Changes Pulmonary: Reports: Shortness of Breath (when off oxygen), Cough, Sputum. Denies: Pleuritic Chest Pain, Hemoptysis, Wheezing Cardiovascular: Denies: Chest Pain, Palpitations, Orthopnea Gastrointestinal: Reports: No Symptoms Genitourinary: Reports: No Symptoms Musculoskeletal: Reports: Other (No acute worsening above baseline) Skin: Reports: No Symptoms Neurological: Reports: No Symptoms Psychiatric: Reports: No Symptoms - Patient Data Vitals - Most Recent: Last Vital Signs Temp 36.6 C 03/22/20 11:12 Pulse 82 03/22/20 11:12 Resp 20 03/22/20 11:12 BP 123/57 L 03/22/20 11:12 Pulse Ox 91 L 03/22/20 11:12 Weight - Most Recent: 55.066 kg I&O - Last 24 Hours: Intake & Output 03/22/20 03/22/20 03/22/20 06:59 14:59 22:59 Intake Total 350 360 Output Total 700 Balance 350 -340 Lab Results Last 24 Hours: Laboratory Results - last 24 hr 03/21/20 03/21/20 03/21/20 Range/Units 16:50 20:53 22:06 WBC (4.0-10.2) K/uL RBC (3.77-5.09) M/uL Hgb (11.7-15.5) g/dL Hct (34.0-46.0) % MCV (84.0-98.0) fL MCH (28.2-33.3) pg MCHC (31.7-36.0) g/dL RDW (11.2-14.1) % Plt Count (150-350) K/uL Neut % (Auto) (45.0-80.0) % Lymph % (Auto) (10.0-50.0) % [place] % (Auto) (2.0-14.0) % Eos % (Auto) (0.0-5.0) % Baso % (Auto) (0.0-2.0) % Neut # (Auto) (1.40-7.00) K/uL Lymph # (Auto) (0.50-3.50) K/uL [place] # (Auto) (0.00-1.00) K/uL Eos # (Auto) (0.00-0.50) K/uL Baso # (Auto) (0.00-0.20) K/uL Sodium (136-145) mmol/L Potassium (3.5-5.1) mmol/L Chloride (98-107) mmol/L Carbon Dioxide (21.0-32.0) mmol/L BUN (7-18) mg/dL Creatinine (0.51-1.17) mg/dL Est Cr Clr Drug Dosing mL/min Estimated GFR (MDRD) mL/min Glucose (74-106) mg/dL POC Glucose 380 H* 53 L 105 (65-110) mg/dl Calcium (8.5-10.1) mg/dL Total Bilirubin (0.2-1.0) mg/dL AST (15-37) U/L ALT (12-78) U/L Alkaline Phosphatase (46-116) IU/L Total Protein (6.4-8.2) g/dL Albumin (3.4-5.0) g/dL 03/22/20 03/22/20 03/22/20 Range/Units 07:32 08:30 08:30 WBC 3.5 L (4.0-10.2) K/uL RBC 2.64 L (3.77-5.09) M/uL Hgb 8.7 L (11.7-15.5) g/dL Hct 27.5 L (34.0-46.0) % MCV 104.2 H (84.0-98.0) fL MCH 33.0 (28.2-33.3) pg MCHC 31.6 L (31.7-36.0) g/dL RDW 14.9 H (11.2-14.1) % Plt Count 170 (150-350) K/uL Neut % (Auto) 45.1 (45.0-80.0) % Lymph % (Auto) 46.8 (10.0-50.0) % [place] % (Auto) 7.8 (2.0-14.0) % Eos % (Auto) 0.0 (0.0-5.0) % Baso % (Auto) 0.3 (0.0-2.0) % Neut # (Auto) 1.56 (1.40-7.00) K/uL Lymph # (Auto) 1.62 (0.50-3.50) K/uL [place] # (Auto) 0.27 (0.00-1.00) K/uL Eos # (Auto) 0.00 (0.00-0.50) K/uL Baso # (Auto) 0.01 (0.00-0.20) K/uL Sodium 144 (136-145) mmol/L Potassium 3.8 (3.5-5.1) mmol/L Chloride 110 H (98-107) mmol/L Carbon Dioxide 26.3 (21.0-32.0) mmol/L BUN 19 H (7-18) mg/dL Creatinine 0.78 (0.51-1.17) mg/dL Est Cr Clr Drug Dosing 50.84 mL/min Estimated GFR (MDRD) > 60 mL/min Glucose 61 L (74-106) mg/dL POC Glucose 53 L (65-110) mg/dl Calcium 7.1 L (8.5-10.1) mg/dL Total Bilirubin 0.2 (0.2-1.0) mg/dL AST 19 (15-37) U/L ALT 23 (12-78) U/L Alkaline Phosphatase 63 (46-116) IU/L Total Protein 6.8 (6.4-8.2) g/dL Albumin 2.6 L (3.4-5.0) g/dL 03/22/20 Range/Units 11:06 WBC (4.0-10.2) K/uL RBC (3.77-5.09) M/uL Hgb (11.7-15.5) g/dL Hct (34.0-46.0) % MCV (84.0-98.0) fL MCH (28.2-33.3) pg MCHC (31.7-36.0) g/dL RDW (11.2-14.1) % Plt Count (150-350) K/uL Neut % (Auto) (45.0-80.0) % Lymph % (Auto) (10.0-50.0) % [place] % (Auto) (2.0-14.0) % Eos % (Auto) (0.0-5.0) % Baso % (Auto) (0.0-2.0) % Neut # (Auto) (1.40-7.00) K/uL Lymph # (Auto) (0.50-3.50) K/uL [place] # (Auto) (0.00-1.00) K/uL Eos # (Auto) (0.00-0.50) K/uL Baso # (Auto) (0.00-0.20) K/uL Sodium (136-145) mmol/L Potassium (3.5-5.1) mmol/L Chloride (98-107) mmol/L Carbon Dioxide (21.0-32.0) mmol/L BUN (7-18) mg/dL Creatinine (0.51-1.17) mg/dL Est Cr Clr Drug Dosing mL/min Estimated GFR (MDRD) mL/min Glucose (74-106) mg/dL POC Glucose 171 H (65-110) mg/dl Calcium (8.5-10.1) mg/dL Total Bilirubin (0.2-1.0) mg/dL AST (15-37) U/L ALT (12-78) U/L Alkaline Phosphatase (46-116) IU/L Total Protein (6.4-8.2) g/dL Albumin (3.4-5.0) g/dL Frank Results Last 24 Hours: Microbiology 03/18/20 16:00 Aerobic Blood Culture - Preliminary Blood - Venous - Lab Draw NO GROWTH AFTER 4 DAYS Anaerobic Blood Culture - Preliminary NO GROWTH AFTER 4 DAYS 03/18/20 15:35 Aerobic Blood Culture - Preliminary Blood - Venous NO GROWTH AFTER 4 DAYS Anaerobic Blood Culture - Preliminary NO GROWTH AFTER 4 DAYS Med Orders - Current: Current Medications Acetaminophen (Tylenol) 650 mg PO Q4H PRN PRN Reason: Pain/Fever Last Admin: 03/21/20 14:53 Dose: 650 mg Documented by: Albuterol (Proventil Hfa) 0 gm INH Q2H PRN PRN Reason: Shortness of Breath Albuterol/Ipratropium (Combivent Respimat) 0 gm INH QIDRT [facility] Last Admin: 03/22/20 11:04 Dose: 2 inhalation Documented by: Ascorbic Acid (Vitamin C) 1,000 mg PO BID [facility] Last Admin: 03/22/20 08:02 Dose: 1,000 mg Documented by: Aspirin (Halfprin) 81 mg PO DAILY [facility] Last Admin: 03/22/20 08:02 Dose: 81 mg Documented by: Cholecalciferol (Vitamin D3) 5,000 unit PO DAILY [facility] Last Admin: 03/22/20 08:03 Dose: 5,000 unit Documented by: Dexamethasone (Decadron) 6 mg IVPUSH DAILY [facility] Last Admin: 03/22/20 07:43 Dose: 6 mg Documented by: Dextrose/Water (Dextrose 50% In Water) 50 ml IV ASDIRECTED PRN PRN Reason: Hypoglycemia Dextrose/Water (Dextrose 50% In Water) 50 ml IV ASDIRECTED PRN PRN Reason: Hypoglycemia Diphenhydramine HCl (Benadryl) 25 mg PO Q6H PRN PRN Reason: rash/allergy Last Admin: 03/21/20 20:50 Dose: 25 mg Documented by: Diphenoxylate HCl/Atropine (Lomotil 0.025-2.5 Mg) 1 tab PO Q6H PRN PRN Reason: Diarrhea Doxycycline Monohydrate (Doxycycline Monohydrate) 100 mg PO BID [facility] Last Admin: 03/22/20 08:03 Dose: 100 mg Documented by: Famotidine (Pepcid) 20 mg IVPUSH DAILY [facility] Last Admin: 03/22/20 07:42 Dose: 20 mg Documented by: Folic Acid (Folic Acid) 1 mg PO DAILY [facility] Last Admin: 03/22/20 08:03 Dose: 1 mg Documented by: Furosemide (Lasix) 20 mg IVPUSH DAILY [facility] Last Admin: 03/22/20 07:44 Dose: 20 mg Documented by: Glucagon (Glucagen) 1 mg IM ASDIRECTED PRN PRN Reason: Hypoglycemia Glucagon (Glucagen) 1 mg IM ASDIRECTED PRN PRN Reason: Hypoglycemia Heparin Sodium (Porcine) (Heparin Lock Flush 100 Units/Ml) 500 units FLUSH ASDIRECTED PRN PRN Reason: after port use Last Admin: 03/22/20 07:57 Dose: 500 units Documented by: Heparin Sodium (Porcine) (Heparin Lock Flush 100 Units/Ml) 500 units FLUSH BID@, [facility] Last Admin: 03/22/20 10:58 Dose: 500 units Documented by: Levofloxacin/Dextrose 500 mg/ (Premix) 100 mls @ 100 mls/hr IV Q24H [facility] Last Admin: 03/21/20 17:10 Dose: 100 mls/hr Documented by: Remdesivir 100 mg/ Sodium (Chloride) 270 mls @ 270 mls/hr IV Q24H [facility] Stop: 03/22/20 20:01 Last Admin: 03/21/20 20:48 Dose: 270 mls/hr Documented by: Ceftriaxone Sodium 1 gm/ (Sodium Chloride) 100 mls @ 200 mls/hr IV Q12H [facility] Last Admin: 03/22/20 10:57 Dose: 200 mls/hr Documented by: Insulin Glargine (Lantus) 20 unit SUBCUT BEDTIME [facility] Last Admin: 03/21/20 22:09 Dose: Not Given Documented by: Insulin Human Regular (Humulin R) 0 unit SUBCUT BID [facility]; Protocol Levothyroxine Sodium (Levothyroxine) 37.5 mcg PO SUTUTHSA@11 [facility] Last Admin: 03/21/20 11:35 Dose: 37.5 mcg Documented by: Levothyroxine Sodium (Levothyroxine) 25 mcg PO MOWEFR@1100 [facility] Last Admin: 03/22/20 11:04 Dose: 25 mcg Documented by: Magnesium Oxide (Magnesium Oxide) 800 mg PO BEDTIME [facility] Last Admin: 03/21/20 20:49 Dose: 800 mg Documented by: Megestrol Acetate (Megace 40 Mg/Ml Susp) 400 mg PO DAILY PRN PRN Reason: appetite Miscellaneous Information (Remove Patch) 1 ea TRDERM Q24H [facility] Last Admin: 03/22/20 08:05 Dose: 1 ea Documented by: Nicotine (Habitrol) 21 mg TRDERM DAILY [facility] Last Admin: 03/22/20 08:04 Dose: 21 mg Documented by: Ondansetron HCl (Zofran) 4 mg IVPUSH Q6H PRN PRN Reason: Nausea/Vomiting Last Admin: 03/21/20 08:07 Dose: 4 mg Documented by: Pantoprazole Sodium (Protonix Iv) 40 mg IVPUSH Q12HR [facility] Last Admin: 03/22/20 07:41 Dose: 40 mg Documented by: Potassium Chloride (Klor-Con 10) 30 meq PO BID [facility] Last Admin: 03/22/20 08:00 Dose: 30 meq Documented by: Sertraline HCl (Zoloft) 150 mg PO BEDTIME [facility] Last Admin: 03/21/20 20:49 Dose: 150 mg Documented by: Simvastatin (Zocor) 40 mg PO BEDTIME [facility] Last Admin: 03/21/20 20:49 Dose: 40 mg Documented by: Sodium Chloride (Saline Flush) 10 ml FLUSH ASDIRECTED PRN PRN Reason: Keep Vein Open Last Admin: 03/22/20 11:02 Dose: 10 ml Documented by: Temazepam (Restoril) 15 mg PO BEDTIME PRN PRN Reason: Insomnia Last Admin: 03/21/20 20:49 Dose: 15 mg Documented by: Valacyclovir HCl (Valtrex) 500 mg PO BID@0800,2000 [facility] Last Admin: 03/22/20 08:01 Dose: 500 mg Documented by: Warfarin Sodium (Coumadin) 5 mg PO BEDTIME [facility] Last Admin: 03/21/20 20:48 Dose: 5 mg Documented by: Zinc Gluconate (Zinc) 50 mg PO DAILY [facility] Last Admin: 03/22/20 08:03 Dose: 50 mg Documented by: Discontinued Medications Acetaminophen (Tylenol) Confirm Administered Dose 650 mg .ROUTE .[facility] Stop: 03/18/20 18:20 Last Admin: 03/18/20 18:27 Dose: Not Given Documented by: Albuterol (Proventil Hfa) 0 gm INH Q2H PRN PRN Reason: Shortness of Breath Albuterol/Ipratropium (Combivent Respimat) 0 gm INH QIDRT [facility] Albuterol/Ipratropium (Combivent Respimat) 0 gm INH QIDRT [facility] Last Admin: 03/19/20 17:31 Dose: 1 puff Documented by: Arformoterol Tartrate (Brovana) 15 mcg INH BIDRT [facility] Last Admin: 03/18/20 20:37 Dose: Not Given Documented by: Ascorbic Acid (Vitamin C) 1,000 mg PO ONETIME ONE Stop: 03/18/20 16:55 Last Admin: 03/18/20 18:26 Dose: 1,000 mg Documented by: Cholecalciferol (Vitamin D3) 10,000 unit PO ONETIME ONE Stop: 03/18/20 16:57 Last Admin: 03/18/20 18:27 Dose: 10,000 unit Documented by: Cholecalciferol (Vitamin D3) 10,000 unit PO ONETIME ONE Stop: 03/20/20 08:01 Cholecalciferol (Vitamin D3) 10,000 unit PO ONETIME ONE Stop: 03/19/20 08:01 Last Admin: 03/19/20 08:31 Dose: 10,000 unit Documented by: Furosemide (Lasix) 20 mg IVPUSH DAILY [facility] Last Admin: 03/20/20 12:42 Dose: Not Given Documented by: Sodium Chloride (Normal Saline) 1,000 mls @ 250 mls/hr IV ASDIRECTED [facility] Stop: 03/18/20 20:29 Last Admin: 03/18/20 16:36 Dose: 250 mls/hr Documented by: Magnesium Sulfate/Dextrose 1 (gm/ Premix) 100 mls @ 100 mls/hr IV ONETIME ONE Stop: 03/18/20 17:53 Last Admin: 03/18/20 18:24 Dose: 100 mls/hr Documented by: Remdesivir 100 mg/ Sodium (Chloride) 100 mls @ 100 mls/hr IV Q24H [facility] Stop: 03/21/20 19:59 Last Admin: 03/18/20 20:32 Dose: Not Given Documented by: Levofloxacin/Dextrose 500 mg/ (Premix) 100 mls @ 100 mls/hr IV Q24H [facility] Last Admin: 03/18/20 20:14 Dose: 100 mls/hr Documented by: Remdesivir 100 mg/ Sodium (Chloride) 100 mls @ 100 mls/hr IV Q24H [facility] Stop: 03/22/20 20:59 Last Admin: 03/19/20 21:33 Dose: Not Given Documented by: Remdesivir 200 mg/ Sodium (Chloride) 250 mls @ 250 mls/hr IV ONETIME ONE Stop: 03/18/20 20:49 Last Admin: 03/18/20 20:24 Dose: Not Given Documented by: Remdesivir (Remdesivir (Eua)) Confirm Administered Dose 40 mls @ as directed .ROUTE .[facility] ONE Stop: 03/18/20 19:40 Last Admin: 03/21/20 18:25 Dose: Not Given Documented by: Ceftriaxone Sodium 1 gm/ (Sodium Chloride) 100 mls @ 200 mls/hr IV Q12H [facility] Last Admin: 03/20/20 12:43 Dose: 200 mls/hr Documented by: Remdesivir (Remdesivir (Eua)) Confirm Administered Dose 20 mls @ as directed .ROUTE .[facility] ONE Stop: 03/19/20 20:43 Last Admin: 03/19/20 21:25 Dose: Not Given Documented by: Remdesivir 100 mg/ Sodium (Chloride) 270 mls @ as directed IV .STK-MED ONE Stop: 03/19/20 22:11 Sodium Chloride (Normal Saline) 250 mls @ 999 mls/hr IV ASDIRECTED [facility] Insulin Human Lispro (Humalog) 0 unit SUBCUT TID [facility]; Protocol Last Admin: 03/22/20 11:09 Dose: 2 units Documented by: Miscellaneous Information (Remove Patch) 1 ea TRDERM Q24H [facility] Nicotine (Habitrol) 21 mg TRDERM DAILY [facility] Last Admin: 03/19/20 08:22 Dose: 21 mg Documented by: Potassium Chloride (Klor-Con 10) 30 meq PO DAILY [facility] Last Admin: 03/20/20 07:56 Dose: 30 meq Documented by: Valacyclovir HCl (Valtrex) 500 mg PO BID@0820 [facility] Last Admin: 03/19/20 08:31 Dose: 500 mg Documented by: Warfarin Sodium (Coumadin) 5 mg PO BEDTIME [facility] Last Admin: 03/18/20 20:16 Dose: 5 mg Documented by: Warfarin Sodium (Coumadin) 5 mg PO ONETIME ONE Stop: 03/18/20 19:05 Last Admin: 03/18/20 20:36 Dose: Not Given Documented by: Warfarin Sodium (Coumadin) 10 mg PO ONETIME ONE Stop: 03/19/20 13:01 Last Admin: 03/19/20 12:53 Dose: 10 mg Documented by: Zinc Gluconate (Zinc) 50 mg PO ONETIME ONE Stop: 03/18/20 16:55 Last Admin: 03/18/20 18:25 Dose: 50 mg Documented by: - Exam Quality Assessment: Supplemental Oxygen, DVT Prophylaxis General: Alert, Oriented, Cooperative, No Acute Distress HEENT: Pupils Equal, Pupils Reactive, EOMI, Mucous Membr. Moist/[place] Neck: Supple Lungs: Clear to Auscultation, Normal Respiratory Effort Cardiovascular: Regular Rate, Regular Rhythm GI/Abdominal Exam: Normal Bowel Sounds, Soft, Non-Tender, No Distention (Female) Exam: Deferred Back Exam: No: CVA Tenderness (L), CVA Tenderness (R), Muscle Spasm Extremities: Normal Inspection, Normal Range of Motion, Non-Tender, No Pedal Edema, Normal Capillary Refill Skin: Warm, Dry Neurological: No New Focal Deficit Psy/Mental Status: Alert, Normal Affect, Normal Mood Sepsis Event Note - Evaluation Sepsis Screening Result: No Definite Risk - Focused Exam Vital Signs: Vital Signs Temp Pulse Resp BP Pulse Ox 03/22/20 11:12 36.6 C 82 20 123/57 L 91 L 03/22/20 08:00 36.4 C 76 20 119/66 97 - Problem List & Annotations (1) COVID-19 SNOMED Code(s): 144279433 Code(s): U07.1 - COVID-19 Status: Acute Priority: High Current Visit: Yes Onset Date: ~03/15/20 Annotation/Comment:: Covid + with IV Remdesivir and Dexamethasone on admission. Dr. Oseguera did review patient and treatment options with from [facility] On[facility] on admission. He recommended adding Levaquin given patient's immunocompromised status. Extended hospitalization likely required secondary to patient's IV remdesivir, etc. therapy as above. Further oncology consultation depending on her clinical course. CRP is elevated on 03/20. Continue daily blood work as per remdesivir protocol. (2) Hypomagnesemia SNOMED Code(s): 619098591 Code(s): E83.42 - HYPOMAGNESEMIA Status: Chronic Priority: Medium Current Visit: Yes Onset Date: 08/28/15 Annotation/Comment:: Chronic. IV Mag ordered after admission. Magnesium level normal on 03/19/2020. (3) CAD (coronary artery disease) SNOMED Code(s): 82620780 Code(s): I25.10 - ATHSCL HEART DISEASE OF [place] CORONARY ARTERY W/O ANG PCTRS Status: Acute Priority: Medium Current Visit: Yes Qualifiers: Coronary Disease-Associated Artery/Lesion type: unspecified vessel or lesion type Associated angina: without angina Annotation/Comment:: Hx CAD/cardiomyopathy/arrhythmias/PVD as per admission H&P. Stable per history with no history of chest pain or anginal type symptoms. Cardiac enzymes were normal on 03/20 with exception of likely artifactual elevation of CK index secondary to low baseline CK. BNP is also mildly elevated with no evidence of significant clinical CHF. EKG did not show any ischemic changes however note somewhat noisy baseline and new first-degree AV block. (4) GERD (gastroesophageal reflux disease) SNOMED Code(s): 098807520 Code(s): K21.9 - GASTRO-ESOPHAGEAL REFLUX DISEASE WITHOUT ESOPHAGITIS Status: Chronic Priority: Low Current Visit: No Annotation/Comment:: stable per history (5) Osteoarthritis SNOMED Code(s): 466217235 Code(s): M19.90 - UNSPECIFIED OSTEOARTHRITIS, UNSPECIFIED SITE Status: Chronic Priority: Low Current Visit: No Qualifiers: Osteoarthritis location: unspecified site Annotation/Comment:: stable per history. Osteoporosis. Chronic neck/back pain. (6) Anxiety and depression SNOMED Code(s): 271420492 Code(s): F41.9 - ANXIETY DISORDER, UNSPECIFIED; F32.9 - MAJOR DEPRESSIVE DISORDER, SINGLE EPISODE, UNSPECIFIED Status: Chronic Priority: Low Current Visit: No Annotation/Comment:: stable per history (7) Hypothyroid SNOMED Code(s): 09241341 Code(s): E03.9 - HYPOTHYROIDISM, UNSPECIFIED Status: Acute Priority: Low Current Visit: Yes Qualifiers: Hypothyroidism type: unspecified Qualified Code(s): E03.9 - Hypothyroidism, unspecified Annotation/Comment:: TSH normal during this hospitalization. Continue current therapy. (8) Crohns disease SNOMED Code(s): 27306959 Code(s): K50.90 - CROHN'S DISEASE, UNSPECIFIED, WITHOUT COMPLICATIONS Status: Chronic Priority: Low Current Visit: No Qualifiers: Gastrointestinal tract location: small intestine Digestive disease complication type: without complications Annotation/Comment:: Stable at this time. Multiple previous surgeries. (9) COPD (chronic obstructive pulmonary disease) SNOMED Code(s): 25460975 Code(s): J44.9 - CHRONIC OBSTRUCTIVE PULMONARY DISEASE, UNSPECIFIED Status: Chronic Priority: Medium Current Visit: No Qualifiers: COPD type: COPD with acute lower respiratory infection Qualified Code(s): J44.0 - Chronic obstructive pulmonary disease with (acute) lower respiratory infection Annotation/Comment:: Has nocturnal O2 at home. Was stable prior to recent Covid infection. (10) IDDM (insulin dependent diabetes mellitus) SNOMED Code(s): 80970244 Code(s): E11.9 - TYPE 2 DIABETES MELLITUS WITHOUT COMPLICATIONS; Z79.4 - CORROSION TECHNICIAN (CURRENT) USE OF INSULIN Status: Chronic Priority: Medium Current Visit: Yes Annotation/Comment:: Blood sugar somewhat elevated during this hospitalization with close monitoring of her blood glucose and utilize sliding scale insulin secondary to her IV dexamethasone treatment for Covid with previous history of chronic oral prednisone prior to admission. Accu-Cheks improved on 03/20. (11) Need for comfort care SNOMED Code(s): 811449002, 494148681 Code(s): HLA5006 - Status: Chronic Priority: High Current Visit: Yes Annotation/Comment:: Note comfort care with prognosis guarded secondary to current chemotherapy, multiple myeloma, and current COVID-19 infection. (12) Multiple myeloma SNOMED Code(s): 616960985 Code(s): C90.00 - MULTIPLE MYELOMA NOT HAVING ACHIEVED REMISSION Status: Chronic Priority: Medium Current Visit: Yes Qualifiers: Multiple myeloma remission status: not in remission Qualified Code(s): C90.00 - Multiple myeloma not having achieved remission Annotation/Comment:: Immunosuppressed/receives chemo at [facility]. Note oncology consultation as above by [facility]/admitting physician. (13) Current every day smoker SNOMED Code(s): 096487005, 530398082 Code(s): F17.200 - NICOTINE DEPENDENCE, UNSPECIFIED, UNCOMPLICATED Status: Chronic Priority: Medium Current Visit: Yes Annotation/Comment:: Smokes 1PPD (14) Warfarin anticoagulation SNOMED Code(s): 85198155, 031241292, 716980340 Code(s): Z79.01 - CORROSION TECHNICIAN (CURRENT) USE OF ANTICOAGULANTS Status: Chronic Priority: Medium Current Visit: Yes Annotation/Comment:: Subtherapeutic INR upon initial evaluation. Today at 3.1 Recheck tomorrow 11/14. - Problem List Review Problem List Initiated/Reviewed/Updated: Yes - My Orders Last 24 Hours: My Active Orders 03/21/20 22:00 Heparin Sodium [Heparin Lock Flush 100 Units/ML] 500 units FLUSH BID@03/22/20 16:13 Dextrose 50% in Water 50 ml IV ASDIRECTED PRN Glucagon,Human Recombinant [GlucaGen] 1 mg IM ASDIRECTED PRN 03/22/20 18:00 Insulin Regular, Human [HumuLIN R] See Protocol SUBCUT BID 03/23/20 05:11 INR,PT,PROTHROMBIN TIME [COAG] AM - Assessment Assessment:: As above - Plan Plan:: As above. Extensive precautions were given to the patient, who is in agreement with the treatment plan. Patient receives last Remdesivir dose tonight. OK to be discharged home tomorrow. Has home O2 available for ongoing oxygen requirements. To follow up closely with PCP. To touch base with Oncology at [facility] on Wednesday to see if they are comfortable with her receiving her chemo treatment next Wednesday or if she needs to postpone it due to Covid.
[2020-03-22] MEDS: Levofloxacin/Dextrose 5%-Water 500 MG in Premix Bag 1 BAG IV SCH (17:07)
[2020-03-22] MEDS: Insulin Regular, Human 100 Units/ML 3 ML Vial SUBCUT SCH (17:15)
[2020-03-22] MEDS: REMDESIVIR 100 MG in Sodium Chloride 0.9% 250 ML IV SCH (20:15)
[2020-03-22] MEDS: Warfarin 5 MG Tab PO SCH (20:17)
[2020-03-22] MEDS: Sertraline 50 MG Tab PO SCH (20:19)
[2020-03-22] MEDS: Magnesium Oxide 400 MG Tab PO SCH (20:20)
[2020-03-22] MEDS: Simvastatin 20 MG Tab PO SCH (20:20)
[2020-03-22] MEDS: Insulin Glarg,Human.Rec.Analog 100 Unit/ML SUBCUT SCH (21:02)
[2020-03-22] MEDS: Temazepam 15 MG Cap PO PRN (21:42)
[2020-03-22] MEDS: diphenhydrAMINE 25 MG Cap PO PRN (21:42)
[2020-03-23 08:02] VITALS: BP 122/53; PULSE 77
[2020-03-23] MEDS: Albuterol/Ipratropium 4 GM Inhalation Spray INH SCH ×2 (08:03→11:00)
[2020-03-23] MEDS: Doxycycline Monohydrate 100 MG Cap PO SCH (08:04)
[2020-03-23] MEDS: Dexamethasone 10 MG/ML SDV IVPUSH SCH (08:04)
[2020-03-23] MEDS: Folic Acid 1 MG Tab PO SCH (08:04)
[2020-03-23] MEDS: Nicotine 21 MG/24 Hr Patch TRDERM SCH (08:05)
[2020-03-23] MEDS: Aspirin 81 MG Tab.EC PO SCH (08:05)
[2020-03-23] MEDS: Insulin Regular, Human 100 Units/ML 3 ML Vial SUBCUT SCH (08:05)
[2020-03-23] MEDS: Pantoprazole 40 MG Vial IVPUSH SCH (08:06)
[2020-03-23] MEDS: Potassium Chloride 10 MEQ Tab.ER PO SCH (08:06)
[2020-03-23] MEDS: Furosemide 20 MG/2 ML VIAL IVPUSH SCH (08:06)
[2020-03-23] MEDS: Famotidine 20 MG/2 ML SDV IVPUSH SCH (08:06)
[2020-03-23] MEDS: valACYclovir 1,000 MG Tab PO SCH (08:07)
[2020-03-23] MEDS: Cholecalciferol (Vitamin D3) 5,000 UNIT Tab PO SCH (08:07)
[2020-03-23] MEDS: Zinc (Zinc Gluconate) 50 MG Tab PO SCH (08:07)
[2020-03-23] MEDS: Ascorbic Acid 500 MG Tab PO SCH (08:07)
[2020-03-23] MEDS: Sodium Chloride 0.9% 10 ML Syringe FLUSH PRN ×3 (08:08→10:13)
[2020-03-23 09:25] LABS: CHLORIDE,CL 113 mmol/L (98-107); SODIUM,NA 146 mmol/L (136-145)
--- NOTE | 2020-03-23 09:58 | PCM.DCSUM1 ---
Discharge Summary - Hospital Course Free Text/Narrative:: Pt admitted with Covid-19 Is on supplemental oxygen but does use this at home prior to admit Has been on antibiotics and will be on Levaquin after discharge Will monitor glucose at home Pt done with Covid quarantine today Diagnosis: Stroke: No - Discharge Data Discharge Date: 03/23/20 Discharge Disposition: Home, Self-Care 01 Condition: Good - Referral to Home Health Primary Care Physician: Johanne Waters NP - Discharge Diagnosis/Problem(s) (1) COVID-19 SNOMED Code(s): 942156646 ICD Code: U07.1 - COVID-19 Status: Acute Priority: High Current Visit: Yes Onset Date: ~03/15/20 Problem Details: Covid + with IV Remdesivir and Dexamethasone on admission. Dr. Oseguera did review patient and treatment options with from [facility] on admission. He recommended adding Levaquin given patient's immunocompromised status. Extended hospitalization likely required secondary to patient's IV remdesivir, etc. therapy as above. Further oncology consultation depending on her clinical course. CRP is elevated on 03/20. Continue daily blood work as per remdesivir protocol. (2) Pneumonia SNOMED Code(s): 614725588 ICD Code: J18.9 - PNEUMONIA, UNSPECIFIED ORGANISM Status: Acute Priority: High Current Visit: Yes Onset Date: 08/22/15 Problem Details: Sepsis criteria met once again during the morning of 03/19 with additional IV Rocephin and oral doxycycline initiated especially in light of her current COVID-19 infection. Patient is having some mild diarrhea possibly secondary to her Rocephin with consideration of change to IV vancomycin therapy depending on her clinical course. She is still having problems obtaining an adequate sputum specimen. CRP is mildly elevated on 03/20 and she is still O2 dependent. Blood culture results are negative to this point. Patient slowly improving during this hospitalization with continuation of incentive spirometry. Repeat chest x- ray on 03/21. Pt to be discharged on oral Levaquin at home Qualifiers: Pneumonia type: due to Pneumococcus Laterality: right Lung location: middle lobe of lung Qualified Code(s): J13 - Pneumonia due to Streptococcus pneumoniae - Patient Summary/Data Consults: Consultations 03/18/20 18:46 OT Evaluation and Treatment [CONS] Routine PT Evaluation and Treatment [CONS] Routine - Patient Instructions Diet: Usual Diet as Tolerated Activity: As Tolerated Notify Provider of: Fever Other/Special Instructions: Follow up in clinic and with oncology clinic. Monitor blood sugar at home and hold evening insulin - Discharge Plan *PRESCRIPTION DRUG MONITORING PROGRAM REVIEWED*: No *COPY OF PRESCRIPTION DRUG MONITORING REPORT IN PATIENT NOÉ: No Prescriptions/Med Rec: levoFLOXacin [Levaquin] 500 mg PO DAILY #2 tab Home Medications: Home Meds Levothyroxine Sodium [Levoxyl] 25 mcg PO MOWEFR@1100 07/23/13 [History] Simvastatin 40 mg PO BEDTIME 07/23/13 [History] Insulin Detemir [Levemir] 20 unit SUBCUT BEDTIME 09/17/17 [History] Aspirin [Halfprin] 81 mg PO DAILY 12/18/17 [History] Melatonin/Pyridoxine HCl (B6) [Melatonin 5 mg Tablet] 5 mg PO ASDIRECTED 03/10/18 [History] Sertraline HCl 1.5 tab PO BEDTIME 03/10/18 [History] Albuterol Sulfate [Proair Respiclick] 1 - 2 puff IH Q4H PRN 03/12/18 [History] Albuterol [Proventil Neb Soln] 3 ml INH Q4HR PRN 03/12/18 [History] Calcium Carbonate/Vitamin D3 [Calcium 600 + Vit D Tablet] 1 each PO BID 03/12/18 [History] Cyanocobalamin (Vitamin B-12) [Cyanocobalamin Injection] 1,000 mcg IJ Q30D 03/12/18 [History] Warfarin [Coumadin] 5 mg PO BEDTIME 03/12/18 [History] Arformoterol [Brovana] 15 mcg IH BID 10/15/18 [History] Cholecalciferol (Vitamin D3) [D3-2000] 2,000 unit PO DAILY 10/15/18 [History] Diphenoxylate HCl/Atropine [Lomotil] 1 tab PO Q6H PRN 10/15/18 [History] Nicotine Polacrilex [Nicotine Lozenge] 2 mg BC Q6H PRN 10/15/18 [History] valACYclovir HCl [Valtrex] 500 mg PO BID@0820 10/15/18 [History] Folic Acid 1 mg PO DAILY 12/23/18 [History] dexAMETHasone [Dexamethasone] 5 tab PO WEEKLY 12/23/18 [History] Acetaminophen/Diphenhydramine [Tylenol Pm Ex-Strength Caplet] 1 each PO BEDTIME PRN 03/18/20 [History] Budesonide [Pulmicort] 0.5 mg IH BID 03/18/20 [History] Levothyroxine 37.5 mcg PO SUTUTHSA@11 03/18/20 [History] Magnesium Oxide 800 mg PO BEDTIME 03/18/20 [History] Megestrol [Megace 40 MG/ML Susp] 10 ml PO DAILY PRN 03/18/20 [History] Multivitamin [Multi-Day Vitamins] 1 each PO DAILY 03/18/20 [History] Nystatin 30 ml PO DAILY PRN 03/18/20 [History] Potassium Chloride [Klor-Con 10] 30 meq PO DAILY 03/18/20 [History] diphenhydrAMINE HCL [Benadryl] 25 mg PO Q6H PRN 03/18/20 [History] levoFLOXacin [Levaquin] 500 mg PO DAILY #2 tab 03/22/20 [Rx] Oxygen Therapy Mode: Nasal Cannula Oxygen Flow Rate (L/min): 2 Forms: ED Department Discharge Referrals: Johanne Waters [employer] [Primary Care Provider] - - Discharge Summary/Plan Comment DC Time >30 min.: No - General Info Date of Service: 03/23/20 Admission Dx/Problem (Free Text: Pt stable for discharge Will use oxygen at home as needed Rx Levaquin for use after discharge - Review of Systems Pulmonary: Reports: Shortness of Breath, Cough Cardiovascular: Reports: No Symptoms Gastrointestinal: Reports: No Symptoms Genitourinary: Reports: No Symptoms Musculoskeletal: Reports: No Symptoms - Patient Data Vitals - Most Recent: Last Vital Signs Temp 98.4 F 03/23/20 08:01 Pulse 77 03/23/20 08:01 Resp 16 03/23/20 08:01 BP 122/53 L 03/23/20 08:01 Pulse Ox 97 03/23/20 08:01 Weight - Most Recent: 121 lb 6.396 oz I&O - Last 24 hours: Intake & Output 03/22/20 03/23/20 03/23/20 18:59 02:59 10:59 Intake Total 800 670 Output Total 1200 500 Balance -400 170 Lab Results - Last 24 hrs: Laboratory Results - last 24 hr 03/22/20 03/22/20 03/22/20 Range/Units 11:06 17:06 20:23 WBC (4.0-10.2) K/uL RBC (3.77-5.09) M/uL Hgb (11.7-15.5) g/dL Hct (34.0-46.0) % MCV (84.0-98.0) fL MCH (28.2-33.3) pg MCHC (31.7-36.0) g/dL RDW (11.2-14.1) % Plt Count (150-350) K/uL Neut % (Auto) (45.0-80.0) % Lymph % (Auto) (10.0-50.0) % [place] % (Auto) (2.0-14.0) % Eos % (Auto) (0.0-5.0) % Baso % (Auto) (0.0-2.0) % Neut # (Auto) (1.40-7.00) K/uL Lymph # (Auto) (0.50-3.50) K/uL [place] # (Auto) (0.00-1.00) K/uL Eos # (Auto) (0.00-0.50) K/uL Baso # (Auto) (0.00-0.20) K/uL PT (9.5-12.0) SEC INR Sodium (136-145) mmol/L Potassium (3.5-5.1) mmol/L Chloride (98-107) mmol/L Carbon Dioxide (21.0-32.0) mmol/L BUN (7-18) mg/dL Creatinine (0.51-1.17) mg/dL Est Cr Clr Drug Dosing mL/min Estimated GFR (MDRD) mL/min Glucose (74-106) mg/dL POC Glucose 171 H 291 H* 131 H (65-110) mg/dl Calcium (8.5-10.1) mg/dL Total Bilirubin (0.2-1.0) mg/dL AST (15-37) U/L ALT (12-78) U/L Alkaline Phosphatase (46-116) IU/L Total Protein (6.4-8.2) g/dL Albumin (3.4-5.0) g/dL 03/23/20 03/23/20 03/23/20 Range/Units 08:15 08:15 08:15 WBC 3.6 L (4.0-10.2) K/uL RBC 2.62 L (3.77-5.09) M/uL Hgb 8.5 L (11.7-15.5) g/dL Hct 27.3 L (34.0-46.0) % MCV 104.2 H (84.0-98.0) fL MCH 32.4 (28.2-33.3) pg MCHC 31.1 L (31.7-36.0) g/dL RDW 14.9 H (11.2-14.1) % Plt Count 158 (150-350) K/uL Neut % (Auto) 48.4 (45.0-80.0) % Lymph % (Auto) 44.0 (10.0-50.0) % [place] % (Auto) 7.3 (2.0-14.0) % Eos % (Auto) 0.3 (0.0-5.0) % Baso % (Auto) 0.0 (0.0-2.0) % Neut # (Auto) 1.73 (1.40-7.00) K/uL Lymph # (Auto) 1.57 (0.50-3.50) K/uL [place] # (Auto) 0.26 (0.00-1.00) K/uL Eos # (Auto) 0.01 (0.00-0.50) K/uL Baso # (Auto) 0.00 (0.00-0.20) K/uL PT 28.6 H (9.5-12.0) SEC INR 3.0 Sodium 146 H (136-145) mmol/L Potassium 4.1 (3.5-5.1) mmol/L Chloride 113 H (98-107) mmol/L Carbon Dioxide 25.5 (21.0-32.0) mmol/L BUN 22 H (7-18) mg/dL Creatinine 0.78 (0.51-1.17) mg/dL Est Cr Clr Drug Dosing 50.84 mL/min Estimated GFR (MDRD) > 60 mL/min Glucose 69 L (74-106) mg/dL POC Glucose (65-110) mg/dl Calcium 7.2 L (8.5-10.1) mg/dL Total Bilirubin 0.1 L (0.2-1.0) mg/dL AST 16 (15-37) U/L ALT 20 (12-78) U/L Alkaline Phosphatase 60 (46-116) IU/L Total Protein 6.4 (6.4-8.2) g/dL Albumin 2.4 L (3.4-5.0) g/dL LANI Results - Last 24 hrs: Microbiology 03/18/20 16:00 Aerobic Blood Culture - Preliminary Blood - Venous - Lab Draw NO GROWTH AFTER 4 DAYS Anaerobic Blood Culture - Preliminary NO GROWTH AFTER 4 DAYS 03/18/20 15:35 Aerobic Blood Culture - Preliminary Blood - Venous NO GROWTH AFTER 4 DAYS Anaerobic Blood Culture - Preliminary NO GROWTH AFTER 4 DAYS Med Orders - Current: Current Medications Acetaminophen (Tylenol) 650 mg PO Q4H PRN PRN Reason: Pain/Fever Last Admin: 03/21/20 14:53 Dose: 650 mg Documented by: Albuterol (Proventil Hfa) 0 gm INH Q2H PRN PRN Reason: Shortness of Breath Albuterol/Ipratropium (Combivent Respimat) 0 gm INH QIDRT [facility] Last Admin: 03/23/20 08:03 Dose: 2 inhalation Documented by: Ascorbic Acid (Vitamin C) 1,000 mg PO BID [facility] Last Admin: 03/23/20 08:07 Dose: 1,000 mg Documented by: Aspirin (Halfprin) 81 mg PO DAILY [facility] Last Admin: 03/23/20 08:05 Dose: 81 mg Documented by: Cholecalciferol (Vitamin D3) 5,000 unit PO DAILY [facility] Last Admin: 03/23/20 08:07 Dose: 5,000 unit Documented by: Dexamethasone (Decadron) 6 mg IVPUSH DAILY [facility] Last Admin: 03/23/20 08:04 Dose: 6 mg Documented by: Dextrose/Water (Dextrose 50% In Water) 50 ml IV ASDIRECTED PRN PRN Reason: Hypoglycemia Dextrose/Water (Dextrose 50% In Water) 50 ml IV ASDIRECTED PRN PRN Reason: Hypoglycemia Diphenhydramine HCl (Benadryl) 25 mg PO Q6H PRN PRN Reason: rash/allergy Last Admin: 03/22/20 21:42 Dose: 25 mg Documented by: Diphenoxylate HCl/Atropine (Lomotil 0.025-2.5 Mg) 1 tab PO Q6H PRN PRN Reason: Diarrhea Doxycycline Monohydrate (Doxycycline Monohydrate) 100 mg PO BID [facility] Last Admin: 03/23/20 08:04 Dose: 100 mg Documented by: Famotidine (Pepcid) 20 mg IVPUSH DAILY [facility] Last Admin: 03/23/20 08:06 Dose: 20 mg Documented by: Folic Acid (Folic Acid) 1 mg PO DAILY [facility] Last Admin: 03/23/20 08:04 Dose: 1 mg Documented by: Furosemide (Lasix) 20 mg IVPUSH DAILY [facility] Last Admin: 03/23/20 08:06 Dose: 20 mg Documented by: Glucagon (Glucagen) 1 mg IM ASDIRECTED PRN PRN Reason: Hypoglycemia Heparin Sodium (Porcine) (Heparin Lock Flush 100 Units/Ml) 500 units FLUSH ASDIRECTED PRN PRN Reason: after port use Last Admin: 03/23/20 08:09 Dose: 500 units Documented by: Heparin Sodium (Porcine) (Heparin Lock Flush 100 Units/Ml) 500 units FLUSH BID@10,22 [facility] Last Admin: 03/22/20 21:39 Dose: 500 units Documented by: Levofloxacin/Dextrose 500 mg/ (Premix) 100 mls @ 100 mls/hr IV Q24H [facility] Last Admin: 03/22/20 17:07 Dose: 100 mls/hr Documented by: Ceftriaxone Sodium 1 gm/ (Sodium Chloride) 100 mls @ 200 mls/hr IV Q12H [facility] Last Admin: 03/22/20 21:38 Dose: 200 mls/hr Documented by: Insulin Glargine (Lantus) 20 unit SUBCUT BEDTIME [facility] Last Admin: 03/22/20 21:02 Dose: Not Given Documented by: Insulin Human Regular (Humulin R) 0 unit SUBCUT BID [facility]; Protocol Last Admin: 03/23/20 08:05 Dose: Not Given Documented by: Levothyroxine Sodium (Levothyroxine) 37.5 mcg PO SUTUTHSA@11 [facility] Last Admin: 03/21/20 11:35 Dose: 37.5 mcg Documented by: Levothyroxine Sodium (Levothyroxine) 25 mcg PO MOWEFR@1100 [facility] Last Admin: 03/22/20 11:04 Dose: 25 mcg Documented by: Magnesium Oxide (Magnesium Oxide) 800 mg PO BEDTIME [facility] Last Admin: 03/22/20 20:20 Dose: 800 mg Documented by: Megestrol Acetate (Megace 40 Mg/Ml Susp) 400 mg PO DAILY PRN PRN Reason: appetite Miscellaneous Information (Remove Patch) 1 ea TRDERM Q24H [facility] Last Admin: 03/23/20 08:07 Dose: 1 ea Documented by: Nicotine (Habitrol) 21 mg TRDERM DAILY [facility] Last Admin: 03/23/20 08:05 Dose: 21 mg Documented by: Ondansetron HCl (Zofran) 4 mg IVPUSH Q6H PRN PRN Reason: Nausea/Vomiting Last Admin: 03/21/20 08:07 Dose: 4 mg Documented by: Pantoprazole Sodium (Protonix Iv) 40 mg IVPUSH Q12HR [facility] Last Admin: 03/23/20 08:06 Dose: 40 mg Documented by: Potassium Chloride (Klor-Con 10) 30 meq PO BID [facility] Last Admin: 03/23/20 08:06 Dose: 30 meq Documented by: Sertraline HCl (Zoloft) 150 mg PO BEDTIME [facility] Last Admin: 03/22/20 20:19 Dose: 150 mg Documented by: Simvastatin (Zocor) 40 mg PO BEDTIME [facility] Last Admin: 03/22/20 20:20 Dose: 40 mg Documented by: Sodium Chloride (Saline Flush) 10 ml FLUSH ASDIRECTED PRN PRN Reason: Keep Vein Open Last Admin: 03/23/20 08:09 Dose: 10 ml Documented by: Temazepam (Restoril) 15 mg PO BEDTIME PRN PRN Reason: Insomnia Last Admin: 03/22/20 21:42 Dose: 15 mg Documented by: Valacyclovir HCl (Valtrex) 500 mg PO BID@0800,1999 [facility] Last Admin: 03/23/20 08:07 Dose: 500 mg Documented by: Warfarin Sodium (Coumadin) 5 mg PO BEDTIME [facility] Last Admin: 03/22/20 20:17 Dose: 5 mg Documented by: Zinc Gluconate (Zinc) 50 mg PO DAILY [facility] Last Admin: 03/23/20 08:07 Dose: 50 mg Documented by: Discontinued Medications Acetaminophen (Tylenol) Confirm Administered Dose 650 mg .ROUTE .STK-MED ONE Stop: 03/18/20 18:20 Last Admin: 03/18/20 18:27 Dose: Not Given Documented by: Albuterol (Proventil Hfa) 0 gm INH Q2H PRN PRN Reason: Shortness of Breath Albuterol/Ipratropium (Combivent Respimat) 0 gm INH QIDRT [facility] Albuterol/Ipratropium (Combivent Respimat) 0 gm INH QIDRT [facility] Last Admin: 03/19/20 17:31 Dose: 1 puff Documented by: Arformoterol Tartrate (Brovana) 15 mcg INH BIDRT [facility] Last Admin: 03/18/20 20:37 Dose: Not Given Documented by: Ascorbic Acid (Vitamin C) 1,000 mg PO ONETIME ONE Stop: 03/18/20 16:55 Last Admin: 03/18/20 18:26 Dose: 1,000 mg Documented by: Cholecalciferol (Vitamin D3) 10,000 unit PO ONETIME ONE Stop: 03/18/20 16:57 Last Admin: 03/18/20 18:27 Dose: 10,000 unit Documented by: Cholecalciferol (Vitamin D3) 10,000 unit PO ONETIME ONE Stop: 03/20/20 08:01 Cholecalciferol (Vitamin D3) 10,000 unit PO ONETIME ONE Stop: 03/19/20 08:01 Last Admin: 03/19/20 08:31 Dose: 10,000 unit Documented by: Furosemide (Lasix) 20 mg IVPUSH DAILY [facility] Last Admin: 03/20/20 12:42 Dose: Not Given Documented by: Glucagon (Glucagen) 1 mg IM ASDIRECTED PRN PRN Reason: Hypoglycemia Sodium Chloride (Normal Saline) 1,000 mls @ 250 mls/hr IV ASDIRECTED [facility] Stop: 03/18/20 20:29 Last Admin: 03/18/20 16:36 Dose: 250 mls/hr Documented by: Magnesium Sulfate/Dextrose 1 (gm/ Premix) 100 mls @ 100 mls/hr IV ONETIME ONE Stop: 03/18/20 17:53 Last Admin: 03/18/20 18:24 Dose: 100 mls/hr Documented by: Remdesivir 100 mg/ Sodium (Chloride) 100 mls @ 100 mls/hr IV Q24H [facility] Stop: 03/21/20 19:59 Last Admin: 03/18/20 20:32 Dose: Not Given Documented by: Levofloxacin/Dextrose 500 mg/ (Premix) 100 mls @ 100 mls/hr IV Q24H [facility] Last Admin: 03/18/20 20:14 Dose: 100 mls/hr Documented by: Remdesivir 100 mg/ Sodium (Chloride) 100 mls @ 100 mls/hr IV Q24H [facility] Stop: 03/22/20 20:59 Last Admin: 03/19/20 21:33 Dose: Not Given Documented by: Remdesivir 200 mg/ Sodium (Chloride) 250 mls @ 250 mls/hr IV ONETIME ONE Stop: 03/18/20 20:49 Last Admin: 03/18/20 20:24 Dose: Not Given Documented by: Remdesivir (Remdesivir (Eua)) Confirm Administered Dose 40 mls @ as directed .ROUTE .STK-MED ONE Stop: 03/18/20 19:40 Last Admin: 03/21/20 18:25 Dose: Not Given Documented by: Ceftriaxone Sodium 1 gm/ (Sodium Chloride) 100 mls @ 200 mls/hr IV Q12H [facility] Last Admin: 03/20/20 12:43 Dose: 200 mls/hr Documented by: Remdesivir (Remdesivir (Eua)) Confirm Administered Dose 20 mls @ as directed .ROUTE .STK-MED ONE Stop: 03/19/20 20:43 Last Admin: 03/19/20 21:25 Dose: Not Given Documented by: Remdesivir 100 mg/ Sodium (Chloride) 270 mls @ as directed IV .STK-MED ONE Stop: 03/19/20 22:11 Remdesivir 100 mg/ Sodium (Chloride) 270 mls @ 270 mls/hr IV Q24H [facility] Stop: 03/22/20 20:01 Last Admin: 03/22/20 20:15 Dose: 270 mls/hr Documented by: Sodium Chloride (Normal Saline) 250 mls @ 999 mls/hr IV ASDIRECTED [facility] Insulin Human Lispro (Humalog) 0 unit SUBCUT TID [facility]; Protocol Last Admin: 03/22/20 11:09 Dose: 2 units Documented by: Miscellaneous Information (Remove Patch) 1 ea TRDERM Q24H [facility] Nicotine (Habitrol) 21 mg TRDERM DAILY [facility] Last Admin: 03/19/20 08:22 Dose: 21 mg Documented by: Potassium Chloride (Klor-Con 10) 30 meq PO DAILY [facility] Last Admin: 03/20/20 07:56 Dose: 30 meq Documented by: Valacyclovir HCl (Valtrex) 500 mg PO BID@0820 [facility] Last Admin: 03/19/20 08:31 Dose: 500 mg Documented by: Warfarin Sodium (Coumadin) 5 mg PO BEDTIME [facility] Last Admin: 03/18/20 20:16 Dose: 5 mg Documented by: Warfarin Sodium (Coumadin) 5 mg PO ONETIME ONE Stop: 03/18/20 19:05 Last Admin: 03/18/20 20:36 Dose: Not Given Documented by: Warfarin Sodium (Coumadin) 10 mg PO ONETIME ONE Stop: 03/19/20 13:01 Last Admin: 03/19/20 12:53 Dose: 10 mg Documented by: Zinc Gluconate (Zinc) 50 mg PO ONETIME ONE Stop: 03/18/20 16:55 Last Admin: 03/18/20 18:25 Dose: 50 mg Documented by: - Exam Quality Assessment: Reports: Supplemental Oxygen General: Reports: Alert, Oriented Lungs: Reports: Decreased Breath Sounds Cardiovascular: Reports: Regular Rate, Irregular Rhythm GI/Abdominal Exam: Non-Tender
[2020-03-23] MEDS ORDERED: Loperamide 2 MG Tab PO ONE (09:59)
[2020-03-23] MEDS: cefTRIAXone 1 GM in Sodium Chloride 0.9% 100 ML IV SCH (10:12)
[2020-03-23] MEDS: Levothyroxine 75 MCG Tab PO SCH (10:56)
== END 2020-03-23 12:50 | disposition home or self-care (01) | DRG 871 ==
LOC: LL.ED 15:02 → UNDOADMIN 17:11 → LL.MS 17:11
PROVIDERS: ADMIT Emergency Medicine; ATTEND Family Medicine
PROC: XW033E5 Introduction of Remdesivir Anti-infective into Peripheral Vein, Percutaneous Approach, New Technology Group 5 (ICD-10-PCS; principal; 2020-03-18)
PROC: 8E0ZXY6 Isolation (ICD-10-PCS; principal; 2020-03-18)
DX: R50.9 Fever, unspecified (principal); A41.89 Other specified sepsis; U07.1 COVID-19; J13 Pneumonia due to Streptococcus pneumoniae; D84.9 Immunodeficiency, unspecified; C90.00 Multiple myeloma not having achieved remission; J44.0 Chronic obstructive pulmonary disease with (acute) lower respiratory infection; K50.90 Crohn's disease, unspecified, without complications; I50.42 Chronic combined systolic (congestive) and diastolic (congestive) heart failure; J44.1 Chronic obstructive pulmonary disease with (acute) exacerbation; D61.818 Other pancytopenia; E11.9 Type 2 diabetes mellitus without complications; Z51.5 Encounter for palliative care; I11.0 Hypertensive heart disease with heart failure; F17.200 Nicotine dependence, unspecified, uncomplicated; E83.51 Hypocalcemia; E03.9 Hypothyroidism, unspecified; F17.210 Nicotine dependence, cigarettes, uncomplicated; F41.9 Anxiety disorder, unspecified; F32.9 Major depressive disorder, single episode, unspecified; M19.90 Unspecified osteoarthritis, unspecified site; K21.9 Gastro-esophageal reflux disease without esophagitis; E83.42 Hypomagnesemia; I25.10 Atherosclerotic heart disease of native coronary artery without angina pectoris; E11.51 Type 2 diabetes mellitus with diabetic peripheral angiopathy without gangrene; Z79.890 Hormone replacement therapy; Z79.82 Long term (current) use of aspirin; Z79.4 Long term (current) use of insulin; Z79.899 Other long term (current) drug therapy; Z79.01 Long term (current) use of anticoagulants; Z88.8 Allergy status to other drugs, medicaments and biological substances
CPT/HCPCS: 36415; 71045; 80053; 81001; 82550; 82553; 82607; 82728; 82962; 83540; 83550; 83605; 83735; 83880; 84443; 84484; 85025; 85379; 85610; 86140; 87040; 87804; 93005; 93010; 94640; 96365; 97110-GP; 97161-GP; 99222; 99232; 99238; 99285-25; A9270-GY; C9113; J0696; J1100; J1642; J1815-GY; J1940; J1956; J2405; J3475; J3490; J7030; J7050; U0002

== ENCOUNTER 2020-03-30 20:26 | Emergency (ER) | payer MEDICARE, OTHER ==
[2020-03-30] MEDS ORDERED: Acetaminophen 325 MG Tab PO PRN (20:46)
--- NOTE | 2020-03-30 21:02 | EDM.PDOC ---
ED HPI GENERAL MEDICAL PROBLEM - General Chief Complaint: Fever Stated Complaint: Fever, SOB Time Seen by Provider: 03/30/20 20:28 Source of Information: Reports: Patient, Family History Limitations: Reports: No Limitations - History of Present Illness INITIAL COMMENTS - FREE TEXT/NARRATIVE: Patient brought to ER due to recent fevers. Temp 102 two days ago. 101 today. Slept most of day. Noted to be sleeping a lot more than usual over the past week. Daughter feels patient has been intermittently confused recently. Inpatient here recently after being diagnosed with Covid-March 20. Discharged home on . Received Dexamethasone/Remdesivir/Levaquin during stay. Has been using 3L of O2 at home. Smoker. COPD. [place] a bit more SOB earlier this evening but says that went away. Was started on Doxy two days ago at clinic as clinician felt there may be developing bacterial pneumonia on xray. Review of formal Radiology report notes no acute pneumonia or other changes. Some chills earlier today. No urinary symptoms. Still has congested cough from the recent Covid infection. No GI changes reported. No new HEENT changes. No body aches. No other acute changes reported. Has missed her chemo for Multiple Myeloma at [facility] for the past two weeks. - Related Data Allergies Allergy/AdvReac Type Severity Reaction Status Date / Time ezetimibe Allergy Cannot Verified 03/18/20 17:12 [From Vytorin 10-10] Remember lisinopril Allergy Cannot Verified 03/18/20 17:12 Remember metformin Allergy Diarrhea Verified 03/18/20 17:12 pioglitazone HCl [From Actos] Allergy Cannot Verified 03/18/20 17:12 Remember rosuvastatin calcium Allergy Diarrhea Verified 03/18/20 17:12 [From Crestor] simvastatin Allergy Cannot Verified 03/18/20 17:12 [From Vytorin 10-10] Remember Home Meds: Home Meds Levothyroxine Sodium [Levoxyl] 25 mcg PO MOWEFR@1100 07/23/13 [History] Simvastatin 40 mg PO BEDTIME 07/23/13 [History] Insulin Detemir [Levemir] 20 unit SUBCUT BEDTIME 09/17/17 [History] Aspirin [Halfprin] 81 mg PO DAILY 12/18/17 [History] Melatonin/Pyridoxine HCl (B6) [Melatonin 5 mg Tablet] 5 mg PO ASDIRECTED 03/10/18 [History] Sertraline HCl 1.5 tab PO BEDTIME 03/10/18 [History] Albuterol Sulfate [Proair Respiclick] 1 - 2 puff IH Q4H PRN 03/12/18 [History] Albuterol [Proventil Neb Soln] 3 ml INH Q4HR PRN 03/12/18 [History] Calcium Carbonate/Vitamin D3 [Calcium 600 + Vit D Tablet] 1 each PO BID 03/12/18 [History] Cyanocobalamin (Vitamin B-12) [Cyanocobalamin Injection] 1,000 mcg IJ Q30D 03/12/18 [History] Warfarin [Coumadin] 5 mg PO BEDTIME 03/12/18 [History] Arformoterol [Brovana] 15 mcg IH BID 10/15/18 [History] Cholecalciferol (Vitamin D3) [D3-2000] 2,000 unit PO DAILY 10/15/18 [History] Diphenoxylate HCl/Atropine [Lomotil] 1 tab PO Q6H PRN 10/15/18 [History] Nicotine Polacrilex [Nicotine Lozenge] 2 mg BC Q6H PRN 10/15/18 [History] valACYclovir HCl [Valtrex] 500 mg PO BID@0820 10/15/18 [History] Folic Acid 1 mg PO DAILY 12/23/18 [History] dexAMETHasone [Dexamethasone] 5 tab PO WEEKLY 12/23/18 [History] Acetaminophen/Diphenhydramine [Tylenol Pm Ex-Strength Caplet] 1 each PO BEDTIME PRN 03/18/20 [History] Budesonide [Pulmicort] 0.5 mg IH BID 03/18/20 [History] Levothyroxine 37.5 mcg PO SUTUTHSA@11 03/18/20 [History] Magnesium Oxide 800 mg PO BEDTIME 03/18/20 [History] Megestrol [Megace 40 MG/ML Susp] 10 ml PO DAILY PRN 03/18/20 [History] Multivitamin [Multi-Day Vitamins] 1 each PO DAILY 03/18/20 [History] Nystatin 30 ml PO DAILY PRN 03/18/20 [History] Potassium Chloride [Klor-Con 10] 30 meq PO DAILY 03/18/20 [History] diphenhydrAMINE HCL [Benadryl] 25 mg PO Q6H PRN 03/18/20 [History] levoFLOXacin [Levaquin] 500 mg PO DAILY #2 tab 03/22/20 [Rx] Insulin Detemir [Levemir Flextouch] 13 unit SQ BEDTIME #10 insuln.pen 03/25/20 [Rx] Past Medical History HEENT History: Reports: Allergic Rhinitis, Cataract, Impaired Vision, Other (See Below) Other HEENT History: Allergic rhinitis not currently being treated; patient wears glasses. Cardiovascular History: Reports: Afib, Arrhythmia, CAD, Cardiomyopathy, Heart Failure, Heart Murmur, High Cholesterol, Hypertension, PVD, Other (See Below) Other Cardiovascular History: Varicose veins of the lower extremities. Dyslipidemia. Minimal carotid occlusive disease. PVCs. Grade 1 diastolic dysfunction by echocardiogram. Mild aortic valve stenosis by clinical exam with otherwise minimal diffuse vascular disease by echocardiogram. History of d-dimer elevation in February 2018 with negative workup as below. Left atrial enlargementmild by echocardiogram. Respiratory History: Reports: Bronchitis, Recurrent, COPD, Intubation, Previous, Pneumonia, Recurrent, Pulmonary Fibrosis, Other (See Below) Other Respiratory History: O2 dependent COPD with nocturnal use usually. Bilateral pulmonary nodules history of right upper lobe pulmonary mass CT of the chest on 02/28/18. Gastrointestinal History: Reports: Bowel Obstruction, Cholelithiasis, Chronic Diarrhea, Diverticulosis, Fatty Liver, Gastritis, GERD, Helicobacter Pylori, Inflammatory Bowel Disease, Irritable Bowel Syndrome, PUD, Other (See Below) Other Gastrointestinal History: Previously treated C. difficile colitis in 2018. History of recurrent diarrhea secondary to her Crohn's disease including secondary fistula requiring surgery as below. Benign right sided hepatic hemangioma stable by serial CT scans with additional fatty liver and benign hepatic cysts. LFTs elevation likely secondary to fatty liver. Rectus muscle diastasis by CT scan. Mild dysphagia. Genitourinary History: Reports: Renal Calculus, Urinary Incontinence, UTI, Recurrent Other Genitourinary History: History of right-sided urolithiasis with nonproblematic chronic hematuria and spontaneous passage possible last episodeside unknown on 06/23/19. Additional history of benign renal cysts bilaterally. 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 Full term without complications during pregnancies or deliveries. Musculoskeletal History: Reports: Arthritis, Back Pain, Chronic, Fracture, Neck Pain, Chronic, Osteoarthritis, Osteoporosis Other Musculoskeletal History: Scoliosis. Left elbow fracture requiring surgery as below. Neurological History: Reports: Headaches, Chronic Psychiatric History: Reports: Anxiety, Depression Endocrine/Metabolic History: Reports: Diabetes, Type II, Hypokalemia, Hypomagnesemia, Hypothyroidism, IDDM, Osteoporosis, Other (See Below) Other Endocrine/Metabolic History: Hypoalbuminemia. Hematologic History: Reports: Anemia, B12 Deficiency, Other (See Below) Other Hematologic History: Pancytopenia secondary to chemotherapy for her multiple myeloma. Immunologic History: Reports: Immunosuppression, Other (See Below) Other Immunologic History: Chemotherapy for her multiple myeloma. 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 Multiple myeloma diagnosed in February 2018 with further evaluation at the [facility] in [place], including additional chemotherapy currently at [facility]. Dermatologic History: Reports: None - Infectious Disease History Infectious Disease History: Reports: Other (See Below) Other Infectious Disease History: COVID 19 - Past Surgical History Head Surgeries/Procedures: Reports: None HEENT Surgical History: Reports: Adenoidectomy, Cataract Surgery, Oral Surgery, Tonsillectomy, Other (See Below) Other HEENT Surgeries/Procedures: Tonsillectomy and adenoidectomy at age 18. Bilateral cataract surgery in March 2012. Complete teeth extraction with current dentures. Cardiovascular Surgical History: Reports: None Respiratory Surgical History: Reports: None GI Surgical History: Reports: Appendectomy, Cholecystectomy, Colon, Colonoscopy, EGD, Lysis of Adhesions, Small Bowel, Other (See Below) Other GI Surgeries/Procedures: Appendectomy with concomitant small bowel resection in about 1999 secondary to her Crohn's disease. Open cholecystectomy concomitant with her complete hysterectomy in her 50s in about 1997. Partial resection of the ascending colon in 1999 at time of small bowel resection. As colonoscopy on 01/10/15 with previous evaluations on 11/27/07 and 03/12/08. Adhesiolysis in 2005 and 2008. Repeat small bowel resection in 2001. Female Surgical History: Reports: Breast Biopsy, Hysterectomy, Salpingo- Oophorectomy, Other (See Below) Other Female Surgeries/Procedures: Breast biopsy for benign disease in the left breast in about 1999. Complete hysterectomy with bilateral salpingo- oophorectomy in her 50s for unknown reason. Endocrine Surgical History: Reports: None Neurological Surgical History: Reports: None Musculoskeletal Surgical History: Reports: ORIF, Other (See Below) Other Musculoskeletal Surgeries/Procedures:: ORIF/pin placement of the left elbow fracture 1996 Oncologic Surgical History: Reports: Biopsy of Breast, Bone Marrow Aspiration, Other (See Below) Other Oncologic Surgeries/Procedures: Breast biopsy as above for benign disease. Bone marrow fine-needle aspiration and biopsy on 04/20/19, 01/11/18, and 01/05/18. Dermatological Surgical History: Reports: None - Past Imaging History Past Imaging History: Reports: DAVID Screen (DAVID screen with exercise on 07/15/10), Cardiac Echo (Last echocardiogram on 12/27/18 with ejection fraction of 65-70% and findings as above. Previous evaluations on 02/02/18, 09/03/15, and 08/03/07.), Carotid US (07/28/11), CAT Scan (CTA of the chest on 02/28/18. CT of the chest, abdomen, and pelvis on 03/20/19, 04/29/18, and 02/28/18. CT of the abdomen and pelvis on 06/23/[address]. [address] scan of the abdomen including angiographic evaluation on 12/28/17. CT of the abdomen and pelvis on 06/07/17 with multiple previous evaluations including initially on 12/22/12. CTA of the chest and additional abdominal and pelvic CT scans on 08/25/15.), Cystoscopy (Last cystoscopy on 01/17/11 with previous evaluations on 09/04/98 and 08/21/98.), Mammogram (Last mammogram on 04/03/16.), MRI (MRI of the brain on 01/13/19.), Stress Testing (Negative Cardiolite stress test on 09/23/17 with ejection fraction of 27%.), Swallow Study (Borderline positive swallowing study on 01/05/19 previous negative swallowing study on 08/29/15.), Ultrasound (Abdominal ultrasound on 03/03/10 with previous evaluations on 09/04/28 and 08/21/98.), Upper GI X-Ray/Series, Venous Doppler (Of the legs bilaterally on 03/01/18.), Other (See Below) (Barium enema on 09/05/98 and 07/30/98. Camera colonic evaluation in about 2005.) Social & Family History - Family History HEENT: Reports: None Cardiac: Reports: Blood Clots/VTE/DVT, CAD, Heart Valve Replacement, High Cholesterol, Hypertension, NH, Other (See Below) Other Cardiac Family History: Son with DVT in his 40s with mother with DVT in her 70s and 80s. Mother with valve replacement secondary to rheumatic fever. Hyperlipidemia in son, brother, and sister. Hypertension in 4 brothers, parents, and sister. Mother with fatal NH in his 60s. 4 brothers with MIs in their 50s and 60s with one of these having a fatal NH at about age 49. Respiratory: Reports: COPD, Other (See Below) Other Respiratory Family Hisory: Brother with COPD. GI: Reports: GERD, Inflammatory Bowel Disease, Other (See Below) Other GI Family History: Son with GERD. Sister with Crohn's disease. : Reports: Renal Disease/Insufficiency, Other (See Below) Other Family History: Mother with fatal renal disease in her 90s. OBGYN: Reports: None Musculoskeletal: Reports: None Neurological: Reports: Seizure, Other (See Below) Other Neurological Family History: Son with unknown type of seizure disorder in his 40s. Sister with fatal Down's syndrome in her 50s Psychiatric: Reports: Anxiety, Depression, Other (See Below) Other Psychiatric Family History: Brother and son with anxiety depression disorder with sent having problems with alcohol abuse. Endocrine/Metabolic: Reports: Diabetes, type II, IDDM, Other (See Below) Other Endocrine/Metabolic Family History: Mother, sister, and 2 brothers with IDDM. Daughter with prediabetes. Hematologic: Reports: None Immunologic: Reports: None Dermatologic: Reports: None Oncologic: Reports: Breast, Other (See Below) Other Oncologic Family History: Mother with breast cancer in her late 60s. 2 maternal aunts with fatal cancer of unknown type - Tobacco Use Tobacco Use Status *Q: Current Every Day Tobacco User - Caffeine Use Caffeine Use: Reports: Coffee - Living Situation & Occupation Living situation: Reports: (1991 from first with 5 children from this marriage. 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 ED EXAM, GENERAL - Physical Exam Exam: See Below Exam Limited By: No Limitations General Appearance: Alert, WD/WN, No Apparent Distress Eye Exam: Bilateral Eye: EOMI, PERRL Ears: Hearing Grossly Normal Nose: No: Nasal Deformity, Nasal Swelling, Nasal Drainage Throat/Mouth: Normal Lips, Normal Voice, No Airway Compromise Head: Atraumatic, Normocephalic Neck: Supple, Non-Tender, Full Range of Motion Respiratory/Chest: No Respiratory Distress, Rhonchi (mild rhonchi noted), Wheezing (mild wheezing noted). No: Crackles, Accessory Muscle Use, Retractions Cardiovascular: Normal Peripheral Pulses, Regular Rate, Rhythm, No Murmur Peripheral Pulses: 3+: Radial (L), Radial (R) GI/Abdominal: Normal Bowel Sounds, Soft, Non-Tender, No Distention (Female) Exam: Deferred Rectal (Female) Exam: Deferred Back Exam: No: CVA Tenderness (L), CVA Tenderness (R), Muscle Spasm Extremities: Non-Tender, No Pedal Edema, Normal Capillary Refill Neurological: Alert, Oriented, Normal Cognition, Normal Gait, No Motor/Sensory Deficits Psychiatric: Normal Affect, Normal Mood Skin Exam: Warm, Dry Course - Vital Signs Last Recorded V/S: Last Vital Signs Temp 38.1 C 03/30/20 22:47 Pulse 94 03/30/20 22:47 Resp 18 03/30/20 22:47 BP 127/60 03/30/20 22:47 Pulse Ox 98 03/30/20 22:47 - Orders/Labs/Meds Orders: Active Orders 24 hr Category Date Time Status Chest 2V [CR] Stat Exams 03/30/20 20:28 Taken CULTURE BLOOD [BC] Stat Lab 03/30/20 20:50 Received CULTURE BLOOD [BC] Stat Lab 03/30/20 20:55 Received Blood Culture x2 Reflex Set [OM.PC] Stat Oth 03/30/20 20:31 Ordered Isolation [COMM] Routine Oth 03/30/20 20:32 Active Saline Lock Insert [OM.PC] Routine Oth 03/30/20 22:13 Ordered Labs: Laboratory Tests 03/30/20 03/30/20 03/30/20 Range/Units 20:31 20:50 20:50 WBC 4.1 (4.0-10.2) K/uL RBC 2.49 L (3.77-5.09) M/uL Hgb 8.1 L (11.7-15.5) g/dL Hct 25.8 L (34.0-46.0) % MCV 103.6 H (84.0-98.0) fL MCH 32.5 (28.2-33.3) pg MCHC 31.4 L (31.7-36.0) g/dL RDW 14.9 H (11.2-14.1) % Plt Count 106 L (150-350) K/uL Neut % (Auto) 75.5 (45.0-80.0) % Lymph % (Auto) 15.3 (10.0-50.0) % [place] % (Auto) 9.0 (2.0-14.0) % Eos % (Auto) 0.2 (0.0-5.0) % Baso % (Auto) 0.0 (0.0-2.0) % Neut # (Auto) 3.11 (1.40-7.00) K/uL Lymph # (Auto) 0.63 (0.50-3.50) K/uL [place] # (Auto) 0.37 (0.00-1.00) K/uL Eos # (Auto) 0.01 (0.00-0.50) K/uL Baso # (Auto) 0.00 (0.00-0.20) K/uL PT 18.4 H (9.5-12.0) SEC INR 1.9 Sodium (136-145) mmol/L Potassium (3.5-5.1) mmol/L Chloride (98-107) mmol/L Carbon Dioxide (21.0-32.0) mmol/L BUN (7-18) mg/dL Creatinine (0.51-1.17) mg/dL Est Cr Clr Drug Dosing mL/min Estimated GFR (MDRD) mL/min Glucose (74-106) mg/dL Lactic Acid 1.5 (0.4-2.0) mmol/L Calcium (8.5-10.1) mg/dL Magnesium (1.8-2.4) mg/dL Total Bilirubin (0.2-1.0) mg/dL AST (15-37) U/L ALT (12-78) U/L Alkaline Phosphatase (46-116) IU/L NT-Pro-B Natriuret Pep (0-125) pg/mL Total Protein (6.4-8.2) g/dL Albumin (3.4-5.0) g/dL 03/30/20 Range/Units 20:50 WBC (4.0-10.2) K/uL RBC (3.77-5.09) M/uL Hgb (11.7-15.5) g/dL Hct (34.0-46.0) % MCV (84.0-98.0) fL MCH (28.2-33.3) pg MCHC (31.7-36.0) g/dL RDW (11.2-14.1) % Plt Count (150-350) K/uL Neut % (Auto) (45.0-80.0) % Lymph % (Auto) (10.0-50.0) % [place] % (Auto) (2.0-14.0) % Eos % (Auto) (0.0-5.0) % Baso % (Auto) (0.0-2.0) % Neut # (Auto) (1.40-7.00) K/uL Lymph # (Auto) (0.50-3.50) K/uL [place] # (Auto) (0.00-1.00) K/uL Eos # (Auto) (0.00-0.50) K/uL Baso # (Auto) (0.00-0.20) K/uL PT (9.5-12.0) SEC INR Sodium 135 L (136-145) mmol/L Potassium 4.7 (3.5-5.1) mmol/L Chloride 100 (98-107) mmol/L Carbon Dioxide 27.5 (21.0-32.0) mmol/L BUN 18 (7-18) mg/dL Creatinine 0.89 (0.51-1.17) mg/dL Est Cr Clr Drug Dosing 40.37 mL/min Estimated GFR (MDRD) > 60 mL/min Glucose 205 H (74-106) mg/dL Lactic Acid (0.4-2.0) mmol/L Calcium 8.8 (8.5-10.1) mg/dL Magnesium 1.3 L (1.8-2.4) mg/dL Total Bilirubin 0.2 (0.2-1.0) mg/dL AST 19 (15-37) U/L ALT 20 (12-78) U/L Alkaline Phosphatase 65 (46-116) IU/L NT-Pro-B Natriuret Pep 258 H (0-125) pg/mL Total Protein 7.5 (6.4-8.2) g/dL Albumin 2.6 L (3.4-5.0) g/dL Meds: Medications Discontinued Medications Generic Name Dose Route Start Last Admin Trade Name Freq PRN Reason Stop Dose Admin Acetaminophen 650 mg 03/30/20 20:46 03/30/20 20:56 Tylenol PO 650 mg Q4HR PRN Administration Fever Magnesium Sulfate/Dextrose 1 100 mls @ 100 mls/hr 03/30/20 22:13 03/30/20 22:42 gm/ Premix IV 03/30/20 23:12 100 mls/hr ONETIME ONE Administration Sodium Chloride 10 ml 03/30/20 22:13 Saline Flush FLUSH ASDIRECTED PRN Keep Vein Open - Radiology Interpretation Free Text/Narrative:: Chest xray: no obvious focal new findings/pneumonia noted. COPD - Re-Assessments/Exams Free Text/Narrative Re-Assessment/Exam: 03/30/20 22:19 Mild temp elevation at 38.5 Chest xray/labs/blood cultures ordered. Patient has not been able to produce UA specimen as of yet. Influenza negative. WBC normal. Hgb 8.1 Mag quite low at 1.3 Minimally low sodium. Given patient's active chemo for the multiple myeloma, along with recent inpatient Covid infection, and recent new fevers/worsening fatigue, a call was placed to [facility] in [place]. Patient reviewed with , hospitalist. Plans to transfer patient to [facility] made with as accepting MD. Patient will receive Mag infusion while en route. They will evaluate her further and oncology will be available to consult as needed. Departure - Departure Time of Disposition: 23:00 Disposition: DC/Tfer to Acute Hospital 02 Condition: Good Clinical Impression: Confusion, COVID-19, Hypomagnesemia Multiple myeloma Qualifiers: Multiple myeloma remission status: unspecified Qualified Code(s): C90.00 - Multiple myeloma not having achieved remission Fever Qualifiers: Fever type: unspecified Qualified Code(s): R50.9 - Fever, unspecified - Discharge Information *PRESCRIPTION DRUG MONITORING PROGRAM REVIEWED*: Not Applicable *COPY OF PRESCRIPTION DRUG MONITORING REPORT IN PATIENT NOÉ: Not Applicable Referrals: Johanne Waters NP [Primary Care Provider] - Forms: ED Department Discharge Sepsis Event Note (ED) - Evaluation Sepsis Screening Result: Possible Sepsis Risk - My Orders Last 24 Hours: My Active Orders 03/30/20 20:28 Chest 2V [CR] Stat 03/30/20 20:31 Blood Culture x2 Reflex Set [OM.PC] Stat 03/30/20 20:32 Isolation [COMM] Routine 03/30/20 20:50 CULTURE BLOOD [BC] Stat 03/30/20 20:55 CULTURE BLOOD [BC] Stat 03/30/20 22:13 Saline Lock Insert [OM.PC] Routine - Assessment/Plan Last 24 Hours: My Active Orders 03/30/20 20:28 Chest 2V [CR] Stat 03/30/20 20:31 Blood Culture x2 Reflex Set [OM.PC] Stat 03/30/20 20:32 Isolation [COMM] Routine 03/30/20 20:50 CULTURE BLOOD [BC] Stat 03/30/20 20:55 CULTURE BLOOD [BC] Stat 03/30/20 22:13 Saline Lock Insert [OM.PC] Routine
[2020-03-30 21:23] LABS: CHLORIDE,CL 100 mmol/L (98-107); SODIUM,NA 135 mmol/L (136-145)
[2020-03-30] MEDS ORDERED: Sodium Chloride 0.9% 10 ML Syringe FLUSH PRN (22:13)
[2020-03-30 22:49] VITALS: BP 127/60; PULSE 94
== END 2020-03-30 23:20 ==
LOC: LL.ED 20:26
DX: U07.1 COVID-19 (principal); E83.42 Hypomagnesemia; R41.0 Disorientation, unspecified; C90.00 Multiple myeloma not having achieved remission; I48.91 Unspecified atrial fibrillation; I25.10 Atherosclerotic heart disease of native coronary artery without angina pectoris; I11.0 Hypertensive heart disease with heart failure; I50.9 Heart failure, unspecified; J44.9 Chronic obstructive pulmonary disease, unspecified; E78.5 Hyperlipidemia, unspecified; K21.9 Gastro-esophageal reflux disease without esophagitis; M19.90 Unspecified osteoarthritis, unspecified site; M41.9 Scoliosis, unspecified; E11.51 Type 2 diabetes mellitus with diabetic peripheral angiopathy without gangrene; F41.9 Anxiety disorder, unspecified; F32.9 Major depressive disorder, single episode, unspecified; F17.200 Nicotine dependence, unspecified, uncomplicated; Z88.8 Allergy status to other drugs, medicaments and biological substances; Z79.82 Long term (current) use of aspirin; Z79.01 Long term (current) use of anticoagulants; Z79.4 Long term (current) use of insulin; Z79.899 Other long term (current) drug therapy; Z99.81 Dependence on supplemental oxygen
CPT/HCPCS: 36415; 71046; 80053; 83605; 83735; 83880; 85025; 85610; 87040; 87804; 96365; 99285; A9270; J3475; 99284

== ENCOUNTER 2020-07-25 15:10 | Emergency (ER) | payer MEDICARE, OTHER ==
--- NOTE | 2020-07-25 15:22 | EDM.PDOC ---
ED HPI GENERAL MEDICAL PROBLEM - General Chief Complaint: General Stated Complaint: SOB Time Seen by Provider: 07/25/20 15:17 Source of Information: Reports: Patient History Limitations: Reports: No Limitations - History of Present Illness INITIAL COMMENTS - FREE TEXT/NARRATIVE: Patient comes to ER with complaint of increased weakness and SOB. History of COPD. Still smokes. No fevers/chills. No obvious signs of acute URI/infection. Has chronic cough/seems worse. No other reported acute changes. Has MM and continues to have regular treatment through [facility]. Scheduled bone scan for next week due to increased limb pains. Is on home O2. Hx Covid infection last Feb/Mar. Bilateral Shoulder Pain Score (Numeric/FACES): 7 - Related Data Allergies Allergy/AdvReac Type Severity Reaction Status Date / Time ezetimibe Allergy Cannot Verified 07/25/20 15:12 [From Vytorin 10-10] Remember lisinopril Allergy Cannot Verified 07/25/20 15:12 Remember metformin Allergy Diarrhea Verified 07/25/20 15:12 pioglitazone HCl [From Actos] Allergy Cannot Verified 07/25/20 15:12 Remember rosuvastatin calcium Allergy Diarrhea Verified 07/25/20 15:12 [From Crestor] simvastatin Allergy Cannot Verified 07/25/20 15:12 [From Vytorin 10-10] Remember Home Meds: Home Meds Levothyroxine Sodium [Levoxyl] 25 mcg PO MOWEFR@1100 07/23/13 [History] Simvastatin 40 mg PO BEDTIME 07/23/13 [History] Aspirin [Halfprin] 81 mg PO DAILY 12/18/17 [History] Melatonin/Pyridoxine HCl (B6) [Melatonin 5 mg Tablet] 5 mg PO ASDIRECTED 03/10/18 [History] Albuterol Sulfate [Proair Respiclick] 1 - 2 puff IH Q4H PRN 03/12/18 [History] Albuterol [Proventil Neb Soln] 3 ml INH Q4HR PRN 03/12/18 [History] Calcium Carbonate/Vitamin D3 [Calcium 600 + Vit D Tablet] 1 each PO BID 03/12/18 [History] Cyanocobalamin (Vitamin B-12) [Cyanocobalamin Injection] 1,000 mcg IJ Q30D 03/12/18 [History] Warfarin [Coumadin] 5 mg PO BEDTIME 03/12/18 [History] Arformoterol [Brovana] 15 mcg IH BID 10/15/18 [History] Cholecalciferol (Vitamin D3) [D3-2000] 2,000 unit PO DAILY 10/15/18 [History] Diphenoxylate HCl/Atropine [Lomotil] 1 tab PO Q6H PRN 10/15/18 [History] Nicotine Polacrilex [Nicotine Lozenge] 2 mg BC Q6H PRN 10/15/18 [History] valACYclovir HCl [Valtrex] 500 mg PO BID@0820 10/15/18 [History] Folic Acid 1 mg PO DAILY 12/23/18 [History] dexAMETHasone [Dexamethasone] 5 tab PO WEEKLY 12/23/18 [History] Acetaminophen/Diphenhydramine [Tylenol Pm Ex-Strength Caplet] 1 each PO BEDTIME PRN 03/18/20 [History] Budesonide [Pulmicort] 0.5 mg IH BID 03/18/20 [History] Levothyroxine 37.5 mcg PO SUTUTHSA@11 03/18/20 [History] Magnesium Oxide 800 mg PO BEDTIME 03/18/20 [History] Multivitamin [Multi-Day Vitamins] 1 each PO DAILY 03/18/20 [History] Nystatin 30 ml PO DAILY PRN 03/18/20 [History] Potassium Chloride [Klor-Con 10] 30 meq PO DAILY 03/18/20 [History] diphenhydrAMINE HCL [Benadryl] 25 mg PO Q6H PRN 03/18/20 [History] Insulin Detemir [Levemir Flextouch] 17 unit SQ BEDTIME 07/25/20 [History] Sertraline HCl [Zoloft] 150 mg PO DAILY 07/25/20 [History] Past Medical History HEENT History: Reports: Allergic Rhinitis, Cataract, Impaired Vision, Other (See Below) Other HEENT History: Allergic rhinitis not currently being treated; patient wears glasses. Cardiovascular History: Reports: Afib, Arrhythmia, CAD, Cardiomyopathy, Heart Failure, Heart Murmur, High Cholesterol, Hypertension, PVD, Other (See Below) Other Cardiovascular History: Varicose veins of the lower extremities. Dyslipidemia. Minimal carotid occlusive disease. PVCs. Grade 1 diastolic dysfunction by echocardiogram. Mild aortic valve stenosis by clinical exam with otherwise minimal diffuse vascular disease by echocardiogram. History of d-dimer elevation in February 2018 with negative workup as below. Left atrial enlargementmild by echocardiogram. Respiratory History: Reports: Bronchitis, Recurrent, COPD, Intubation, Previous, Pneumonia, Recurrent, Pulmonary Fibrosis, Other (See Below) Other Respiratory History: O2 dependent COPD with nocturnal use usually. Bilateral pulmonary nodules history of right upper lobe pulmonary mass CT of the chest on 02/28/18. Gastrointestinal History: Reports: Bowel Obstruction, Cholelithiasis, Chronic Diarrhea, Diverticulosis, Fatty Liver, Gastritis, GERD, Helicobacter Pylori, Inflammatory Bowel Disease, Irritable Bowel Syndrome, PUD, Other (See Below) Other Gastrointestinal History: Previously treated C. difficile colitis in 2018. History of recurrent diarrhea secondary to her Crohn's disease including secondary fistula requiring surgery as below. Benign right sided hepatic hemangioma stable by serial CT scans with additional fatty liver and benign hepatic cysts. LFTs elevation likely secondary to fatty liver. Rectus muscle diastasis by CT scan. Mild dysphagia. Genitourinary History: Reports: Renal Calculus, Urinary Incontinence, UTI, Recurrent Other Genitourinary History: History of right-sided urolithiasis with nonproblematic chronic hematuria and spontaneous passage possible last episodeside unknown on 06/23/19. Additional history of benign renal cysts bilaterally. 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 Full term without complications during pregnancies or deliveries. Musculoskeletal History: Reports: Arthritis, Back Pain, Chronic, Fracture, Neck Pain, Chronic, Osteoarthritis, Osteoporosis Other Musculoskeletal History: Scoliosis. Left elbow fracture requiring surgery as below. Neurological History: Reports: Headaches, Chronic Psychiatric History: Reports: Anxiety, Depression Endocrine/Metabolic History: Reports: Diabetes, Type II, Hypokalemia, Hypomagnesemia, Hypothyroidism, IDDM, Osteoporosis, Other (See Below) Other Endocrine/Metabolic History: Hypoalbuminemia. Hematologic History: Reports: Anemia, B12 Deficiency, Other (See Below) Other Hematologic History: Pancytopenia secondary to chemotherapy for her multiple myeloma. Immunologic History: Reports: Immunosuppression, Other (See Below) Other Immunologic History: Chemotherapy for her multiple myeloma. 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 Multiple myeloma diagnosed in February 2018 with further evaluation at the [facility] in [place], including additional chemotherapy currently at [facility]. Dermatologic History: Reports: None - Infectious Disease History Infectious Disease History: Reports: Other (See Below) Other Infectious Disease History: COVID 19 - Past Surgical History Head Surgeries/Procedures: Reports: None HEENT Surgical History: Reports: Adenoidectomy, Cataract Surgery, Oral Surgery, Tonsillectomy, Other (See Below) Other HEENT Surgeries/Procedures: Tonsillectomy and adenoidectomy at age 18. Bilateral cataract surgery in March 2012. Complete teeth extraction with current dentures. Cardiovascular Surgical History: Reports: None Respiratory Surgical History: Reports: None GI Surgical History: Reports: Appendectomy, Cholecystectomy, Colon, Colonoscopy, EGD, Lysis of Adhesions, Small Bowel, Other (See Below) Other GI Surgeries/Procedures: Appendectomy with concomitant small bowel resection in about 1999 secondary to her Crohn's disease. Open cholecystectomy concomitant with her complete hysterectomy in her 50s in about 1997. Partial resection of the ascending colon in 1999 at time of small bowel resection. As colonoscopy on 01/10/15 with previous evaluations on 11/27/07 and 03/12/08. Adhesiolysis in 2005 and 2008. Repeat small bowel resection in 2001. Female Surgical History: Reports: Breast Biopsy, Hysterectomy, Salpingo- Oophorectomy, Other (See Below) Other Female Surgeries/Procedures: Breast biopsy for benign disease in the left breast in about 1999. Complete hysterectomy with bilateral salpingo- oophorectomy in her 50s for unknown reason. Endocrine Surgical History: Reports: None Neurological Surgical History: Reports: None Musculoskeletal Surgical History: Reports: ORIF, Other (See Below) Other Musculoskeletal Surgeries/Procedures:: ORIF/pin placement of the left elbow fracture 1996 Oncologic Surgical History: Reports: Biopsy of Breast, Bone Marrow Aspiration, Other (See Below) Other Oncologic Surgeries/Procedures: Breast biopsy as above for benign disease. Bone marrow fine-needle aspiration and biopsy on 04/20/19, 01/11/18, and 01/05/18. Dermatological Surgical History: Reports: None - Past Imaging History Past Imaging History: Reports: DAVID Screen (DAVID screen with exercise on 07/15/10), Cardiac Echo (Last echocardiogram on 12/27/18 with ejection fraction of 65-70% and findings as above. Previous evaluations on 02/02/18, 09/03/15, and 08/03/07.), Carotid US (07/28/11), CAT Scan (CTA of the chest on 02/28/18. CT of the chest, abdomen, and pelvis on 03/20/19, 04/29/18, and 02/28/18. CT of the abdomen and pelvis on 06/23/[address]. [address] scan of the abdomen including angiographic evaluation on 12/28/17. CT of the abdomen and pelvis on 06/07/17 with multiple previous evaluations including initially on 12/22/12. CTA of the chest and additional abdominal and pelvic CT scans on 08/25/15.), Cystoscopy (Last cystoscopy on 01/17/11 with previous evaluations on 09/04/98 and 08/21/98.), Mammogram (Last mammogram on 04/03/16.), MRI (MRI of the brain on 01/13/19.), Stress Testing (Negative Cardiolite stress test on 09/23/17 with ejection fraction of 27%.), Swallow Study (Borderline positive swallowing study on 01/05/19 previous negative swallowing study on 08/29/15.), Ultrasound (Abdominal ultrasound on 03/03/10 with previous evaluations on 09/04/28 and 08/21/98.), Upper GI X-Ray/Series, Venous Doppler (Of the legs bilaterally on 03/01/18.), Other (See Below) (Barium enema on 09/05/98 and 07/30/98. Camera colonic evaluation in about 2005.) Social & Family History - Family History HEENT: Reports: None Cardiac: Reports: Blood Clots/VTE/DVT, CAD, Heart Valve Replacement, High Cholesterol, Hypertension, OK, Other (See Below) Other Cardiac Family History: Son with DVT in his 40s with mother with DVT in her 70s and 80s. Mother with valve replacement secondary to rheumatic fever. Hyperlipidemia in son, brother, and sister. Hypertension in 4 brothers, parents, and sister. Mother with fatal OK in his 60s. 4 brothers with MIs in their 50s and 60s with one of these having a fatal OK at about age 49. Respiratory: Reports: COPD, Other (See Below) Other Respiratory Family Hisory: Brother with COPD. GI: Reports: GERD, Inflammatory Bowel Disease, Other (See Below) Other GI Family History: Son with GERD. Sister with Crohn's disease. : Reports: Renal Disease/Insufficiency, Other (See Below) Other Family History: Mother with fatal renal disease in her 90s. OBGYN: Reports: None Musculoskeletal: Reports: None Neurological: Reports: Seizure, Other (See Below) Other Neurological Family History: Son with unknown type of seizure disorder in his 40s. Sister with fatal Down's syndrome in her 50s Psychiatric: Reports: Anxiety, Depression, Other (See Below) Other Psychiatric Family History: Brother and son with anxiety depression disorder with sent having problems with alcohol abuse. Endocrine/Metabolic: Reports: Diabetes, type II, IDDM, Other (See Below) Other Endocrine/Metabolic Family History: Mother, sister, and 2 brothers with IDDM. Daughter with prediabetes. Hematologic: Reports: None Immunologic: Reports: None Dermatologic: Reports: None Oncologic: Reports: Breast, Other (See Below) Other Oncologic Family History: Mother with breast cancer in her late 60s. 2 maternal aunts with fatal cancer of unknown type - Caffeine Use Caffeine Use: Reports: Coffee - Living Situation & Occupation Living situation: Reports: (1991 from first with 5 children from this marriage. 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 Denies: Fever, Chills, Diaphoresis HEENT: Denies: Ear Pain, Eye Pain, Rhinitis, Sinus Problem, Throat Pain, Vertigo, Vision Change Respiratory: Reports: Shortness of Breath, Wheezing, Cough. Denies: Pleuritic Chest Pain, Sputum, Hemoptysis Cardiovascular: Denies: Chest Pain, Edema, Lightheadedness, Orthopnea, Palpitations, PND, Syncope GI/Abdominal: Denies: Abdominal Pain, Constipation, Diarrhea, Difficulty Swallowing, Distension, Hematochezia, Nausea, Vomiting : Reports: No Symptoms Musculoskeletal: Reports: Other (limb pain/diffuse) Skin: Denies: Lesions Neurological: Denies: Confusion, Dizziness, Headache, Numbness, Paresthesia, Change in Speech, Gait Disturbance Psychiatric: Reports: No Symptoms Hematologic/Lymphatic: Reports: No Symptoms ED EXAM, GENERAL - Physical Exam Exam: See Below Exam Limited By: No Limitations General Appearance: Alert, WD/WN, No Apparent Distress Ears: Hearing Grossly Normal Nose: No: Nasal Deformity, Nasal Swelling, Nasal Drainage Throat/Mouth: Normal Lips, Normal Voice, No Airway Compromise Head: Atraumatic, Normocephalic Neck: Supple, Non-Tender, Full Range of Motion Respiratory/Chest: No Respiratory Distress, No Accessory Muscle Use, Chest Non- Tender, Wheezing (throughout lungs). No: Crackles, Rales, Rhonchi Cardiovascular: Regular Rate, Rhythm, No Murmur GI/Abdominal: Normal Bowel Sounds, Soft, Non-Tender, No Distention (Female) Exam: Deferred Rectal (Female) Exam: Normal Rectal Tone, Heme - Stool, Hemorrhoids Back Exam: No: CVA Tenderness (L), CVA Tenderness (R), Muscle Spasm Extremities: Normal Range of Motion, No Pedal Edema, Normal Capillary Refill Neurological: Alert, Oriented, Normal Cognition, No Motor/Sensory Deficits Psychiatric: Normal Affect, Normal Mood Skin Exam: Warm, Dry, Intact Course - Vital Signs Last Recorded V/S: Last Vital Signs Temp 37.3 C 07/25/20 18:11 Pulse 97 07/25/20 18:11 Resp 22 H 07/25/20 18:11 BP 123/50 L 07/25/20 18:11 Pulse Ox 92 L 07/25/20 18:11 - Orders/Labs/Meds Orders: Active Orders 24 hr Category Date Time Status Chest 2V [CR] Stat Exams 07/25/20 15:20 Taken Labs: Laboratory Tests 07/25/20 07/25/20 07/25/20 Range/Units 15:30 15:30 15:30 WBC 1.2 L* (4.0-10.2) K/uL RBC 2.16 L (3.77-5.09) M/uL Hgb 6.8 L* D (11.7-15.5) g/dL Hct 22.0 L* (34.0-46.0) % MCV 101.9 H (84.0-98.0) fL MCH 31.5 (28.2-33.3) pg MCHC 30.9 L (31.7-36.0) g/dL RDW 18.7 H (11.2-14.1) % Plt Count 65 L (150-350) K/uL Neut % (Auto) 68.7 (45.0-80.0) % Lymph % (Auto) 26.1 (10.0-50.0) % [place] % (Auto) 5.2 (2.0-14.0) % Eos % (Auto) 0.0 (0.0-5.0) % Baso % (Auto) 0.0 (0.0-2.0) % Neut # (Auto) 0.79 L (1.40-7.00) K/uL Lymph # (Auto) 0.30 L (0.50-3.50) K/uL [place] # (Auto) 0.06 (0.00-1.00) K/uL Eos # (Auto) 0.00 (0.00-0.50) K/uL Baso # (Auto) 0.00 (0.00-0.20) K/uL PT 20.8 H (9.5-12.0) SEC INR 2.1 D-Dimer, Quantitative (0-400) ng/mL Sodium 138 (136-145) mmol/L Potassium 3.9 (3.5-5.1) mmol/L Chloride 103 (98-107) mmol/L Carbon Dioxide 25.4 (21.0-32.0) mmol/L BUN 30 H (7-18) mg/dL Creatinine 1.30 H (0.51-1.17) mg/dL Est Cr Clr Drug Dosing 29.80 mL/min Estimated GFR (MDRD) 39 mL/min Glucose 211 H (70-99) mg/dL Lactic Acid (0.4-2.0) mmol/L Calcium 8.3 L (8.5-10.1) mg/dL Magnesium 1.6 L (1.8-2.4) mg/dL Total Bilirubin 0.1 L (0.2-1.0) mg/dL AST 25 (15-37) U/L ALT 21 (12-78) U/L Alkaline Phosphatase 56 (46-116) IU/L Troponin I 0.010 (0.000-0.056) ng/mL NT-Pro-B Natriuret Pep 2683 H (0-125) pg/mL Total Protein 7.3 (6.4-8.2) g/dL Albumin 2.6 L (3.4-5.0) g/dL 07/25/20 07/25/20 Range/Units 15:30 15:30 WBC (4.0-10.2) K/uL RBC (3.77-5.09) M/uL Hgb (11.7-15.5) g/dL Hct (34.0-46.0) % MCV (84.0-98.0) fL MCH (28.2-33.3) pg MCHC (31.7-36.0) g/dL RDW (11.2-14.1) % Plt Count (150-350) K/uL Neut % (Auto) (45.0-80.0) % Lymph % (Auto) (10.0-50.0) % [place] % (Auto) (2.0-14.0) % Eos % (Auto) (0.0-5.0) % Baso % (Auto) (0.0-2.0) % Neut # (Auto) (1.40-7.00) K/uL Lymph # (Auto) (0.50-3.50) K/uL [place] # (Auto) (0.00-1.00) K/uL Eos # (Auto) (0.00-0.50) K/uL Baso # (Auto) (0.00-0.20) K/uL PT (9.5-12.0) SEC INR D-Dimer, Quantitative 816 H (0-400) ng/mL Sodium (136-145) mmol/L Potassium (3.5-5.1) mmol/L Chloride (98-107) mmol/L Carbon Dioxide (21.0-32.0) mmol/L BUN (7-18) mg/dL Creatinine (0.51-1.17) mg/dL Est Cr Clr Drug Dosing mL/min Estimated GFR (MDRD) mL/min Glucose (70-99) mg/dL Lactic Acid 0.8 (0.4-2.0) mmol/L Calcium (8.5-10.1) mg/dL Magnesium (1.8-2.4) mg/dL Total Bilirubin (0.2-1.0) mg/dL AST (15-37) U/L ALT (12-78) U/L Alkaline Phosphatase (46-116) IU/L Troponin I (0.000-0.056) ng/mL NT-Pro-B Natriuret Pep (0-125) pg/mL Total Protein (6.4-8.2) g/dL Albumin (3.4-5.0) g/dL Meds: Medications Discontinued Medications Generic Name Dose Route Start Last Admin Trade Name Freq PRN Reason Stop Dose Admin Albuterol/Ipratropium 3 ml 07/25/20 15:25 07/25/20 15:29 Albuterol/Ipratropium 3.0-0.5 Mg/3 Ml Neb Soln NEB 07/25/20 15:26 3 ml ONETIME ONE Administration - Re-Assessments/Exams Free Text/Narrative Re-Assessment/Exam: 07/25/20 17:12 Chest xray and labs performed. No obvious change in chest film. COPD noted. No focal pneumonia. INR therapeutic. WBC 1.2 (immunosuppressed) Hgb 6.8 Mild elevation BUN/Cr/Ddimer. [facility] contacted and arrangements made to transfer patient to their facility for further workup. She will require transfusion and has pending bone scan at their facility. Given that she is therapeutic on Warfarin, and the low Hgb would be a cause for increased weakness/SOB, we will not order a PE scan prior to transfer. DuoNeb given in ER. Dr.McGill jacinto ALY at [facility]. Departure - Departure Time of Disposition: 18:30 Disposition: DC/Tfer to Acute Hospital 02 Condition: Fair Clinical Impression: Symptomatic anemia - Discharge Information *PRESCRIPTION DRUG MONITORING PROGRAM REVIEWED*: Not Applicable *COPY OF PRESCRIPTION DRUG MONITORING REPORT IN PATIENT NOÉ: Not Applicable Referrals: Johanne Waters NP [Primary Care Provider] - Forms: ED Department Discharge Sepsis Event Note (ED) - Evaluation Sepsis Screening Result: Possible Severe Sepsis Risk - My Orders Last 24 Hours: My Active Orders 07/25/20 15:20 Chest 2V [CR] Stat - Assessment/Plan Last 24 Hours: My Active Orders 07/25/20 15:20 Chest 2V [CR] Stat
[2020-07-25] MEDS ORDERED: Albuterol/Ipratropium 3.0-0.5 MG/3 ML Neb Soln NEB ONE (15:25)
[2020-07-25 18:49] VITALS: PULSE 97
[2020-07-25 18:50] VITALS: BP 123/50
== END 2020-07-25 18:40 ==
LOC: LL.ED 15:10
DX: D64.9 Anemia, unspecified (principal); I48.91 Unspecified atrial fibrillation; I25.10 Atherosclerotic heart disease of native coronary artery without angina pectoris; I11.0 Hypertensive heart disease with heart failure; I50.9 Heart failure, unspecified; E78.5 Hyperlipidemia, unspecified; J44.9 Chronic obstructive pulmonary disease, unspecified; M19.90 Unspecified osteoarthritis, unspecified site; E11.9 Type 2 diabetes mellitus without complications; E03.9 Hypothyroidism, unspecified; Z86.16 Personal history of COVID-19; Z88.8 Allergy status to other drugs, medicaments and biological substances; Z79.82 Long term (current) use of aspirin; Z79.01 Long term (current) use of anticoagulants; Z79.4 Long term (current) use of insulin; Z79.899 Other long term (current) drug therapy
CPT/HCPCS: 36415; 71046; 80053; 82272; 83605; 83735; 83880; 84484; 85025; 85379; 85610; 93005; 99284; 99285-25; J7620-GY

== ENCOUNTER 2020-09-22 17:07 | Emergency (ER) | payer MEDICARE, OTHER ==
[2020-09-22] MEDS ORDERED: Sodium Chloride 0.9% 10 ML Syringe FLUSH PRN (17:23)
[2020-09-22 17:56] LABS: CHLORIDE,CL 102 mmol/L (98-107); SODIUM,NA 135 mmol/L (136-145)
--- NOTE | 2020-09-22 18:32 | EDM.PDOC ---
ED HPI GENERAL MEDICAL PROBLEM - General Chief Complaint: Cardiovascular Problem Stated Complaint: SOB, fatigue Time Seen by Provider: 09/22/20 17:44 Source of Information: Reports: Patient, Family History Limitations: Reports: No Limitations - History of Present Illness INITIAL COMMENTS - FREE TEXT/NARRATIVE: Patient brought in by daughter with complaint of 1 to 1 1/2 week history of multiple issues. Complains of increased fatigue/sleeping, cough, nausea, emesis, loose stools, chills, sweats, and fever. Some are intermittent. Fatigue is constant. Was started on two new chemo meds just prior to symptoms developing, Ninlaro and Pomalyst. Has been on weekly infusion treatment prior to that for past year or so. Daughter recalls that patient was on one of these oral med ications before prior to the infusion treatment and had similar symptoms that she attributed to the pill. They resolved once pill discontinued. No URI complaints. Appetite poor. Is on home O2 for COPD and was noted by daughter to be down in low 80s for saturation earlier today. Is in upper 90s here in ER on usual 2L via NC. - Related Data Allergies Allergy/AdvReac Type Severity Reaction Status Date / Time ezetimibe Allergy Cannot Verified 09/22/20 17:25 [From Vytorin 10-10] Remember lisinopril Allergy Cannot Verified 09/22/20 17:25 Remember metformin Allergy Diarrhea Verified 09/22/20 17:25 pioglitazone HCl [From Actos] Allergy Cannot Verified 09/22/20 17:25 Remember rosuvastatin calcium Allergy Diarrhea Verified 09/22/20 17:25 [From Crestor] simvastatin Allergy Cannot Verified 09/22/20 17:25 [From Vytorin 10-10] Remember Home Meds: Home Meds Levothyroxine Sodium [Levoxyl] 25 mcg PO MOWEFR@1100 07/23/13 [History] Aspirin [Halfprin] 81 mg PO DAILY 12/18/17 [History] Melatonin/Pyridoxine HCl (B6) [Melatonin-Vit B6 5-10 mg Tab] 5 mg PO ASDIRECTED 03/10/18 [History] Albuterol Sulfate [Proair Respiclick] 1 - 2 puff IH Q4H PRN 03/12/18 [History] Albuterol [Proventil Neb Soln] 3 ml INH Q4HR PRN 03/12/18 [History] Calcium Carbonate/Vitamin D3 [Calcium 600 + Vit D Tablet] 1 each PO BID 03/12/18 [History] Warfarin [Coumadin] 5 mg PO BEDTIME 03/12/18 [History] Arformoterol [Brovana] 15 mcg IH BID 10/15/18 [History] Cholecalciferol (Vitamin D3) [D3-2000] 2,000 unit PO DAILY 10/15/18 [History] Diphenoxylate HCl/Atropine [Lomotil] 1 tab PO Q6H PRN 10/15/18 [History] Nicotine Polacrilex [Nicotine Lozenge] 2 mg BC Q6H PRN 10/15/18 [History] valACYclovir HCl [Valtrex] 500 mg PO BID@0820 10/15/18 [History] Folic Acid 1 mg PO DAILY 12/23/18 [History] dexAMETHasone [Dexamethasone] 5 tab PO WEEKLY 12/23/18 [History] Acetaminophen/Diphenhydramine [Tylenol Pm Ex-Strength Caplet] 1 each PO BEDTIME PRN 03/18/20 [History] Budesonide [Pulmicort] 0.5 mg IH BID 03/18/20 [History] Levothyroxine 37.5 mcg PO SUTUTHSA@11 03/18/20 [History] Magnesium Oxide 800 mg PO BEDTIME 03/18/20 [History] Multivitamin [Multi-Day Vitamins] 1 each PO DAILY 03/18/20 [History] Nystatin 30 ml PO DAILY PRN 03/18/20 [History] Potassium Chloride [Klor-Con 10] 30 meq PO DAILY 03/18/20 [History] diphenhydrAMINE HCL [Benadryl] 25 mg PO Q6H PRN 03/18/20 [History] Insulin Detemir [Levemir Flextouch] 24 unit SQ BEDTIME 07/25/20 [History] Sertraline HCl [Zoloft] 150 mg PO BEDTIME 07/25/20 [History] Benzonatate 100 mg PO TID 09/22/20 [History] Cyanocobalamin (Vitamin B-12) [B-12] 1,000 mcg PO DAILY 09/22/20 [History] Diphenoxylate HCl/Atropine [Lomotil Tablet] 1 each PO Q6HR PRN 09/22/20 [H istory] Ixazomib Citrate [Ninlaro] 1 cap PO ASDIRECTED 09/22/20 [History] LORazepam [Ativan] 0.5 mg PO ASDIRECTED 09/22/20 [History] Megestrol [Megace 40 MG/ML Susp] 40 mg PO DAILY 09/22/20 [History] Pomalidomide [Pomalyst] 2 mg PO ASDIRECTED 09/22/20 [History] Sulfamethoxazole/Trimethoprim [Sulfamethoxazole-Tmp Ds Tablet] 1 tab PO Q2D 09/22/20 [History] Warfarin [Coumadin] 1 mg PO TH 09/22/20 [History] amLODIPine Besylate [Amlodipine Besylate] 10 mg PO DAILY 09/22/20 [History] oxyCODONE 1 - 2 tab PO Q4H PRN 09/22/20 [History] Past Medical History HEENT History: Reports: Allergic Rhinitis, Cataract, Impaired Vision, Other (See Below) Other HEENT History: Allergic rhinitis not currently being treated; patient wears glasses. Cardiovascular History: Reports: Afib, Arrhythmia, CAD, Cardiomyopathy, Heart Failure, Heart Murmur, High Cholesterol, Hypertension, PVD, Other (See Below) Other Cardiovascular History: Varicose veins of the lower extremities. Dyslipidemia. Minimal carotid occlusive disease. PVCs. Grade 1 diastolic dysfunction by echocardiogram. Mild aortic valve stenosis by clinical exam with otherwise minimal diffuse vascular disease by echocardiogram. History of d-dimer elevation in February 2018 with negative workup as below. Left atrial enlargementmild by echocardiogram. Respiratory History: Reports: Bronchitis, Recurrent, COPD, Intubation, Previous, Pneumonia, Recurrent, Pulmonary Fibrosis, Other (See Below) Other Respiratory History: O2 dependent COPD with nocturnal use usually. Bilateral pulmonary nodules history of right upper lobe pulmonary mass CT of the chest on 02/28/18. Gastrointestinal History: Reports: Bowel Obstruction, Cholelithiasis, Chronic Diarrhea, Diverticulosis, Fatty Liver, Gastritis, GERD, Helicobacter Pylori, Inflammatory Bowel Disease, Irritable Bowel Syndrome, PUD, Other (See Below) Other Gastrointestinal History: Previously treated C. difficile colitis in 2018. History of recurrent diarrhea secondary to her Crohn's disease including secondary fistula requiring surgery as below. Benign right sided hepatic hemangioma stable by serial CT scans with additional fatty liver and benign hepatic cysts. LFTs elevation likely secondary to fatty liver. Rectus muscle diastasis by CT scan. Mild dysphagia. Genitourinary History: Reports: Renal Calculus, Urinary Incontinence, UTI, Recurrent Other Genitourinary History: History of right-sided urolithiasis with nonproblematic chronic hematuria and spontaneous passage possible last episodeside unknown on 06/23/19. Additional history of benign renal cysts bilaterally. ARCHITECTURE DEPARTMENT CHAIR History: Reports: Other ARCHITECTURE DEPARTMENT CHAIR History: Surgical menopause as below. Full term without complications during pregnancies or deliveries. Musculoskeletal History: Reports: Arthritis, Back Pain, Chronic, Fracture, Neck Pain, Chronic, Osteoarthritis, Osteoporosis Other Musculoskeletal History: Scoliosis. Left elbow fracture requiring surgery as below. Neurological History: Reports: Headaches, Chronic Psychiatric History: Reports: Anxiety, Depression Endocrine/Metabolic History: Reports: Diabetes, Type II, Hypokalemia, Hypomagnesemia, Hypothyroidism, IDDM, Osteoporosis, Other (See Below) Other Endocrine/Metabolic History: Hypoalbuminemia. Hematologic History: Reports: Anemia, B12 Deficiency, Other (See Below) Other Hematologic History: Pancytopenia secondary to chemotherapy for her multiple myeloma. Immunologic History: Reports: Immunosuppression, Other (See Below) Other Immunologic History: Chemotherapy for her multiple myeloma. 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 Multiple myeloma diagnosed in February 2018 with further evaluation at the [facility] in [place], including additional chemotherapy currently at [facility]. Dermatologic History: Reports: None - Infectious Disease History Infectious Disease History: Reports: Other (See Below) Other Infectious Disease History: COVID 19 - Past Surgical History Head Surgeries/Procedures: Reports: None HEENT Surgical History: Reports: Adenoidectomy, Cataract Surgery, Oral Surgery, Tonsillectomy, Other (See Below) Other HEENT Surgeries/Procedures: Tonsillectomy and adenoidectomy at age 18. Bilateral cataract surgery in March 2012. Complete teeth extraction with current dentures. Cardiovascular Surgical History: Reports: None Respiratory Surgical History: Reports: None GI Surgical History: Reports: Appendectomy, Cholecystectomy, Colon, Colonoscopy, EGD, Lysis of Adhesions, Small Bowel, Other (See Below) Other GI Surgeries/Procedures: Appendectomy with concomitant small bowel resect ion in about 1999 secondary to her Crohn's disease. Open cholecystectomy concomitant with her complete hysterectomy in her 50s in about 1997. Partial resection of the ascending colon in 1999 at time of small bowel resection. As colonoscopy on 01/10/15 with previous evaluations on 11/27/07 and 03/12/08. Adhesiolysis in 2005 and 2008. Repeat small bowel resection in 2001. Female Surgical History: Reports: Breast Biopsy, Hysterectomy, Salpingo- Oophorectomy, Other (See Below) Other Female Surgeries/Procedures: Breast biopsy for benign disease in the left breast in about 1999. Complete hysterectomy with bilateral salpingo- oophorectomy in her 50s for unknown reason. Endocrine Surgical History: Reports: None Neurological Surgical History: Reports: None Musculoskeletal Surgical History: Reports: ORIF, Other (See Below) Other Musculoskeletal Surgeries/Procedures:: ORIF/pin placement of the left elbow fracture 1996 Oncologic Surgical History: Reports: Biopsy of Breast, Bone Marrow Aspiration, Other (See Below) Other Oncologic Surgeries/Procedures: Breast biopsy as above for benign disease. Bone marrow fine-needle aspiration and biopsy on 04/20/19, 01/11/18, and 01/05/18. Bone marrow biopsy 09/03/2020 Dermatological Surgical History: Reports: None - Past Imaging History Past Imaging History: Reports: DAVID Screen (DAVID screen with exercise on 07/15/10), Cardiac Echo (Last echocardiogram on 12/27/18 with ejection fraction of 65-70% and findings as above. Previous evaluations on 02/02/18, 09/03/15, and 08/03/07.), Carotid US (07/28/11), CAT Scan (CTA of the chest on 02/28/18. CT of the chest, abdomen, and pelvis on 03/20/19, 04/29/18, and 02/28/18. CT of the abdomen and pelvis on 06/23/[address]. [address] scan of the abdomen including angiographic evaluation on 12/28/17. CT of the abdomen and pelvis on 06/07/17 with multiple previous evaluations including initially on 12/22/12. CTA of the chest and additional abdominal and pelvic CT scans on 08/25/15.), Cystoscopy (Last cystoscopy on 01/17/11 with previous evaluations on 09/04/98 and 08/21/98.), Mammogram (Last mammogram on 04/03/16.), MRI (MRI of the brain on 01/13/19.), Stress Testing (Negative Cardiolite stress test on 09/23/17 with ejection fraction of 27%.), Swallow Study (Borderline positive swallowing study on 01/05/19 previous negative swallowing study on 08/29/15.), Ultrasound (Abdominal ultrasound on 03/03/10 with previous evaluations on 09/04/28 and 08/21/98.), Upper GI X-Ray/Series, Venous Doppler (Of the legs bilaterally on 03/01/18.), Other (See Below) (Barium enema on 09/05/98 and 07/30/98. Camera colonic evaluation in about 2005.) Social & Family History - Family History HEENT: Reports: None Cardiac: Reports: Blood Clots/VTE/DVT, CAD, Heart Valve Replacement, High Cholesterol, Hypertension, MT, Other (See Below) Other Cardiac Family History: Son with DVT in his 40s with mother with DVT in her 70s and 80s. Mother with valve replacement secondary to rheumatic fever. Hyperlipidemia in son, brother, and sister. Hypertension in 4 brothers, parents, and sister. Mother with fatal MT in his 60s. 4 brothers with MIs in their 50s and 60s with one of these having a fatal MT at about age 49. Respiratory: Reports: COPD, Other (See Below) Other Respiratory Family Hisory: Brother with COPD. GI: Reports: GERD, Inflammatory Bowel Disease, Other (See Below) Other GI Family History: Son with GERD. Sister with Crohn's disease. : Reports: Renal Disease/Insufficiency, Other (See Below) Other Family History: Mother with fatal renal disease in her 90s. OBGYN: Reports: None Musculoskeletal: Reports: None Neurological: Reports: Seizure, Other (See Below) Other Neurological Family History: Son with unknown type of seizure disorder in his 40s. Sister with fatal Down's syndrome in her 50s Psychiatric: Reports: Anxiety, Depression, Other (See Below) Other Psychiatric Family History: Brother and son with anxiety depression disorder with sent having problems with alcohol abuse. Endocrine/Metabolic: Reports: Diabetes, type II, IDDM, Other (See Below) Other Endocrine/Metabolic Family History: Mother, sister, and 2 brothers with IDDM. Daughter with prediabetes. Hematologic: Reports: None Immunologic: Reports: None Dermatologic: Reports: None Oncologic: Reports: Breast, Other (See Below) Other Oncologic Family History: Mother with breast cancer in her late 60s. 2 maternal aunts with fatal cancer of unknown type - Tobacco Use Tobacco Use Status *Q: Current Every Day Tobacco User - Caffeine Use Caffeine Use: Reports: Coffee, Soda Other Caffeine Use: 4cups coffee/2 bottles of pepsi per day - Living Situation & Occupation Living situation: Reports: (1991 from first with 5 children from this marriage. 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 (No other acute changes from baseline) ED EXAM, GENERAL - Physical Exam Exam: See Below Exam Limited By: No Limitations General Appearance: Other (awake, answers questions. Appears more fatigued than usual. ) Eye Exam: Bilateral Eye: EOMI, PERRL Ears: Hearing Grossly Normal Nose: No: Nasal Deformity, Nasal Swelling, Nasal Drainage Throat/Mouth: Normal Lips, Normal Voice, No Airway Compromise Head: Atraumatic, Normocephalic Neck: Supple, Non-Tender, Full Range of Motion Respiratory/Chest: No Respiratory Distress, Chest Non-Tender, Rhonchi (bilat), Wheezing (bilat). No: Rales, Stridor, Pleural Rub, Accessory Muscle Use, Retractions, Splinting Cardiovascular: Normal Peripheral Pulses, Regular Rate, Rhythm, No Murmur GI/Abdominal: Normal Bowel Sounds, Soft, Non-Tender, No Distention (Female) Exam: Deferred Rectal (Female) Exam: Deferred Back Exam: No: CVA Tenderness (L), CVA Tenderness (R), Muscle Spasm Extremities: Non-Tender, No Pedal Edema, Normal Capillary Refill, Other (equal tone/stregnth) Neurological: Alert, Oriented, Normal Cognition Psychiatric: Normal Affect, Normal Mood Skin Exam: Warm, Dry, Intact, Normal Color Course - Vital Signs Last Recorded V/S: Last Vital Signs Temp 37.0 C 09/22/20 17:09 Pulse 79 09/22/20 18:30 Resp 19 09/22/20 18:30 BP 116/45 L 09/22/20 18:30 Pulse Ox 99 09/22/20 18:30 - Orders/Labs/Meds Orders: Active Orders 24 hr Category Date Time Status Peripheral IV Care [RC] . DIRECTED Care 09/22/20 17:24 Active CXR [Chest 2V] [CR] Stat Exams 09/22/20 17:22 Taken UA W/MICROSCOPIC [URIN] Stat Lab 09/22/20 17:23 Ordered Sodium Chloride 0.9% [Normal Saline] 1,000 ml Med 09/22/20 19:12 Active IV .BOLUS Sodium Chloride 0.9% [Saline Flush] Med 09/22/20 17:23 Active 10 ml FLUSH ASDIRECTED PRN Peripheral IV Insertion Adult [OM.PC] Routine Oth 09/22/20 17:23 Ordered Medication Orders Sodium Chloride (Normal Saline) 1,000 mls @ 250 mls/hr IV .BOLUS ONE Stop: 09/22/20 23:11 Last Admin: 09/22/20 19:41 Dose: 250 mls/hr Documented by: LEVOBRO Sodium Chloride (Sodium Chloride 0.9% 10 Ml Syringe) 10 ml FLUSH ASDIRECTED PRN PRN Reason: Keep Vein Open Labs: Laboratory Tests 09/22/20 09/22/20 09/22/20 Range/Units 17:30 17:30 17:30 WBC 2.9 L (4.0-10.2) K/uL RBC 2.39 L (3.77-5.09) M/uL Hgb 7.5 L D (11.7-15.5) g/dL Hct 24.0 L* (34.0-46.0) % MCV 100.4 H (84.0-98.0) fL MCH 31.4 (28.2-33.3) pg MCHC 31.3 L (31.7-36.0) g/dL RDW 20.0 H (11.2-14.1) % Plt Count 104 L (150-350) K/uL Neut % (Auto) 65.3 (45.0-80.0) % Lymph % (Auto) 27.5 (10.0-50.0) % Gaines % (Auto) 4.8 (2.0-14.0) % Eos % (Auto) 2.1 (0.0-5.0) % Baso % (Auto) 0.3 (0.0-2.0) % Neut # (Auto) 1.90 (1.40-7.00) K/uL Lymph # (Auto) 0.80 (0.50-3.50) K/uL Gaines # (Auto) 0.14 (0.00-1.00) K/uL Eos # (Auto) 0.06 (0.00-0.50) K/uL Baso # (Auto) 0.01 (0.00-0.20) K/uL PT (9.5-12.0) SEC INR D-Dimer, Quantitative 538 H (0-400) ng/mL Sodium 135 L (136-145) mmol/L Potassium 4.0 (3.5-5.1) mmol/L Chloride 102 (98-107) mmol/L Carbon Dioxide 28.0 (21.0-32.0) mmol/L BUN 17 (7-18) mg/dL Creatinine 0.75 (0.51-1.17) mg/dL Est Cr Clr Drug Dosing 50.98 mL/min Estimated GFR (MDRD) > 60 mL/min Glucose 177 H (70-99) mg/dL Lactic Acid (0.4-2.0) mmol/L Calcium 8.6 (8.5-10.1) mg/dL Total Bilirubin 0.2 (0.2-1.0) mg/dL AST 14 L (15-37) U/L ALT 17 (12-78) U/L Alkaline Phosphatase 73 (46-116) IU/L Troponin I 0.000 (0.000-0.056) ng/mL NT-Pro-B Natriuret Pep 1069 H (0-125) pg/mL Total Protein 8.9 H (6.4-8.2) g/dL Albumin 2.5 L (3.4-5.0) g/dL 09/22/20 09/22/20 Range/Units 17:30 17:58 WBC (4.0-10.2) K/uL RBC (3.77-5.09) M/uL Hgb (11.7-15.5) g/dL Hct (34.0-46.0) % MCV (84.0-98.0) fL MCH (28.2-33.3) pg MCHC (31.7-36.0) g/dL RDW (11.2-14.1) % Plt Count (150-350) K/uL Neut % (Auto) (45.0-80.0) % Lymph % (Auto) (10.0-50.0) % Gaines % (Auto) (2.0-14.0) % Eos % (Auto) (0.0-5.0) % Baso % (Auto) (0.0-2.0) % Neut # (Auto) (1.40-7.00) K/uL Lymph # (Auto) (0.50-3.50) K/uL Gaines # (Auto) (0.00-1.00) K/uL Eos # (Auto) (0.00-0.50) K/uL Baso # (Auto) (0.00-0.20) K/uL PT 21.0 H (9.5-12.0) SEC INR 2.1 D-Dimer, Quantitative (0-400) ng/mL Sodium (136-145) mmol/L Potassium (3.5-5.1) mmol/L Chloride (98-107) mmol/L Carbon Dioxide (21.0-32.0) mmol/L BUN (7-18) mg/dL Creatinine (0.51-1.17) mg/dL Est Cr Clr Drug Dosing mL/min Estimated GFR (MDRD) mL/min Glucose (70-99) mg/dL Lactic Acid 0.4 (0.4-2.0) mmol/L Calcium (8.5-10.1) mg/dL Total Bilirubin (0.2-1.0) mg/dL AST (15-37) U/L ALT (12-78) U/L Alkaline Phosphatase (46-116) IU/L Troponin I (0.000-0.056) ng/mL NT-Pro-B Natriuret Pep (0-125) pg/mL Total Protein (6.4-8.2) g/dL Albumin (3.4-5.0) g/dL Meds: Medications Generic Name Dose Route Start Last Admin Trade Name Freq PRN Reason Stop Dose Admin Sodium Chloride 1,000 mls @ 250 mls/hr 09/22/20 19:12 09/22/20 19:41 Normal Saline IV 09/22/20 23:11 250 mls/hr .BOLUS ONE Administration Sodium Chloride 10 ml 09/22/20 17:23 Sodium Chloride 0.9% 10 Ml Syringe FLUSH ASDIRECTED PRN Keep Vein Open - Re-Assessments/Exams Free Text/Narrative Re-Assessment/Exam: 09/22/20 19:26 Labs/xray ordered. No acute infiltrate suggestive of pneumonia noted. WBC and platelets low. Hgb 7.5 Patient is chronically low, and had recent Hgb at [facility] of 7.6. Normal lactic acid. Ddimer 538 Mild elevation. Has chronic ddimer elevation historically. She is at therapeutic INR and has thrombocytopenia. Low risk for PE. Glu 177 Mild elevation of proBNP. No evidence of significant fluid overload noted on radha st xray or exam. Patient noted to roll over on her side and sleep while labs pending. O2 sats remained in high 90s. Given her complex history it was felt best to transfer her to [facility] in [place] where Oncology can see her. The current changes are all listed as common side effects that can be caused by the new med regimen. Again, she had similar issues when on one of the meds in the past. Cannot definitively rule out an infection or other process as contributing. Patient unable to void while in ER to run UA. Low Hgb may be contributing to the fatigue. She is chronically low but is noted to be below 8 tonight. Call placed to [facility] and patient reviewed with from ER. He accepted patient for transfer. They will draw blood cultures at their facility and decide if any additional acute interventions such as antibiotics/chest CT etc are indicated. Patient and her daughter are in agreement with plan. IV NS started during stay. Departure - Departure Time of Disposition: 19:42 Disposition: DC/Tfer to Acute Hospital 02 Reason for Transfer *Q: Other Condition: Fair Clinical Impression: Weakness generalized, Nausea vomiting and diarrhea, Cough Multiple myeloma Qualifiers: Multiple myeloma remission status: unspecified Qualified Code(s): C90.00 - Multiple myeloma not having achieved remission Anemia Qualifiers: Anemia type: unspecified type Qualified Code(s): D64.9 - Anemia, unspecified Referrals: Johanne Waters EXTENSION COURSE COORDINATOR [Primary Care Provider] - Forms: ED Department Discharge Sepsis Event Note (ED) - Evaluation Sepsis Screening Result: Possible Sepsis Risk - Focused Exam Vital Signs: Vital Signs Temp Pulse Resp BP BP Pulse Ox 09/22/20 18:30 79 19 116/45 L 99 09/22/20 18:15 84 20 119/41 L 95 09/22/20 17:58 87 19 139/61 95 09/22/20 17:44 84 19 132/59 L 98 09/22/20 17:28 89 130/67 09/22/20 17:13 90 134/64 97 09/22/20 17:09 37.0 C 92 24 H 145/56 H 98 - My Orders Last 24 Hours: My Active Orders 09/22/20 17:22 CXR [Chest 2V] [CR] Stat 09/22/20 17:23 UA W/MICROSCOPIC [URIN] Stat Sodium Chloride 0.9% [Saline Flush] 10 ml FLUSH ASDIRECTED PRN Peripheral IV Insertion Adult [OM.PC] Routine 09/22/20 17:24 Peripheral IV Care [RC] . DIRECTED 09/22/20 19:12 Sodium Chloride 0.9% [Normal Saline] 1,000 ml IV .BOLUS - Assessment/Plan Last 24 Hours: My Active Orders 09/22/20 17:22 CXR [Chest 2V] [CR] Stat 09/22/20 17:23 UA W/MICROSCOPIC [URIN] Stat Sodium Chloride 0.9% [Saline Flush] 10 ml FLUSH ASDIRECTED PRN Peripheral IV Insertion Adult [OM.PC] Routine 09/22/20 17:24 Peripheral IV Care [RC] . DIRECTED 09/22/20 19:12 Sodium Chloride 0.9% [Normal Saline] 1,000 ml IV .BOLUS
[2020-09-22] MEDS ORDERED: Sodium Chloride 0.9% 1,000 ML IV ONE (19:12)
[2020-09-22 20:13] VITALS: PULSE 79
[2020-09-22 20:14] VITALS: BP 112/47
== END 2020-09-22 19:54 ==
LOC: LL.ED 17:07
DX: D64.9 Anemia, unspecified (principal); R11.2 Nausea with vomiting, unspecified; R19.7 Diarrhea, unspecified; R05 Cough; C90.00 Multiple myeloma not having achieved remission; I48.91 Unspecified atrial fibrillation; I25.10 Atherosclerotic heart disease of native coronary artery without angina pectoris; I11.0 Hypertensive heart disease with heart failure; I50.9 Heart failure, unspecified; J44.9 Chronic obstructive pulmonary disease, unspecified; E11.9 Type 2 diabetes mellitus without complications; M19.90 Unspecified osteoarthritis, unspecified site; M41.9 Scoliosis, unspecified; Z88.8 Allergy status to other drugs, medicaments and biological substances; Z79.01 Long term (current) use of anticoagulants; Z79.899 Other long term (current) drug therapy; Z79.82 Long term (current) use of aspirin; Z79.4 Long term (current) use of insulin
CPT/HCPCS: 36415; 71046; 80053; 83605; 83880; 84484; 85025; 85379; 85610; 99284; 99285-25; J7030